=== PATIENT | male | born 1965 | race Caucasian/White ===

== ENCOUNTER → 2017-11-27 10:01 | Outpatient (CLI) | payer OTHER, SELFPAY ==
[2017-11-27 12:29] LABS: Absolute Lymphocyte Count 1.32 X10^3/ul (0.83-4.51); Basophil# 0.03 X10^3/uL; Basophil% 0.4 % (0-1); Eosinophil# 0.13 X10^3/uL; Eosinophils% 1.8 % (0-5); Hematocrit 44.2 % (40-54); Hemoglobin 14.6 g/dl (13.0-16.5); Lymphocyte # 1.32 X10^3/ul (4.0); Lymphocyte % 18.4 % (19-41); Mean Corpuscular Volume 87.9 fL (80-94); Mean Platelet Vol. 10.8 fl (6.2-12.0); Monocyte# 0.63 X10^3/uL; Monocyte% 8.8 % (0-10); Neutrophil # 5.04 X10^3/uL (2.7-7.7); Neutrophil % 70.5 % (47-70); Platelet Count 217 K/mm3 (150-450); RBC Distribution Width CV 12.7 % (11.6-14.6); RBC Distribution Width SD 40.4 fl (35.1-43.9); Red Blood Count 5.03 M/mm3 (4.6-6.2); White Blood Count 7.2 K/mm3 (4.4-11.0)
[2017-11-27 12:43] LABS: POSITIVE COUNT NO; POSITIVE DIFFERENTIAL NO; POSITIVE MORPHOLOGY NO
[2017-11-27 12:55] LABS: ALB/GLOB Ratio 1.1 RATIO (0.9-2.4); AST(SGOT) 13 U/L (15-37); Alanine Aminotransfer ALT/SGPT 22 U/L (16-61); Albumin, Serum 3.7 g/dL (3.2-5.0); Alkaline Phosphatase 54 U/L (45-117); Anion Gap 8 (5-15); BUN 23 mg/dL (7-18); BUN/Creat Ratio 17.3 RATIO (10-20); Calcium,Total 8.6 mg/dL (8.5-10.1); Chloride 104 mmol/L (98-107); Creatinine, Serum 1.33 mg/dL (0.70-1.30); EST Glomerular Filtration Rate 60 mL/min (>60); Est Glom Filt Rate - Afr Amer 73 mL/min (>60); Globulin 3.3 g/dL (2.2-4.2); Glucose 69 mg/dL (74-106); Potassium 3.8 mmol/L (3.5-5.1); Sodium Level 140 mmol/L (136-145)
== END ==
LOC: MTLAB 10:04
PROVIDERS: Visit Provider Internal Medicine Rheumatology
DX: M06.4 Inflammatory polyarthropathy (principal); L43.9 Lichen planus, unspecified; I10 Essential (primary) hypertension; E78.5 Hyperlipidemia, unspecified; J45.909 Unspecified asthma, uncomplicated; I89.0 Lymphedema, not elsewhere classified; E88.2 Lipomatosis, not elsewhere classified; Z79.899 Other long term (current) drug therapy
CPT/HCPCS: 36415; 80053; 85025

== ENCOUNTER → 2019-12-14 08:58 | Outpatient (CLI) | payer OTHER, SELFPAY ==
[2019-12-14 10:06] LABS: Absolute Lymphocyte Count 1.31 X10^3/uL (0.83-4.51); Absolute Neutrophil Count 4.8 X10^3/uL (2.0-7.7); Basophil# 0.04 X10^3/uL; Basophil% 0.6 % (0-1); Eosinophil# 0.13 X10^3/uL; Eosinophils% 1.9 % (0-5); Hematocrit 45.8 % (40-54); Hemoglobin 14.5 g/dL (13.0-16.5); Lymphocyte # 1.31 X10^3/ul (4.0); Lymphocyte % 19.3 % (19-41); Mean Corp Hgb Conc 31.7 g/dL (32-36); Mean Corpuscular Hgb 28.4 pg (27.0-32.0); Mean Corpuscular Volume 89.8 fL (80-94); Mean Platelet Vol. 10.6 fl (6.2-12.0); Monocyte# 0.48 X10^3/uL; Monocyte% 7.1 % (0-10); NRBC Flagged by Analyzer 0 % (0-5); Neutrophil # 4.81 X10^3/uL (2.7-7.7); Neutrophil % 70.8 % (47-70); Platelet Count 221 K/mm3 (150-450); RBC Distribution Width CV 12.7 % (11.6-14.6); White Blood Count 6.8 K/mm3 (4.4-11.0)
[2019-12-14 10:09] LABS: Color, Urine Yellow (Yellow); Glucose, Dipstick Normal (Normal); Ketone-Dipstick Negative (Negative); Leukocyte Esterase-Dipstick Negative /ul (Negative); Nitrite-Dipstick Negative (Negative); Occult Blood-Urine Negative /ul (Negative); Protein-Dipstick Negative (Negative); Specific Gravity, Urine 1.025 (1.002-1.030); Urine Bilirubin Dipstick Negative (Negative); Urine Clarity Sl. Cloudy (Clear); Urine Urobilinogen Normal (Normal)
[2019-12-14 10:25] LABS: ALB/GLOB Ratio 1.1 RATIO (0.9-2.4); AST(SGOT) 12 U/L (15-37); Alanine Aminotransfer ALT/SGPT 18 U/L (16-61); Albumin, Serum 3.8 g/dL (3.2-5.0); Alkaline Phosphatase 60 U/L (45-117); Anion Gap 4 (5-15); BUN 22 mg/dL (7-18); BUN/Creat Ratio 19.8 RATIO (10-20); Calcium,Total 8.8 mg/dL (8.5-10.1); Chloride 108 mmol/L (98-107); Cholesterol 272 mg/dL (200); Creatinine, Serum 1.11 mg/dL (0.70-1.30); EST Glomerular Filtration Rate 74 mL/min (>60); Est Glom Filt Rate - Afr Amer 89 mL/min (>60); Globulin 3.6 g/dL (2.2-4.2); Glucose 91 mg/dL (74-106); High Density Lipoprotein 42 mg/dL; PSA,Total - Annual Screen 0.34 ng/mL (0.00-4.00); Potassium 4.3 mmol/L (3.5-5.1); Protein, Total 7.4 g/dL (6.4-8.2); Sodium Level 142 mmol/L (136-145); Triglycerides 185 mg/dL; Very Low Density Lipoprotein 37 mg/dL (5-40)
== END ==
PROVIDERS: Referring Provider Family Medicine; Visit Provider Family Medicine
DX: Z00.00 Encounter for general adult medical examination without abnormal findings (principal); E78.5 Hyperlipidemia, unspecified; Z12.5 Encounter for screening for malignant neoplasm of prostate
CPT/HCPCS: 36415; 80053; 80061; 81002; 84153; 85025; G0103

== ENCOUNTER → 2022-03-04 | Outpatient (CLI) | payer OTHER, SELFPAY ==
--- NOTE | 2022-03-04 09:19 | RAD_ITS ---
STUDY: X-RAY - PELVIS AND LEFT HIP REASON FOR EXAM: Male, 56 years old. Hip pain. TECHNIQUE: 3 views of the pelvis and hip. COMPARISON: 10/15/2016. FINDINGS: There is a non-specific bowel gas pattern. Phleboliths. Normal bilateral iliac wings, sacroiliac joints and visualized sacrum. Normal bilateral superior and inferior pubic rami. Stable mild arthrosis of the symphysis pubis. Normal bilateral ischial tuberosities. Osteoarthrosis of both hips, left greater than right. Progression of left hip arthrodesis since the prior study. RAD/HIP, UNI W/ Pelvis 2-3 Views IMPRESSION: Progression of osteoarthrosis of the left hip since the prior study. No acute finding. Electronically Signed: Luis Eduardo Fernandez MD at 10:20 EDT ,
== END | disposition home or self-care (01) ==
LOC: MTRAD 09:15
PROVIDERS: Referring Provider Family Medicine; Visit Provider Family Medicine
DX: Z00.00 Encounter for general adult medical examination without abnormal findings (principal); M25.552 Pain in left hip; E78.00 Pure hypercholesterolemia, unspecified; I10 Essential (primary) hypertension
CPT/HCPCS: 73502

== ENCOUNTER → 2022-08-01 | Outpatient (CLI) | payer OTHER, SELFPAY ==
[2022-08-01 17:44] LABS: Absolute Lymphocyte Count 1.93 X10^3/uL (0.83-4.51); Absolute Neutrophil Count 4.9 X10^3/uL (2.0-7.7); Basophil# 0.08 X10^3/uL; Eosinophil# 0.36 X10^3/uL; Eosinophils% 4.5 % (0-5); Hematocrit 44.9 % (40-54); Hemoglobin 14.4 g/dL (13.0-16.5); Lymphocyte # 1.93 X10^3/ul (0.83-4.51); Lymphocyte % 24.1 % (19-41); Mean Corp Hgb Conc 32.1 g/dL (32-36); Mean Corpuscular Volume 90.3 fL (80-94); Mean Platelet Vol. 10.6 fl (6.2-12.0); Monocyte# 0.77 X10^3/uL; Monocyte% 9.6 % (0-10); NRBC Flagged by Analyzer 0 % (0-5); Neutrophil # 4.86 X10^3/uL (2.7-7.7); Neutrophil % 60.6 % (47-70); Platelet Count 227 K/mm3 (150-450); RBC Distribution Width CV 12.8 % (11.6-14.6); RBC Distribution Width SD 42.2 fl (35.1-43.9); Red Blood Count 4.97 M/mm3 (4.6-6.2)
[2022-08-01 17:48] LABS: Erythrocyte Sedimentation Rate 6 mm/hr (0-20)
[2022-08-01 17:51] LABS: AST(SGOT) 9 U/L (15-37); Alanine Aminotransfer ALT/SGPT 17 U/L (16-61); Albumin, Serum 3.5 g/dL (3.2-5.0); Alkaline Phosphatase 64 U/L (45-117); Anion Gap 7 (5-15); BUN 32 mg/dL (7-18); BUN/Creat Ratio 27.4 RATIO (10-20); Calcium,Total 8.7 mg/dL (8.5-10.1); Chloride 110 mmol/L (98-107); Creatinine, Serum 1.17 mg/dL (0.70-1.30); EST Glomerular Filtration Rate 69 mL/min (>60); Est Glom Filt Rate - Afr Amer 83 mL/min (>60); Globulin 3.5 g/dL (2.2-4.2); Glucose 90 mg/dL (74-106); Rheumatoid Factor < 10.0 IU/mL (<15); Sodium Level 142 mmol/L (136-145)
[2022-08-04 08:57] LABS: Hepatitis B Surface Antibody Non-Reactive; Hepatitis B Surface Antigen Non-Reactive (Nonreactive); Hepatitis C Antibody Non-Reactive (Nonreactive)
[2022-08-05 17:59] LABS: CCP IgG Antibodies 4 units (0-19)
== END | disposition home or self-care (01) ==
LOC: MTLAB 14:49
PROVIDERS: Referring Provider Internal Medicine Rheumatology; Visit Provider Internal Medicine Rheumatology
DX: L40.59 Other psoriatic arthropathy (principal); L40.8 Other psoriasis; M16.0 Bilateral primary osteoarthritis of hip; I10 Essential (primary) hypertension; J45.909 Unspecified asthma, uncomplicated; K21.9 Gastro-esophageal reflux disease without esophagitis; I89.0 Lymphedema, not elsewhere classified; M21.41 Flat foot [pes planus] (acquired), right foot; E78.5 Hyperlipidemia, unspecified; Z79.899 Other long term (current) drug therapy
CPT/HCPCS: 36415; 80053; 85025; 85652; 86140; 86200; 86431; 86706; 86803; 87340

== ENCOUNTER → 2022-10-30 | Outpatient (CLI) | payer BC, SELFPAY ==
[2022-10-30 12:15] LABS: Absolute Lymphocyte Count 1.62 X10^3/uL (0.83-4.51); Absolute Neutrophil Count 5.2 X10^3/uL (2.0-7.7); Basophil# 0.04 X10^3/uL; Basophil% 0.5 % (0-1); Eosinophil# 0.21 X10^3/uL; Eosinophils% 2.8 % (0-5); Hematocrit 42.4 % (40-54); Hemoglobin 13.7 g/dL (13.0-16.5); Lymphocyte # 1.62 X10^3/ul (0.83-4.51); Lymphocyte % 21.2 % (19-41); Mean Corp Hgb Conc 32.3 g/dL (32-36); Mean Corpuscular Hgb 30.2 pg (27.0-32.0); Mean Corpuscular Volume 93.6 fL (80-94); Mean Platelet Vol. 10.2 fl (6.2-12.0); Monocyte# 0.57 X10^3/uL; Monocyte% 7.5 % (0-10); NRBC Flagged by Analyzer 0 % (0-5); Neutrophil # 5.17 X10^3/uL (2.7-7.7); Neutrophil % 67.7 % (47-70); Platelet Count 237 K/mm3 (150-450); RBC Distribution Width CV 13.9 % (11.6-14.6); RBC Distribution Width SD 47.6 fl (35.1-43.9); Red Blood Count 4.53 M/mm3 (4.6-6.2); White Blood Count 7.6 K/mm3 (4.4-11.0)
[2022-10-30 12:52] LABS: AST(SGOT) 15 U/L (15-37); Alanine Aminotransfer ALT/SGPT 24 U/L (16-61); Albumin, Serum 3.4 g/dL (3.2-5.0); Alkaline Phosphatase 56 U/L (45-117); Anion Gap 7 (5-15); BUN 26 mg/dL (7-18); BUN/Creat Ratio 24.3 RATIO (10-20); Calcium,Total 8.8 mg/dL (8.5-10.1); Chloride 106 mmol/L (98-107); Creatinine, Serum 1.07 mg/dL (0.70-1.30); EST Glomerular Filtration Rate 76 mL/min (>60); Est Glom Filt Rate - Afr Amer 92 mL/min (>60); Globulin 3.3 g/dL (2.2-4.2); Glucose 111 mg/dL (74-106); Potassium 4.1 mmol/L (3.5-5.1); Protein, Total 6.7 g/dL (6.4-8.2); Sodium Level 141 mmol/L (136-145)
== END | disposition home or self-care (01) ==
PROVIDERS: Referring Provider Internal Medicine Rheumatology; Visit Provider Internal Medicine Rheumatology
DX: L40.59 Other psoriatic arthropathy (principal); Z79.899 Other long term (current) drug therapy
CPT/HCPCS: 36415; 80053; 85025

== ENCOUNTER → 2022-12-24 | Outpatient (CLI) | payer BC, SELFPAY ==
[2022-12-24 12:24] LABS: Absolute Lymphocyte Count 2.25 X10^3/uL (0.83-4.51); Absolute Neutrophil Count 4.3 X10^3/uL (2.0-7.7); Basophil# 0.06 X10^3/uL; Basophil% 0.8 % (0-1); Eosinophil# 0.24 X10^3/uL; Eosinophils% 3.2 % (0-5); Hematocrit 43.8 % (40-54); Hemoglobin 14.1 g/dL (13.0-16.5); Lymphocyte # 2.25 X10^3/ul (0.83-4.51); Lymphocyte % 29.9 % (19-41); Mean Corp Hgb Conc 32.2 g/dL (32-36); Mean Corpuscular Hgb 29.9 pg (27.0-32.0); Mean Corpuscular Volume 92.8 fL (80-94); Mean Platelet Vol. 10.4 fl (6.2-12.0); Monocyte# 0.71 X10^3/uL; Monocyte% 9.4 % (0-10); NRBC Flagged by Analyzer 0 % (0-5); Neutrophil # 4.25 X10^3/uL (2.7-7.7); Neutrophil % 56.4 % (47-70); Platelet Count 228 K/mm3 (150-450); RBC Distribution Width CV 12.6 % (11.6-14.6); RBC Distribution Width SD 43.5 fl (35.1-43.9); Red Blood Count 4.72 M/mm3 (4.6-6.2); White Blood Count 7.5 K/mm3 (4.4-11.0)
[2022-12-24 13:04] LABS: ALB/GLOB Ratio 1.1 RATIO (0.9-2.4); AST(SGOT) 12 U/L (15-37); Alanine Aminotransfer ALT/SGPT 21 U/L (16-61); Albumin, Serum 3.8 g/dL (3.2-5.0); Alkaline Phosphatase 61 U/L (45-117); Anion Gap 5 (5-15); BUN 27 mg/dL (7-18); BUN/Creat Ratio 21.8 RATIO (10-20); Calcium,Total 9.4 mg/dL (8.5-10.1); Chloride 105 mmol/L (98-107); Creatinine, Serum 1.24 mg/dL (0.70-1.30); EST Glomerular Filtration Rate 64 mL/min (>60); Est Glom Filt Rate - Afr Amer 78 mL/min (>60); Globulin 3.4 g/dL (2.2-4.2); Glucose 119 mg/dL (74-106); Potassium 3.8 mmol/L (3.5-5.1); Protein, Total 7.2 g/dL (6.4-8.2); Sodium Level 139 mmol/L (136-145)
== END | disposition home or self-care (01) ==
PROVIDERS: Referring Provider Internal Medicine Rheumatology; Visit Provider Internal Medicine Rheumatology
DX: L40.59 Other psoriatic arthropathy (principal); L40.8 Other psoriasis; Z79.899 Other long term (current) drug therapy
CPT/HCPCS: 36415; 80053; 85025

== ENCOUNTER → 2023-03-20 | Outpatient (CLI) | payer BC, SELFPAY ==
[2023-03-20 17:57] LABS: Absolute Lymphocyte Count 1.49 X10^3/uL (0.83-4.51); Absolute Neutrophil Count 4.9 X10^3/uL (2.0-7.7); Basophil# 0.05 X10^3/uL; Basophil% 0.7 % (0-1); Eosinophil# 0.18 X10^3/uL; Eosinophils% 2.6 % (0-5); Hematocrit 44.6 % (40-54); Hemoglobin 13.9 g/dL (13.0-16.5); Lymphocyte # 1.49 X10^3/ul (0.83-4.51); Lymphocyte % 21.2 % (19-41); Mean Corp Hgb Conc 31.2 g/dL (32-36); Mean Corpuscular Hgb 29.4 pg (27.0-32.0); Mean Corpuscular Volume 94.3 fL (80-94); Mean Platelet Vol. 10.4 fl (6.2-12.0); Monocyte# 0.36 X10^3/uL; Monocyte% 5.1 % (0-10); NRBC Flagged by Analyzer 0 % (0-5); Neutrophil # 4.91 X10^3/uL (2.7-7.7); Platelet Count 203 K/mm3 (150-450); RBC Distribution Width CV 13.5 % (11.6-14.6); RBC Distribution Width SD 46.3 fl (35.1-43.9); Red Blood Count 4.73 M/mm3 (4.6-6.2)
[2023-03-20 18:13] LABS: AST(SGOT) 9 U/L (15-37); Alanine Aminotransfer ALT/SGPT 17 U/L (16-61); Albumin, Serum 3.3 g/dL (3.2-5.0); Alkaline Phosphatase 55 U/L (45-117); Anion Gap 5 (5-15); BUN 22 mg/dL (7-18); BUN/Creat Ratio 19.6 RATIO (10-20); Calcium,Total 9.1 mg/dL (8.5-10.1); Chloride 108 mmol/L (98-107); Creatinine, Serum 1.12 mg/dL (0.70-1.30); EST Glomerular Filtration Rate 72 mL/min (>60); Est Glom Filt Rate - Afr Amer 87 mL/min (>60); Globulin 3.3 g/dL (2.2-4.2); Glucose 132 mg/dL (74-106); Potassium 4.1 mmol/L (3.5-5.1); Protein, Total 6.6 g/dL (6.4-8.2); Sodium Level 141 mmol/L (136-145)
== END | disposition home or self-care (01) ==
LOC: MTLAB 16:02
PROVIDERS: PCP Family Medicine; Referring Provider Internal Medicine Rheumatology; Visit Provider Internal Medicine Rheumatology
DX: L40.59 Other psoriatic arthropathy (principal); L40.8 Other psoriasis; Z79.899 Other long term (current) drug therapy
CPT/HCPCS: 36415; 80053; 85025

== ENCOUNTER → 2023-04-20 | Outpatient (CLI) | payer BC, SELFPAY ==
--- NOTE | 2023-04-20 16:34 | CT_ITS ---
EXAM: CT LEFT LOWER EXTREMITY WITHOUT INTRAVENOUS CONTRAST CLINICAL INDICATION: PRIMARY OSTEOARTHRITIS LEFT HIP *MEGHAN PROTOCOL* TECHNIQUE: Helically acquired images were obtained of the left lower extremity without intravenous contrast. 2-D reformats were performed by the technologist. CTDIvol = ( 14.07 ) mGy, DLP = ( 907.75 ) mGycm This CT exam was performed using one or more of the following dose reduction techniques: automated exposure control, adjustment of the mA and/or kV according to patient size, and/or use of iterative reconstruction technique. COMPARISON: No relevant prior studies available. FINDINGS: Preoperative planning study. BONES/JOINTS: Severe end-stage osteoarthrosis involving the left hip joint. Moderate degenerative changes involving the joints bilaterally. Degenerative changes of the lower lumbar spine, incompletely imaged. Moderate degenerative changes involving the right hip joint. No acute fracture. No subluxation. Normal alignment. SOFT TISSUES: Subcutaneous edema at or below the knee. No radiopaque foreign body. No soft tissue mass. VASCULATURE: Peripheral vascular calcifications. OTHER FINDINGS: No free fluid in the pelvis. No other acute or inflammatory disease. Small fat-containing right inguinal hernia. Moderate size of right Doe''s cyst. CT/Extremity Lower without Contra IMPRESSION: Preoperative planning study. Severe end-stage osteoarthrosis involving the left hip joint. Electronically Signed: Jonn Diaz MD at 23:25 EDT ,
== END | disposition home or self-care (01) ==
LOC: CT 16:32
PROVIDERS: PCP Family Medicine; Referring Provider Student in an Organized Health Care Education/Training Program; Visit Provider Student in an Organized Health Care Education/Training Program
DX: M16.12 Unilateral primary osteoarthritis, left hip (principal); M25.552 Pain in left hip
CPT/HCPCS: 71046; 73700

== ENCOUNTER 2023-05-07 06:08 | Day surgery (SDC) | payer BC, SELFPAY ==
--- NOTE | 2023-04-21 06:26 | EKG12_ITS ---
Test Reason : SURGERY Blood Pressure : / mmHG Vent. Rate : 049 BPM Atrial Rate : 049 BPM P-R Int : 146 ms QRS Dur : 102 ms QT Int : 442 ms P-R-T Axes : -03 -31 -01 degrees QTc Int : 399 ms Marked sinus bradycardia Left axis deviation Incomplete right bundle branch block Moderate voltage criteria for LVH, may be normal variant Abnormal ECG Confirmed by YUMI DAILEY, CONOR ([id number]), general expeditor EILEEN BARAHONA ([id number]) on 04/27/2023 12:26:26 PM Referred By: Stephon Mcgarry Confirmed By:CONOR EASON MD
--- NOTE | 2023-04-21 06:26 | RAD_ITS ---
EXAM: XR CHEST, 2 VIEWS CLINICAL INDICATION: PRE-OP TECHNIQUE: Frontal and lateral views of the chest. COMPARISON: September 16, 2016. FINDINGS: LUNGS AND PLEURAL SPACES: Minimal linear chronic lung changes. No infiltrate or effusion. No pneumothorax. HEART: Unremarkable. Cardiac silhouette not enlarged. MEDIASTINUM: Central airways and mediastinal contour are unremarkable. BONES/JOINTS: Unremarkable. SOFT TISSUES: Unremarkable. VASCULATURE: Mildly tortuous contour of descending thoracic aorta appears similar to prior exam. RAD/Chest PA and Lateral IMPRESSION: No acute intrathoracic abnormality. Electronically Signed: Jacinda Gay MD at 8:27 EDT ,
[2023-04-21 06:39] LABS: Absolute Lymphocyte Count 1.68 X10^3/uL (0.83-4.51); Absolute Neutrophil Count 3.6 X10^3/uL (2.0-7.7); Basophil# 0.04 X10^3/uL; Basophil% 0.7 % (0-1); Eosinophil# 0.24 X10^3/uL; Eosinophils% 3.9 % (0-5); Hematocrit 42.4 % (40-54); Hemoglobin 13.4 g/dL (13.0-16.5); Lymphocyte # 1.68 X10^3/ul (0.83-4.51); Lymphocyte % 27.5 % (19-41); Mean Corp Hgb Conc 31.6 g/dL (32-36); Mean Corpuscular Hgb 29.8 pg (27.0-32.0); Mean Corpuscular Volume 94.4 fL (80-94); Mean Platelet Vol. 10.4 fl (6.2-12.0); Monocyte# 0.53 X10^3/uL; Monocyte% 8.7 % (0-10); NRBC Flagged by Analyzer 0 % (0-5); Neutrophil # 3.59 X10^3/uL (2.7-7.7); Neutrophil % 58.9 % (47-70); Platelet Count 187 K/mm3 (150-450); RBC Distribution Width CV 12.8 % (11.6-14.6); RBC Distribution Width SD 44.3 fl (35.1-43.9); Red Blood Count 4.49 M/mm3 (4.6-6.2); White Blood Count 6.1 K/mm3 (4.4-11.0)
[2023-04-21 07:09] LABS: Magnesium 2.4 mg/dL (1.6-2.6)
[2023-04-21 07:10] LABS: Anion Gap 2 (5-15); BUN 23 mg/dL (7-18); BUN/Creat Ratio 18.4 RATIO (10-20); Calcium,Total 8.4 mg/dL (8.5-10.1); Chloride 113 mmol/L (98-107); Creatinine, Serum 1.25 mg/dL (0.70-1.30); EST Glomerular Filtration Rate 63 mL/min (>60); Est Glom Filt Rate - Afr Amer 77 mL/min (>60); Glucose 103 mg/dL (74-106); Potassium 4.1 mmol/L (3.5-5.1); Sodium Level 143 mmol/L (136-145)
[2023-05-07] VITALS (7 sets, daily range): BP systolic 102–133; BP diastolic 70–88; PULSE 61–88; RESP 16–18; TEMP 36.4–37.3; O2SAT 92–99; BMI 29.6
[2023-05-07] MEDS: Lactated Ringers 1,000 ML 15 ML IV (06:45)
[2023-05-07] MEDS: Lactated Ringers 1,000 ML 999 ML IV (07:06)
[2023-05-07] MEDS: Acetaminophen 500 MG Tablet 1000 MG PO (07:08)
[2023-05-07] MEDS: Gabapentin 600 MG Tablet PO (07:08)
[2023-05-07] MEDS: Celecoxib 200 MG Capsule 400 MG PO (07:08)
[2023-05-07] MEDS: Magnesium 1 GM over 15 mins IV (07:10)
--- NOTE | 2023-05-07 09:00 | HIP_PTH ---
PATIENT: ZOË AVILA LOC: [facility] [place] U#:[id number] AGE/SX: 57/M ROOM: RE05/07/[address]: Dr. Stephon Mcgarry DO : 1965 BED: DIS: 05/07/2023 SPEC #: [id number] RECD: 05/07/23 12:55 STATUS: LY REQ #: [id number] RIMMA: 05/07/23 09:[address]: Stephon Mcgarry DEPT: SURGICAL PATHOLOGY RECD BY: Natalia Umaña ENTERED: 05/07/23 13:35 SP TYPE: TOTAL HIP OTHR DR: Dr. Art Owens MD Tissues: Hip, NOS Procedures: Decalcification bone/plaque Surgery Specimen Level IV HEADER OPERATION: ERAS, total hip replacement robotic arm assist PRE-OP DIAGNOSIS: Left hip osteoarthritis TISSUE SUBMITTED: Left hip bone and tissue MICROSCOPIC DIAGNOSIS Bone and tissue of left hip, total hip resection: Severe degenerative joint disease. AM:elia 05/13/2023 MICROSCOPIC DESCRIPTION Slides are reviewed. GROSS DESCRIPTION Received is one container labeled with the patient's name and designated bone and soft tissue left hip. The specimen consists of a villaseñor femoral head (with portion of femoral neck). The femoral head measures 4.5 x 4.5 x 4.5 cm (and the femoral neck measures 1.5 cm in length.) The articular surface displays prominent osteophyte formation, eburnation and bone erosion. Also present in the specimen container are multiple irregular fragments of bone reamings and pink-yellow soft tissue consisting predominantly of bone reamings measuring in aggregate 8.0 x 7.0 x 2.0 cm. Waistline Joiner sections are submitted in two cassettes after decalcification.as follows: 1 - bone reamings and soft tissue, 2 - bone / SJ:elia 05/07/2023 TC:5 CPT: 91225, 46706
[2023-05-07] MEDS: Cefazolin 2 GM in 0.9% Normal Saline 100 ML IV (10:04)
[2023-05-07] MEDS: TXA 1000mg in NS100 100ml (IVPB at Incision) 660 MG IV (10:06)
[2023-05-07] MEDS: dexAMETHasone 10 MG/ML Vial IV (10:18)
[2023-05-07] MEDS: Lactated Ringers 1,000 ML 125 ML IV (11:25)
[2023-05-07] MEDS: JPS (Morphine 10mg/ml) OPERA.SITE (11:50)
[2023-05-07] MEDS: TXA 1000mg in NS100 100ml (IVPB at Closure) 660 MG IV (11:50)
[2023-05-07] MEDS: Cefazolin 1 GM/50 ML BAG IV (12:33)
--- NOTE | 2023-05-07 12:38 | DCINST_ITS ---
Discharge Instructions Follow Up Care Test Results: Test results from this visit will be discussed in further detail at your follow- up appointment, if applicable. Discharge Plan Admission Primary Reason for Your Visit: Left hip replacement Attending Provider: Stephon Mcgarry Primary Care Provider: Art Owens Instructions Additional Instructions / Restrictions: Follow preprinted instructions from your surgeons office. Discharge Orders/Prescriptions Prescriptions: New meloxicam 15 mg tablet 15 mg PO DAILY 30 Days Qty: 30 0RF No Action lisinopril 20 mg tablet 20 mg PO DAILY Patient Comments: TAKE 1 TABLET BY MOUTH EVERY DAY omeprazole 40 mg capsule,delayed release(DR/EC) 40 mg PO DAILY Patient Comments: TAKE 1 CAPSULE BY MOUTH EVERY DAY DIRECTED tramadol 50 mg tablet 50 mg PO Q8H PRN (Reason: pain) Patient Comments: TAKE 1 TABLET BY MOUTH THREE TIMES A DAY NEEDED albuterol sulfate 90 mcg/actuation HFA aerosol inhaler 2 puff INHALATION Q4H PRN (Reason: shortness of breath or wheezing) Patient Comments: INHALE 2 PUFFS INSTRUCTED EVERY 4 HOURS NEEDED FOR WHEEZING/SHORTNESS OF BREATH. budesonide-formoterol [Symbicort] 160-4.5 mcg/actuation HFA aerosol inhaler 2 puff INHALATION Q12H Patient Comments: INHALE 2 PUFFS INSTRUCTED TWICE DAILY. ibuprofen 200 mg capsule 400 mg PO Q6H Referrals / Follow Up: Stephon Mcgarry DO [Med Staff - Active Staff] - Art Owens MD [Primary Care Provider] - Disposition Disposition (needs filled in before D/C Order can be placed): Home, Self Care
--- NOTE | 2023-05-07 12:57 | PCM.OPRPT ---
Report of Operation Date of Procedure: 05/07/23 Description of Surgical Findings:: Preoperative diagnosis: Left hip primary osteoarthritis Postoperative diagnosis: Left hip primary osteoarthritis Procedure: Robotic assisted left total hip arthroplasty Surgeon: Stephon Mcgarry DO Film Booker: Francisca Robles PA-C Anesthesia: Spinal with sedation Anesthesiologist: Cecilio Do MD Complications: None apparent Drains: None Estimated blood loss: 200 cc Urinary output: none recorded IV fluids: 900 cc crystalloid Specimens: Femoral head Surgical implants: [place] Accolade two 127 degree neck angle hip stem size #6, Biolox delta ceramic V 40 femoral head 36 mm outer diameter +2.5 mm neck length, Cristina Trident X3 10 degree polyethylene insert, Trident 2 TriTanium cluster hole acetabular shell 52 mm diameter Indications: This is an 57-year-old male seen in the outpatient setting for left hip pain. X-rays revealed severe left hip osteoarthritis. He failed oral apkh-dnz-lovtchs analgesics including NSAIDs and Tylenol, activity modification. I recommended surgical intervention the form of left total hip arthroplasty. I reviewed the procedure with the patient, its risk, benefits, alternatives. Risks included but were not limited to bleeding, infection, loss of life or limb, risk of anesthesia, neurovascular injury, persistent pain, instability, need for additional surgery, failure of orthopedic hardware, loosening, osteolysis, need for assistive devices long-term, leg length discrepancy. Patient expressed understanding wish to proceed with surgery. Description of procedure: I greeted the patient in same-day surgery holding area the day of surgery. He was identified by name, medical record number, and date of . All questions were answered to patient satisfaction. The operative extremity was marked with a surgical marker. Informed consent was confirmed with the patient. Patient underwent spinal anesthetic in the PACU prior to the procedure. At time of his procedure, patient brought the operative suite and positioned supine initially on a standard operating table. Gentle MAC anesthesia was administered. Patient was then positioned in a lateral decubitus position with the left side up. An axillary roll was placed under the patient's right axilla. The right fibular head was free. We then prepped and draped the left lower extremity in normal, sterile orthopedic fashion. Prior to the procedure, the [facility] plan was reviewed and appeared appropriate based on the patient's CT scan and anatomy. We performed a timeout with all parties in attendance in agreement with the side, site, and operation to be performed. No concerns were voiced and we elected to proceed. 1 g TXA IV as well as 2 g Ancef was administered prior to the incision by anesthesia staff. 1 g TXA IV was administered at time of closure additionally. I first elected to place our pelvic array with a curvilinear incision over the iliac crest just posterior to the ASIS. I bluntly dissected down the level of the periosteum. I then drilled 3 intracortical pins with excellent cortical purchase. Pelvic array was then assembled and positioned appropriately. I then turned my attention to the hip. A standard posterior lateral incision was made curvilinear over the posterior lateral hip, centered on the tip of the greater trochanter. Full-thickness skin incision was made, approximately 12 cm in length. I sharply dissected down the level of the fascia kylie. Fascia kylie was then incised in line with the incision. I bluntly dissected through the raphae of the gluteus evette. Femoral checkpoint was placed at this point. We then registered her femoral anatomy prior to dislocating the hip. I then internally rotated the hip. Limited gluteal bursectomy was performed to identify the short external rotators. A Cobra retractor was placed in his gluteus medius. Short external rotators were taken down with Bovie cautery and tagged for later repair with #2 Ethibond suture. This identified the underlying capsule. A hockey-stick shaped capsulotomy was made over the femoral neck carried posteriorly to the acetabular labrum. Labrum was released and the hip was dislocated. I then marked a standard femoral neck cut 1 fingerbreadth above the lesser trochanter. Sagittal saw was used to carefully cut the femoral neck. Femoral head was removed and examined and appeared benign. It was sent to pathology per hospital policy. I then turned my attention to the acetabulum. Cobra retractors were placed anterior and posteriorly. Self-retaining retractor was placed superiorly. Acetabular labrum was excised with a long handled knife. Acetabular pulmonary was excised with Bovie cautery. Hemostasis was excellent at this point. I then registered the acetabulum with the Tecnoblu robot successfully. I then brought in the Randy robot with the acetabular reaming arm to a size 52. This was reamed and the planned position to the planned depth. Reamer was then removed. There was excellent bleeding bone at the base and excellent remaining anterior posterior lennon of the acetabulum. 52 mm acetabular component was selected for and attached to the feeder tender arm of the robot. I placed the acetabular component near planned position before attaching to the robot. The robot then held the acetabular shell in position while I impacted it to an appropriate depth. The acetabular cup was then removed from the robotic arm. It had excellent rim fit. I then selected a 10 degree posterior lipped liner and impacted this per advertising coordinator recommendations. I then turned my attention to the femur. Box chisel was then utilized to gain access to the femoral canal and remove remaining femoral neck. Canal sounding reamer was placed. Sequential broaches were used and press-fit manner. A final size 6 achieved excellent vertical and rotational stability. We then trialed with a 127 degree hip stem as templated. A + 2.5 mm trial was then reduced. There is excellent stability throughout arc of motion. Leg length was increased from preoperatively, however the left lower extremity was still shorter than the right. I dislocated the hip. I attempted to retrial with a +5 mm trial, however the hip was not able to be reduced. We elected to proceed final neck length of +2.5 mm. Trials were then removed. We copiously irrigated the wound with normal saline solution, Betadine solution, and irrisept solution. A size 6 stem was then impacted with excellent fixation. Final head was then impacted over clean, dry Mckinnon taper neck. Final reduction was performed. A posterior capsular repair was performed with #2 Ethibond suture and bone tunnels, as well as the short external rotator repair. Femoral checkpoint was removed. Pelvic array pins were removed. IT band was closed watertight with #1 strata fix suture. Deeper fascial layers were closed with 0 Vicryl suture in interrupted fashion. Subcutaneous layers were reapproximated with 2-0 Vicryl suture and skin reapproximated with running subcuticular 3-0 strata fix and skin glue. Pelvic array incision was closed with buried 2-0 Vicryl suture and skin glue.. A silver dressing was applied. Patient tolerated procedure well without complication. He was positioned back in the supine position on his hospital bed. He was transferred to PACU in stable condition. A pillow was placed between the patient's leg to be present while he is in bed. Need for skilled front office medical assistant: Francisca Robles PA-C was critical to the outcome of the case. During the course of the procedure the physician front office medical assistant played a vital role. Her intimate knowledge of my steps in the procedure aided in safe and expedient completion of the procedure. The PA played a vital role in positioning particularly in obtaining the appropriate positioning. The PA was also vital in the retraction of soft tissues during the exposure and protecting vital structures. The PA was also vital and protecting soft tissues during times of bony cuts. She also played a vital role in closure with my direct supervision. The PA was also important during reduction and dislocation of the joint and trials intraoperatively. Post Operative Plan: Patient will be mobilized with nursing staff and physical therapy today. Plan for outpatient discharge today once meeting same-day surgery criteria. 1 dose of IV Ancef prior to discharge. Given patient's chronic lymphedema on the left lower extremity, we will plan for 2 weeks prophylactic doxycycline. Weightbearing: Weightbearing as tolerated left lower extremity, posterior hip precautions. Pillows between legs while in bed Antibiotics: Ancef prior to discharge, doxycycline x14 days DVT Prophylaxis: Aspirin 81 mg twice daily to start tomorrow Fagan: None Dressing: Maintain silver dressing x 5 days X-Rays: PACU x-rays were reviewed demonstrated well-positioned left total hip arthroplasty implant. Follow-up 2-week x-rays in the office. Follow-up: 2 weeks in my office as scheduled
--- NOTE | 2023-05-07 13:05 | RAD_ITS ---
STUDY: X-RAY - PELVIS AND LEFT HIP REASON FOR EXAM: Male, 57 years old. Left total hip arthroplasty. Postsurgical evaluation. TECHNIQUE: Left hip x-rays dated March 04, 2022. views of the pelvis and hip. COMPARISON: None. FINDINGS: There is a total hip arthroplasty in anatomic alignment with expected post-operative findings. There are no complications noted. RAD/Hip Min 2 Views (Portable) IMPRESSION: Placement of total hip arthroplasty in anatomic alignment without complications. Electronically Signed: Luis Eduardo Fernandez MD at 13:29 EDT ,
[2023-05-07 23:55] LABS: Bedside Glucose 109 mg/dL (74-106)
== END 2023-05-07 17:16 | disposition home or self-care (01) ==
LOC: SDC 06:11 → AC 06:12
PROVIDERS: Anesthesiology; PCP Family Medicine; Referring Provider Student in an Organized Health Care Education/Training Program; Visit Provider Student in an Organized Health Care Education/Training Program
PROC: 8E0Y0CZ Robotic Assisted Procedure of Lower Extremity, Open Approach (ICD-10-PCS; CPT 27130; principal; 2023-05-07 08:30)
DX: M16.12 Unilateral primary osteoarthritis, left hip (principal); L40.50 Arthropathic psoriasis, unspecified; I10 Essential (primary) hypertension; E78.00 Pure hypercholesterolemia, unspecified; Z79.899 Other long term (current) drug therapy
CPT/HCPCS: 27130; S2900; 01214; 36415; 73502; 80048; 82040; 82962; 83036; 83735; 85025; 87081; 88305; 88311; 93005; 97162; C1776; J7120; J2405; J3475

== ENCOUNTER → 2023-06-04 | Outpatient (CLI) | payer BC, SELFPAY ==
[2023-06-04 10:14] LABS: Absolute Lymphocyte Count 1.31 X10^3/uL (0.83-4.51); Absolute Neutrophil Count 3.8 X10^3/uL (2.0-7.7); Basophil# 0.06 X10^3/uL; Eosinophil# 0.16 X10^3/uL; Eosinophils% 2.7 % (0-5); Hematocrit 41.4 % (40-54); Hemoglobin 13.3 g/dL (13.0-16.5); Lymphocyte # 1.31 X10^3/ul (0.83-4.51); Lymphocyte % 22.5 % (19-41); Mean Corp Hgb Conc 32.1 g/dL (32-36); Mean Corpuscular Volume 90.2 fL (80-94); Mean Platelet Vol. 10.1 fl (6.2-12.0); Monocyte# 0.47 X10^3/uL; Monocyte% 8.1 % (0-10); NRBC Flagged by Analyzer 0 % (0-5); Neutrophil # 3.81 X10^3/uL (2.7-7.7); Neutrophil % 65.5 % (47-70); Platelet Count 265 K/mm3 (150-450); RBC Distribution Width CV 12.9 % (11.6-14.6); RBC Distribution Width SD 41.9 fl (35.1-43.9); Red Blood Count 4.59 M/mm3 (4.6-6.2); White Blood Count 5.8 K/mm3 (4.4-11.0)
[2023-06-04 10:49] LABS: ALB/GLOB Ratio 0.9 RATIO (0.9-2.4); AST(SGOT) 17 U/L (15-37); Alanine Aminotransfer ALT/SGPT 40 U/L (16-61); Albumin, Serum 3.5 g/dL (3.2-5.0); Alkaline Phosphatase 75 U/L (45-117); Anion Gap 5 (5-15); BUN 30 mg/dL (7-18); BUN/Creat Ratio 27.5 RATIO (10-20); Calcium,Total 9.5 mg/dL (8.5-10.1); Chloride 105 mmol/L (98-107); Creatinine, Serum 1.09 mg/dL (0.70-1.30); EST Glomerular Filtration Rate 74 mL/min (>60); Est Glom Filt Rate - Afr Amer 90 mL/min (>60); Globulin 3.7 g/dL (2.2-4.2); Glucose 102 mg/dL (74-106); Potassium 4.5 mmol/L (3.5-5.1); Protein, Total 7.2 g/dL (6.4-8.2); Sodium Level 138 mmol/L (136-145)
== END | disposition home or self-care (01) ==
LOC: MTLAB 07:53
PROVIDERS: PCP Family Medicine; Visit Provider Internal Medicine Rheumatology
DX: L40.59 Other psoriatic arthropathy (principal); L40.8 Other psoriasis; Z79.899 Other long term (current) drug therapy
CPT/HCPCS: 36415; 80053; 85025

== ENCOUNTER → 2023-09-08 | Outpatient (CLI) | payer BC, SELFPAY ==
[2023-09-08 10:13] LABS: Absolute Lymphocyte Count 1.56 X10^3/uL (0.83-4.51); Absolute Neutrophil Count 3.3 X10^3/uL (2.0-7.7); Basophil# 0.06 X10^3/uL; Basophil% 1.1 % (0-1); Eosinophil# 0.22 X10^3/uL; Hematocrit 47.1 % (40-54); Hemoglobin 14.3 g/dL (13.0-16.5); Lymphocyte # 1.56 X10^3/ul (0.83-4.51); Lymphocyte % 28.5 % (19-41); Mean Corp Hgb Conc 30.4 g/dL (32-36); Mean Corpuscular Volume 88.9 fL (80-94); Mean Platelet Vol. 10.5 fl (6.2-12.0); Monocyte% 5.5 % (0-10); NRBC Flagged by Analyzer 0 % (0-5); Neutrophil # 3.33 X10^3/uL (2.7-7.7); Neutrophil % 60.7 % (47-70); Platelet Count 245 K/mm3 (150-450); RBC Distribution Width CV 13.3 % (11.6-14.6); RBC Distribution Width SD 43.5 fl (35.1-43.9); White Blood Count 5.5 K/mm3 (4.4-11.0)
[2023-09-08 11:16] LABS: AST(SGOT) 11 U/L (15-37); Alanine Aminotransfer ALT/SGPT 18 U/L (16-61); Albumin, Serum 3.5 g/dL (3.2-5.0); Alkaline Phosphatase 67 U/L (45-117); Anion Gap 3 (5-15); BUN 20 mg/dL (7-18); BUN/Creat Ratio 18.5 RATIO (10-20); Calcium,Total 8.9 mg/dL (8.5-10.1); Chloride 105 mmol/L (98-107); Creatinine, Serum 1.08 mg/dL (0.70-1.30); EST Glomerular Filtration Rate 75 mL/min (>60); Est Glom Filt Rate - Afr Amer 91 mL/min (>60); Globulin 3.5 g/dL (2.2-4.2); Glucose 107 mg/dL (74-106); Potassium 4.1 mmol/L (3.5-5.1); Sodium Level 139 mmol/L (136-145)
== END | disposition home or self-care (01) ==
LOC: MTLAB 07:05
PROVIDERS: PCP Family Medicine; Referring Provider Internal Medicine Rheumatology; Visit Provider Internal Medicine Rheumatology
DX: L40.59 Other psoriatic arthropathy (principal); L40.8 Other psoriasis; M16.0 Bilateral primary osteoarthritis of hip; Z79.899 Other long term (current) drug therapy
CPT/HCPCS: 36415; 80053; 85025

== ENCOUNTER → 2024-01-04 | Outpatient (CLI) | payer BC, SELFPAY ==
[2024-01-04 18:15] LABS: Absolute Lymphocyte Count 1.05 X10^3/uL (0.83-4.51); Absolute Neutrophil Count 3.6 X10^3/uL (2.0-7.7); Basophil# 0.03 X10^3/uL; Basophil% 0.6 % (0-1); Eosinophil# 0.19 X10^3/uL; Eosinophils% 3.7 % (0-5); Hematocrit 42.1 % (40-54); Hemoglobin 13.4 g/dL (13.0-16.5); Lymphocyte # 1.05 X10^3/ul (0.83-4.51); Lymphocyte % 20.2 % (19-41); Mean Corp Hgb Conc 31.8 g/dL (32-36); Mean Corpuscular Hgb 28.6 pg (27.0-32.0); Mean Platelet Vol. 10.3 fl (6.2-12.0); Monocyte# 0.35 X10^3/uL; Monocyte% 6.7 % (0-10); NRBC Flagged by Analyzer 0 % (0-5); Neutrophil # 3.55 X10^3/uL (2.7-7.7); Neutrophil % 68.4 % (47-70); Platelet Count 217 K/mm3 (150-450); RBC Distribution Width CV 13.7 % (11.6-14.6); RBC Distribution Width SD 44.8 fl (35.1-43.9); Red Blood Count 4.68 M/mm3 (4.6-6.2); White Blood Count 5.2 K/mm3 (4.4-11.0)
[2024-01-04 18:35] LABS: ALB/GLOB Ratio 1.1 RATIO (0.9-2.4); AST(SGOT) 12 U/L (15-37); Alanine Aminotransfer ALT/SGPT 20 U/L (16-61); Albumin, Serum 3.5 g/dL (3.2-5.0); Alkaline Phosphatase 58 U/L (45-117); Anion Gap 4 (5-15); BUN 16 mg/dL (7-18); BUN/Creat Ratio 16.1 RATIO (10-20); Calcium,Total 8.8 mg/dL (8.5-10.1); Chloride 105 mmol/L (98-107); EST Glomerular Filtration Rate 82 mL/min (>60); Est Glom Filt Rate - Afr Amer 100 mL/min (>60); Globulin 3.2 g/dL (2.2-4.2); Glucose 100 mg/dL (74-106); Potassium 3.8 mmol/L (3.5-5.1); Protein, Total 6.7 g/dL (6.4-8.2); Sodium Level 140 mmol/L (136-145)
== END | disposition home or self-care (01) ==
LOC: MTLAB 16:26
PROVIDERS: PCP Family Medicine; Referring Provider Internal Medicine Rheumatology; Visit Provider Internal Medicine Rheumatology
DX: L40.59 Other psoriatic arthropathy (principal); L40.8 Other psoriasis; M16.0 Bilateral primary osteoarthritis of hip; I10 Essential (primary) hypertension; J45.909 Unspecified asthma, uncomplicated; K21.9 Gastro-esophageal reflux disease without esophagitis; I89.0 Lymphedema, not elsewhere classified; M21.41 Flat foot [pes planus] (acquired), right foot; E78.5 Hyperlipidemia, unspecified; Z79.899 Other long term (current) drug therapy
CPT/HCPCS: 36415; 80053; 85025

== ENCOUNTER → 2024-03-25 | Outpatient (CLI) | payer BC, SELFPAY ==
[2024-03-25 10:10] LABS: Absolute Lymphocyte Count 1.84 X10^3/uL (0.83-4.51); Basophil# 0.07 X10^3/uL; Basophil% 0.8 % (0-1); Eosinophil# 0.15 X10^3/uL; Eosinophils% 1.7 % (0-5); Hematocrit 46.1 % (40-54); Hemoglobin 14.7 g/dL (13.0-16.5); Lymphocyte # 1.84 X10^3/ul (0.83-4.51); Mean Corp Hgb Conc 31.9 g/dL (32-36); Mean Corpuscular Hgb 28.1 pg (27.0-32.0); Mean Corpuscular Volume 88.1 fL (80-94); Mean Platelet Vol. 10.5 fl (6.2-12.0); Monocyte# 0.65 X10^3/uL; Monocyte% 7.4 % (0-10); NRBC Flagged by Analyzer 0 % (0-5); Neutrophil # 6.01 X10^3/uL (2.7-7.7); Neutrophil % 68.6 % (47-70); Platelet Count 259 K/mm3 (150-450); RBC Distribution Width CV 13.4 % (11.6-14.6); RBC Distribution Width SD 43.2 fl (35.1-43.9); Red Blood Count 5.23 M/mm3 (4.6-6.2); White Blood Count 8.8 K/mm3 (4.4-11.0)
[2024-03-25 11:13] LABS: ALB/GLOB Ratio 1.1 RATIO (0.9-2.4); AST(SGOT) 16 U/L (15-37); Alanine Aminotransfer ALT/SGPT 20 U/L (16-61); Albumin, Serum 3.8 g/dL (3.2-5.0); Alkaline Phosphatase 73 U/L (45-117); Anion Gap 9 (5-15); BUN 23 mg/dL (7-18); Calcium,Total 9.2 mg/dL (8.5-10.1); Chloride 105 mmol/L (98-107); Creatinine, Serum 1.28 mg/dL (0.70-1.30); EST Glomerular Filtration Rate 62 mL/min (>60); Est Glom Filt Rate - Afr Amer 74 mL/min (>60); Globulin 3.5 g/dL (2.2-4.2); Glucose 93 mg/dL (74-106); Potassium 4.1 mmol/L (3.5-5.1); Protein, Total 7.3 g/dL (6.4-8.2); Sodium Level 137 mmol/L (136-145)
== END | disposition home or self-care (01) ==
LOC: MTLAB 07:14
PROVIDERS: PCP Family Medicine; Referring Provider Internal Medicine Rheumatology; Visit Provider Internal Medicine Rheumatology
DX: L40.59 Other psoriatic arthropathy (principal); Z79.899 Other long term (current) drug therapy
CPT/HCPCS: 36415; 80053; 85025

== ENCOUNTER → 2024-07-06 | Outpatient (CLI) | payer BC, SELFPAY ==
[2024-07-06 11:05] LABS: ALB/GLOB Ratio 1.1 RATIO (0.9-2.4); AST(SGOT) 17 U/L (15-37); Alanine Aminotransfer ALT/SGPT 17 U/L (16-61); Albumin, Serum 3.8 g/dL (3.2-5.0); Alkaline Phosphatase 65 U/L (45-117); Anion Gap 7 (5-15); BUN 35 mg/dL (7-18); BUN/Creat Ratio 17.8 RATIO (10-20); Calcium,Total 9.2 mg/dL (8.5-10.1); Chloride 106 mmol/L (98-107); Creatinine, Serum 1.97 mg/dL (0.70-1.30); EST Glomerular Filtration Rate 37 mL/min (>60); Est Glom Filt Rate - Afr Amer 45 mL/min (>60); Globulin 3.4 g/dL (2.2-4.2); Glucose 98 mg/dL (74-106); Protein, Total 7.2 g/dL (6.4-8.2); Sodium Level 136 mmol/L (136-145)
[2024-07-06 12:03] LABS: Absolute Lymphocyte Count 1.47 X10^3/uL (0.83-4.51); Absolute Neutrophil Count 6.9 X10^3/uL (2.0-7.7); Basophil# 0.07 X10^3/uL; Basophil% 0.7 % (0-1); Eosinophils% 2.1 % (0-5); Lymphocyte # 1.47 X10^3/ul (0.83-4.51); Lymphocyte % 15.7 % (19-41); Mean Corp Hgb Conc 31.8 g/dL (32-36); Mean Corpuscular Hgb 28.8 pg (27.0-32.0); Mean Corpuscular Volume 90.5 fL (80-94); Mean Platelet Vol. 10.8 fl (6.2-12.0); Monocyte# 0.69 X10^3/uL; Monocyte% 7.4 % (0-10); NRBC Flagged by Analyzer 0 % (0-5); Neutrophil % 73.8 % (47-70); Platelet Count 248 K/mm3 (150-450); RBC Distribution Width CV 13.6 % (11.6-14.6); RBC Distribution Width SD 45.2 fl (35.1-43.9); Red Blood Count 4.86 M/mm3 (4.6-6.2); White Blood Count 9.4 K/mm3 (4.4-11.0)
== END | disposition home or self-care (01) ==
LOC: MTLAB 09:09
PROVIDERS: PCP Family Medicine; Referring Provider Internal Medicine Rheumatology; Visit Provider Internal Medicine Rheumatology
DX: L40.59 Other psoriatic arthropathy (principal); L40.8 Other psoriasis; M16.0 Bilateral primary osteoarthritis of hip; Z79.899 Other long term (current) drug therapy
CPT/HCPCS: 36415; 80053; 85025

== ENCOUNTER → 2024-08-04 | Outpatient (CLI) | payer BC, SELFPAY ==
[2024-08-04 10:20] LABS: Absolute Neutrophil Count 4.3 X10^3/uL (2.0-7.7); Basophil# 0.06 X10^3/uL; Basophil% 0.9 % (0-1); Eosinophil# 0.19 X10^3/uL; Eosinophils% 2.8 % (0-5); Hematocrit 42.8 % (40-54); Hemoglobin 13.4 g/dL (13.0-16.5); Lymphocyte % 24.9 % (19-41); Mean Corp Hgb Conc 31.3 g/dL (32-36); Mean Corpuscular Hgb 28.6 pg (27.0-32.0); Mean Corpuscular Volume 91.5 fL (80-94); Mean Platelet Vol. 10.5 fl (6.2-12.0); Monocyte# 0.58 X10^3/uL; Monocyte% 8.5 % (0-10); NRBC Flagged by Analyzer 0 % (0-5); Neutrophil # 4.28 X10^3/uL (2.7-7.7); Neutrophil % 62.6 % (47-70); Platelet Count 238 K/mm3 (150-450); RBC Distribution Width SD 43.5 fl (35.1-43.9); Red Blood Count 4.68 M/mm3 (4.6-6.2); White Blood Count 6.8 K/mm3 (4.4-11.0)
[2024-08-04 10:41] LABS: ALB/GLOB Ratio 1.1 RATIO (0.9-2.4); AST(SGOT) 12 U/L (15-37); Alanine Aminotransfer ALT/SGPT 15 U/L (16-61); Albumin, Serum 3.6 g/dL (3.2-5.0); Alkaline Phosphatase 57 U/L (45-117); Anion Gap 4 (5-15); BUN 30 mg/dL (7-18); Calcium,Total 8.9 mg/dL (8.5-10.1); Chloride 110 mmol/L (98-107); EST Glomerular Filtration Rate 66 mL/min (>60); Est Glom Filt Rate - Afr Amer 80 mL/min (>60); Globulin 3.4 g/dL (2.2-4.2); Glucose 103 mg/dL (74-106); Potassium 3.9 mmol/L (3.5-5.1); Sodium Level 140 mmol/L (136-145)
== END | disposition home or self-care (01) ==
PROVIDERS: PCP Family Medicine; Referring Provider Internal Medicine Rheumatology; Visit Provider Internal Medicine Rheumatology
DX: M16.0 Bilateral primary osteoarthritis of hip (principal); L40.59 Other psoriatic arthropathy; Z79.899 Other long term (current) drug therapy
CPT/HCPCS: 36415; 80053; 85025

== ENCOUNTER → 2024-10-14 | Outpatient (CLI) | payer BC, SELFPAY ==
[2024-10-14 12:00] LABS: Absolute Lymphocyte Count 1.43 X10^3/uL (0.83-4.51); Absolute Neutrophil Count 4.7 X10^3/uL (2.0-7.7); Basophil# 0.05 X10^3/uL; Basophil% 0.7 % (0-1); Eosinophil# 0.16 X10^3/uL; Eosinophils% 2.3 % (0-5); Hematocrit 41.4 % (40-54); Hemoglobin 13.3 g/dL (13.0-16.5); Lymphocyte # 1.43 X10^3/ul (0.83-4.51); Mean Corp Hgb Conc 32.1 g/dL (32-36); Mean Corpuscular Hgb 28.9 pg (27.0-32.0); Mean Platelet Vol. 10.1 fl (6.2-12.0); Monocyte# 0.49 X10^3/uL; Monocyte% 7.2 % (0-10); NRBC Flagged by Analyzer 0 % (0-5); Neutrophil # 4.67 X10^3/uL (2.7-7.7); Neutrophil % 68.5 % (47-70); Platelet Count 221 K/mm3 (150-450); RBC Distribution Width CV 13.3 % (11.6-14.6); RBC Distribution Width SD 43.5 fl (35.1-43.9); White Blood Count 6.8 K/mm3 (4.4-11.0)
[2024-10-14 12:26] LABS: ALB/GLOB Ratio 1.1 RATIO (0.9-2.4); AST(SGOT) < 3 U/L (15-37); Alanine Aminotransfer ALT/SGPT 20 U/L (16-61); Albumin, Serum 3.5 g/dL (3.2-5.0); Alkaline Phosphatase 57 U/L (45-117); Anion Gap 3 (5-15); BUN 23 mg/dL (7-18); BUN/Creat Ratio 18.9 RATIO (10-20); Calcium,Total 8.6 mg/dL (8.5-10.1); Chloride 112 mmol/L (98-107); Creatinine, Serum 1.22 mg/dL (0.70-1.30); EST Glomerular Filtration Rate 65 mL/min (>60); Est Glom Filt Rate - Afr Amer 79 mL/min (>60); Globulin 3.1 g/dL (2.2-4.2); Glucose 91 mg/dL (74-106); Potassium 3.9 mmol/L (3.5-5.1); Protein, Total 6.6 g/dL (6.4-8.2); Sodium Level 143 mmol/L (136-145)
== END | disposition home or self-care (01) ==
LOC: MTLAB 10:30
PROVIDERS: PCP Family Medicine; Referring Provider Internal Medicine Rheumatology; Visit Provider Internal Medicine Rheumatology
DX: L40.59 Other psoriatic arthropathy (principal); Z79.899 Other long term (current) drug therapy
CPT/HCPCS: 36415; 80053; 85025

== ENCOUNTER → 2025-01-06 | Outpatient (CLI) | payer BC, SELFPAY ==
[2025-01-06 10:44] LABS: Absolute Lymphocyte Count 1.57 X10^3/uL (0.83-4.51); Absolute Neutrophil Count 4.2 X10^3/uL (2.0-7.7); Basophil# 0.06 X10^3/uL; Basophil% 0.9 % (0-1); Eosinophil# 0.18 X10^3/uL; Eosinophils% 2.8 % (0-5); Hematocrit 44.2 % (40-54); Hemoglobin 14.1 g/dL (13.0-16.5); Lymphocyte # 1.57 X10^3/ul (0.83-4.51); Lymphocyte % 24.1 % (19-41); Mean Corp Hgb Conc 31.9 g/dL (32-36); Mean Corpuscular Hgb 28.5 pg (27.0-32.0); Mean Corpuscular Volume 89.5 fL (80-94); Mean Platelet Vol. 10.6 fl (6.2-12.0); Monocyte# 0.45 X10^3/uL; Monocyte% 6.9 % (0-10); NRBC Flagged by Analyzer 0 % (0-5); Neutrophil # 4.23 X10^3/uL (2.7-7.7); Platelet Count 231 K/mm3 (150-450); RBC Distribution Width CV 12.9 % (11.6-14.6); RBC Distribution Width SD 41.8 fl (35.1-43.9); Red Blood Count 4.94 M/mm3 (4.6-6.2); White Blood Count 6.5 K/mm3 (4.4-11.0)
[2025-01-06 11:35] LABS: ALB/GLOB Ratio 1.5 RATIO (0.9-2.4); AST(SGOT) 15 U/L (<=37); Alanine Aminotransfer ALT/SGPT 12 U/L (<=46); Albumin, Serum 4.2 g/dL (3.5-5.0); Alkaline Phosphatase 60 U/L (40-129); Anion Gap 12 (5-15); BUN 21 mg/dL (4-19); BUN/Creat Ratio 18.9 RATIO (10-20); Calcium,Total 9.1 mg/dL (7.6-11.0); Carbon Dioxide 23.7 mmol/L (21.0-32.0); Chloride 105 mmol/L (98-108); Creatinine, Serum 1.12 mg/dL (0.70-1.20); EST Glomerular Filtration Rate 76 (>60); Globulin 2.8 g/dL (2.2-4.2); Glucose 89 mg/dL (70-99); Potassium 4.5 mmol/L (3.3-5.1); Protein, Total 6.9 g/dL (5.9-8.4); Sodium Level 141 mmol/L (133-145); Total Bilirubin 0.31 mg/dL (0.00-1.30)
== END | disposition home or self-care (01) ==
LOC: MTLAB 07:26
PROVIDERS: PCP Family Medicine; Referring Provider Internal Medicine Rheumatology; Visit Provider Internal Medicine Rheumatology
DX: L40.8 Other psoriasis (principal); L40.59 Other psoriatic arthropathy; Z79.899 Other long term (current) drug therapy
CPT/HCPCS: 36415; 80053; 85025

== ENCOUNTER → 2025-04-03 | Outpatient (CLI) | payer BC, SELFPAY ==
[2025-04-03 12:42] LABS: Absolute Lymphocyte Count 1.63 X10^3/uL (0.83-4.51); Absolute Neutrophil Count 5.9 X10^3/uL (2.0-7.7); Basophil# 0.07 X10^3/uL; Basophil% 0.8 % (0-1); Eosinophil# 0.08 X10^3/uL; Hematocrit 45.7 % (40-54); Lymphocyte # 1.63 X10^3/ul (0.83-4.51); Lymphocyte % 19.5 % (19-41); Mean Corp Hgb Conc 32.8 g/dL (32-36); Mean Corpuscular Hgb 29.1 pg (27.0-32.0); Mean Corpuscular Volume 88.7 fL (80-94); Mean Platelet Vol. 10.6 fl (6.2-12.0); Monocyte# 0.65 X10^3/uL; Monocyte% 7.8 % (0-10); NRBC Flagged by Analyzer 0 % (0-5); Neutrophil # 5.89 X10^3/uL (2.7-7.7); Neutrophil % 70.5 % (47-70); Platelet Count 273 K/mm3 (150-450); RBC Distribution Width CV 14.2 % (11.6-14.6); Red Blood Count 5.15 M/mm3 (4.6-6.2); White Blood Count 8.4 K/mm3 (4.4-11.0)
[2025-04-03 13:04] LABS: ALB/GLOB Ratio 1.5 RATIO (0.9-2.4); AST(SGOT) 17 U/L (<=37); Alanine Aminotransfer ALT/SGPT 13 U/L (<=46); Albumin, Serum 4.4 g/dL (3.5-5.0); Alkaline Phosphatase 66 U/L (40-129); Anion Gap 12 (5-15); BUN 21 mg/dL (4-19); BUN/Creat Ratio 15.6 RATIO (10-20); Calcium,Total 9.8 mg/dL (7.6-11.0); Carbon Dioxide 24.8 mmol/L (21.0-32.0); Chloride 102 mmol/L (98-108); Creatinine, Serum 1.36 mg/dL (0.70-1.20); EST Glomerular Filtration Rate 60 (>60); Globulin 2.9 g/dL (2.2-4.2); Glucose 105 mg/dL (70-99); Potassium 4.5 mmol/L (3.3-5.1); Protein, Total 7.4 g/dL (5.9-8.4); Sodium Level 139 mmol/L (133-145); Total Bilirubin 0.33 mg/dL (0.00-1.30)
== END | disposition home or self-care (01) ==
LOC: MTLAB 10:10
PROVIDERS: PCP Family Medicine; Referring Provider Internal Medicine Rheumatology; Visit Provider Internal Medicine Rheumatology
DX: L40.59 Other psoriatic arthropathy (principal); Z79.899 Other long term (current) drug therapy
CPT/HCPCS: 36415; 80053; 85025

== ENCOUNTER → 2025-05-30 | Outpatient (CLI) | payer BC, SELFPAY ==
--- OUTSIDE RECORDS SUMMARY | 2025-05-30 07:24 | XMS RPT_ITS | CCD ---
Author Organization [facility] Care Team Providers Care Security Intelligence Analyst Name Role Phone Pcp, No Primary Care Provider Art Gross MD Primary Care Provider Art Healy MD Primary Care Provider Dr. Art Healy Primary Care Provider Dr. Candy Burnett Attending Provider Dr. Stephon Mcgarry Referring Provider [phone] Art Healy MD Primary Care Provider Dr. Art Healy Primary Care Provider Dr. Art Healy Referring Provider ADAM Hector Attending Provider Art Healy MD Primary Care Provider ART HEALY Attending ART De Jesus Primary Care Unavailab ART Bloom Attending Unavailab ART Bloom Primary Care UnavailDr. Art Cao MD Primary Care Provider Dr. Delmi Westfall MD Attending Provider Dr. Delmi Westfall MD Referring Provider Dr. Art Healy MD Primary Care Provider Dr. Delmi Westfall MD Attending Provider Dr. Delmi Westfall MD Referring Provider Delmi Westfall Attending Unavailable Delmi Westfall Referring Unavailable Art Healy Primary Care Unavailable Delmi Westfall Attending Unavailable Delmi Westfall Referring Unavailable Art Healy Primary Care Unavailable Delmi Westfall Referring Unavailable Delmi Westfall Attending Unavailable Art Healy Primary Care Unavailable Delmi Westfall Referring Unavailable Delmi Westfall Attending Unavailable Art Healy Primary Care Unavailable Delmi Westfall Attending Unavailable Delmi Westfall Referring Unavailable Art Healy Primary Care Unavailable Medications Current Medications Medication Drug Class(es) Dates Sig (Normalized) Sig (Original) [id number] actuat albuterol 0.09 mg/actuat metered dose inhaler (20 sources) beta2-Adrenergic Agonist Start: 05-07-2023 End: 05-16-2024 take 2 puff(s) by inhalation every four hours as needed for wheezing albuterol HFA (PROVENTIL HFA, VENTOLIN HFA) 90 mcg/actuation inhaler Inhale 2 Puffs as instructed every 4 hours as needed for wheezing/shortnes s of breath. 25.5 g 1 05/16/2024 Active Start: 04-15-2023 End: 11-22-2023 Albuterol Sulfate 90 mcg/act uation HFA aerosol inhaler Discontinued 2 NMA INHALATION Q4H as needed for shortness of breath or wheezing April 15, 2023 12:00am November 22, 2023 1:32pm Start: 04-15-2023 End: 11-22-2023 take 1 puff(s) by inhalation every four hours Albuterol Sulfate Discontinued 2 PUFF INHALATION Q4H April 15, 2023 12:00am November 22, 2023 1:32pm Start: 01-26-2023 End: 01-26-2024 take 2 puff(s) by inhalation every four hours as needed for wheezing albuterol HFA (PROAIR HFA) 90 mcg/actuation inhaler Inhale 2 Puffs as instructed every 4 hours as needed for wheezing/shortness of breath. 18 g 3 01/26/2023 05/07/2023 Discontinued Comment on above: Inhale 2 Puffs as in structed every 4 hours as needed for wheezing/shortness of breath. cephalexin 500 mg oral capsule (7 sources) Cephalosporin Antibacterial Start: 10-28-19 take 1 capsule by mouth three times daily cephALEXin (KEFLEX) 500 mg capsule Take 1 capsule by mouth three times a day. 30 capsule 1 10/28/2023 Active Start: 06-11-2023 End: 06-21-2023 take 1 capsule by mouth three times daily cephALEXin (KEFLEX) 500 mg capsule Take 1 capsule by mouth three times daily for 10 days. 30 capsule 0 06/11/2023 06/21/2023 Active Comment on above: Take 1 capsule by mo uth three times daily for 10 days. Take 1 capsule by mo ut three times a day. folic acid 1 mg oral tablet (17 sources) Start: 04-01-2024 take 2 tablets by mouth once folic acid 1 mg tablet Take 2 tablets by mouth every afternoon. 04/01/2024 Active Start: 11-22-2023 Folic Acid 1 m g tablet Active PO November 22, 2023 1:00am Start: 11-22-2023 Folic Acid Act mikhail PO November 22, 2023 1:00am End: 05-16-2024 folic acid 0.8 mg cap Take b y mouth. 0 05/16/2024 Discontinued Comment on above: Take by mouth. ibuprofen 200 mg oral capsule (19 sources) Nonsteroidal Anti-inflammatory Drug Start: 04-15-2023 Ibuprofen 200 mg cap Take by mouth two times a day as needed. 04/15/2023 Active Start: 04-15-2023 take 2 capsules by m outh every six hours Ibuprofen 200 mg capsule Active 400 mg PO EVERY 6 HOURS April 15, 2023 12:00am Start: 04-15-2023 take 400 mg by mouth every six hours Ibuprofen Active 400 MG PO EVERY 6 HOURS April 15, 2023 12:00am Comment on above: Take by mouth. lisinopril 20 mg oral tablet (20 sources) Angiotensin Converting Enzyme Inhibitor Start: 3 End: take 1 tablet by mouth once daily Lisinopril 20 mg tablet Active 20 mg PO DAILY April 15, 2023 12:00am Comment on above: Take 1 tablet by antoine once daily. methotrexate 2.5 mg oral tablet (15 sources) Folate Analog Metabolic Inhibitor Start: 3 take 1 tablet by mouth two times weekly Methotrexate Sodium 2.5 mg tablet Active 2.5 mg PO TWICE A WEEK November 22, 2023 1:00am Start: 03-27-2023 take 1 tablet by mouth once me thotrexate 2.5 mg tablet Take 2.5 mg by mouth every Thursday. 03/27/2023 Active Start: 03-27-[address] [facility] every week methotrexate 2.5 mg tablet TAKE 8 TABLETS BY MOUTH ONE TIME PER WEEK 0 03/27/2023 Active Comment on above: TAKE 8 TABLETS BY [facility] ONE TIME PER WEEK omeprazole 40 mg delayed release oral capsule (20 sources) Proton Pump Inhibitor Start: 3 End: 4 take 1 capsule by mouth once daily Omeprazole 40 mg capsule,delayed release(DR/EC) Active 40 mg PO DAILY April 15, 2023 12:00am Comment on above: TAKE 1 CAPSULE BY [facility] EVERY DAY DIRECTED predniSONE 10 mg oral tablet (3 sources) Start: 4 take 1 tablet by mouth once daily as needed predniSONE (DELTASONE) 10 mg tablet TAKE 1 TABLET BY MOUTH DAILY NEEDED TAKE FOR 3 TO 5 DAYS WITH A FLARE 04/28/2024 Active traMADol hydrochloride 50 mg oral tablet (20 sources) Opioid Agonist Start: 3 take 1 tablet by mouth every eight hours as needed for pain Tramadol 50 mg tablet Active 50 mg PO Q8H as needed for pain April 15, 2023 12:00am take 1 tablet by [facility] once daily as needed for pain traMADol (ULTRAM) 50 mg tablet Take 50 m g by mouth once daily as needed for pain. Active Comment on above: Take 50 mg by mouth once daily as needed for pain. Completed/Discontinued Medications Medication Drug Class(es) Dates Sig (Normalized) Sig (Original) Budesonide-Formoter ol [Budesonide-Formote rol Hfa 160 Mcg-4.5 Mcg/Actuation Aerosol Inhaler] (20 sources) Corticosteroid, beta2-Adrenergic Agonist Start: 04-15-2023 End: 11-22-2023 Budesonide-Formoter ol [Budesonide-Formote rol Hfa 160 Mcg-4.5 Mcg/Actuation Aerosol Inhaler] (Budesonide-Formote rol Hfa 160 Mcg-4.5 Mcg/Actuation ) 160-4.5 mcg/actuation HFA aerosol inhaler Discontinued 2 NMA INHALATION Q12H April 15, 2023 12:00am November 22, 2023 1:32pm Start: 04-15-2023 End: 11-22-2023 take 1 puff(s) by inhalation every twelve hours Budesonide-Formoterol [Budesonide-Formoterol Hfa 160 Mcg-4.5 Mcg/Actuation Aerosol Inhaler] (Budesonide-Formoterol Hfa 160 Mcg-4.5 Mcg/Actuation ) 160-4.5 mcg/actuation HFA aerosol inhaler Discontinued 2 PUFF INHALATION Q1April 15, 2023 12:00am November 22, 2023 1:32pm Start: 04-15-2023 take 1 puff(s) by in halation every twelve hours Budesonide-Formoterol [Budesonide-Formoterol Hfa 160 Mcg-4.5 Mcg/Actuation Aerosol Inhaler] (Budesonide-Formoterol Hfa 160 Mcg-4.5 Mcg/Actuation ) 160-4.5 mcg/actuation HFA aerosol inhaler Active 2 PUFF INHALATION Q1April 14, 2023 11:00pm Start: 04-15-2023 take 1 puff(s) by in halation every twelve hours Budesonide-Formoterol [Budesonide-Formoterol Hfa 160 Mcg-4.5 Mcg/Actuation Aerosol Inhaler] (Budesonide-Formoterol Hfa 160 Mcg-4.5 Mcg/Actuation ) 160-4.5 mcg/actuation HFA aerosol inhaler Active 2 PUFF INHALATION Q1April 15, 2023 12:00am Start: 01-26-2023 take 2 puff(s) by in halation twice daily budesonide-formoterol (SYMBICORT) 160-4.5 mcg/actuation inhaler Indications: Unspecified asthma, uncomplicated Inhale 2 Puffs as instructed twice daily. 30.6 Each 3 01/26/2023 Active Start: 05-24-2022 End: 01-26-2023 take 2 puff(s) by inhalation twice daily SYMBICORT 160-4.5 mcg/actuation inhaler Indications: Unspecified asthma, uncomplicated INHALE 2 PUFFS INTO THE LUNGS TWICE A DAY 30.6 Each 3 05/24/2022 01/26/2023 Discontinued Comment on above: INHALE 2 PUFFS INTO THE LUNGS TWICE A DAY Inhale 2 Puffs as in structed twice daily. doxycycline hyclate 100 mg oral capsule (9 sources) Tetracycline-class Drug Start: End: take 1 capsule by mouth twice daily Doxycycline Hyclate 100 mg capsule Discontinued 100 mg PO TWICE A DAY 10 5 0 November 22, 2023 1:00am November 26, 2023 1:00am November 27, 2023 1:05am Start: 05-07-2023 End: 11-22-2023 take 1 capsule by mouth twice daily Doxycycline Monohydrate 100 mg capsule Discontinued 100 mg PO TWICE A DAY 28 14 0 May 07, 2023 12:00am November 22, 2023 1:32pm meloxicam 15 mg oral tablet (6 sources) Nonsteroidal Anti-inflammatory Drug Start: 05-07-2023 End: 11-22-2023 take 1 tablet by mouth once daily Meloxicam 15 mg tablet Discontinued 15 mg PO DAILY 30 30 0 May 07, 2023 12:00am November 22, 2023 1:32pm METHOTREXATE, BULK, MISC (8 sources) End: 10-28-2023 METHOTREXATE, BULK, MISC Patient does not know current dosage 0 10/28/2023 Discontinued METHOTREXATE, BU LK, MISC Patient does not know current dosage 0 Active Comment on above: Patient does not kno w current dosage ondansetron 4 mg oral tablet (5 sources) Serotonin-3 Receptor Antagonist Start: 05-05-2023 End: 10-28-2023 ondansetron (ZOFRAN) 4 mg tablet oxyCODONE hydrochloride 5 mg oral tablet (5 sources) Opioid Agonist Start: 05-05-2023 End: 10-28-2023 oxyCODONE IR (ROXICODONE) 5 mg immediate release tablet Problems Active Problems Problem Classification Problem Date Documented Date Episodic/Chronic Asthma (11 sources) Uncomplicated asthma; Translations: [Unspecified asthma, uncomplicated] Onset: 04-30-2017 Chronic Disorders of lipid metabolism (18 sources) Pure hypercholesterolemia; Translations: [Pure hypercholesterolemia, unspecified] Onset: 04-30-2017 Chronic Esophageal disorders (16 sources) Gastroesophageal reflux disease without esophagitis; Translations: [Gastro-esophageal reflux disease without esophagitis] Onset: 08-21-2021 Chronic Essential hypertension (20 sources) Benign hypertension; Translations: [Essential (primary) hypertension] Onset: 04-30-2017 Chronic Osteoarthritis (1 source) Bilateral primary osteoarthritis of hip; Translations: [Bilateral primary osteoarthritis of hip] Onset: 08-25-2024 Chronic Other diseases of veins and lymphatics (8 sources) Lymphedema; Translations: [Lymphedema, not elsewhere classified] Onset: 04-30-2017 06-11-2023 Chronic Other ear and sense organ disorders (1 source) Impacted cerumen in right ear; Translations: [Impacted cerumen, right ear] 05-16-2024 Episodic Other inflammatory condition of skin (15 sources) Psoriatic arthritis; Translations: [Arthropathic psoriasis, unspecified] Onset: 04-30-2017 Chronic Other inflammatory condition of skin (1 source) Arthropathic psoriasis, unspecified; Translations: [Psoriatic arthropathy (HCC)] Onset: 01-27-2023 Chronic Other inflammatory condition of skin (1 source) Other psoriatic arthropathy; Translations: [Other psoriatic arthropathy] Onset: 04-06-2025 Chronic Other upper respiratory infections (8 sources) Acute sinusitis; Translations: [Acute sinusitis, unspecified] 11-22-2023 Episodic Screening and history of mental health and substance abuse codes (2 sources) Encounter for screening for depression; Translations: [Encounter for screening examination for other mental health and behavioral disorders] Onset: 12-19-2024 Episodic Past or Other Problems Problem Classification Problem Date Documented Da te Episodic/Chronic Other ear and sense organ disorders (1 source) Impacted cerumen, right ear; Translations: [Impacted cerumen of right ear] Onset: 05-16-2024 Episodic Other screening for suspected conditions (not mental disorders or infectious disease) (2 sources) Patient encounter status; Translations: [Encounter for screening for malignant neoplasm of prostate] Onset: 05-16-2024 05-16-2024 Episodic Skin and subcutaneous tissue infections (8 sources) Cellulitis; Translations: [Cellulitis, unspecified] Onset: 03-22-2019 06-11-2023 Episodic Results Test Name Value Interpretation Reference Range Facility Absolute lymphocyte countOrd ered By: Delmi Westfall on 04-03-2025 Lymphocytes Auto (Unsp spec) [#/Vol] 1.63 10*3/uL 0.83-4.51 [facility] Absolute neutrophil countOrd ered By: Delmi Westfall on 04-03-2025 Neutrophils (Bld) [#/Vol] 5.9 10*3/uL 2.0-7.7 [facility] Anion gap in Serum or Plasma Ordered By: Delmi Westfall on 04-03-2025 Anion gap [Moles/Vol] 12 mmol/L 5- [facility] Automated lymphocyte count a s percentage of total leukocytesOrdered By: Delmi Westfall on 04-03-2025 Lymphocytes/100 WBC Auto (Unsp spec) 19.5 % - [facility] BUN/creatinine ratioOrdered By: [facility] Malou on 04-03-2025 Urea nitrogen/Creatinine [Mass ratio] 15.6 mg/mg - [facility] Basophil percentageOrdered B y: Delmi Westfall on 04-03-2025 Basophils/100 WBC (Bld) 0.8 % 0-1 [facility] Bilirubin, totalOrdered By: Delmi Westfall on 04-03-2025 Bilirubin [Mass/Vol] 0.33 mg/dL 0.00-1.30 [facility] CBC W/Diff, Automatedon 03-07 Absolute Lymph 1.63 X10 3/uL Normal 0.83-4.51 [facility] Comment on above: Performed By: #### L 100.0100, L500.4050 #### [facility] [address] [place], [address] Absolute Neut 5.9 X10 3/uL Normal 2.0-7.7 [facility] Comment on above: Performed By: #### L 100.0100, L500.4050 #### [facility] [address] [place], [address] Basophils/100 WBC (Bld) 0.8 % Normal 0-1 [facility] Comment on above: Performed By: #### L 100.0100, [id number] #### [facility] [address] [place], [address] Eosinophils/100 WBC (Bld) 1.0 % Normal 0-5 [facility] Comment on above: Performed By: #### L 100.0100, L500.4050 #### [facility] [address] [place], [address] Erythrocyte distribution width (RBC) [Ratio] 14.2 % Normal 11.6-14.6 [facility] Comment on above: Performed By: #### L 100.0100, L500.4050 #### [facility] [address] [place], [address] Hematocrit (Bld) [Volume fraction] 45.7 % Normal 40-54 [facility] Comment on above: Performed By: #### L 100.0100, L500.4050 #### [facility] [address] [place], [address] Hemoglobin (Bld) [Mass/Vol] 15.0 g/dL Normal 13.0-16.5 [facility] Comment on above: Performed By: #### L 100.0100, L500.4050 #### [facility] [address] [place], [address] IG% 0.400 Normal 0.0-0.9 [facility] Comment on above: Result Comment: IG% - Immature Granulocytes (promyelocytes, myelocytes and metamyelocytes) > 1% indicates that a LEFT SHIFT is Present. Performed By: #### L 100.0100, L500.4050 #### [facility] [address] [place], [address] Lymphocytes/100 WBC (Bld) 19.5 % Normal 19-41 [facility] Comment on above: Performed By: #### L 100.0100, [id number] #### [facility] [address] [place], [address] MCH (RBC) [Entitic mass] 29.1 pg Normal 27.0-32.0 [facility] Comment on above: Performed By: #### L 100.0100, [id number] #### [facility] [address] [place], [address] MCHC (RBC) [Mass/Vol] 32.8 g/dL Normal 32-36 [facility] Comment on above: Performed By: #### L 100.0100, [id number] #### [facility] [address] [place], [address] MCV (RBC) [Entitic vol] 88.7 fL Normal 80-94 [facility] Comment on above: Performed By: #### L 100.0100, [id number] #### [facility] [address] [place], [address] Monocytes/100 WBC (Bld) 7.8 % Normal 0-10 [facility] Comment on above: Performed By: #### L 100.0100, [id number] #### [facility] [address] [place], [address] Neutrophils/100 WBC (Bld) 70.5 % High 47-70 [facility] Comment on above: Performed By: #### L 100.0100, [id number] #### [facility] [address] [place], [address] Nucleated RBC (Bld) [#/Vol] 0 10*3/uL Normal 0-5 [facility] Comment on above: Performed By: #### L 100.0100, [id number] #### [facility] [address] [place], [address] Platelet mean volume (Bld) [Entitic vol] 10.6 fL Normal 6.2-12.0 [facility] Comment on above: Performed By: #### L 100.0100, [id number] #### [facility] [address] [place], [address] Platelets (Bld) [#/Vol] 273 10*3/uL Normal 150-450 [facility] Comment on above: Performed By: #### L 100.0100, [id number] #### [facility] [address] [place], [address] RBC (Bld) [#/Vol] 5.15 10*6/uL Normal 4.6-6.2 [facility] Comment on above: Performed By: #### L 100.0100, [id number] #### [facility] [address] [place], [address] RDW SD 45.0 fl High 35.1-43.9 [facility] Comment on above: Performed By: #### L 100.0100, [id number] #### [facility] [address] [place], [address] WBC (Bld) [#/Vol] 8.4 10*3/uL Normal 4.4-11.0 [facility] Comment on above: Performed By: #### L 100.0100, [id number] #### [facility] [address] [place], [address] Carbon dioxide, total [Moles /volume] in Central venous bloodOrdered By: Delmi Westfall on 04-03-2025 CO2 [Moles/Vol] 24.8 mmol/L 21.0-32.0 [facility] Chloride assayOrdered By: Kei Westfall on 04-03-2025 Chloride [Moles/Vol] 102 mmol/L 98-108 [facility] Comprehensive Metabolic Prof ilon 04-03-2025 Albumin [Mass/Vol] 4.4 g/dL Normal 3.5-5.0 [facility] Comment on above: Performed By: #### L 100.0100, [id number] #### [facility] [address] [place], [address] Albumin/Globulin [Mass ratio] 1.5 {ratio} Normal 0.9-2.4 [facility] Comment on above: Performed By: #### L 100.0100, [id number] #### [facility] [address] [place], [address] ALK PHOS 66 U/L Normal 40-129 [facility] Comment on above: Performed By: #### L 100.0100, [id number] #### [facility] [address] [place], [address] ALT [Catalytic activity/Vol] 13 U/L Normal <=46 [facility] Comment on above: Performed By: #### L 100.0100, [id number] #### [facility] [address] [place], [address] AST [Catalytic activity/Vol] 17 U/L Normal <=37 [facility] Comment on above: Performed By: #### L 100.0100, [id number] #### [facility] [address] [place], [address] Bilirubin [Mass/Vol] 0.33 mg/dL Normal 0.00-1.30 [facility] Comment on above: Performed By: #### L 100.0100, [id number] #### [facility] [address] [place], [address] BUN/CRE 15.6 RATIO Normal 10-20 [facility] Comment on above: Performed By: #### L 100.0100, [id number] #### [facility] [address] [place], [address] Calcium [Mass/Vol] 9.8 mg/dL Normal 7.6-11.0 [facility] Comment on above: Performed By: #### L 100.0100, [id number] #### [facility] [address] [place], [address] Chloride [Moles/Vol] 102 mmol/L Normal 98-108 [facility] Comment on above: Performed By: #### L 100.0100, [id number] #### [facility] [address] [place], [address] CO2 [Moles/Vol] 24.8 mmol/L Normal 21.0-32.0 [facility] Comment on above: Performed By: #### L 100.0100, [id number] #### [facility] [address] [place], [address] Creatinine [Mass/Vol] 1.36 mg/dL High 0.70-1.20 [facility] Comment on above: Performed By: #### L 100.0100, [id number] #### [facility] [address] [place], [address] GAP 12 Normal 5-15 [facility] Comment on above: Performed By: #### L 100.0100, [id number] #### [facility] [address] [place], [address] GFR/1.73 sq M.predicted among non-blacks MDRD (S/P/Bld) [Vol rate/Area] 60 mL/min/{1.73_m2} Normal >60 [facility] Comment on above: Result Comment: mL/m in/1.73m2 CKD-EPI Creatinine Equation (2020) Performed By: #### L 100.0100, [id number] #### [facility] [address] [place], [address] Globulin (S) [Mass/Vol] 2.9 g/dL Normal 2.2-4.2 [facility] Comment on above: Performed By: #### L 100.0100, [id number] #### [facility] [address] [place], [address] Glucose [Mass/Vol] 105 mg/dL High 70-99 [facility] Comment on above: Performed By: #### L 100.0100, [id number] #### [facility] [address] [place], [address] Potassium [Moles/Vol] 4.5 mmol/L Normal 3.3-5.1 [facility] Comment on above: Performed By: #### L 100.0100, [id number] #### [facility] [address] [place], [address] Sodium [Moles/Vol] 139 mmol/L Normal 133-145 [facility] Comment on above: Performed By: #### L 100.0100, [id number] #### [facility] [address] [place], [address] T PROT 7.4 g/dL Normal 5.9-8.4 [facility] Comment on above: Performed By: #### L 100.0100, [id number] #### [facility] [address] [place], [address] Urea nitrogen [Mass/Vol] 21 mg/dL High 4-19 [facility] Comment on above: Performed By: #### L 100.0100, [id number] #### [facility] [address] [place], [address] Eosinophil percentageOrdered By: Delmi Westfall on 04-03-2025 Eosinophils/100 WBC (Bld) 1.0 % 0-5 [facility] Erythrocyte distribution wid th ratioOrdered By: Delmi Westfall on 04-03-2025 Erythrocyte distribution width (RBC) [Ratio] 14.2 % 11.6-14.6 [facility] Erythrocyte distribution wid th standard deviationOrdered By: Delmi Westfall on 04-03-2025 Erythrocyte distribution width (RBC) [Ratio] 45.0 fl High 35.1-43.9 [facility] Glomerular filtration rate ( GFR) estimation/1.73 sq m using serum, plasma, or whole bOrdered By: Delmi Westfall on 04-03-2025 GFR/1.73 sq M.predicted among non-blacks MDRD (S/P/Bld) [Vol rate/Area] 60 mL/min/{1.73_m2} >60 [facility] Comment on above: mL/min/1.73m2 CKD-EP I Creatinine Equation (2020) Hematocrit Auto (Bld) [Volum e fraction]Ordered By: Delmi Westfall on 04-03-2025 Hematocrit (Bld) [Volume fraction] 45.7 % 40-54 [facility] Hemoglobin measurementOrdere d By: Delmi Westfall on 04-03-2025 Hemoglobin (Bld) [Mass/Vol] 15.0 g/dL 13.0-16.5 [facility] Immature granulocytes/100 WB C Auto (Bld)Ordered By: Delmi Westfall on 04-03-2025 Immature granulocytes/100 WBC (Bld) 0.400 % 0.0-0.9 [facility] Comment on above: IG% - Immature Granu locytes (promyelocytes, myelocytes and metamyelocytes) > 1% indicates that a LEFT SHIFT is Present. Laboratory - Chemistry and C hemistry - challengeOrdered By: Delmi Westfall on 04-03-2025 AST [Catalytic activity/Vol] 17 U/L <38 [facility] MCV (mean corpuscular volume ) determinationOrdered By: Delmi Westfall on 04-03-2025 MCV (RBC) [Entitic vol] 88.7 fL 80-94 [facility] Mean corpuscular hemoglobin (MCH) determinationOrdered By: Delmi Westfall on 04-03-2025 MCH (RBC) [Entitic mass] 29.1 pg 27.0-32.0 [facility] Mean corpuscular hemoglobin concentration (MCHC) determinationOrdered By: Delmi Westfall on 04-03-2025 MCHC (RBC) [Mass/Vol] 32.8 g/dL 32-36 [facility] Mean platelet volume determi nationOrdered By: Delmi Westfall on 04-03-2025 Platelet mean volume (Bld) [Entitic vol] 10.6 fL 6.2-12.0 [facility] Monocyte percentageOrdered B y: Delmi Westfall on 04-03-2025 Monocytes/100 WBC (Bld) 7.8 % 0-10 [facility] Neutrophil percentageOrdered By: Delmi Westfall on 04-03-2025 Neutrophils/100 WBC (Bld) 70.5 % High 47-70 [facility] Nucleated red blood cell per centageOrdered By: Delmi Westfall on 04-03-2025 Nucleated RBC/100 WBC (Bld) [Ratio] 0 % 0-5 [facility] Platelet countOrdered By: Kei Westfall on 04-03-2025 Platelets (Bld) [#/Vol] 273 10*3/uL 150-450 [facility] Potassium measurement (mass/ volume)Ordered By: Delmi Westfall on 04-03-2025 Potassium (Unsp spec) [Mass/Vol] 4.5 mmol/L 3.3-5.1 [facility] RBC Auto (Bld) [#/Vol]Ordere d By: Delmi Westfall on 04-03-2025 RBC (Bld) [#/Vol] 5.15 10*6/uL 4.6-6.2 [facility] Serum creatinine measurement (mass/volume)Ordered By: Delmi Westfall on 04-03-2025 Creatinine [Mass/Vol] 1.36 mg/dL High 0.70-1.20 [facility] Serum globulin measurementOr dered By: Delmi Westfall on 04-03-2025 Globulin (S) [Mass/Vol] 2.9 g/dL 2.2-4.2 [facility] Serum glucose measurement (m ass/volume)Ordered By: Delmi Westfall on 04-03-2025 Glucose [Mass/Vol] 105 mg/dL High 70-99 [facility] Serum or plasma alanine clancy otransferase (ALT) measurementOrdered By: Delmi Westfall on 04-03-2025 ALT [Catalytic activity/Vol] 13 U/L <47 [facility] Serum or plasma albumin esdras urement (mass/volume)Ordered By: Delmi Westfall on 04-03-2025 Albumin [Mass/Vol] 4.4 g/dL 3.5-5.0 [facility] Serum or plasma albumin/glob ulin mass ratioOrdered By: Delmi Westfall on 04-03-2025 Albumin/Globulin [Mass ratio] 1.5 {ratio} 0.9-2.4 [facility] Serum or plasma alkaline jodie sphatase measurementOrdered By: Delmi Westfall on 04-03-2025 ALP [Catalytic activity/Vol] 66 U/L 40-129 [facility] Serum or plasma calcium esdras urement (mass/volume)Ordered By: Delmi Westfall on 04-03-2025 Calcium [Mass/Vol] 9.8 mg/dL 7.6-11.0 [facility] Serum or plasma urea nitroge n measurement (mass/volume)Ordered By: Delmi Westfall on 04-03-2025 Urea nitrogen [Mass/Vol] 21 mg/dL High 4-19 [facility] Sodium levelOrdered By: Cody Westfall on 04-03-2025 Sodium [Moles/Vol] 139 mmol/L 133-145 [facility] Total proteinOrdered By: Kerri Westfall on 04-03-2025 Protein [Mass/Vol] 7.4 g/dL 5.9-8.4 [facility] White blood cell (WBC) count Ordered By: Delmi Westfall on 04-03-2025 WBC (Bld) [#/Vol] 8.4 10*3/uL 4.4-11.0 [facility] Absolute lymphocyte countOrd ered By: Delmi Westfall on 01-06-2025 Lymphocytes Auto (Unsp spec) [#/Vol] 1.57 10*3/uL 0.83-4.51 [facility] Absolute neutrophil countOrd ered By: Delmi Westfall on 01-06-2025 Neutrophils (Bld) [#/Vol] 4.2 10*3/uL 2.0-7.7 [facility] Anion gap in Serum or Plasma Ordered By: Delmi Westfall on 01-06-2025 Anion gap [Moles/Vol] 12 mmol/L 5-15 [facility] Automated lymphocyte count a s percentage of total leukocytesOrdered By: Delmi Westfall on 01-06-2025 Lymphocytes/100 WBC Auto (Unsp spec) 24.1 % 19-41 [facility] BUN/creatinine ratioOrdered By: Delmilou Westfall on 01-06-2025 Urea nitrogen/Creatinine [Mass ratio] 18.9 mg/mg 10-20 [facility] Basophil percentageOrdered B y: Delmi Westfall on 01-06-2025 Basophils/100 WBC (Bld) 0.9 % 0-1 [facility] Bilirubin, totalOrdered By: [facility] Malou on 01-06-2025 Bilirubin [Mass/Vol] 0.31 mg/dL 0.00-1.30 [facility] CBC W/Diff, Automatedon Absolute Lymph 1.57 X10 3/uL Normal 0.83-4.51 [facility] Comment on above: Performed By: #### L [id number], L100.0100 #### [facility] [address] [place], [address] Absolute Neut 4.2 X10 3/uL Normal 2.0-7.7 [facility] Comment on above: Performed By: #### L [id number], L100.0100 #### [facility] [address] [place], [address] Basophils/100 WBC (Bld) 0.9 % Normal 0-1 [facility] Comment on above: Performed By: #### L [id number], L100.0100 #### [facility] [address] [place], [address] Eosinophils/100 WBC (Bld) 2.8 % Normal 0-5 [facility] Comment on above: Performed By: #### L [id number], L100.0100 #### [facility] [address] [place], [address] Erythrocyte distribution width (RBC) [Ratio] 12.9 % Normal 11.6-14.6 [facility] Comment on above: Performed By: #### L [id number], L100.0100 #### [facility] [address] [place], [address] Hematocrit (Bld) [Volume fraction] 44.2 % Normal 40-54 [facility] Comment on above: Performed By: #### L [id number], L100.0100 #### [facility] [address] [place], [address] Hemoglobin (Bld) [Mass/Vol] 14.1 g/dL Normal 13.0-16.5 [facility] Comment on above: Performed By: #### L [id number], L100.0100 #### [facility] [address] [place], [address] IG% 0.300 Normal 0.0-0.9 [facility] Comment on above: Result Comment: IG% - Immature Granulocytes (promyelocytes, myelocytes and metamyelocytes) > 1% indicates that a LEFT SHIFT is Present. Performed By: #### L [id number], L100.0100 #### [facility] [address] [place], [address] Lymphocytes/100 WBC (Bld) 24.1 % Normal 19-41 [facility] Comment on above: Performed By: #### L [id number], L100.0100 #### [facility] [address] [place], [address] MCH (RBC) [Entitic mass] 28.5 pg Normal 27.0-32.0 [facility] Comment on above: Performed By: #### [id number], [id number] #### [facility] [address] [place], [address] MCHC (RBC) [Mass/Vol] 31.9 g/dL Low 32-36 [facility] Comment on above: Performed By: #### L [id number], L100.0100 #### [facility] [address] [place], [address] MCV (RBC) [Entitic vol] 89.5 fL Normal 80-94 [facility] Comment on above: Performed By: #### L [id number], L100.0100 #### [facility] [address] [place], [address] Monocytes/100 WBC (Bld) 6.9 % Normal 0-10 [facility] Comment on above: Performed By: #### L [id number], L100.0100 #### [facility] [address] [place], [address] Neutrophils/100 WBC (Bld) 65.0 % Normal 47-70 [facility] Comment on above: Performed By: #### L [id number], L100.0100 #### [facility] [address] [place], [address] Nucleated RBC (Bld) [#/Vol] 0 10*3/uL Normal 0-5 [facility] Comment on above: Performed By: #### L [id number], L100.0100 #### [facility] [address] [place], [address] Platelet mean volume (Bld) [Entitic vol] 10.6 fL Normal 6.2-12.0 [facility] Comment on above: Performed By: #### L [id number], L100.0100 #### [facility] [address] [place], [address] Platelets (Bld) [#/Vol] 231 10*3/uL Normal 150-450 [facility] Comment on above: Performed By: #### L [id number], L100.0100 #### [facility] [address] [place], [address] RBC (Bld) [#/Vol] 4.94 10*6/uL Normal 4.6-6.2 [facility] Comment on above: Performed By: #### L [id number], L100.0100 #### [facility] [address] [place], [address] RDW SD 41.8 fl Normal 35.1-43.9 [facility] Comment on above: Performed By: #### L [id number], L100.0100 #### [facility] [address] [place], [address] WBC (Bld) [#/Vol] 6.5 10*3/uL Normal 4.4-11.0 [facility] Comment on above: Performed By: #### L [id number], L100.0100 #### [facility] [address] [place], [address] Carbon dioxide, total [Moles /volume] in Central venous bloodOrdered By: Delmi Westfall on 01-06-2025 CO2 [Moles/Vol] 23.7 mmol/L 21.0-32.0 [facility] Chloride assayOrdered By: Kei Westfall on 01-06-2025 Chloride [Moles/Vol] 105 mmol/L 98-108 [facility] Comprehensive Metabolic Prof ilon 01-06-2025 Albumin [Mass/Vol] 4.2 g/dL Normal 3.5-5.0 [facility] Comment on above: Performed By: #### L [id number], L100.0100 #### [facility] [address] [place], [address] Albumin/Globulin [Mass ratio] 1.5 {ratio} Normal 0.9-2.4 [facility] Comment on above: Performed By: #### L [id number], L100.0100 #### [facility] [address] [place], [address] ALK PHOS 60 U/L Normal 40-129 [facility] Comment on above: Performed By: #### L [id number], L100.0100 #### [facility] [address] [place], [address] ALT [Catalytic activity/Vol] 12 U/L Normal <=46 [facility] Comment on above: Performed By: #### L [id number], L100.0100 #### [facility] [address] [place], [address] AST [Catalytic activity/Vol] 15 U/L Normal <=37 [facility] Comment on above: Performed By: #### L [id number], L100.0100 #### [facility] [address] [place], [address] Bilirubin [Mass/Vol] 0.31 mg/dL Normal 0.00-1.30 [facility] Comment on above: Performed By: #### L [id number], L100.0100 #### [facility] [address] [place], [address] BUN/CRE 18.9 RATIO Normal 10-20 [facility] Comment on above: Performed By: #### L [id number], L100.0100 #### [facility] [address] [place], [address] Calcium [Mass/Vol] 9.1 mg/dL Normal 7.6-11.0 [facility] Comment on above: Performed By: #### L [id number], L100.0100 #### [facility] [address] [place], [address] Chloride [Moles/Vol] 105 mmol/L Normal 98-108 [facility] Comment on above: Performed By: #### L [id number], L100.0100 #### [facility] [address] [place], [address] CO2 [Moles/Vol] 23.7 mmol/L Normal 21.0-32.0 [facility] Comment on above: Performed By: #### L [id number], L100.0100 #### [facility] [address] [place], [address] Creatinine [Mass/Vol] 1.12 mg/dL Normal 0.70-1.20 [facility] Comment on above: Performed By: #### L [id number], L100.0100 #### [facility] [address] [place], [address] GAP 12 Normal 5-15 [facility] Comment on above: Performed By: #### L [id number], L100.0100 #### [facility] [address] [place], [address] GFR/1.73 sq M.predicted among non-blacks MDRD (S/P/Bld) [Vol rate/Area] 76 mL/min/{1.73_m2} Normal >60 [facility] Comment on above: Result Comment: mL/m in/1.73m2 CKD-EPI Creatinine Equation (2020) Performed By: #### L [id number], L100.0100 #### [facility] [address] [place], [address] Globulin (S) [Mass/Vol] 2.8 g/dL Normal 2.2-4.2 [facility] Comment on above: Performed By: #### L [id number], L100.0100 #### [facility] [address] [place], [address] Glucose [Mass/Vol] 89 mg/dL Normal 70-99 [facility] Comment on above: Performed By: #### L [id number], L100.0100 #### [facility] [address] [place], [address] Potassium [Moles/Vol] 4.5 mmol/L Normal 3.3-5.1 [facility] Comment on above: Performed By: #### L [id number], L100.0100 #### [facility] [address] [place], [address] Sodium [Moles/Vol] 141 mmol/L Normal 133-145 [facility] Comment on above: Performed By: #### L [id number], L100.0100 #### [facility] [address] [place], [address] T PROT 6.9 g/dL Normal 5.9-8.4 [facility] Comment on above: Performed By: #### L [id number], L100.0100 #### [facility] [address] [place], [address] Urea nitrogen [Mass/Vol] 21 mg/dL High 4-19 [facility] Comment on above: Performed By: #### L [id number], L100.0100 #### [facility] [address] [place], [address] Eosinophil percentageOrdered By: Delmi Westfall on 01-06-2025 Eosinophils/100 WBC (Bld) 2.8 % 0-5 [facility] Erythrocyte distribution wid th (RBC) [Ratio]Ordered By: Delmi Westfall on 01-06-2025 Erythrocyte distribution width (RBC) [Entitic vol] 41.8 fL 35.1-43.9 [facility] Erythrocyte distribution wid th ratioOrdered By: Delmi Westfall on 01-06-2025 Erythrocyte distribution width (RBC) [Ratio] 12.9 % 11.6-14.6 [facility] Erythrocyte distribution wid th standard deviationOrdered By: Delmi Westfall on 01-06-2025 Erythrocyte distribution width (RBC) [Ratio] 41.8 fl 35.1-43.9 [facility] GFR/1.73 sq M.predicted abby g non-blacks MDRD (S/P/Bld) [Vol rate/Area]Ordered By: Delmi Westfall on 01-06-2025 Estimated GFR (MDRD) Non-Af Amer 76 >60 [facility] Comment on above: mL/min/1.73m2 CKD-EP I Creatinine Equation (2020) Glomerular filtration rate ( GFR) estimation/1.73 sq m using serum, plasma, or whole bOrdered By: Delmi Westfall on 01-06-2025 GFR/1.73 sq M.predicted among non-blacks MDRD (S/P/Bld) [Vol rate/Area] 76 mL/min/{1.73_m2} >60 [facility] Comment on above: mL/min/1.73m2 CKD-EP I Creatinine Equation (2020) Hematocrit Auto (Bld) [Volum e fraction]Ordered By: Delmi Westfall on 01-06-2025 Hematocrit (Bld) [Volume fraction] 44.2 % 40-54 [facility] Hemoglobin measurementOrdere d By: Delmi Westfall on 01-06-2025 Hemoglobin (Bld) [Mass/Vol] 14.1 g/dL 13.0-16.5 [facility] Immature granulocytes/100 WB C Auto (Bld)Ordered By: Delmi Westfall on 01-06-2025 Immature granulocytes/100 WBC (Bld) 0.300 % 0.0-0.9 [facility] Comment on above: IG% - Immature Granu locytes (promyelocytes, myelocytes and metamyelocytes) > 1% indicates that a LEFT SHIFT is Present. Laboratory - Chemistry and C hemistry - challengeOrdered By: Delmi Westfall on 01-06-2025 AST [Catalytic activity/Vol] 15 U/L <38 [facility] Lymphocytes Auto (Unsp spec) [#/Vol]Ordered By: Delmi Westfall on 01-06-2025 Lymphocytes (Bld) [#/Vol] 1.57 10*3/uL 0.83-4.51 [facility] Lymphocytes/100 WBC Auto (Un sp spec)Ordered By: Delmi Westfall on 01-06-2025 Lymphocytes/100 WBC (Bld) 24.1 % 19-41 [facility] MCV (mean corpuscular volume ) determinationOrdered By: Delmi Westfall on 01-06-2025 MCV (RBC) [Entitic vol] 89.5 fL 80-94 [facility] Mean corpuscular hemoglobin (MCH) determinationOrdered By: Delmi Westfall on 01-06-2025 MCH (RBC) [Entitic mass] 28.5 pg 27.0-32.0 [facility] Mean corpuscular hemoglobin concentration (MCHC) determinationOrdered By: Delmi Westfall on 01-06-2025 MCHC (RBC) [Mass/Vol] 31.9 g/dL Low 32-36 [facility] Mean platelet volume determi nationOrdered By: Delmi Westfall on 01-06-2025 Platelet mean volume (Bld) [Entitic vol] 10.6 fL 6.2-12.0 [facility] Monocyte percentageOrdered B y: Delmi Westfall on 01-06-2025 Monocytes/100 WBC (Bld) 6.9 % 0-10 [facility] Neutrophil percentageOrdered By: Delmi Westfall on 01-06-2025 Neutrophils/100 WBC (Bld) 65.0 % 47-70 [facility] Nucleated red blood cell per centageOrdered By: Delmi Westfall on 01-06-2025 Nucleated RBC/100 WBC (Bld) [Ratio] 0 % 0-5 [facility] Platelet countOrdered By: Kei Westfall on 01-06-2025 Platelets (Bld) [#/Vol] 231 10*3/uL 150-450 [facility] Potassium (Unsp spec) [Mass/ Vol]Ordered By: Delmi Westfall on 01-06-2025 Potassium [Moles/Vol] 4.5 mmol/L 3.3-5.1 [facility] Potassium measurement (mass/ volume)Ordered By: Delmi Westfall on 01-06-2025 Potassium (Unsp spec) [Mass/Vol] 4.5 mmol/L 3.3-5.1 [facility] RBC Auto (Bld) [#/Vol]Ordere d By: Delmi Westfall on 01-06-2025 RBC (Bld) [#/Vol] 4.94 10*6/uL 4.6-6.2 [facility] Serum creatinine measurement (mass/volume)Ordered By: Delmi Westfall on 01-06-2025 Creatinine [Mass/Vol] 1.12 mg/dL 0.70-1.20 [facility] Serum globulin measurementOr dered By: Delmi Westfall on 01-06-2025 Globulin (S) [Mass/Vol] 2.8 g/dL 2.2-4.2 [facility] Serum glucose measurement (m ass/volume)Ordered By: Delmi Westfall on 01-06-2025 Glucose [Mass/Vol] 89 mg/dL 70-99 [facility] Serum or plasma alanine clancy otransferase (ALT) measurementOrdered By: Delmi Westfall on 01-06-2025 ALT [Catalytic activity/Vol] 12 U/L <47 [facility] Serum or plasma albumin esdras urement (mass/volume)Ordered By: Delmi Westfall on 01-06-2025 Albumin [Mass/Vol] 4.2 g/dL 3.5-5.0 [facility] Serum or plasma albumin/glob ulin mass ratioOrdered By: Delmi Westfall on 01-06-2025 Albumin/Globulin [Mass ratio] 1.5 {ratio} 0.9-2.4 [facility] Serum or plasma alkaline jodie sphatase measurementOrdered By: Delmi Westfall on 01-06-2025 ALP [Catalytic activity/Vol] 60 U/L 40-129 [facility] Serum or plasma calcium esdras urement (mass/volume)Ordered By: Delmi Westfall on 01-06-2025 Calcium [Mass/Vol] 9.1 mg/dL 7.6-11.0 [facility] Serum or plasma urea nitroge n measurement (mass/volume)Ordered By: Delmi Westfall on 01-06-2025 Urea nitrogen [Mass/Vol] 21 mg/dL High 4-19 [facility] Sodium levelOrdered By: Cody Westfall on 01-06-2025 Sodium [Moles/Vol] 141 mmol/L 133-145 [facility] Total proteinOrdered By: Kerri Westfall on 01-06-2025 Protein [Mass/Vol] 6.9 g/dL 5.9-8.4 [facility] White blood cell (WBC) count Ordered By: Delmi Westfall on 01-06-2025 WBC (Bld) [#/Vol] 6.5 10*3/uL 4.4-11.0 [facility] CNOVon 12-19-2024 CNOV Office Visit (FAMMAS ) ZOË AVILA ([id number]) 1965 M Date Time Provider Department 12/19/24 8:40 AM ART HEALY During your visit today, we recorded the following information about you: Temperature Pulse Respiration Blood pressure 97.6 degrees 62/minute 18/minute 130/84 Weight Height 103.9 kg 1.829 m Jeannine Hernández LPN 12/19/2024 9:11 AM Signed [employer] HIV Screening declined BP Controlled (<130/80) DTaP,Tdap,Td Vaccine(1 - Tdap) declined Hepatitis B Vaccine(1 of 3 - 19+ 3-dose series) declined Shingrix Vaccine(1 of 2) declined Pneumococcal Vaccine: 50+(1 of 2 - PCV) declined Lipid Screening Diabetes Screening Colorectal Cancer Screening declined Prostate Cancer Screening Discussion Influenza Vaccine(1) declined Covid-19 Vaccine( season)declined Jeannine Hernández LPN December 19, 2024 8:38 AM Art Healy MD 12/19/2024 9:11 AM Signed Subjective Zoë Avila is a 59 year old male. Zoë presents today for his annual wellness visit. Additionally follows up for multiple medical problems. See list. His chronic medical problems been stable. Blood pressure is under good control on lisinopril. He continues to follow with rheumatology for psoriatic arthritis. He is on prednisone and methotrexate with control of symptoms. Reflux symptoms are improved with omeprazole. Cholesterol has been diet controlled asthma has been stable on Symbicort. Review of Systems Constitutional: Negative. HENT: Negative. Eyes: Negative. Respiratory: Negative. Cardiovascular: Negative. Gastrointestinal: Negative. Endocrine: Negative. Genitourinary: Negative. Musculoskeletal: Negative. Skin: Negative. Allergic/Immunologic: Negative. Neurological: Negative. Hematological: Negative. Psychiatric/Behavioral: Negative. History reviewed. No pertinent surgical history. History reviewed. No pertinent past medical history. History reviewed. No pertinent family history. Social History Tobacco Use Smoking status: Never Smokeless tobacco: Never Vaping Use Vaping status: Never Used Substance Use Topics Alcohol use: Not Currently Drug use: Never ALLERGIES No Known Allergies MEDICATIONS: predniSONE (DELTASONE) 10 mg tablet TAKE 1 TABLET BY MOUTH DAILY NEEDED TAKE FOR 3 TO 5 DAYS WITH A FLARE folic acid 1 mg tablet Take 2 tablets by mouth every afternoon. albuterol HFA (PROVENTIL HFA, VENTOLIN HFA) 90 mcg/actuation inhaler Inhale 2 Puffs as instructed every 4 hours as needed for wheezing/shortness of breath. Ibuprofen 200 mg cap Take by mouth two times a day as needed. methotrexate 2.5 mg tablet Take 2.5 mg by mouth every Thursday. traMADol (ULTRAM) 50 mg tablet Take 50 mg by mouth once daily as needed for pain. budesonide-formoterol (SYMBICORT) 160-4.5 mcg/actuation inhaler Inhale 2 Puffs as instructed twice daily. lisinopril (ZESTRIL) 20 mg tablet Take 1 tablet by mouth once daily. omeprazole (PRILOSEC) 40 mg capsule Take 1 capsule by mouth once daily. cephALEXin (KEFLEX) 500 mg capsule Take 1 capsule by mouth three times a day. Allergies, past surgical history, family history and past medical history were reviewed per this encounter. Medications were reviewed and verified. 05/16/2024 12/19/2024 INTAKE PAIN ASSESSMENT Are you having pain associated with your visit today? No No If pain assessment is 0, no action needed. If pain assessment is positive, please see assessment and plain. Objective BP 130/84 (BP Site: Left Arm, BP Position: Sitting, BP Cuff Size: Regular Adult) Pulse 62 Temp 36.4 ?C (97.6 ?F) (Temporal) Resp 18 Ht 182.9 cm (6') Wt 103.9 kg (229 lb) SpO2 96% BMI 31.06 kg/m? Physical Exam Vitals reviewed. Constitutional: Appearance: Normal appearance. HENT: Head: Normocephalic and atraumatic. Nose: Nose normal. Eyes: Extraocular Movements: Extraocular movements intact. Pupils: Pupils are equal, round, and reactive to light. Cardiovascular: Rate and Rhythm: Normal rate and regular rhythm. Pulmonary: Effort: Pulmonary effort is normal. Breath sounds: Normal breath sounds. Abdominal: General: Bowel sounds are normal. Palpations: Abdomen is soft. Musculoskeletal: General: Normal range of motion. Cervical back: Normal range of motion and neck supple. Skin: General: Skin is warm and dry. Capillary Refill: Capillary refill takes less than 2 seconds. Neurological: General: No focal deficit present. Mental Status: He is alert and oriented to person, place, and time. Mental status is at baseline. Psychiatric: Mood and Affect: Mood normal. Behavior: Behavior normal. Procedures Assessment and Plan Encounter Diagnosis ICD-10-CM 1. Wellness examination Z00.00 2. Encounter for screening examination for other mental health and behavioral disorders Z1 (more content not included)... Normal [facility] Absolute neutrophil countOrd ered By: Delmi Westfall on 10-14-2024 Neutrophils (Bld) [#/Vol] 4.7 10*3/uL 2.0-7.7 [facility] Albumin to globulin ratioOrd ered By: Delmi Westfall on 10-14-2024 Albumin/Globulin [Mass ratio] 1.1 {ratio} 0.9-2.4 [facility] Automated blood erythrocyte countOrdered By: Delmi Westfall on 10-14-2024 RBC (Bld) [#/Vol] 4.60 10*6/uL Normal 4.6-6.2 [facility] Comment on above: Performed By: #### L 500.2150, L100.0100 #### [facility] [address] [place], [place], [id number] Automated blood hematocrit ( percentage)Ordered By: Delmi Westfall on 10-14-2024 Hematocrit (Bld) [Volume fraction] 41.4 % Normal 40-54 [facility] Comment on above: Performed By: #### L 500.4050, L100.0100 #### [facility] [address] [place], [address] Automated lymphocyte count a s percentage of total leukocytesOrdered By: Delmi Westfall on 10-14-2024 Lymphocytes/100 WBC (Bld) 21.0 % Normal 19-41 [facility] Comment on above: Performed By: #### L 500.4050, L100.0100 #### [facility] [address] [place], [address] Basophil percentageOrdered B y: Delmi Westfall on 10-14-2024 Basophils/100 WBC (Bld) 0.7 % Normal 0-1 [facility] Comment on above: Performed By: #### L 500.4050, L100.0100 #### [facility] [address] [place], [address] Bilirubin, totalOrdered By: Delmi Westfall on 10-14-2024 Bilirubin [Mass/Vol] 0.30 mg/dL 0.20-1.00 [facility] Comment on above: For patients on eltr ombopag therapy, use of Dimension [place] TBIL is not recommended. Blood urea nitrogen (BUN)/cr eatinine ratioOrdered By: Delmi Westfall on 10-14-2024 Urea nitrogen/Creatinine [Mass ratio] 18.9 mg/mg 10-20 [facility] CBC W/Diff, Automatedon 10-05 Absolute Lymph 1.43 X10 3/uL Normal 0.83-4.51 [facility] Comment on above: Performed By: #### L 500.4050, L100.0100 #### [facility] [address] [place], [address] Absolute Neut 4.7 X10 3/uL Normal 2.0-7.7 [facility] Comment on above: Performed By: #### L 500.4050, L100.0100 #### [facility] [address] [place], [address] IG% 0.300 Normal 0.0-0.9 [facility] Comment on above: Result Comment: IG% - Immature Granulocytes (promyelocytes, myelocytes and metamyelocytes) > 1% indicates that a LEFT SHIFT is Present. Performed By: #### L 500.4050, L100.0100 #### [facility] [address] [place], [address] Nucleated RBC (Bld) [#/Vol] 0 10*3/uL Normal 0-5 [facility] Comment on above: Performed By: #### L 500.4050, L100.0100 #### [facility] [address] [place], [address] RDW SD 43.5 fl Normal 35.1-43.9 [facility] Comment on above: Performed By: #### L 500.4050, L100.0100 #### [facility] [address] [place], [address] Carbon dioxide measurementOr dered By: Delmi Westfall on 10-14-2024 CO2 [Moles/Vol] 27.0 mmol/L 21.0-32.0 [facility] Chloride measurementOrdered By: Delmi Westfall on 10-14-2024 Chloride [Moles/Vol] 112 mmol/L High 98-107 [facility] Comprehensive Metabolic Prof ilon 10-14-2024 Albumin [Mass/Vol] 3.5 g/dL Normal 3.2-5.0 [facility] Comment on above: Performed By: #### L 500.4050, L100.0100 #### [facility] [address] [place], [address] Albumin/Globulin [Mass ratio] 1.1 {ratio} Normal 0.9-2.4 [facility] Comment on above: Performed By: #### L 500.4050, L100.0100 #### [facility] [address] [place], [address] ALK P 57 U/L Normal 45-117 [facility] Comment on above: Performed By: #### L 500.4050, L100.0100 #### [facility] [address] [place], [address] ALT [Catalytic activity/Vol] 20 U/L Normal 16-61 [facility] Comment on above: Performed By: #### L 500.4050, L100.0100 #### [facility] [address] [place], [address] AST [Catalytic activity/Vol] U/L Low 15-37 [facility] Comment on above: Performed By: #### L 500.4050, L100.0100 #### [facility] [address] [place], [address] Bilirubin [Mass/Vol] 0.30 mg/dL Normal 0.20-1.00 [facility] Comment on above: Result Comment: For patients on eltrombopag therapy, use of Dimension [place] TBIL is not recommended. Performed By: #### L 500.4050, L100.0100 #### [facility] [address] [place], [address] BUN/CRE 18.9 RATIO Normal 10-20 [facility] Comment on above: Performed By: #### L 500.4050, L100.0100 #### [facility] [address] [place], [address] CA,Total 8.6 mg/dL Normal 8.5-10.1 [facility] Comment on above: Performed By: #### L 500.4050, L100.0100 #### [facility] [address] [place], [address] Chloride [Moles/Vol] 112 mmol/L High 98-107 [facility] Comment on above: Performed By: #### L 500.4050, L100.0100 #### [facility] [address] [place], [address] CO2 [Moles/Vol] 27.0 mmol/L Normal 21.0-32.0 [facility] Comment on above: Performed By: #### L 500.4050, L100.0100 #### [facility] [address] [place], [address] Creatinine [Mass/Vol] 1.22 mg/dL Normal 0.70-1.30 [facility] Comment on above: Result Comment: The validity of the calculated GFR GFRAA in patients over 70 years has not been determined. Clinical correlation is essential. Performed By: #### L 500.4050, L100.0100 #### [facility] [address] [place], [address] EST GFR - AA 79 mL/min Normal >60 [facility] Comment on above: Result Comment: Afri can [place] GFR Calc Performed By: #### L 500.4050, L100.0100 #### [facility] [address] [place], [address] GAP 3 Low 5-15 [facility] Comment on above: Performed By: #### L 500.4050, L100.0100 #### [facility] [address] [place], [address] GFR/1.73 sq M.predicted among non-blacks MDRD (S/P/Bld) [Vol rate/Area] 65 mL/min/{1.73_m2} Normal >60 [facility] Comment on above: Result Comment: Non- GFR Calc Performed By: #### L 500.4050, L100.0100 #### [facility] [address] [place], [address] Globulin (S) [Mass/Vol] 3.1 g/dL Normal 2.2-4.2 [facility] Comment on above: Performed By: #### L 500.4050, L100.0100 #### [facility] [address] [place], [address] Glucose [Mass/Vol] 91 mg/dL Normal 74-106 [facility] Comment on above: Performed By: #### L 500.4050, L100.0100 #### [facility] [address] [place], [address] Potassium [Moles/Vol] 3.9 mmol/L Normal 3.5-5.1 [facility] Comment on above: Performed By: #### L 500.4050, L100.0100 #### [facility] [address] [place], [address] Sodium [Moles/Vol] 143 mmol/L Normal 136-145 [facility] Comment on above: Performed By: #### L 500.4050, L100.0100 #### [facility] [address] [place], [address] T PROT 6.6 g/dL Normal 6.4-8.2 [facility] Comment on above: Performed By: #### L 500.4050, L100.0100 #### [facility] [address] [place], [address] Urea nitrogen [Mass/Vol] 23 mg/dL High 7-18 [facility] Comment on above: Performed By: #### L 500.4050, L100.0100 #### [facility] [address] [place], [address] Eosinophil percentageOrdered By: Delmi Westfall on 10-14-2024 Eosinophils/100 WBC (Bld) 2.3 % Normal 0-5 [facility] Comment on above: Performed By: #### L 500.4050, L100.0100 #### [facility] [address] [place], [place], [address] Erythrocyte distribution wid th (RBC) [Ratio]Ordered By: Delmi Westfall on 10-14-2024 Erythrocyte distribution width (RBC) [Entitic vol] 43.5 fL 35.1-43.9 [facility] Erythrocyte distribution wid th ratioOrdered By: Delmi Westfall on 10-14-2024 Erythrocyte distribution width (RBC) [Ratio] 13.3 % Normal 11.6-14.6 [facility] Comment on above: Performed By: #### L 500.4050, L100.0100 #### [facility] [address] [place], [address] Estimated glomerular filtrat ion rate (GFR) AmericanOrdered By: Delmi Westfall on 10-14-2024 Estimated GFR (MDRD) Amer 79 mL/min >60 [facility] Comment on above: GFR Calc Glomerular filtration rate ( GFR) estimationOrdered By: Delmi Westfall on 10-14-2024 Estimated GFR (MDRD) Non-Af Amer 65 mL/min >60 [facility] Comment on above: Non- GFR Calc Glucose measurementOrdered B y: Delmi Westfall on 10-14-2024 Glucose [Mass/Vol] 91 mg/dL 74-106 [facility] Hemoglobin measurementOrdere d By: Delmi Westfall on 10-14-2024 Hemoglobin (Bld) [Mass/Vol] 13.3 g/dL Normal 13.0-16.5 [facility] Comment on above: Performed By: #### L 500.4050, L100.0100 #### [facility] [address] [place], [place], [address] Immature granulocytes/100 WB C Auto (Bld)Ordered By: Delmi Westfall on 10-14-2024 Immature granulocytes/100 WBC (Bld) 0.300 % 0.0-0.9 [facility] Comment on above: IG% - Immature Granu locytes (promyelocytes, myelocytes and metamyelocytes) > 1% indicates that a LEFT SHIFT is Present. Laboratory - Chemistry and C hemistry - challengeOrdered By: Delmi Westfall on 10-14-2024 AST [Catalytic activity/Vol] U/L Low 15-37 [facility] Lymphocytes Auto (Unsp spec) [#/Vol]Ordered By: Delmi Westfall on 10-14-2024 Lymphocytes (Bld) [#/Vol] 1.43 10*3/uL 0.83-4.51 [facility] MCV (mean corpuscular volume ) determinationOrdered By: Delmi Westfall on 10-14-2024 MCV (RBC) [Entitic vol] 90.0 fL Normal 80-94 [facility] Comment on above: Performed By: #### L 500.4050, L100.0100 #### [facility] [address] [place], [address] Mean corpuscular hemoglobin (MCH) determinationOrdered By: Delmi Westfall on 10-14-2024 MCH (RBC) [Entitic mass] 28.9 pg Normal 27.0-32.0 [facility] Comment on above: Performed By: #### L 500.4050, L100.0100 #### [facility] [address] [place], [address] Mean corpuscular hemoglobin concentration (MCHC) determinationOrdered By: Delmi Westfall on 10-14-2024 MCHC (RBC) [Mass/Vol] 32.1 g/dL Normal 32-36 [facility] Comment on above: Performed By: #### L 500.4050, L100.0100 #### [facility] [address] [place], [address] Mean platelet volume determi nationOrdered By: Delmi Westfall on 10-14-2024 Platelet mean volume (Bld) [Entitic vol] 10.1 fL Normal 6.2-12.0 [facility] Comment on above: Performed By: #### L 500.4050, L100.0100 #### [facility] [address] [place], [address] Monocyte percentageOrdered B y: Delmi Westfall on 10-14-2024 Monocytes/100 WBC (Bld) 7.2 % Normal 0-10 [facility] Comment on above: Performed By: #### L 500.4050, L100.0100 #### [facility] [address] [place], [address] Neutrophil percentageOrdered By: Delmi Westfall on 10-14-2024 Neutrophils/100 WBC (Bld) 68.5 % Normal 47-70 [facility] Comment on above: Performed By: #### L 500.4050, L100.0100 #### [facility] [address] [place], [address] Nucleated red blood cell per centageOrdered By: Delmi Westfall on 10-14-2024 Nucleated RBC/100 WBC (Bld) [Ratio] 0 % 0-5 [facility] Platelet countOrdered By: Kei Westfall on 10-14-2024 Platelets (Bld) [#/Vol] 221 10*3/uL Normal 150-450 [facility] Comment on above: Performed By: #### L 500.4050, L100.0100 #### [facility] [address] [place], [address] Potassium measurementOrdered By: Delmi Westfall on 10-14-2024 Potassium [Moles/Vol] 3.9 mmol/L 3.5-5.1 [facility] Serum anion gap measurementO rdered By: Delmi Westfall on 10-14-2024 Anion gap [Moles/Vol] 3 mmol/L Low 5-15 [facility] Serum globulin measurementOr dered By: Delmi Westfall on 10-14-2024 Globulin (S) [Mass/Vol] 3.1 g/dL 2.2-4.2 [facility] Serum or plasma alanine clancy otransferase (ALT) measurementOrdered By: Delmi Westfall on 10-14-2024 ALT [Catalytic activity/Vol] 20 U/L 16-61 [facility] Serum or plasma albumin esdras urement (mass/volume)Ordered By: Delmi Westfall on 10-14-2024 Albumin [Mass/Vol] 3.5 g/dL 3.2-5.0 [facility] Serum or plasma alkaline jodie sphatase measurementOrdered By: Delmi Westfall on 10-14-2024 ALP [Catalytic activity/Vol] 57 U/L 45-117 [facility] Serum or plasma calcium esdras urement (mass/volume)Ordered By: Delmi Westfall on 10-14-2024 Calcium [Mass/Vol] 8.6 mg/dL 8.5-10.1 [facility] Serum or plasma creatinine m easurement (mass/volume)Ordered By: Delmi Westfall on 10-14-2024 Creatinine [Mass/Vol] 1.22 mg/dL 0.70-1.30 [facility] Comment on above: The validity of the calculated GFR & GFRAA in patients over 70 years has not been determined. Clinical correlation is essential. Serum or plasma urea nitroge n measurement (mass/volume)Ordered By: Delmi Westfall on 10-14-2024 Urea nitrogen [Mass/Vol] 23 mg/dL High 7-18 [facility] Sodium levelOrdered By: Cody Westfall on 10-14-2024 Sodium [Moles/Vol] 143 mmol/L 136-145 [facility] Total proteinOrdered By: Kerri Westfall on 10-14-2024 Protein [Mass/Vol] 6.6 g/dL 6.4-8.2 [facility] White blood cell (WBC) count Ordered By: Delmi Westfall on 10-14-2024 WBC (Bld) [#/Vol] 6.8 10*3/uL Normal 4.4-11.0 [facility] Comment on above: Performed By: #### L 500.4050, L100.0100 #### [facility] [address] [place], [address] CBC W/Diff, Automatedon 10-3 Absolute Lymph 1.70 X10 3/uL Normal 0.83-4.51 [facility] Comment on above: Performed By: #### L 100.0100, L500.4050 #### [facility] [address] [place], [address] Absolute Neut 4.3 X10 3/uL Normal 2.0-7.7 [facility] Comment on above: Performed By: #### L 100.0100, L500.4050 #### [facility] [address] [place], [address] Basophils/100 WBC (Bld) 0.9 % Normal 0-1 [facility] Comment on above: Performed By: #### L 100.0100, L500.4050 #### [facility] [address] [place], [address] Eosinophils/100 WBC (Bld) 2.8 % Normal 0-5 [facility] Comment on above: Performed By: #### L 100.0100, L500.4050 #### [facility] [address] [place], [address] Erythrocyte distribution width (RBC) [Ratio] 13.0 % Normal 11.6-14.6 [facility] Comment on above: Performed By: #### L 100.0100, L500.4050 #### [facility] [address] [place], [address] Hematocrit (Bld) [Volume fraction] 42.8 % Normal 40-54 [facility] Comment on above: Performed By: #### L 100.0100, L500.4050 #### [facility] [address] [place], [address] Hemoglobin (Bld) [Mass/Vol] 13.4 g/dL Normal 13.0-16.5 [facility] Comment on above: Performed By: #### L 100.0100, L500.4050 #### [facility] [address] [place], [address] IG% 0.300 Normal 0.0-0.9 [facility] Comment on above: Result Comment: IG% - Immature Granulocytes (promyelocytes, myelocytes and metamyelocytes) > 1% indicates that a LEFT SHIFT is Present. Performed By: #### L 100.0100, L500.4050 #### [facility] [address] [place], [address] Lymphocytes/100 WBC (Bld) 24.9 % Normal 19-41 [facility] Comment on above: Performed By: #### L 100.0100, L500.4050 #### [facility] [address] [place], [address] MCH (RBC) [Entitic mass] 28.6 pg Normal 27.0-32.0 [facility] Comment on above: Performed By: #### L 100.0100, L500.4050 #### [facility] [address] [place], [address] MCHC (RBC) [Mass/Vol] 31.3 g/dL Low 32-36 [facility] Comment on above: Performed By: #### L 100.0100, L500.4050 #### [facility] [address] [place], [address] MCV (RBC) [Entitic vol] 91.5 fL Normal 80-94 [facility] Comment on above: Performed By: #### L 100.0100, L500.4050 #### [facility] [address] [place], [address] Monocytes/100 WBC (Bld) 8.5 % Normal 0-10 [facility] Comment on above: Performed By: #### L 100.0100, L500.4050 #### [facility] [address] [place], [address] Neutrophils/100 WBC (Bld) 62.6 % Normal 47-70 [facility] Comment on above: Performed By: #### L 100.0100, L500.4050 #### [facility] [address] [place], [address] Nucleated RBC (Bld) [#/Vol] 0 10*3/uL Normal 0-5 [facility] Comment on above: Performed By: #### L 100.0100, L500.4050 #### [facility] [address] [place], [address] Platelet mean volume (Bld) [Entitic vol] 10.5 fL Normal 6.2-12.0 [facility] Comment on above: Performed By: #### L 100.0100, L500.4050 #### [facility] [address] [place], [address] Platelets (Bld) [#/Vol] 238 10*3/uL Normal 150-450 [facility] Comment on above: Performed By: #### L 100.0100, L500.4050 #### [facility] [address] [place], [address] RBC (Bld) [#/Vol] 4.68 10*6/uL Normal 4.6-6.2 [facility] Comment on above: Performed By: #### L 100.0100, L500.4050 #### [facility] [address] [place], [address] RDW SD 43.5 fl Normal 35.1-43.9 [facility] Comment on above: Performed By: #### L 100.0100, L500.4050 #### [facility] [address] [place], [address] WBC (Bld) [#/Vol] 6.8 10*3/uL Normal 4.4-11.0 [facility] Comment on above: Performed By: #### L 100.0100, L500.4050 #### [facility] [address] [place], [address] Comprehensive Metabolic Prof uton 08-04-2024 Albumin [Mass/Vol] 3.6 g/dL Normal 3.2-5.0 [facility] Comment on above: Performed By: #### L 100.0100, L500.4050 #### [facility] [address] [place], [address] Albumin/Globulin [Mass ratio] 1.1 {ratio} Normal 0.9-2.4 [facility] Comment on above: Performed By: #### L 100.0100, L500.4050 #### [facility] [address] [place], [address] ALK P 57 U/L Normal 45-117 [facility] Comment on above: Performed By: #### L 100.0100, L500.4050 #### [facility] [address] [place], [address] ALT [Catalytic activity/Vol] 15 U/L Low 16-61 [facility] Comment on above: Performed By: #### L 100.0100, L500.4050 #### [facility] [address] [place], [address] AST [Catalytic activity/Vol] 12 U/L Low 15-37 [facility] Comment on above: Performed By: #### L 100.0100, L500.4050 #### [facility] [address] [place], [address] Bilirubin [Mass/Vol] 0.40 mg/dL Normal 0.20-1.00 [facility] Comment on above: Result Comment: For patients on eltrombopag therapy, use of Dimension [place] TBIL is not recommended. Performed By: #### L 100.0100, L500.4050 #### [facility] [address] [place], [address] BUN/CRE 25.0 RATIO High 10-20 [facility] Comment on above: Performed By: #### L 100.0100, L500.4050 #### [facility] [address] [place], [address] CA,Total 8.9 mg/dL Normal 8.5-10.1 [facility] Comment on above: Performed By: #### L 100.0100, L500.4050 #### [facility] [address] [place], [address] Chloride [Moles/Vol] 110 mmol/L High 98-107 [facility] Comment on above: Performed By: #### L 100.0100, L500.4050 #### [facility] [address] [place], [address] CO2 [Moles/Vol] 26.0 mmol/L Normal 21.0-32.0 [facility] Comment on above: Performed By: #### L 100.0100, L500.4050 #### [facility] [address] [place], [address] Creatinine [Mass/Vol] 1.20 mg/dL Normal 0.70-1.30 [facility] Comment on above: Result Comment: The validity of the calculated GFR GFRAA in patients over 70 years has not been determined. Clinical correlation is essential. Performed By: #### L 100.0100, L500.4050 #### [facility] [address] [place], [address] EST GFR - AA 80 mL/min Normal >60 [facility] Comment on above: Result Comment: Afri can [place] GFR Calc Performed By: #### L 100.0100, L500.4050 #### [facility] [address] [place], [address] GAP 4 Low 5-15 [facility] Comment on above: Performed By: #### L 100.0100, L500.4050 #### [facility] [address] [place], [address] GFR/1.73 sq M.predicted among non-blacks MDRD (S/P/Bld) [Vol rate/Area] 66 mL/min/{1.73_m2} Normal >60 [facility] Comment on above: Result Comment: Non- GFR Calc Performed By: #### L 100.0100, L500.4050 #### [facility] [address] [place], [address] Globulin (S) [Mass/Vol] 3.4 g/dL Normal 2.2-4.2 [facility] [facility] Comment on above: Performed By: #### L 100.0100, L500.4050 #### [facility] [address] [place], [address] Glucose [Mass/Vol] 103 mg/dL Normal 74-106 [facility] Comment on above: Result Comment: Fast ing Glucose result from 100 to 125 mg/dL suggests IMPAIRED HOMEOSTASIS per A.D.A. criteria. Performed By: #### L 100.0100, L500.4050 #### [facility] [address] [place], [address] Potassium [Moles/Vol] 3.9 mmol/L Normal 3.5-5.1 [facility] Comment on above: Performed By: #### L 100.0100, L500.4050 #### [facility] [address] [place], [address] Sodium [Moles/Vol] 140 mmol/L Normal 136-145 [facility] Comment on above: Performed By: #### L 100.0100, L500.4050 #### [facility] [address] [place], [address] T PROT 7.0 g/dL Normal 6.4-8.2 [facility] Comment on above: Performed By: #### L 100.0100, L500.4050 #### [facility] [address] [place], [address] Urea nitrogen [Mass/Vol] 30 mg/dL High 7-18 [facility] Comment on above: Performed By: #### L 100.0100, L500.4050 #### [facility] [address] [place], [address] CBC W/Diff, Automatedon 10-0 2-2023 Absolute Lymph 1.47 X10 3/uL Normal 0.83-4.51 [facility] Comment on above: Performed By: #### L 500.4050, L100.0100 #### [facility] [address] [place], [address] Absolute Neut 6.9 X10 3/uL Normal 2.0-7.7 [facility] Comment on above: Performed By: #### L 500.4050, L100.0100 #### [facility] [address] [place] [place], [address] Basophils/100 WBC (Bld) 0.7 % Normal 0-1 [facility] Comment on above: Performed By: #### L 500.4050, L100.0100 #### [facility] [address] [place], [address] Eosinophils/100 WBC (Bld) 2.1 % Normal 0-5 [facility] Comment on above: Performed By: #### L 500.4050, L100.0100 #### [facility] [address] [place], [address] Erythrocyte distribution width (RBC) [Ratio] 13.6 % Normal 11.6-14.6 [facility] Comment on above: Performed By: #### L 500.4050, L100.0100 #### [facility] [address] [place], [address] Hematocrit (Bld) [Volume fraction] 44.0 % Normal 40-54 [facility] Comment on above: Performed By: #### L 500.4050, L100.0100 #### [facility] [address] [place], [address] Hemoglobin (Bld) [Mass/Vol] 14.0 g/dL Normal 13.0-16.5 [facility] Comment on above: Performed By: #### L 500.4050, L100.0100 #### [facility] [address] [place], [address] IG% 0.300 Normal 0.0-0.9 [facility] Comment on above: Result Comment: IG% - Immature Granulocytes (promyelocytes, myelocytes and metamyelocytes) > 1% indicates that a LEFT SHIFT is Present. Performed By: #### L 500.4050, L100.0100 #### [facility] [address] [place], [address] Lymphocytes/100 WBC (Bld) 15.7 % Low 19-41 [facility] Comment on above: Performed By: #### L 500.4050, L100.0100 #### [facility] [address] [place], [address] MCH (RBC) [Entitic mass] 28.8 pg Normal 27.0-32.0 [facility] Comment on above: Performed By: #### L 500.4050, L100.0100 #### [facility] [address] [place], [address] MCHC (RBC) [Mass/Vol] 31.8 g/dL Low 32-36 [facility] Comment on above: Performed By: #### L 500.4050, L100.0100 #### [facility] [address] [place], [address] MCV (RBC) [Entitic vol] 90.5 fL Normal 80-94 [facility] Comment on above: Performed By: #### L 500.4050, L100.0100 #### [facility] [address] [place], [address] Monocytes/100 WBC (Bld) 7.4 % Normal 0-10 [facility] Comment on above: Performed By: #### L 500.4050, L100.0100 #### [facility] [address] [place], [address] Neutrophils/100 WBC (Bld) 73.8 % High 47-70 [facility] Comment on above: Performed By: #### L 500.4050, L100.0100 #### [facility] [address] [place], [address] Nucleated RBC (Bld) [#/Vol] 0 10*3/uL Normal 0-5 [facility] Comment on above: Performed By: #### L 500.4050, L100.0100 #### [facility] [address] [place], [address] Platelet mean volume (Bld) [Entitic vol] 10.8 fL Normal 6.2-12.0 [facility] Comment on above: Performed By: #### L 500.4050, L100.0100 #### [facility] [address] [place], [address] Platelets (Bld) [#/Vol] 248 10*3/uL Normal 150-450 [facility] Comment on above: Performed By: #### L 500.4050, L100.0100 #### [facility] [address] [place], [address] RBC (Bld) [#/Vol] 4.86 10*6/uL Normal 4.6-6.2 [facility] Comment on above: Performed By: #### L 500.4050, L100.0100 #### [facility] [address] [place], [address] RDW SD 45.2 fl High 35.1-43.9 [facility] Comment on above: Performed By: #### L 500.4050, L100.0100 #### [facility] [address] [place], [address] WBC (Bld) [#/Vol] 9.4 10*3/uL Normal 4.4-11.0 [facility] Comment on above: Performed By: #### L 500.4050, L100.0100 #### [facility] [address] [place], [address] Comprehensive Metabolic Prof ilon 07-06-2024 Albumin [Mass/Vol] 3.8 g/dL Normal 3.2-5.0 [facility] Comment on above: Performed By: #### L 500.4050, L100.0100 #### [facility] [address] [place], [address] Albumin/Globulin [Mass ratio] 1.1 {ratio} Normal 0.9-2.4 [facility] Comment on above: Performed By: #### L 500.4050, L100.0100 #### [facility] [address] [place], [address] ALK P 65 U/L Normal 45-117 [facility] Comment on above: Performed By: #### L 500.4050, L100.0100 #### [facility] [address] [place], [address] ALT [Catalytic activity/Vol] 17 U/L Normal 16-61 [facility] Comment on above: Performed By: #### L 500.4050, L100.0100 #### [facility] [address] [place], [address] AST [Catalytic activity/Vol] 17 U/L Normal 15-37 [facility] Comment on above: Performed By: #### L 500.4050, L100.0100 #### [facility] [address] [place], [address] Bilirubin [Mass/Vol] 0.50 mg/dL Normal 0.20-1.00 [facility] Comment on above: Result Comment: For patients on eltrombopag therapy, use of Dimension [place] TBIL is not recommended. Performed By: #### L 500.4050, L100.0100 #### [facility] [address] [place], [address] BUN/CRE 17.8 RATIO Normal 10-20 [facility] Comment on above: Performed By: #### L 500.4050, L100.0100 #### [facility] [address] [place], [address] CA,Total 9.2 mg/dL Normal 8.5-10.1 [facility] Comment on above: Performed By: #### L 500.4050, L100.0100 #### [facility] [address] [place], [address] Chloride [Moles/Vol] 106 mmol/L Normal 98-107 [facility] Comment on above: Performed By: #### L 500.4050, L100.0100 #### [facility] [address] [place], [address] CO2 [Moles/Vol] 24.0 mmol/L Normal 21.0-32.0 [facility] Comment on above: Performed By: #### L 500.4050, L100.0100 #### [facility] [address] [place], [address] Creatinine [Mass/Vol] 1.97 mg/dL High 0.70-1.30 [facility] Comment on above: Result Comment: The validity of the calculated GFR GFRAA in patients over 70 years has not been determined. Clinical correlation is essential. Performed By: #### L 500.4050, L100.0100 #### [facility] [address] [place], [address] EST GFR - AA 45 mL/min Low >60 [facility] Comment on above: Result Comment: Afri can [place] GFR Calc Performed By: #### L 500.4050, L100.0100 #### [facility] [address] [place], [address] GAP 7 Normal 5-15 [facility] Comment on above: Performed By: #### L 500.4050, L100.0100 #### [facility] [address] [place], [address] GFR/1.73 sq M.predicted among non-blacks MDRD (S/P/Bld) [Vol rate/Area] 37 mL/min/{1.73_m2} Low >60 [facility] Comment on above: Result Comment: Non- GFR Calc Performed By: #### L 500.4050, L100.0100 #### [facility] [address] [place], [address] Globulin (S) [Mass/Vol] 3.4 g/dL Normal 2.2-4.2 [facility] Comment on above: Performed By: #### L 500.4050, L100.0100 #### [facility] [address] [place], [address] Glucose [Mass/Vol] 98 mg/dL Normal 74-106 [facility] Comment on above: Performed By: #### L 500.4050, L100.0100 #### [facility] [address] [place], [address] Potassium [Moles/Vol] 4.0 mmol/L Normal 3.5-5.1 [facility] Comment on above: Performed By: #### L 500.4050, L100.0100 #### [facility] [address] [place], [address] Sodium [Moles/Vol] 136 mmol/L Normal 136-145 [facility] Comment on above: Performed By: #### L 500.4050, L100.0100 #### [facility] [address] [place], [address] T PROT 7.2 g/dL Normal 6.4-8.2 [facility] Comment on above: Performed By: #### L 500.4050, L100.0100 #### [facility] [address] [place], [address] Urea nitrogen [Mass/Vol] 35 mg/dL High 7-18 [facility] Comment on above: Performed By: #### L 500.4050, L100.0100 #### [facility] [address] [place], [address] CNPThelma 05-25-2024 [facility] Telephone (IDverge) ZOË AVILA ([id number]) 1965 M Date Time Provider Department 05/25/24 ART HEALYMESavi During your visit today, we recorded the following information about you: Harvey West MA 05/25/2024 6:18 AM Signed Items addressed in this encounter: Fax/Forms ENT referral faxed to Bud Pruitt M.D ([facility]) [phone] Faxed via RightFax, fax confirmation received Able to close encounter. Harvey West MA May 25, 2024 6:14 AM 6:14 AM C Allergies As of Date: 05/25/2024 (No Known Allergies) Date Reviewed: 05/16/2024 Reviewed by: Jeannine Hernández LPN - Fully Assessed Reason for Visit: ENT referral faxed to Bud Pruitt M.D ([facility]) [Other] Prescriptions as of 05/25/2024 - predniSONE (DELTASONE) 10 mg tablet TAKE 1 TABLET BY MOUTH DAILY NEEDED TAKE FOR 3 TO 5 DAYS WITH A FLARE - folic acid 1 mg tablet Take 2 tablets by mouth every afternoon. - albuterol HFA (PROVENTIL HFA, VENTOLIN HFA) 90 mcg/actuation inhaler Inhale 2 Puffs as instructed every 4 hours as needed for wheezing/shortness of breath. - omeprazole (PRILOSEC) 40 mg capsule take 1 capsule by mouth every day as directed - lisinopril (ZESTRIL) 20 mg tablet Take 1 tablet by mouth once daily. - cephALEXin (KEFLEX) 500 mg capsule Take 1 capsule by mouth three times a day. - Ibuprofen 200 mg cap Take by mouth two times a day as needed. - methotrexate 2.5 mg tablet Take 2.5 mg by mouth every Thursday. - traMADol (ULTRAM) 50 mg tablet Take 50 mg by mouth once daily as needed for pain. - budesonide-formoterol (SYMBICORT) 160-4.5 mcg/actuation inhaler Inhale 2 Puffs as instructed twice daily. Problem List As Of Date 05/25/2024 Noted Resolved Gastroesophageal reflux disease [K21.9] 08/21/2021 Hypertension, benign [I10] 04/30/2017 Psoriatic arthropathy (HCC) [L40.50] 04/30/2017 Pure hypercholesterolemia, unspecified [E78.00] 04/30/2017 Asthma [J45.909] 04/30/2017 Diagnosed: 06/11/2023 Cellulitis [L03.90] 03/22/2019 Diagnosed: 06/11/2023 Lymphedema [I89.0] 04/30/2017 Diagnosed: 06/11/2023 Encounter Status:Closed by HARVEY WEST on 05/25/24 [facility] CNPN Telephone (FAMMAS) ZOË AVILA ([id number]) 1965 M Date Time Provider Department 05/25/24 ART HEALY FAMMAS During your visit today, we recorded the following information about you: Harvey West MA 05/25/2024 9:08 AM Signed Items addressed in this encounter: Telephone Encounter Pt notified by of ENT referral info Able to close encounter. Harvey West MA May 25, 2024 9:08 AM 9:08 AM Allergies As of Date: 05/25/2024 (No Known Allergies) Date Reviewed: 05/16/2024 Reviewed by: Jeannine Hernández LPN - Fully Assessed Reason for Visit: Pt notified by of ENT referral info [Other] Prescriptions as of 05/25/2024 - predniSONE (DELTASONE) 10 mg tablet TAKE 1 TABLET BY MOUTH DAILY NEEDED TAKE FOR 3 TO 5 DAYS WITH A FLARE - folic acid 1 mg tablet Take 2 tablets by mouth every afternoon. - albuterol HFA (PROVENTIL HFA, VENTOLIN HFA) 90 mcg/actuation inhaler Inhale 2 Puffs as instructed every 4 hours as needed for wheezing/shortness of breath. - omeprazole (PRILOSEC) 40 mg capsule take 1 capsule by mouth every day as directed - lisinopril (ZESTRIL) 20 mg tablet Take 1 tablet by mouth once daily. - cephALEXin (KEFLEX) 500 mg capsule Take 1 capsule by mouth three times a day. - Ibuprofen 200 mg cap Take by mouth two times a day as needed. - methotrexate 2.5 mg tablet Take 2.5 mg by mouth every Thursday. - traMADol (ULTRAM) 50 mg tablet Take 50 mg by mouth once daily as needed for pain. - budesonide-formoterol (SYMBICORT) 160-4.5 mcg/actuation inhaler Inhale 2 Puffs as instructed twice daily. Problem List As Of Date 05/25/2024 Noted Resolved Gastroesophageal reflux disease [K21.9] 08/21/2021 Hypertension, benign [I10] 04/30/2017 Psoriatic arthropathy (HCC) [L40.50] 04/30/2017 Pure hypercholesterolemia, unspecified [E78.00] 04/30/2017 Asthma [J45.909] 04/30/2017 Diagnosed: 06/11/2023 Cellulitis [L03.90] 03/22/2019 Diagnosed: 06/11/2023 Lymphedema [I89.0] 04/30/2017 Diagnosed: 06/11/2023 Encounter Status:[facility]FAMMAS ) ZOË AVILA ([id number]) 1965 M Date Time Provider Department 05/16/24 8:30 AM ART HEALY During your visit today, we recorded the following information about you: Temperature Pulse Respiration Blood pressure 97.6 degrees 64/minute 18/minute 124/84 Weight Height 103 kg 1.829 m Jeannine Hernández LPN 05/16/2024 8:38 AM Signed Patient is in office for a follow up for chronic medical conditions. Patient is overdue for wellness exam Patient has no current complaints or concerns. Jeannine Hernández LPN May 16, 2024 8:18 AM Art Healy MD 05/16/2024 8:38 AM Signed Subjective Zoë Gibbs Josemiladis is a 58 year old male.Patient presents today for follow-up for multiple medical problems. See list. His chronic medical problems been stable. He is compliant with his medications. He has no new complaints today. Review of Systems Constitutional: Negative. HENT: Negative. Eyes: Negative. Respiratory: Negative. Cardiovascular: Negative. Gastrointestinal: Negative. Endocrine: Negative. Genitourinary: Negative. Musculoskeletal: Negative. Skin: Negative. Allergic/Immunologic: Negative. Neurological: Negative. Hematological: Negative. Psychiatric/Behavioral: Negative. History reviewed. No pertinent surgical history. History reviewed. No pertinent past medical history. History reviewed. No pertinent family history. Social History Tobacco Use Smoking status: Never Smokeless tobacco: Never Vaping Use Vaping Use: Never used Substance Use Topics Alcohol use: Not Currently Drug use: Never ALLERGIES No Known Allergies MEDICATIONS: predniSONE (DELTASONE) 10 mg tablet TAKE 1 TABLET BY MOUTH DAILY NEEDED TAKE FOR 3 TO 5 DAYS WITH A FLARE folic acid 1 mg tablet Take 2 tablets by mouth every afternoon. omeprazole (PRILOSEC) 40 mg capsule take 1 capsule by mouth every day as directed lisinopril (ZESTRIL) 20 mg tablet Take 1 tablet by mouth once daily. cephALEXin (KEFLEX) 500 mg capsule Take 1 capsule by mouth three times a day. Ibuprofen 200 mg cap Take by mouth two times a day as needed. methotrexate 2.5 mg tablet Take 2.5 mg by mouth every Thursday. traMADol (ULTRAM) 50 mg tablet Take 50 mg by mouth once daily as needed for pain. budesonide-formoterol (SYMBICORT) 160-4.5 mcg/actuation inhaler Inhale 2 Puffs as instructed twice daily. albuterol HFA (PROVENTIL HFA, VENTOLIN HFA) 90 mcg/actuation inhaler Inhale 2 Puffs as instructed every 4 hours as needed for wheezing/shortness of breath. Allergies, past surgical history, family history and past medical history were reviewed per this encounter. Medications were reviewed and verified. Objective BP 124/84 (BP Site: Left Arm, BP Position: Sitting, BP Cuff Size: Regular Adult) Pulse 64 Temp 36.4 ?C (97.6 ?F) (Temporal) Resp 18 Ht 182.9 cm (6') Wt 103 kg (227 lb) SpO2 98% BMI 30.79 kg/m? Physical Exam Vitals reviewed. Constitutional: Appearance: Normal appearance. HENT: Head: Normocephalic and atraumatic. Nose: Nose normal. Eyes: Extraocular Movements: Extraocular movements intact. Pupils: Pupils are equal, round, and reactive to light. Cardiovascular: Rate and Rhythm: Normal rate and regular rhythm. Pulmonary: Effort: Pulmonary effort is normal. Breath sounds: Normal breath sounds. Abdominal: General: Bowel sounds are normal. Palpations: Abdomen is soft. Musculoskeletal: General: Normal range of motion. Cervical back: Normal range of motion and neck supple. Skin: General: Skin is warm and dry. Capillary Refill: Capillary refill takes less than 2 seconds. Neurological: General: No focal deficit present. Mental Status: He is alert and oriented to person, place, and time. Mental status is at baseline. Psychiatric: Mood and Affect: Mood normal. Behavior: Behavior normal. Assessment and Plan Encounter Diagnosis ICD-10-CM 1. Hypertension, benign I10 2. Psoriatic arthropathy (HCC) L40.50 3. Pure hypercholesterolemia, unspecified E78.00 4. Moderate persistent asthma without complication J45.40 Continue present medications. Check labs as above. Monitor blood pressure regularly. Exercise as tolerated. Maintain good diet. Follow-up in 6 months. Art Healy MD Allergies As of Date: 05/16/2024 (No Known Allergies) Date Reviewed: 05/16/2024 Reviewed by: Jeannine Hernández LPN - Fully Assessed Reason for Visit: Follow Up [171] Primary Visit Diagnosis:Hypertension, essential [I10] Other Visit Diagnoses:Psoriatic arthropathy (HCC) [L40.50] Moderate persistent asthma without complication [J45.40] Impacted cerumen of right ear [H61.21] Pure hypercholesterolemia [E78.00] Screening PSA (prostate specific antigen) [Z12.5] Order(s):albuterol HFA (PROVENTIL HFA, VENTOLIN HFA) 90 mcg/actuation inhalerInhale 2 Puff (more content not included)... Normal [facility] Absolute lymphocyte countOrd ered By: Delmi Westfall on 01-04-2024 Lymphocytes Auto (Unsp spec) [#/Vol] 1.05 10*3/uL 0.83-4.51 [facility] Automated blood erythrocyte count (number/volume)Ordered By: Delmi Westfall on 01-04-2024 RBC (Bld) [#/Vol] 4.68 10*6/uL 4.5 - 6.0 M/uL [facility] Automated blood hematocrit ( percentage)Ordered By: Delmi Westfall on 01-04-2024 Hematocrit (Bld) [Volume fraction] 42.1 % Abnormal 33 - 42 % [facility] Automated lymphocyte count a s percentage of total leukocytesOrdered By: Delmi Westfall on 01-04-2024 Lymphocytes/100 WBC Auto (Unsp spec) 20.2 % 19-41 [facility] Basophil percentageOrdered B y: Delmi Westfall on 01-04-2024 Basophils/100 WBC (Bld) 0.6 % [facility] Bilirubin [Mass/Vol] 0.30 mg/dL 0.20-1.00 [facility] Comment on above: For patients on eltr ombopag therapy, use of Dimension [place] TBIL is not recommended. Chloride [Moles/Vol] 105 mmol/L 98-107 [facility] Eosinophils/100 WBC (Bld) 3.7 % Abnormal 0 - 3 % [facility] Glucose [Mass/Vol] 100 mg/dL 74-106 [facility] Comment on above: Fasting Glucose resu lt from 100 to 125 mg/dL suggests IMPAIRED HOMEOSTASIS per A.D.A. criteria. Hemoglobin (Bld) [Mass/Vol] 13.4 g/dL 12 - 16 g/dL [facility] Monocytes/100 WBC (Bld) 6.7 % [facility] Neutrophils (Bld) [#/Vol] 3.6 10*3/uL 2.0-7.7 [facility] Neutrophils/100 WBC (Bld) 68.4 % [facility] Potassium [Moles/Vol] 3.8 mmol/L 3.5-5.1 [facility] Protein [Mass/Vol] 6.7 g/dL 6.4-8.2 [facility] Sodium [Moles/Vol] 140 mmol/L 136-145 [facility] WBC (Bld) [#/Vol] 5.2 10*3/uL 4.0 - 11.0 K/uL [facility] CBC W Auto Differential pane l (Bld)on 01-04-2024 Immature Gran % 0.400 % [facility] Lymphocytes (Bld) [#/Vol] 1.05 10*3/uL [facility] Lymphocytes/100 WBC (Bld) 20.2 % [facility] MCHC 31.8 % Abnormal 32 - 36 % [facility] NEUTROPHILS (ABSOLUTE) 3.6 Cl [facility] Nucleated RBC (Bld) [#/Vol] 0 10*3/uL [facility] Platelet mean volume (Bld) [Entitic vol] 10.3 % 7.3 - 11.1 % [facility] RDW-SD 44.8 [facility] Determination of erythrocyte mean corpuscular volume (MCV)Ordered By: Delmi Westfall on 01-04-2024 MCV (RBC) [Entitic vol] 90.0 fL 80 - 100 fL [facility] Erythrocyte distribution wid th ratioOrdered By: Delmi Westfall on 01-04-2024 Erythrocyte distribution width (RBC) [Ratio] 13.7 % 11.7 - 15.0 % [facility] Erythrocyte distribution wid th standard deviationOrdered By: Delmi Westfall on 01-04-2024 Erythrocyte distribution width (RBC) [Entitic vol] 44.8 fL 35.1-43.9 [facility] Immature granulocytes/100 WB C Auto (Bld)Ordered By: Delmi Westfall on 01-04-2024 Immature granulocytes/100 WBC (Bld) 0.400 % 0.0-0.9 [facility] Comment on above: IG% - Immature Granu locytes (promyelocytes, myelocytes and metamyelocytes) > 1% indicates that a LEFT SHIFT is Present. Laboratory - Chemistry and C hemistry - challengeOrdered By: Delmi Westfall on 01-04-2024 Albumin/Globulin [Mass ratio] 1.1 {ratio} 0.9-2.4 [facility] ALP [Catalytic activity/Vol] 58 U/L 45-117 [facility] ALT [Catalytic activity/Vol] 20 U/L 16-61 [facility] CO2 [Moles/Vol] 31.0 mmol/L 21.0-32.0 [facility] Globulin (S) [Mass/Vol] 3.2 g/dL 2.2-4.2 [facility] Urea nitrogen/Creatinine [Mass ratio] 16.1 mg/mg 10-20 [facility] - Hematology and Cell countsOrdered By: Delmi Westfall on 01-04-2024 MCH (RBC) [Entitic mass] 28.6 pg 27 - 34 pG [facility] MCHC (RBC) [Mass/Vol] 31.8 g/dL 32-36 [facility] Nucleated RBC/100 WBC (Bld) [Ratio] 0 % 0-5 [facility] Platelet mean volume (Bld) [Entitic vol] 10.3 fL 6.2-12.0 [facility] Platelets (Bld) [#/Vol] 217 10*3/uL 150 - 400 k/uL [facility] No Panel InformationOrdered By: Delmi Westfall on 01-04-2024 Estimated GFR (MDRD) Amer 100 mL/min >60 [facility] Comment on above: GFR Calc Estimated GFR (MDRD) Non-Af Amer 82 mL/min >60 [facility] Comment on above: Non- GFR Calc Serum or plasma calcium esdras urement (mass/volume)Ordered By: Delmi Westfall on 01-04-2024 Calcium [Mass/Vol] 8.8 mg/dL 8.5-10.1 [facility] Serum or plasma creatinine m easurement (mass/volume)Ordered By: Delmi Westfall on 01-04-2024 Creatinine [Mass/Vol] 1.00 mg/dL 0.70-1.30 [facility] Comment on above: The validity of the calculated GFR & GFRAA in patients over 70 years has not been determined. Clinical correlation is essential. Serum or plasma urea nitroge n measurement (mass/volume)Ordered By: Delmi Westfall on 01-04-2024 Urea nitrogen [Mass/Vol] 16 mg/dL 7-18 [facility] Thin prep Papanicolaou smear with manual screeningOrdered By: Delmi Westfall on 01-04-2024 Thin prep Papanicolaou smear with manual screening 3.5 g/dL 3.2-5.0 [facility] Thin prep Papanicolaou smear with manual screening 12 U/L 15-37 [facility] Thin prep Papanicolaou smear with manual screening 4 5-15 [facility] Laboratory - Microbiology an d Antimicrobial susceptibilityon 11-22-2023 SARS-CoV-2 (COVID-19) RNA VALE+probe Ql (Unsp spec) Not detected [facility] No Panel Informationon 11-22 Influenza Types A,B Rapid (Clinic) Not detected [facility] Absolute lymphocyte countOrd ered By: Delmi Westfall on 09-08-2023 Lymphocytes Auto (Unsp spec) [#/Vol] 1.56 10*3/uL 0.83-4.51 [facility] Basophil percentageOrdered B y: Delmi Westfall on 09-08-2023 Basophils/100 WBC (Bld) 1.1 % 0-1 [facility] Bilirubin [Mass/Vol] 0.30 mg/dL 0.20-1.00 [facility] Comment on above: For patients on eltr ombopag therapy, use of Dimension [place] TBIL is not recommended. Chloride [Moles/Vol] 105 mmol/L 98-107 [facility] Eosinophils/100 WBC (Bld) 4.0 % 0-5 [facility] Glucose [Mass/Vol] 107 mg/dL 74-106 [facility] Comment on above: Fasting Glucose resu lt from 100 to 125 mg/dL suggests IMPAIRED HOMEOSTASIS per A.D.A. criteria. Neutrophils (Bld) [#/Vol] 3.3 10*3/uL 2.0-7.7 [facility] Neutrophils/100 WBC (Bld) 60.7 % 47-70 [facility] Potassium [Moles/Vol] 4.1 mmol/L 3.5-5.1 [facility] Protein [Mass/Vol] 7.0 g/dL 6.4-8.2 [facility] Sodium [Moles/Vol] 139 mmol/L 136-145 [facility] WBC (Bld) [#/Vol] 5.5 10*3/uL 4.4-11.0 [facility] Blood erythrocytes count (nu mber/volume)Ordered By: Delmi Westfall on 09-08-2023 RBC (Bld) [#/Vol] 5.30 10*6/uL 4.6-6.2 [facility] Blood hemoglobin measurement (mass/volume)Ordered By: Delmi Westfall on 09-08-2023 Hemoglobin (Bld) [Mass/Vol] 14.3 g/dL 13.0-16.5 [facility] Blood lymphocytes/100 leukoc ytesOrdered By: Delmi Westfall on 09-08-2023 Lymphocytes/100 WBC (Bld) 28.5 % 19-41 [facility] Blood monocytes/100 leukocyt esOrdered By: Delmi Westfall on 09-08-2023 Monocytes/100 WBC (Bld) 5.5 % 0-10 [facility] Blood platelet mean volumeOr dered By: Delmi Westfall on 09-08-2023 Platelet mean volume (Bld) [Entitic vol] 10.5 fL 6.2-12.0 [facility] Determination of erythrocyte mean corpuscular volume (MCV)Ordered By: Delmi Westfall on 09-08-2023 MCV (RBC) [Entitic vol] 88.9 fL 80-94 [facility] Hematocrit Auto (Bld) [Volum e fraction]Ordered By: Delmi Malou on 09-08-2023 Hematocrit (Bld) [Volume fraction] 47.1 % 40-54 [facility] Laboratory - Chemistry and C hemistry - challengeOrdered By: [facility] Malou on 09-08-2023 ALP [Catalytic activity/Vol] 67 U/L 45-117 [facility] ALT [Catalytic activity/Vol] 18 U/L 16-61 [facility] CO2 [Moles/Vol] 31.0 mmol/L 21.0-32.0 [facility] Globulin (S) [Mass/Vol] 3.5 g/dL 2.2-4.2 [facility] Urea nitrogen/Creatinine [Mass ratio] 18.5 mg/mg 10-20 [facility] Laboratory - Hematology and Cell countsOrdered By: Delmi Westfall on 09-08-2023 Erythrocyte distribution width (RBC) [Entitic vol] 43.5 fL 35.1-43.9 [facility] Erythrocyte distribution width (RBC) [Ratio] 13.3 % 11.6-14.6 [facility] Immature granulocytes/100 WBC (Bld) 0.200 % 0.0-0.9 [facility] Comment on above: IG% - Immature Granu locytes (promyelocytes, myelocytes and metamyelocytes) > 1% indicates that a LEFT SHIFT is Present. MCH (RBC) [Entitic mass] 27.0 pg 27.0-32.0 [facility] Nucleated RBC/100 WBC (Bld) [Ratio] 0 % 0-5 [facility] MCHC Auto (RBC) [Mass/Vol]Or dered By: Delmi Westfall on 09-08-2023 MCHC (RBC) [Mass/Vol] 30.4 g/dL 32-36 [facility] No Panel InformationOrdered By: Delmi Westfall on 09-08-2023 Estimated GFR (MDRD) Amer 91 mL/min >60 [facility] Comment on above: GFR Calc Estimated GFR (MDRD) Non-Af Amer 75 mL/min >60 [facility] Comment on above: Non- GFR Calc Platelets bldOrdered By: Kerri Westfall on 09-08-2023 Platelets (Bld) [#/Vol] 245 10*3/uL 150-450 [facility] Serum or plasma albumin esdras urement (mass/volume)Ordered By: Delmi Westfall on 09-08-2023 Albumin [Mass/Vol] 3.5 g/dL 3.2-5.0 [facility] Serum or plasma albumin/glob ulin mass ratioOrdered By: Delmi Westfall on 09-08-2023 Albumin/Globulin [Mass ratio] 1.0 {ratio} 0.9-2.4 [facility] Serum or plasma calcium esdras urement (mass/volume)Ordered By: Delmi Westfall on 09-08-2023 Calcium [Mass/Vol] 8.9 mg/dL 8.5-10.1 [facility] Serum or plasma creatinine m easurement (mass/volume)Ordered By: Delmi Westfall on 09-08-2023 Creatinine [Mass/Vol] 1.08 mg/dL 0.70-1.30 [facility] Comment on above: The validity of the calculated GFR & GFRAA in patients over 70 years has not been determined. Clinical correlation is essential. Serum or plasma urea nitroge n measurement (mass/volume)Ordered By: Delmi Westfall on 09-08-2023 Urea nitrogen [Mass/Vol] 20 mg/dL 7-18 [facility] Thin prep Papanicolaou smear with manual screeningOrdered By: Delmi Westfall on 09-08-2023 Thin prep Papanicolaou smear with manual screening 11 U/L 15-37 [facility] Thin prep Papanicolaou smear with manual screening 3 5-15 [facility] Absolute lymphocyte countOrd ered By: Delmi Westfall on 06-04-2023 Lymphocytes Auto (Unsp spec) [#/Vol] 1.31 10*3/uL 0.83-4.51 [facility] Basophil percentageOrdered B y: Delmi Westfall on 06-04-2023 Basophils/100 WBC (Bld) 1.0 % 0-1 [facility] Bilirubin [Mass/Vol] 0.30 mg/dL 0.20-1.00 [facility] Comment on above: For patients on eltr ombopag therapy, use of Dimension [place] TBIL is not recommended. Chloride [Moles/Vol] 105 mmol/L 98-107 [facility] Eosinophils/100 WBC (Bld) 2.7 % 0-5 [facility] Glucose [Mass/Vol] 102 mg/dL 74-106 [facility] Comment on above: Fasting Glucose resu lt from 100 to 125 mg/dL suggests IMPAIRED HOMEOSTASIS per A.D.A. criteria. Neutrophils (Bld) [#/Vol] 3.8 10*3/uL 2.0-7.7 [facility] Neutrophils/100 WBC (Bld) 65.5 % 47-70 [facility] Potassium [Moles/Vol] 4.5 mmol/L 3.5-5.1 [facility] Protein [Mass/Vol] 7.2 g/dL 6.4-8.2 [facility] Sodium [Moles/Vol] 138 mmol/L 136-145 [facility] WBC (Bld) [#/Vol] 5.8 10*3/uL 4.4-11.0 [facility] Blood erythrocytes count (nu mber/volume)Ordered By: Delmi Westfall on 06-04-2023 RBC (Bld) [#/Vol] 4.59 10*6/uL 4.6-6.2 [facility] Blood hemoglobin measurement (mass/volume)Ordered By: Delmi Westfall on 06-04-2023 Hemoglobin (Bld) [Mass/Vol] 13.3 g/dL 13.0-16.5 [facility] Blood lymphocytes/100 leukoc ytesOrdered By: Delmi Westfall on 06-04-2023 Lymphocytes/100 WBC (Bld) 22.5 % 19-41 [facility] Blood monocytes/100 leukocyt esOrdered By: Delmi Westfall on 06-04-2023 Monocytes/100 WBC (Bld) 8.1 % 0-10 [facility] Blood platelet mean volumeOr dered By: Delmi Westfall on 06-04-2023 Platelet mean volume (Bld) [Entitic vol] 10.1 fL 6.2-12.0 [facility] Determination of erythrocyte mean corpuscular volume (MCV)Ordered By: Delmi Westfall on 06-04-2023 MCV (RBC) [Entitic vol] 90.2 fL 80-94 [facility] Hematocrit Auto (Bld) [Volum e fraction]Ordered By: Delmi Westfall on 06-04-2023 Hematocrit (Bld) [Volume fraction] 41.4 % 40-54 [facility] Laboratory - Chemistry and C hemistry - challengeOrdered By: [facility] Malou on 06-04-2023 ALP [Catalytic activity/Vol] 75 U/L 45-117 [facility] ALT [Catalytic activity/Vol] 40 U/L 16-61 [facility] CO2 [Moles/Vol] 28.0 mmol/L 21.0-32.0 [facility] Globulin (S) [Mass/Vol] 3.7 g/dL 2.2-4.2 [facility] Urea nitrogen/Creatinine [Mass ratio] 27.5 mg/mg 10-20 [facility] Laboratory - Hematology and Cell countsOrdered By: Delmilou Westfall on 06-04-2023 Erythrocyte distribution width (RBC) [Entitic vol] 41.9 fL 35.1-43.9 [facility] Erythrocyte distribution width (RBC) [Ratio] 12.9 % 11.6-14.6 [facility] Immature granulocytes/100 WBC (Bld) 0.200 % 0.0-0.9 [facility] Comment on above: IG% - Immature Granu locytes (promyelocytes, myelocytes and metamyelocytes) > 1% indicates that a LEFT SHIFT is Present. MCH (RBC) [Entitic mass] 29.0 pg 27.0-32.0 [facility] Nucleated RBC/100 WBC (Bld) [Ratio] 0 % 0-5 [facility] MCHC Auto (RBC) [Mass/Vol]Or dered By: Delmi Westfall on 06-04-2023 MCHC (RBC) [Mass/Vol] 32.1 g/dL 32-36 [facility] No Panel InformationOrdered By: Delmi Westfall on 06-04-2023 Estimated GFR (MDRD) Amer 90 mL/min >60 [facility] Comment on above: GFR Calc Estimated GFR (MDRD) Non-Af Amer 74 mL/min >60 [facility] Comment on above: Non- GFR Calc Platelets bldOrdered By: Kerri Westfall on 06-04-2023 Platelets (Bld) [#/Vol] 265 10*3/uL 150-450 [facility] Serum or plasma albumin esdras urement (mass/volume)Ordered By: Delmi Westfall on 06-04-2023 Albumin [Mass/Vol] 3.5 g/dL 3.2-5.0 [facility] Serum or plasma albumin/glob ulin mass ratioOrdered By: Delmi Westfall on 06-04-2023 Albumin/Globulin [Mass ratio] 0.9 {ratio} 0.9-2.4 [facility] Serum or plasma calcium esdras urement (mass/volume)Ordered By: Delmi Westfall on 06-04-2023 Calcium [Mass/Vol] 9.5 mg/dL 8.5-10.1 [facility] Serum or plasma creatinine m easurement (mass/volume)Ordered By: Delmi Westfall on 06-04-2023 Creatinine [Mass/Vol] 1.09 mg/dL 0.70-1.30 [facility] Comment on above: The validity of the calculated GFR & GFRAA in patients over 70 years has not been determined. Clinical correlation is essential. Serum or plasma urea nitroge n measurement (mass/volume)Ordered By: Delmi Westfall on 06-04-2023 Urea nitrogen [Mass/Vol] 30 mg/dL 7-18 [facility] Thin prep Papanicolaou smear with manual screeningOrdered By: Delmi Westfall on 06-04-2023 Thin prep Papanicolaou smear with manual screening 17 U/L 15-37 [facility] Thin prep Papanicolaou smear with manual screening 5 5-15 [facility] Glucose Glucometer (BldC) [M ass/Vol]Ordered By: Stephno Mcgarry on 05-07-2023 Glucose [Mass/Vol] 109 mg/dL 74-106 [facility] Comment on above: MANAGEMENT OF PATIEN T CARE PER NURSING PROTOCOL Absolute lymphocyte countOrd ered By: Stephon Mcgarry on 04-21-2023 Lymphocytes Auto (Unsp spec) [#/Vol] 1.68 10*3/uL 0.83-4.51 [facility] Basophil percentageOrdered B y: Stephon Mcgarry on 04-21-2023 Basophils/100 WBC (Bld) 0.7 % 0-1 [facility] Chloride [Moles/Vol] 113 mmol/L 98-107 [facility] Eosinophils/100 WBC (Bld) 3.9 % 0-5 [facility] Glucose [Mass/Vol] 103 mg/dL 74-106 [facility] Comment on above: Fasting Glucose resu lt from 100 to 125 mg/dL suggests IMPAIRED HOMEOSTASIS per A.D.A. criteria. Neutrophils (Bld) [#/Vol] 3.6 10*3/uL 2.0-7.7 [facility] Neutrophils/100 WBC (Bld) 58.9 % 47-70 [facility] Potassium [Moles/Vol] 4.1 mmol/L 3.5-5.1 [facility] Sodium [Moles/Vol] 143 mmol/L 136-145 [facility] WBC (Bld) [#/Vol] 6.1 10*3/uL 4.4-11.0 [facility] Blood erythrocytes count (nu mber/volume)Ordered By: Stephon Mcgarry on 04-21-2023 RBC (Bld) [#/Vol] 4.49 10*6/uL 4.6-6.2 [facility] Blood hemoglobin measurement (mass/volume)Ordered By: Stephon Mcgarry on 04-21-2023 Hemoglobin (Bld) [Mass/Vol] 13.4 g/dL 13.0-16.5 [facility] Blood lymphocytes/100 leukoc ytesOrdered By: Stephon Mcgarry on 04-21-2023 Lymphocytes/100 WBC (Bld) 27.5 % 19-41 [facility] Blood monocytes/100 leukocyt esOrdered By: Stephon Mcgarry on 04-21-2023 Monocytes/100 WBC (Bld) 8.7 % 0-10 [facility] Blood platelet mean volumeOr dered By: Stephon Mcgarry on 04-21-2023 Platelet mean volume (Bld) [Entitic vol] 10.4 fL 6.2-12.0 [facility] Determination of erythrocyte mean corpuscular volume (MCV)Ordered By: Stephon Mcgarry on 04-21-2023 MCV (RBC) [Entitic vol] 94.4 fL 80-94 [facility] Hematocrit Auto (Bld) [Volum e fraction]Ordered By: Stephon Mcgarry on 04-21-2023 Hematocrit (Bld) [Volume fraction] 42.4 % 40-54 [facility] Laboratory - Chemistry and C hemistry - challengeOrdered By: Stephon Mcgarry on 04-21-2023 CO2 [Moles/Vol] 28.0 mmol/L 21.0-32.0 [facility] Urea nitrogen/Creatinine [Mass ratio] 18.4 mg/mg 10-20 [facility] - Chemistry and C hemistry - challengeOrdered By: Rober Ventura on 04-21-2023 Magnesium [Mass/Vol] 2.4 mg/dL 1.6-2.6 [facility] Laboratory - Hematology and Cell countsOrdered By: Stephon Mcgarry on 04-21-2023 Erythrocyte distribution width (RBC) [Entitic vol] 44.3 fL 35.1-43.9 [facility] Erythrocyte distribution width (RBC) [Ratio] 12.8 % 11.6-14.6 [facility] Immature granulocytes/100 WBC (Bld) 0.300 % 0.0-0.9 [facility] Comment on above: IG% - Immature Granu locytes (promyelocytes, myelocytes and metamyelocytes) > 1% indicates that a LEFT SHIFT is Present. MCH (RBC) [Entitic mass] 29.8 pg 27.0-32.0 [facility] Nucleated RBC/100 WBC (Bld) [Ratio] 0 % 0-5 [facility] MCHC Auto (RBC) [Mass/Vol]Or dered By: Stephon Mcgarry on 04-21-2023 MCHC (RBC) [Mass/Vol] 31.6 g/dL 32-36 [facility] No Panel InformationOrdered By: Stephon Mcgarry on 04-21-2023 Estimated GFR (MDRD) Amer 77 mL/min >60 [facility] Comment on above: GFR Calc Estimated GFR (MDRD) Non-Af Amer 63 mL/min >60 [facility] Comment on above: Non- GFR Calc Nasal Screen MRSA/MSSA [facility] Platelets bldOrdered By: Maldonado Mcgarry on 04-21-2023 Platelets (Bld) [#/Vol] 187 10*3/uL 150-450 [facility] Serum or plasma albumin esdras urement (mass/volume)Ordered By: Stephon Mcgarry on 04-21-2023 Albumin [Mass/Vol] 3.0 g/dL 3.2-5.0 [facility] Serum or plasma calcium esdras urement (mass/volume)Ordered By: Stephon Mcgarry on 04-21-2023 Calcium [Mass/Vol] 8.4 mg/dL 8.5-10.1 [facility] Serum or plasma creatinine m easurement (mass/volume)Ordered By: Stephon Mcgarry on 04-21-2023 Creatinine [Mass/Vol] 1.25 mg/dL 0.70-1.30 [facility] Comment on above: The validity of the calculated GFR & GFRAA in patients over 70 years has not been determined. Clinical correlation is essential. Serum or plasma urea nitroge n measurement (mass/volume)Ordered By: Stephon Mcgarry on 04-21-2023 Urea nitrogen [Mass/Vol] 23 mg/dL 04-21 [facility] Thin prep Papanicolaou smear with manual screeningOrdered By: Stephon Mcgarry on 04-21-2023 Thin prep Papanicolaou smear with manual screening 2 5-15 [facility] Whole blood hemoglobin A1c/t otal hemoglobin ratio (mass fraction)Ordered By: Stephon Mcgarry on 04-21-2023 HbA1c (Bld) [Mass fraction] 6.0 % 3.8-5.6 [facility] Comment on above: Normal < 5.7 % Predi abetic 5.7 - 6.4 % Diabetic >or= 6.5 % Please note range changes. Absolute lymphocyte countOrd ered By: Dr. Westfall on 03-20-2023 Lymphocytes Auto (Unsp spec) [#/Vol] 1.49 10*3/uL 0.83-4.51 [facility] Basophil percentageOrdered B y: Dr. Westfall on 03-20-2023 Basophils/100 WBC (Bld) 0.7 % 0-1 [facility] Bilirubin [Mass/Vol] 0.40 mg/dL 0.20-1.00 [facility] Comment on above: For patients on eltr ombopag therapy, use of Dimension [place] TBIL is not recommended. Chloride [Moles/Vol] 108 mmol/L 98-107 [facility] Eosinophils/100 WBC (Bld) 2.6 % 0-5 [facility] Glucose [Mass/Vol] 132 mg/dL 74-106 [facility] Comment on above: Fasting Glucose resu lt greater than or equal to 126 mg/dL suggests DIABETES MELLITUS per A.D.A. criteria. Neutrophils (Bld) [#/Vol] 4.9 10*3/uL 2.0-7.7 [facility] Neutrophils/100 WBC (Bld) 70.0 % 47-70 [facility] Potassium [Moles/Vol] 4.1 mmol/L 3.5-5.1 [facility] Protein [Mass/Vol] 6.6 g/dL 6.4-8.2 [facility] Sodium [Moles/Vol] 141 mmol/L 136-145 [facility] WBC (Bld) [#/Vol] 7.0 10*3/uL 4.4-11.0 [facility] Blood erythrocytes count (nu mber/volume)Ordered By: Dr. Westfall on 03-20-2023 RBC (Bld) [#/Vol] 4.73 10*6/uL 4.6-6.2 [facility] Blood hemoglobin measurement (mass/volume)Ordered By: Dr. Westfall on 03-20-2023 Hemoglobin (Bld) [Mass/Vol] 13.9 g/dL 13.0-16.5 [facility] Blood lymphocytes/100 leukoc ytesOrdered By: Dr. Westfall on 03-20-2023 Lymphocytes/100 WBC (Bld) 21.2 % 19-41 [facility] Blood monocytes/100 leukocyt esOrdered By: Dr. Westfall on 03-20-2023 Monocytes/100 WBC (Bld) 5.1 % 0-10 [facility] Blood platelet mean volumeOr dered By: Dr. Westfall on 03-20-2023 Platelet mean volume (Bld) [Entitic vol] 10.4 fL 6.2-12.0 [facility] Determination of erythrocyte mean corpuscular volume (MCV)Ordered By: Dr. Westfall on 03-20-2023 MCV (RBC) [Entitic vol] 94.3 fL 80-94 [facility] Hematocrit Auto (Bld) [Volum e fraction]Ordered By: Dr. Westfall on 03-20-2023 Hematocrit (Bld) [Volume fraction] 44.6 % 40-54 [facility] Laboratory - Chemistry and C hemistry - challengeOrdered By: Dr. Westfall on 03-20-2023 ALP [Catalytic activity/Vol] 55 U/L 45-117 [facility] ALT [Catalytic activity/Vol] 17 U/L 16-61 [facility] CO2 [Moles/Vol] 28.0 mmol/L 21.0-32.0 [facility] Globulin (S) [Mass/Vol] 3.3 g/dL 2.2-4.2 [facility] Urea nitrogen/Creatinine [Mass ratio] 19.6 mg/mg 10-20 [facility] - Hematology and Cell countsOrdered By: Dr. Westfall on 03-20-2023 Erythrocyte distribution width (RBC) [Entitic vol] 46.3 fL 35.1-43.9 [facility] Erythrocyte distribution width (RBC) [Ratio] 13.5 % 11.6-14.6 [facility] Immature granulocytes/100 WBC (Bld) 0.400 % 0.0-0.9 [facility] Comment on above: IG% - Immature Granu locytes (promyelocytes, myelocytes and metamyelocytes) > 1% indicates that a LEFT SHIFT is Present. MCH (RBC) [Entitic mass] 29.4 pg 27.0-32.0 [facility] Nucleated RBC/100 WBC (Bld) [Ratio] 0 % 0-5 [facility] MCHC Auto (RBC) [Mass/Vol]Or dered By: Dr. Westfall on 03-20-2023 MCHC (RBC) [Mass/Vol] 31.2 g/dL 32-36 [facility] No Panel InformationOrdered By: Dr. Westfall on 03-20-2023 Estimated GFR (MDRD) Amer 87 mL/min >60 [facility] Comment on above: GFR Calc Estimated GFR (MDRD) Non-Af Amer 72 mL/min >60 [facility] Comment on above: Non- GFR Calc Platelets bldOrdered By: Dr. Westfall on 03-20-2023 Platelets (Bld) [#/Vol] 203 10*3/uL 150-450 [facility] Serum or plasma albumin esdras urement (mass/volume)Ordered By: Dr. Westfall on 03-20-2023 Albumin [Mass/Vol] 3.3 g/dL 3.2-5.0 [facility] Serum or plasma albumin/glob ulin mass ratioOrdered By: Dr. Westfall on 03-20-2023 Albumin/Globulin [Mass ratio] 1.0 {ratio} 0.9-2.4 [facility] Serum or plasma calcium esdras urement (mass/volume)Ordered By: Dr. Westfall on 03-20-2023 Calcium [Mass/Vol] 9.1 mg/dL 8.5-10.1 [facility] Serum or plasma creatinine m easurement (mass/volume)Ordered By: Dr. Westfall on 03-20-2023 Creatinine [Mass/Vol] 1.12 mg/dL 0.70-1.30 [facility] Comment on above: The validity of the calculated GFR & GFRAA in patients over 70 years has not been determined. Clinical correlation is essential. Serum or plasma urea nitroge n measurement (mass/volume)Ordered By: Dr. Westfall on 03-20-2023 Urea nitrogen [Mass/Vol] 22 mg/dL 7-18 [facility] Thin prep Papanicolaou smear with manual screeningOrdered By: Dr. Westfall on 03-20-2023 Thin prep Papanicolaou smear with manual screening 9 U/L 15-37 [facility] Thin prep Papanicolaou smear with manual screening 5 5-15 [facility] Absolute lymphocyte countOrd ered By: Dr. Westfall on 12-24-2022 Lymphocytes Auto (Unsp spec) [#/Vol] 2.25 10*3/uL 0.83-4.51 [facility] Basophil percentageOrdered B y: Dr. Westfall on 12-24-2022 Basophils/100 WBC (Bld) 0.8 % 0-1 [facility] Bilirubin [Mass/Vol] 0.30 mg/dL 0.20-1.00 [facility] Comment on above: For patients on eltr ombopag therapy, use of Dimension [place] TBIL is not recommended. Chloride [Moles/Vol] 105 mmol/L 98-107 [facility] Eosinophils/100 WBC (Bld) 3.2 % 0-5 [facility] Glucose [Mass/Vol] 119 mg/dL 74-106 [facility] Comment on above: Fasting Glucose resu lt from 100 to 125 mg/dL suggests IMPAIRED HOMEOSTASIS per A.D.A. criteria. Neutrophils (Bld) [#/Vol] 4.3 10*3/uL 2.0-7.7 [facility] Neutrophils/100 WBC (Bld) 56.4 % 47-70 [facility] Potassium [Moles/Vol] 3.8 mmol/L 3.5-5.1 [facility] Protein [Mass/Vol] 7.2 g/dL 6.4-8.2 [facility] Sodium [Moles/Vol] 139 mmol/L 136-145 [facility] WBC (Bld) [#/Vol] 7.5 10*3/uL 4.4-11.0 [facility] Blood erythrocytes count (nu mber/volume)Ordered By: Dr. Westfall on 12-24-2022 RBC (Bld) [#/Vol] 4.72 10*6/uL 4.6-6.2 [facility] Blood hemoglobin measurement (mass/volume)Ordered By: Dr. Westfall on 12-24-2022 Hemoglobin (Bld) [Mass/Vol] 14.1 g/dL 13.0-16.5 [facility] Blood lymphocytes/100 leukoc ytesOrdered By: Dr. Westfall on 12-24-2022 Lymphocytes/100 WBC (Bld) 29.9 % 19-41 [facility] Blood monocytes/100 leukocyt esOrdered By: Dr. Westfall on 12-24-2022 Monocytes/100 WBC (Bld) 9.4 % 0-10 [facility] Blood platelet mean volumeOr dered By: Dr. Westfall on 12-24-2022 Platelet mean volume (Bld) [Entitic vol] 10.4 fL 6.2-12.0 [facility] Determination of erythrocyte mean corpuscular volume (MCV)Ordered By: Dr. Westfall on 12-24-2022 MCV (RBC) [Entitic vol] 92.8 fL 80-94 [facility] Hematocrit Auto (Bld) [Volum e fraction]Ordered By: Dr. Westfall on 12-24-2022 Hematocrit (Bld) [Volume fraction] 43.8 % 40-54 [facility] Laboratory - Chemistry and C hemistry - challengeOrdered By: Dr. Westfall on 12-24-2022 ALP [Catalytic activity/Vol] 61 U/L 45-117 [facility] ALT [Catalytic activity/Vol] 21 U/L 16-61 [facility] CO2 [Moles/Vol] 29.0 mmol/L 21.0-32.0 [facility] Globulin (S) [Mass/Vol] 3.4 g/dL 2.2-4.2 [facility] Urea nitrogen/Creatinine [Mass ratio] 21.8 mg/mg 10-20 [facility] Laboratory - Hematology and Cell countsOrdered By: Dr. Westfall on 12-24-2022 Erythrocyte distribution width (RBC) [Entitic vol] 43.5 fL 35.1-43.9 [facility] Erythrocyte distribution width (RBC) [Ratio] 12.6 % 11.6-14.6 [facility] Immature granulocytes/100 WBC (Bld) 0.300 % 0.0-0.9 [facility] Comment on above: IG% - Immature Granu locytes (promyelocytes, myelocytes and metamyelocytes) > 1% indicates that a LEFT SHIFT is Present. MCH (RBC) [Entitic mass] 29.9 pg 27.0-32.0 [facility] Nucleated RBC/100 WBC (Bld) [Ratio] 0 % 0-5 [facility] MCHC Auto (RBC) [Mass/Vol]Or dered By: Dr. Westfall on 12-24-2022 MCHC (RBC) [Mass/Vol] 32.2 g/dL 32-36 [facility] No Panel InformationOrdered By: Dr. Westfall on 12-24-2022 Estimated GFR (MDRD) Amer 78 mL/min >60 [facility] Comment on above: GFR Calc Estimated GFR (MDRD) Non-Af Amer 64 mL/min >60 [facility] Comment on above: Non- GFR Calc Platelets bldOrdered By: Dr. Westfall on 12-24-2022 Platelets (Bld) [#/Vol] 228 10*3/uL 150-450 [facility] Serum or plasma albumin esdras urement (mass/volume)Ordered By: Dr. Westfall on 12-24-2022 Albumin [Mass/Vol] 3.8 g/dL 3.2-5.0 [facility] Serum or plasma albumin/glob ulin mass ratioOrdered By: Dr. Westfall on 12-24-2022 Albumin/Globulin [Mass ratio] 1.1 {ratio} 0.9-2.4 [facility] Serum or plasma calcium esdras urement (mass/volume)Ordered By: Dr. Westfall on 12-24-2022 Calcium [Mass/Vol] 9.4 mg/dL 8.5-10.1 [facility] Serum or plasma creatinine m easurement (mass/volume)Ordered By: Dr. Westfall on 12-24-2022 Creatinine [Mass/Vol] 1.24 mg/dL 0.70-1.30 [facility] Comment on above: The validity of the calculated GFR & GFRAA in patients over 70 years has not been determined. Clinical correlation is essential. Serum or plasma urea nitroge n measurement (mass/volume)Ordered By: Dr. Westfall on 12-24-2022 Urea nitrogen [Mass/Vol] 27 mg/dL 7-18 [facility] Thin prep Papanicolaou smear with manual screeningOrdered By: Dr. Westfall on 12-24-2022 Thin prep Papanicolaou smear with manual screening 12 U/L 15-37 [facility] Thin prep Papanicolaou smear with manual screening 5 5-15 [facility] Absolute lymphocyte countOrd ered By: Dr. Westfall on 10-30-2022 Lymphocytes Auto (Unsp spec) [#/Vol] 1.62 10*3/uL 0.83-4.51 [facility] Basophil percentageOrdered B y: Dr. Westfall on 10-30-2022 Basophils/100 WBC (Bld) 0.5 % 0-1 [facility] Bilirubin [Mass/Vol] 0.20 mg/dL 0.20-1.00 [facility] Comment on above: For patients on eltr ombopag therapy, use of Dimension [place] TBIL is not recommended. Chloride [Moles/Vol] 106 mmol/L 98-107 [facility] Eosinophils/100 WBC (Bld) 2.8 % 0-5 [facility] Glucose [Mass/Vol] 111 mg/dL 74-106 [facility] Comment on above: Fasting Glucose resu lt from 100 to 125 mg/dL suggests IMPAIRED HOMEOSTASIS per A.D.A. criteria. Neutrophils (Bld) [#/Vol] 5.2 10*3/uL 2.0-7.7 [facility] Neutrophils/100 WBC (Bld) 67.7 % 47-70 [facility] Potassium [Moles/Vol] 4.1 mmol/L 3.5-5.1 [facility] Protein [Mass/Vol] 6.7 g/dL 6.4-8.2 [facility] Sodium [Moles/Vol] 141 mmol/L 136-145 [facility] WBC (Bld) [#/Vol] 7.6 10*3/uL 4.4-11.0 [facility] Blood erythrocytes count (nu mber/volume)Ordered By: Dr. Westfall on 10-30-2022 RBC (Bld) [#/Vol] 4.53 10*6/uL 4.6-6.2 [facility] Blood hemoglobin measurement (mass/volume)Ordered By: Dr. Westfall on 10-30-2022 Hemoglobin (Bld) [Mass/Vol] 13.7 g/dL 13.0-16.5 [facility] Blood lymphocytes/100 leukoc ytesOrdered By: Dr. Westfall on 10-30-2022 Lymphocytes/100 WBC (Bld) 21.2 % 19-41 [facility] Blood monocytes/100 leukocyt esOrdered By: Dr. Westfall on 10-30-2022 Monocytes/100 WBC (Bld) 7.5 % 0-10 [facility] Blood platelet mean volumeOr dered By: Dr. Westfall on 10-30-2022 Platelet mean volume (Bld) [Entitic vol] 10.2 fL 6.2-12.0 [facility] Determination of erythrocyte mean corpuscular volume (MCV)Ordered By: Dr. Westfall on 10-30-2022 MCV (RBC) [Entitic vol] 93.6 fL 80-94 [facility] Hematocrit Auto (Bld) [Volum e fraction]Ordered By: Dr. Westfall on 10-30-2022 Hematocrit (Bld) [Volume fraction] 42.4 % 40-54 [facility] Laboratory - Chemistry and C hemistry - challengeOrdered By: Dr. Westfall on 10-30-2022 ALP [Catalytic activity/Vol] 56 U/L 45-117 [facility] ALT [Catalytic activity/Vol] 24 U/L 16-61 [facility] CO2 [Moles/Vol] 28.0 mmol/L 21.0-32.0 [facility] Globulin (S) [Mass/Vol] 3.3 g/dL 2.2-4.2 [facility] Urea nitrogen/Creatinine [Mass ratio] 24.3 mg/mg 10-20 [facility] Laboratory - Hematology and Cell countsOrdered By: Dr. Westfall on 10-30-2022 Erythrocyte distribution width (RBC) [Entitic vol] 47.6 fL 35.1-43.9 [facility] Erythrocyte distribution width (RBC) [Ratio] 13.9 % 11.6-14.6 [facility] Immature granulocytes/100 WBC (Bld) 0.300 % 0.0-0.9 [facility] Comment on above: IG% - Immature Granu locytes (promyelocytes, myelocytes and metamyelocytes) > 1% indicates that a LEFT SHIFT is Present. MCH (RBC) [Entitic mass] 30.2 pg 27.0-32.0 [facility] Nucleated RBC/100 WBC (Bld) [Ratio] 0 % 0-5 [facility] MCHC Auto (RBC) [Mass/Vol]Or dered By: Dr. Westfall on 10-30-2022 MCHC (RBC) [Mass/Vol] 32.3 g/dL 32-36 [facility] No Panel InformationOrdered By: Dr. Westfall on 10-30-2022 Estimated GFR (MDRD) Amer 92 mL/min >60 [facility] Comment on above: GFR Calc Estimated GFR (MDRD) Non-Af Amer 76 mL/min >60 [facility] Comment on above: Non- GFR Calc Platelets bldOrdered By: Dr. Westfall on 10-30-2022 Platelets (Bld) [#/Vol] 237 10*3/uL 150-450 [facility] Serum or plasma albumin esdras urement (mass/volume)Ordered By: Dr. Westfall on 10-30-2022 Albumin [Mass/Vol] 3.4 g/dL 3.2-5.0 [facility] Serum or plasma albumin/glob ulin mass ratioOrdered By: Dr. Westfall on 10-30-2022 Albumin/Globulin [Mass ratio] 1.0 {ratio} 0.9-2.4 [facility] Serum or plasma calcium esdras urement (mass/volume)Ordered By: Dr. Westfall on 10-30-2022 Calcium [Mass/Vol] 8.8 mg/dL 8.5-10.1 [facility] Serum or plasma creatinine m easurement (mass/volume)Ordered By: Dr. Westfall on 10-30-2022 Creatinine [Mass/Vol] 1.07 mg/dL 0.70-1.30 [facility] Comment on above: The validity of the calculated GFR & GFRAA in patients over 70 years has not been determined. Clinical correlation is essential. Serum or plasma urea nitroge n measurement (mass/volume)Ordered By: Dr. Westfall on 10-30-2022 Urea nitrogen [Mass/Vol] 26 mg/dL 7-18 [facility] Thin prep Papanicolaou smear with manual screeningOrdered By: Dr. Westfall on 10-30-2022 Thin prep Papanicolaou smear with manual screening 15 U/L 15-37 [facility] Thin prep Papanicolaou smear with manual screening 7 5-15 [facility] Absolute lymphocyte counton 08-01-2022 Lymphocytes Auto (Unsp spec) [#/Vol] 1.93 10*3/uL 0.83-4.51 [facility] Work Phone: Basophil percentageon 2021 Basophils/100 WBC (Bld) 1.0 % 0-1 [facility] Work Phone: Bilirubin [Mass/Vol] 0.40 mg/dL 0.20-1.00 [facility] Work Phone: Comment on above: For patients on eltr ombopag therapy, use of Dimension [place] TBIL is not recommended. Chloride [Moles/Vol] 110 mmol/L 98-107 [facility] Work Phone: Eosinophils/100 WBC (Bld) 4.5 % 0-5 [facility] Work Phone: Glucose [Mass/Vol] 90 mg/dL 74-106 [facility] Work Phone: Neutrophils (Bld) [#/Vol] 4.9 10*3/uL 2.0-7.7 [facility] Work Phone: Neutrophils/100 WBC (Bld) 60.6 % 47-70 [facility] Work Phone: Potassium [Moles/Vol] 4.0 mmol/L 3.5-5.1 [facility] Work Phone: Protein [Mass/Vol] 7.0 g/dL [facility].4-[facility] Work Phone: Sodium [Moles/Vol] 142 mmol/L 136-145 [facility] Work Phone: WBC (Bld) [#/Vol] 8.0 10*3/uL 4.4-11.0 [facility] Work Phone: Blood erythrocytes count (nu mber/volume)on 08-01-2022 RBC (Bld) [#/Vol] 4.97 10*6/uL 4.6-6.2 [facility] Work Phone: Blood hemoglobin measurement (mass/volume)on 08-01-2022 Hemoglobin (Bld) [Mass/Vol] 14.4 g/dL 13.0-16.5 [facility] Work Phone: [phone] Blood lymphocytes/100 leukoc yteson 08-01-2022 Lymphocytes/100 WBC (Bld) 24.1 % 19-41 [facility] Work Phone: Blood monocytes/100 leukocyt eson 08-01-2022 Monocytes/100 WBC (Bld) 9.6 % 0-10 [facility] Work Phone: Blood platelet mean volumeon 08-01-2022 Platelet mean volume (Bld) [Entitic vol] 10.6 fL 6.2-12.0 [facility] Work Phone: [phone] Determination of erythrocyte mean corpuscular volume (MCV)on 08-01-2022 MCV (RBC) [Entitic vol] 90.3 fL 80-94 [facility] Work Phone: Erythrocyte sedimentation ra michael 08-01-2022 ESR (Bld) [Velocity] 6 mm/h 0-[facility]: Hematocrit Auto (Bld) [Volum e fraction]on 08-01-2022 Hematocrit (Bld) [Volume fraction] 44.9 % 40-54 [facility] Work Phone: Laboratory - Chemistry and C hemistry - challengeon 08-01-2022 ALP [Catalytic activity/Vol] 64 U/L 45-117 [facility] Work Phone: ALT [Catalytic activity/Vol] 17 U/L 16-61 [facility] Work Phone: CO2 [Moles/Vol] 25.0 mmol/L 21.0-32.0 [facility] Work Phone: Globulin (S) [Mass/Vol] 3.5 g/dL 2.2-4.2 [facility] Work Phone: Urea nitrogen/Creatinine [Mass ratio] 27.4 mg/mg 10-20 [facility] Work Phone: Laboratory - Hematology and Cell countson 08-01-2022 Erythrocyte distribution width (RBC) [Entitic vol] 42.2 fL 35.1-43.9 [facility] Work Phone: Erythrocyte distribution width (RBC) [Ratio] 12.8 % 11.6-14.6 [facility] Work Phone: Immature granulocytes/100 WBC (Bld) 0.200 % 0.0-0.9 [facility] Work Phone: Comment on above: IG% - Immature Granu locytes (promyelocytes, myelocytes and metamyelocytes) > 1% indicates that a LEFT SHIFT is Present. MCH (RBC) [Entitic mass] 29.0 pg 27.0-32.0 [facility] Work Phone: Nucleated RBC/100 WBC (Bld) [Ratio] 0 % 0-5 [facility] Work Phone: MCHC Auto (RBC) [Mass/Vol]on 08-01-2022 MCHC (RBC) [Mass/Vol] 32.1 g/dL 32-36 [facility]: No Panel Informationon 08-01 Estimated GFR (MDRD) Amer 83 mL/min >60 [facility] Work Phone: Comment on above: GFR Calc Estimated GFR (MDRD) Non-Af Amer 69 mL/min >60 [facility] Work Phone: Comment on above: Non- GFR Calc Hepatitis B Surface Antigen Non-Reactive Nonreactive [facility] Work Phone: Hepatitis C Antibody Non-Reactive Nonreactive [facility] Work Phone: Comment on above: Non Reactive: < 0.8 Equivocal: >/= 0.8 to < 1.0 Reactive: >/= 1.0The [facility] recommends that a reactive/equivocal HCV antibody result be followed up by the HCV Nucleic Acid Amplificationtest ([id number]) Platelets bldon 08-01-2022 Platelets (Bld) [#/Vol] 227 10*3/uL 150-450 [facility] Work Phone: Serum cyclic citrullinated p eptide IgG antibody assay (units/volume)on 08-01-2022 Cyclic citrullinated peptide IgG Qn 4 units 0-19 [facility] Work Phone: Comment on above: Negative <20 Weak po sitive 20 - 39 Moderate positive 40 - 59 Strong positive >59Performed at: - [id number] [id number] Director: Severino Churchill MD, Phone: [phone] Serum hepatitis B virus surf leonides antibody IgG detectionon 08-01-2022 HBV surface IgG Ql (S) Non-Reactive [facility] Work Phone: Comment on above: Non Reactive: Incons istent with immunity less than <10 mIU/mL Reactive: Consistent with immunity greater than or equal to 10 mIU/mL Serum or plasma C reactive p rotein measurement (mass/volume)on 08-01-2022 CRP [Mass/Vol] 10.30 mg/L 0.0-3.0 [facility] Work Phone: Comment on above: C-Reactive Protein ( CRP) provides useful information for thediagnosis, therapy and monitoring of inflammatory processesand associated diseases. For the evaluation of Relative Riskfor Cardiovascular Disease, a High Sensitivity CRP (HSCRP)should be ordered. Serum or plasma albumin esdras urement (mass/volume)on 08-01-2022 Albumin [Mass/Vol] 3.5 g/dL 3.2-5.0 [facility] Work Phone: Serum or plasma albumin/glob ulin mass ratioon 08-01-2022 Albumin/Globulin [Mass ratio] 1.0 {ratio} 0.9-2.4 [facility] Work Phone: Serum or plasma calcium esdras urement (mass/volume)on 08-01-2022 Calcium [Mass/Vol] 8.7 mg/dL 8.5-10.1 [facility] Work Phone: Serum or plasma creatinine m easurement (mass/volume)on 08-01-2022 Creatinine [Mass/Vol] 1.17 mg/dL 0.70-1.30 [facility] Work Phone: Comment on above: The validity of the calculated GFR & GFRAA in patients over 70 years has not been determined. Clinical correlation is essential. Serum or plasma urea nitroge n measurement (mass/volume)on 08-01-2022 Urea nitrogen [Mass/Vol] 32 mg/dL 7-18 [facility] Work Phone: Serum rheumatoid factor dete ctionon 08-01-2022 Rheumatoid factor Ql (S) < 10.0 IU/mL <15 [facility] Work Phone: Thin prep Papanicolaou smear with manual screeningon 08-01-2022 Thin prep Papanicolaou smear with manual screening 9 U/L 15-37 [facility] Work Phone: Thin prep Papanicolaou smear with manual screening 7 5-15 [facility] Work Phone: Vital Signs Date Time Vital Sign Value Performing Clinician Facility 05-16-2024 08:18-0400 Body height 182.9 cm Art Healy MD Work Phone: [facility] 05-16-2024 08:18-0400 Body mass index (BMI) [Ratio] 30.79 kg/m2 Art eHaly MD Work Phone: [facility] 05-16-2024 08:18-0400 Body temperature 97.59 [degF] Art Healy MD Work Phone: [facility] 05-16-2024 08:18-0400 Body weight 102.97 kg Art Healy MD Work Phone: [facility] 05-16-2024 08:18-0400 Diastolic blood pressure 84 mm[Hg] Art Healy MD Work Phone: [facility] 05-16-2024 08:18-0400 Heart rate 64 /min Art Healy MD Work Phone: [facility] 05-16-2024 08:18-0400 Respiratory rate 18 /min Art Healy MD Work Phone: [facility] 05-16-2024 08:18-0400 SaO2% (BldA) [Mass fraction] 98 % Art Healy MD Work Phone: [facility] 05-16-2024 08:18-0400 Systolic blood pressure 124 mm[Hg] Art Healy MD Work Phone: [facility] 11-22-2023 12:31-0500 Body height 182.[address] Art Healy Work Phone: [facility] 11-22-2023 12:31-0500 Body mass index (BMI) [Ratio] 31.4 kg/m2 Dr. Art Healy Work Phone: [facility] 11-22-2023 12:31-0500 Body temperature 98.2 [degF] Dr. Art Healy Work Phone: [facility] 11-22-2023 12:31-0500 Body weight 104.[address] Art Healy Work Phone: [facility] 11-22-2023 12:31-0500 Diastolic blood pressure 96 mm[Hg] Dr. Art Healy Work Phone: [facility] 11-22-2023 12:31-0500 Heart rate 69 /min Dr. Art Healy Work Phone: [facility] 11-22-2023 12:31-0500 Respiratory rate 16 /min Dr. Art Healy Work Phone: [facility] 11-22-2023 12:31-0500 SaO2% (BldA) [Mass fraction] 99 % Dr. Art Healy Work Phone: [facility] 11-22-2023 12:31-0500 Systolic blood pressure 166 mm[Hg] Dr. Art Healy Work Phone: [facility] 10-28-2023 16:28-0500 Body height 182.9 cm Art Healy MD Work Phone: [facility] 10-28-2023 16:28-0500 Body temperature 97.3 [degF] Art Healy MD Work Phone: [facility] 10-28-2023 16:28-0500 Body weight 105.69 kg Art Healy MD Work Phone: [facility] 10-28-2023 16:28-0500 Diastolic blood pressure 86 mm[Hg] Art Healy MD Work Phone: [facility] 10-28-2023 16:28-0500 Heart rate 64 /min Art Healy MD Work Phone: [facility] 10-28-2023 16:28-0500 Respiratory rate 18 /min Art Healy MD Work Phone: [facility] 10-28-2023 16:28-0500 SaO2% (BldA) [Mass fraction] 97 % Art Healy MD Work Phone: [facility] 10-28-2023 16:28-0500 Systolic blood pressure 128 mm[Hg] Art Healy MD Work Phone: [facility] 05-07-2023 16:45-0400 Body temperature 98.2 [degF] [facility] 05-07-2023 16:45-0400 Diastolic blood pressure 74 mm[Hg] [facility] 05-07-2023 16:45-0400 Heart rate 70 /min [facility] 05-07-2023 16:45-0400 Respiratory rate 16 /min [facility] 05-07-2023 16:45-0400 SaO2% (BldA) [Mass fraction] 92 % [facility] 05-07-2023 16:45-0400 Systolic blood pressure 126 mm[Hg] [facility] 05-07-2023 13:00-0400 Inhaled oxygen flow rate 4 L/min [facility] 05-07-2023 07:00-0400 Body height 182.88 cm [facility] 05-07-2023 07:00-0400 Body mass index (BMI) [Ratio] 29.6 kg/m2 [facility] 05-07-2023 07:00-0400 Body weight 99.06 kg [facility] 01-26-2023 16:18-0400 Body height 182.9 cm Art Healy MD Work Phone: [facility] 01-26-2023 16:18-0400 Body temperature 97.3 [degF] Art Healy MD Work Phone: [facility] 01-26-2023 16:18-0400 Body weight 103.06 kg Art Healy MD Work Phone: [facility] 01-26-2023 16:18-0400 Diastolic blood pressure 82 mm[Hg] Art Healy MD Work Phone: [facility] 01-26-2023 16:18-0400 Heart rate 66 /min Art Healy MD Work Phone: [facility] 01-26-2023 16:18-0400 Respiratory rate 18 /min Art Healy MD Work Phone: [facility] 01-26-2023 16:18-0400 SaO2% (BldA) [Mass fraction] 98 % Art Healy MD Work Phone: [facility] 01-26-2023 16:18-0400 Systolic blood pressure 134 mm[Hg] Art Healy MD Work Phone: [facility] Encounters Encounter Date Encounter Type Care Provider Facility Start: 04-03-2025 End: 04-03-[address] Art Healy MD Work Phone: [facility] Start: 04-03-2025 End: 04-03-[address] Delmi Westfall MD -[facility] Work Phone: Start: 04-03-2025 End: 04-03-2025 ambulatory [facility] Facility:[facility] Start: 01-06-2025 End: 01-06-[address] Art Healy MD Work Phone: [facility] Work Phone: Start: 01-06-2025 End: 01-06-[address] Delmi Westfall MD -Laboratory, [facility] Work Phone: Start: 01-06-2025 End: 01-06-2025 ambulatory [facility] Facility:[facility] Start: 12-19-2024 End: 12-19-2024 ambulatory ART HEALY Facility:[id number] Start: 10-14-2024 End: 10-14-[address] Delmi Westfall MD -Laboratory, [place] Work Phone: Start: 10-14-2024 End: 10-14-2024 ambulatory [facility] Facility:[facility] Start: 08-04-2024 End: 08-04[facility] Start: 07-06-2024 End: 07-06-2024 ambulatory [facility] Facility:[facility] Start: 05-25-2024 End: 05-25-2024 Telephone encounter Art Healy MD Work Phone: [place] Comment on above: ENT referral faxed julian Pruitt M.D ([facility]) Pt notified by of ENT referral info Start: 05-16-2024 End: 05-16-2024 Office outpatient visit 15 minutes Art Healy MD Work Phone: [place] Comment on above: Hypertension, essent ial (Primary Dx); Psoriatic arthropathy (HCC); Moderate persistent asthma without complication; Impacted cerumen of right ear; Pure hypercholesterolemia; Screening PSA (prostate specific antigen) Start: 05-16-2024 End: 05-16-2024 ambulatory ART HEALY Facility:[id number] Start: 01-11-2024 Chart abstracting Art Healy MD Work Phone: [place] Start: 01-04-2024 End: 01-04-[address] Art Healy Work Phone: [facility] Work Phone: Start: 01-04-2024 End: 01-04-[address] Art Healy Work Phone: [facility] Work Phone: Start: 12-25-2023 Refill Art Gramajo MD Work Phone: [place] Comment on above: Refill Request Start: 11-22-2023 End: 11-22-[address] Art Healy Work Phone: [facility] Work Phone: Start: 10-28-2023 End: 10-28-2023 Office outpatient visit 15 minutes Art Healy MD Work Phone: [place] Comment on above: Hypertension, benign (Primary Dx); Pure hypercholesterolemia, unspecified; Gastroesophageal reflux disease without esophagitis; Cellulitis of lower extremity, unspecified laterality; Lymphedema Start: 09-08-2023 End: 09-08-2023 ambulatory [facility] Work Phone: Start: 09-08-2023 End: 09-08-2023 Patient encounter procedure [facility] Work Phone: Start: 06-11-2023 Telephone encounter Art Healy MD Work Phone: [place] Comment on above: Patient Question (ce llulitis) Start: 06-04-2023 End: 06-04-[address] Art Healy Work Phone: [facility] Work Phone: Start: 06-04-2023 End: 06-04-[address] Art Healy Work Phone: [facility] Work Phone: Start: 05-20-2023 Patient encounter procedure [facility] Start: 05-07-2023 Patient encounter procedure [facility] Start: 05-07-2023 Refill Art Gramajo MD Work Phone: [place] Comment on above: Refill Request Start: 05-07-2023 End: 05-07-2023 Admission to same day surgery center [facility] Start: 05-07-2023 End: 05-07-2023 ambulatory [facility] Work Phone: Start: 05-04-2023 Telephone encounter Art Healy MD Work Phone: [place] Comment on above: Surgical Clearance Start: 04-30-2023 Telephone encounter Art Healy MD Work Phone: [facility] Comment on above: Other (Surgical Marisol josephine - [facility]) Start: 04-21-2023 End: 04-21-2023 Non-patient / Non-visit Dr. Art Healy Work Phone: [facility] Work Phone: Start: 04-20-2023 End: 04-20-2023 ambulatory [facility] Work Phone: Start: 04-20-2023 End: 04-20-2023 Patient encounter procedure [facility]Cat [facility], [facility] Work Phone: Start: 03-20-2023 End: 03-20-2023 ambulatory [facility] Work Phone: Start: 03-20-2023 End: 03-20-2023 Patient encounter procedure [facility] Start: 01-26-2023 End: 01-26-2023 Office outpatient visit 15 minutes Art Healy MD Work Phone: [place] Comment on above: Hypertension, benign (Primary Dx); Unspecified asthma, uncomplicated; Pure hypercholesterolemia, unspecified; Gastroesophageal reflux disease without esophagitis; Psoriatic arthropathy (HCC) Start: 12-24-2022 End: 12-24-2022 ambulatory [facility] Work Phone: Start: 12-24-2022 End: 12-24-2022 Patient encounter procedure [facility] Start: 10-30-2022 End: 10-30-2022 Patient encounter procedure [facility] Start: 10-26-2022 Refill Art Gramajo MD Work Phone: [place] Comment on above: Refill Request Start: 08-20-2022 Patient encounter procedure [facility] Provider [facility] Department Start: 08-01-2022 End: 08-01-2022 ambulatory [facility] Work Phone: Start: 08-01-2022 End: 08-01-2022 Patient encounter procedure [facility] Start: 05-23-2022 Refill Art Gramajo MD Work Phone: [place] Comment on above: Refill Request Start: 03-04-2022 End: 03-04-2022 Patient encounter procedure [facility], [place] Procedures Date Procedure Procedure Detail Performing Clinician Start: 01-04-2024 CBC + DIFF Other Start: 05-07-2023 Plain X-ray of hip Start: 05-07-2023 Total Hip Replacemen t Robotic Arm Assist (Left) Start: 04-21-2023 Nasal Screen MRSA/MSSA Start: 04-21-2023 Plain chest X-ray Start: 04-20-2023 MRI of lower extremity Start: 03-04-2022 Plain x-ray of pelvi s and lower extremity Plan of Treatment Date Care Activity Detail Author Start: 05-16-2025 Annual PCP Team Chronic Disease Visit Annual PCP Team Chronic Disease Visit [facility] Start: 11-16-2024 End: 11-16-2024 Patient encounter procedure 11/16/2024 8:30 AM EST Office Visit [place] [address] [place] [id number] Art Healy MD [address] [place], [place] [id number] Annual Wellness [place] Comment on above: Annual Wellness Start: 10-28-2024 Annual PCP Team Chronic Disease Visit Annual PCP Team Chronic Disease Visit [facility] Start: 06-05-[address] [facility] Start: 05-16-2024 End: 08-15-2024 Lipid 1996 panel - Serum or Plasma LIPID PANEL BASIC Lab Routine Pure hypercholesterolemia Expected: 05/16/2024, Expires: 08/15/2024 [facility] Comment on above: Expected: 05/16/2024, Expires: Start: 05-16-2024 End: 08-15-2024 PSA/PROSTATE SPECIFIC ANTIGEN SCREENING PSA/PROSTATE SPECIFIC ANTIGEN SCREENING Lab Routine Screening PSA (prostate specific antigen) Expected: 05/16/2024, Expires: 08/15/2024 [facility] Work Phone: Comment on above: Expected: 05/16/2024, Expires: Start: 04-29-2024 ANNUAL PCP TEAM CHRONIC DISEASE VISIT ANNUAL PCP TEAM CHRONIC DISEASE VISIT [facility] Start: 01-27-2024 ANNUAL PCP TEAM CHRONIC DISEASE VISIT ANNUAL PCP TEAM CHRONIC DISEASE VISIT [facility] Start: 10-05-2023 Behavioral Health Screening Behavioral Health Screening [facility] Start: 10-05-2023 Depression Assessment Depression Assessment [facility] Start: 06-05-2023 Covid-19 Vaccine () Covid-19 Vaccine () [facility] Start: 06-05-[address] [facility] Start: 05-07-2023 Anesthesia open total hip arthroplasty ANESTH HIP ARTHROPLASTY [facility] Start: 05-07-2023 Arthrp acetblr/prox fem prostc agrft/algrft TOTAL HIP ARTHROPLASTY [facility] Start: 05-07-2023 Provision of overbed trapeze [facility] Start: 05-07-2023 Application of ice collar, cap or bag [facility] Start: 05-07-2023 End: 05-07-2023 Incentive spirometry [facility] Start: 05-07-2023 Patient discharge [facility] Start: 05-07-2023 End: 05-07-2023 Provision of activity privileges [facility] Start: 05-07-2023 Referral to service [facility] Start: 05-07-2023 End: 05-07-2023 [facility] Start: 05-07-2023 Ambulation therapy management [facility] Start: 05-07-2023 Application of device [facility] Start: 05-07-2023 Assessment of risk of venous thromboembolism [facility] Start: 05-07-2023 Catheterization of vein [facility] Start: 05-07-2023 End: 05-07-2023 Exercises [facility] Start: 05-07-2023 Following clinical pathway protocol [facility] Start: 05-07-2023 Introduction of urinary catheter [facility] Start: 05-07-2023 Measuring intake and output [facility] Start: 05-07-2023 End: 05-07-2023 Neurovascular assessment [facility] Start: 05-07-2023 End: 05-07-2023 Patient education [facility] Start: 05-07-2023 Procedure discontinued [facility] Start: 05-07-2023 Recommendation to continue with treatment [facility] Start: 05-07-2023 Vital signs measurements [facility] Start: 05-07-2023 End: 05-07-2023 Wound care [facility] Start: 10-05-2022 DEPRESSION ASSESSMENT DEPRESSION ASSESSMENT [facility] Start: 06-05-2022 Influenza vaccination INFLUENZA (#1) [facility] Start: 02-27-2022 COVID-19 VACCINE (4 - Booster for Pfizer series) COVID-19 VACCINE (4 - Booster for Pfizer series) [facility] Start: 02-27-2022 COVID-19 VACCINE (4 - Pfizer risk series) COVID-19 VACCINE (4 - Pfizer risk series) [facility] Start: 10-05-2021 DEPRESSION ASSESSMENT DEPRESSION ASSESSMENT [facility] Start: 2021 PROSTATE CANCER SCREENING DISCUSSION PROSTATE CANCER SCREENING DISCUSSION [facility] Start: 2021 Prostate specific antigen measurement Prostate Cancer Screening Discussion [facility] Start: 2016 SHINGRIX VACCINE (1 of 2) SHINGRIX VACCINE (1 of 2) [facility] Start: 2011 COLOGUARD (FIT-DNA) COLOGUARD (FIT-DNA) [facility] Start: [address] [facility] Start: 2011 COLORECTAL CANCER SCREENING COLORECTAL CANCER SCREENING [facility] Start: [address] [facility] Start: 2011 DIABETES SCREEN DIABETES SCREEN [facility] Start: 2011 Diabetes Screening Diabetes Screening [facility] Start: 2011 FECAL OCCULT BLOOD FECAL OCCULT BLOOD [facility] Start: 2011 Screening for malignant neoplasm of colon [facility] Start: [address] [facility] Start: 2001 Lipid panel Lipid Screening [facility] Start: 2001 LIPID SCREEN LIPID SCREEN [facility] Start: 1985 Hepatitis B Vaccine (1 of 3 - 19+ 3-dose series) Hepatitis B Vaccine (1 of 3 - 19+ 3-dose series) [facility] Start: 1985 SHINGRIX VACCINE (1 of 2) SHINGRIX VACCINE (1 of 2) [facility] Start: [address] [facility] Start: 1984 Anxiety Screening Anxiety Screening [facility] Start: 1984 BP CONTROLLED (<130/80) BP CONTROLLED (<130/80) [facility] Start: 1984 Depression Screening Depression Screening [facility] Start: 1984 HEPATITIS C SCREENING HEPATITIS C SCREENING [facility] Start: 1984 HIV SCREENING HIV SCREENING [facility] Start: 1984 HIV screening HIV Screening [facility] Start: [address] [facility] Start: 1978 Adult depression screening assessment DEPRESSION SCREENING [facility] Start: 1972 PNEUMOCOCCAL (1 - PCV) PNEUMOCOCCAL (1 - PCV) [facility] Start: 1972 Pneumococcal vaccination Pneumococcal Vaccine (1 of 2 - PCV) [facility] Start: 04-03-1967 COVID-19 VACCINE (#1) COVID-19 VACCINE (#1) [facility] Start: 1966 HEPATITIS B (1 of 3 - 3-dose series) HEPATITIS B (1 of 3 - 3-dose series) [facility] Start: 1966 Hepatitis B Vaccine (1 of 3 - 3-dose series) Hepatitis B Vaccine (1 of 3 - 3-dose series) [facility] Patient referral [facility] Work Phone: [facility] Payers Date Payer Category Payer Self-pay [id number] 2022 Unknown [id number] 2015 Unknown [id number] Unknown [id number] Unknown [id number] 90 [id number] Unknown [id number] Unknown [id number] Unknown [id number] Unknown [id number] Unknown [id number] Social History Date Type Detail Facility Start: 09-21-2016 End: 11-22-2023 Tobacco smoking status NCIS Unknown if ever smoked [facility] Start: 1965 Sex Assigned At Male W [facility] Start: 1965 Sex Assigned At Not on file C [facility] Start: 01-26-2023 End: 11-22-2023 Tobacco smoking status NCIS Never smoked tobacco [facility] Start: 01-26-2023 Tobacco use and exposure Smokeless tobacco non-user [facility] Start: 01-26-2023 End: 05-16-2024 Alcohol intake Ex-drinker (finding) [facility] Start: 04-29-2023 End: 10-28-2023 History of [address] function [facility] Start: 04-29-2023 End: 10-28-[address] [facility] National Score (1-100), lower number is lower risk 78 [facility] Start: 01-11-2025 Sex Male (finding) [facility] Medical Equipment Procedure Code Equipment Code Equipment Origin al Text Equipment Identifier Dates ([id number]) Ceramic femoral head prosthesis ()[id number]( [id number] FDA Start: 05-07-2023 ([id number]) Coated hip femur prosthesis, modular ()[id number]( [id number] FDA Start: 05-07-2023 ([id number]) Non-constrained polyethylene acetabular liner ()[id number]( [id number] FDA Start: 05-07-2023 ([id number]) Acetabular shell [id number] FDA Start: 05-07-2023 ([id number]) Orthopaedic bone screw, non-bioabsorbable, sterile ()[id number] FDA Start: 05-07-2023 Goals Date Patient Goal Desired Activity /State Functional Status Date Assessment Result Facility 05-07-2023 Functional status Ambulates;Bathroom Priv ilege [facility] Work Phone: Mental Status Date Assessment Result Facility 05-07-2023 Cognitive function Voice/Name [facility] Work Phone: Clinical Notes 05-23-2022 to 12-19-2024 Telephone Encounter - Harvey West MA - 05/25/2024 9:08 AM EDTTelephone Encounter - Harvey West MA - 05/25/2024 9:08 AM EDTTelephone Encounter - Harvey West MA - 05/25/2024 6:14 AM EDT Note Date & Type Note Facility 12-19-2024 Note HNO ID: [id number] Author: ART HEALY MD Service: ? Author Type: Physician Type: Progress Notes Filed: 12/19/2024 09:11 Note Text: Subjective Zoë Avila is a 59 year old male. Zoë presents today for his annual wellness visit. Additionally follows up for multiple medical problems. See list. His chronic medical problems been stable. Blood pressure is under good control on lisinopril. He continues to follow with rheumatology for psoriatic arthritis. He is on prednisone and methotrexate with control of symptoms. Reflux symptoms are improved with omeprazole. Cholesterol has been diet controlled asthma has been stable on Symbicort. Review of Systems Constitutional: Negative. HENT: Negative. Eyes: Negative. Respiratory: Negative. Cardiovascular: Negative. Gastrointestinal: Negative. Endocrine: Negative. Genitourinary: Negative. Musculoskeletal: Negative. Skin: Negative. Allergic/Immunologic: Negative. Neurological: Negative. Hematological: Negative. Psychiatric/Behavioral: Negative. History reviewed. No pertinent surgical history. History reviewed. No pertinent past medical history. History reviewed. No pertinent family history. Social History Tobacco Use Smoking status: Never Smokeless tobacco: Never Vaping Use Vaping status: Never Used Substance Use Topics Alcohol use: Not Currently Drug use: Never ALLERGIES No Known Allergies MEDICATIONS: predniSONE (DELTASONE) 10 mg tablet TAKE 1 TABLET BY MOUTH DAILY NEEDED TAKE FOR 3 TO 5 DAYS WITH A FLARE folic acid 1 mg tablet Take 2 tablets by mouth every afternoon. albuterol HFA (PROVENTIL HFA, VENTOLIN HFA) 90 mcg/actuation inhaler Inhale 2 Puffs as instructed every 4 hours as needed for wheezing/shortness of breath. Ibuprofen 200 mg cap Take by mouth two times a day as needed. methotrexate 2.5 mg tablet Take 2.5 mg by mouth every Thursday. traMADol (ULTRAM) 50 mg tablet Take 50 mg by mouth once daily as needed for pain. budesonide-formoterol (SYMBICORT) 160-4.5 mcg/actuation inhaler Inhale 2 Puffs as instructed twice daily. lisinopril (ZESTRIL) 20 mg tablet Take 1 tablet by mouth once daily. omeprazole (PRILOSEC) 40 mg capsule Take 1 capsule by mouth once daily. cephALEXin (KEFLEX) 500 mg capsule Take 1 capsule by mouth three times a day. Allergies, past surgical history, family history and past medical history were reviewed per this encounter. Medications were reviewed and verified. 05/16/2024 12/19/2024 INTAKE PAIN ASSESSMENT Are you having pain associated with your visit today? No No If pain assessment is 0, no action needed. If pain assessment is positive, please see assessment and plain. Objective BP 130/84 (BP Site: Left Arm, BP Position: Sitting, BP Cuff Size: Regular Adult) Pulse 62 Temp 36.4 ?C (97.6 ?F) (Temporal) Resp 18 Ht 182.9 cm (6') Wt 103.9 kg (229 lb) SpO2 96% BMI 31.06 kg/m? Physical Exam Vitals reviewed. Constitutional: Appearance: Normal appearance. HENT: Head: Normocephalic and atraumatic. Nose: Nose normal. Eyes: Extraocular Movements: Extraocular movements intact. Pupils: Pupils are equal, round, and reactive to light. Cardiovascular: Rate and Rhythm: Normal rate and regular rhythm. Pulmonary: Effort: Pulmonary effort is normal. Breath sounds: Normal breath sounds. Abdominal: General: Bowel sounds are normal. Palpations: Abdomen is soft. Musculoskeletal: General: Normal range of motion. Cervical back: Normal range of motion and neck supple. Skin: General: Skin is warm and dry. Capillary Refill: Capillary refill takes less than 2 seconds. Neurological: General: No focal deficit present. Mental Status: He is alert and oriented to person, place, and time. Mental status is at baseline. Psychiatric: Mood and Affect: Mood normal. Behavior: Behavior normal. Procedures Assessment and Plan Encounter Diagnosis ICD-10-CM 1. Wellness examination Z00.00 2. Encounter for screening examination for other mental health and behavioral disorders Z13.39 ANXIETY SCREENING 3. Hypertension, benign I10 Pressure improved and stable on current medication. Continue lisinopril. Monitor blood pressure regularly. 4. Pure hypercholesterolemia, unspecified E78.00 LIPID PANEL BASIC Stable. Recheck lipids. 5. Gastroesophageal reflux disease without esophagitis K21.9 Improved and stable on omeprazole. Continue Meprazole as needed. 6. Psoriatic arthropathy (HCC) L40.50 Stable. Followed by rheumatology 7. Screening PSA (prostate specific antigen) Z12.5 PSA/PROSTATE SPECIFIC ANTIGEN SCREENING 8. Moderate persistent asthma without complication J45.40 Improved and stable on current regimen. Continue Symbicort and albuterol All open preventative health maintenance topics discussed with patient in detail. This includes risks and benefits regarding vaccines, cancer screening, healthy life style, and diet. Cont (more content not included)... [facility] 12-19-2024 Note HNO ID: [id number] Author: JEANNINE HERNÁNDEZ LPN Service: ? Author Type: LICENSED NURSE Type: Progress Notes Filed: 12/19/2024 09:11 Note Text: [employer]TE[employer]CE HIV Screening declined BP Controlled (<130/80) DTaP,Tdap,Td Vaccine(1 - Tdap) declined Hepatitis B Vaccine(1 of 3 - 19+ 3-dose series) declined Shingrix Vaccine(1 of 2) declined Pneumococcal Vaccine: 50+(1 of 2 - PCV) declined Lipid Screening Diabetes Screening Colorectal Cancer Screening declined Prostate Cancer Screening Discussion Influenza Vaccine(1) declined Covid-19 Vaccine(2023- season)declined Jeannine Hernández LPN December 19, 2024 8:38 AM [facility] 05-25-2024 Telephone encount er Note Items addressed in this encounter: Telephone Encounter Pt notified by VM of ENT referral info Able to close encounter. Harvey West MA May 25, 2024 9:08 AM 9:[address] [facility] 05-25-2024 Miscellaneous Notes Formattin g of this note might be different from the original. Items addressed in this encounter: Telephone Encounter Pt notified by VM of ENT referral info Able to close encounter. Harvey West MA May 25, 2024 9:08 AM 9:08 AM documented in this encounter [facility] 05-25-2024 Telephone encount er Note Items addressed in this encounter: Fax/Forms ENT referral faxed to Bud Pruitt M.D ([facility]) Faxed via [employer]ax, fax confirmation received Able to close encounter. Harvey West MA May 25, 2024 6:14 AM 6:[address] [facility] 05-25-2024 Miscellaneous Notes Formattin g of this note might be different from the original. Items addressed in this encounter: Fax/Forms ENT referral faxed to Bud Pruitt M.D ([facility]) Faxed via [employer]ax, fax confirmation received Able to close encounter. Harvey West MA May 25, 2024 6:14 AM 6:14 AM C documented in this encounter [facility] 05-16-2024 Note HNO ID: [id number] Author: ART HEALY MD Service: ? Author Type: Physician Type: Progress Notes Filed: 05/16/2024 08:38 Note Text: Javed Avila is a 58 year old male.Patient presents today for follow-up for multiple medical problems. See list. His chronic medical problems been stable. He is compliant with his medications. He has no new complaints today. Review of Systems Constitutional: Negative. HENT: Negative. Eyes: Negative. Respiratory: Negative. Cardiovascular: Negative. Gastrointestinal: Negative. Endocrine: Negative. Genitourinary: Negative. Musculoskeletal: Negative. Skin: Negative. Allergic/Immunologic: Negative. Neurological: Negative. Hematological: Negative. Psychiatric/Behavioral: Negative. History reviewed. No pertinent surgical history. History reviewed. No pertinent past medical history. History reviewed. No pertinent family history. Social History Tobacco Use Smoking status: Never Smokeless tobacco: Never Vaping Use Vaping Use: Never used Substance Use Topics Alcohol use: Not Currently Drug use: Never ALLERGIES No Known Allergies MEDICATIONS: predniSONE (DELTASONE) 10 mg tablet TAKE 1 TABLET BY MOUTH DAILY NEEDED TAKE FOR 3 TO 5 DAYS WITH A FLARE folic acid 1 mg tablet Take 2 tablets by mouth every afternoon. omeprazole (PRILOSEC) 40 mg capsule take 1 capsule by mouth every day as directed lisinopril (ZESTRIL) 20 mg tablet Take 1 tablet by mouth once daily. cephALEXin (KEFLEX) 500 mg capsule Take 1 capsule by mouth three times a day. Ibuprofen 200 mg cap Take by mouth two times a day as needed. methotrexate 2.5 mg tablet Take 2.5 mg by mouth every Thursday. traMADol (ULTRAM) 50 mg tablet Take 50 mg by mouth once daily as needed for pain. budesonide-formoterol (SYMBICORT) 160-4.5 mcg/actuation inhaler Inhale 2 Puffs as instructed twice daily. albuterol HFA (PROVENTIL HFA, VENTOLIN HFA) 90 mcg/actuation inhaler Inhale 2 Puffs as instructed every 4 hours as needed for wheezing/shortness of breath. Allergies, past surgical history, family history and past medical history were reviewed per this encounter. Medications were reviewed and verified. Objective BP 124/84 (BP Site: Left Arm, BP Position: Sitting, BP Cuff Size: Regular Adult) Pulse 64 Temp 36.4 ?C (97.6 ?F) (Temporal) Resp 18 Ht 182.9 cm (6') Wt 103 kg (227 lb) SpO2 98% BMI 30.79 kg/m? Physical Exam Vitals reviewed. Constitutional: Appearance: Normal appearance. HENT: Head: Normocephalic and atraumatic. Nose: Nose normal. Eyes: Extraocular Movements: Extraocular movements intact. Pupils: Pupils are equal, round, and reactive to light. Cardiovascular: Rate and Rhythm: Normal rate and regular rhythm. Pulmonary: Effort: Pulmonary effort is normal. Breath sounds: Normal breath sounds. Abdominal: General: Bowel sounds are normal. Palpations: Abdomen is soft. Musculoskeletal: General: Normal range of motion. Cervical back: Normal range of motion and neck supple. Skin: General: Skin is warm and dry. Capillary Refill: Capillary refill takes less than 2 seconds. Neurological: General: No focal deficit present. Mental Status: He is alert and oriented to person, place, and time. Mental status is at baseline. Psychiatric: Mood and Affect: Mood normal. Behavior: Behavior normal. Assessment and Plan Encounter Diagnosis ICD-10-CM 1. Hypertension, benign I10 2. Psoriatic arthropathy (HCC) L40.50 3. Pure hypercholesterolemia, unspecified E78.00 4. Moderate persistent asthma without complication J45.40 Continue present medications. Check labs as above. Monitor blood pressure regularly. Exercise as tolerated. Maintain good diet. Follow-up in 6 months. Art Healy MD [facility] 05-16-2024 History of Presen t illness Narrative Subjective Zoë Avila is a 58 year old male.Patient presents today for follow-up for multiple medical problems. See list. His chronic medical problems been stable. He is compliant with his medications. He has no new complaints today. Review of Systems Constitutional: Negative. HENT: Negative. Eyes: Negative. Respiratory: Negative. Cardiovascular: Negative. Gastrointestinal: Negative. Endocrine: Negative. Genitourinary: Negative. Musculoskeletal: Negative. Skin: Negative. Allergic/Immunologic: Negative. Neurological: Negative. Hematological: Negative. Psychiatric/Behavioral: Negative. History reviewed. No pertinent surgical history. History reviewed. No pertinent past medical history. History reviewed. No pertinent family history. Social History Tobacco Use Smoking status: Never Smokeless tobacco: Never Vaping Use Vaping Use: Never used Substance Use Topics Alcohol use: Not Currently Drug use: Never ALLERGIES No Known Allergies MEDICATIONS: predniSONE (DELTASONE) 10 mg tablet TAKE 1 TABLET BY MOUTH DAILY NEEDED TAKE FOR 3 TO 5 DAYS WITH A FLARE folic acid 1 mg tablet Take 2 tablets by mouth every afternoon. omeprazole (PRILOSEC) 40 mg capsule take 1 capsule by mouth every day as directed lisinopril (ZESTRIL) 20 mg tablet Take 1 tablet by mouth once daily. cephALEXin (KEFLEX) 500 mg capsule Take 1 capsule by mouth three times a day. Ibuprofen 200 mg cap Take by mouth two times a day as needed. methotrexate 2.5 mg tablet Take 2.5 mg by mouth every Thursday. traMADol (ULTRAM) 50 mg tablet Take 50 mg by mouth once daily as needed for pain. budesonide-formoterol (SYMBICORT) 160-4.5 mcg/actuation inhaler Inhale 2 Puffs as instructed twice daily. albuterol HFA (PROVENTIL HFA, VENTOLIN HFA) 90 mcg/actuation inhaler Inhale 2 Puffs as instructed every 4 hours as needed for wheezing/shortness of breath. Allergies, past surgical history, family history and past medical history were reviewed per this encounter. Medications were reviewed and verified. Objective BP 124/84 (BP Site: Left Arm, BP Position: Sitting, BP Cuff Size: Regular Adult) Pulse 64 Temp 36.4 C (97.6 F) (Temporal) Resp 18 Ht 182.9 cm (6') Wt 103 kg (227 lb) SpO2 98% BMI 30.79 kg/m Physical Exam Vitals reviewed. Constitutional: Appearance: Normal appearance. HENT: Head: Normocephalic and atraumatic. Nose: Nose normal. Eyes: Extraocular Movements: Extraocular movements intact. Pupils: Pupils are equal, round, and reactive to light. Cardiovascular: Rate and Rhythm: Normal rate and regular rhythm. Pulmonary: Effort: Pulmonary effort is normal. Breath sounds: Normal breath sounds. Abdominal: General: Bowel sounds are normal. Palpations: Abdomen is soft. Musculoskeletal: General: Normal range of motion. Cervical back: Normal range of motion and neck supple. Skin: General: Skin is warm and dry. Capillary Refill: Capillary refill takes less than 2 seconds. Neurological: General: No focal deficit present. Mental Status: He is alert and oriented to person, place, and time. Mental status is at baseline. Psychiatric: Mood and Affect: Mood normal. Behavior: Behavior normal. Assessment and Plan Encounter Diagnosis ICD-10-CM 1. Hypertension, benign I10 2. Psoriatic arthropathy (HCC) L40.50 3. Pure hypercholesterolemia, unspecified E78.00 4. Moderate persistent asthma without complication J45.40 Continue present medications. Check labs as above. Monitor blood pressure regularly. Exercise as tolerated. Maintain good diet. Follow-up in 6 months. Art Healy MD Patient is in office for a follow up for chronic medical conditions. Patient is overdue for wellness exam Patient has no current complaints or concerns. Jeannine Hernández LPN May 16, 2024 8:18 AM documented in this encounter [facility] 05-16-2024 Note HNO ID: [id number] Author: JEANNINE HERNÁNDEZ LPN Service: ? Author Type: LICENSED NURSE Type: Progress Notes Filed: 05/16/2024 08:38 Note Text: Patient is in office for a follow up for chronic medical conditions. Patient is overdue for wellness exam Patient has no current complaints or concerns. Jeannine Hernández LPN May 16, 2024 8:18 AM [facility] 12-25-2023 Miscellaneous Notes Formattin g of this note is different from the original. Pharmacy [facility] message requesting the following refill. Requested Prescriptions Pending Prescriptions Disp Refills omeprazole (PRILOSEC) 40 mg capsule [Pharmacy Med Name: OMEPRAZOLE DR 40 MG CAPSULE] 90 capsule 3 Sig: take 1 capsule by mouth every day as directed Patient last appointment: 10/28/2023 Next appointment 04/27/2024 Patient Phone numbers: [phone] (home) Request is for script(s) to be escript to [facility] pharmacy. Kasey Dasilva LPN documented in this encounter [facility] 11-01-2023 History of Presen t illness Narrative This note was created using IT[employer]. Subjective Zoë Avila is a 58 year old male. Zoë presents today for follow-up for multiple medical problems. See list. His chronic medical problems stable. His blood pressures been under good control on his current regimen. He complains today of cellulitis to his left lower extremity. This has been a recurrent issue. He has a history of peripheral vascular disease. Review of Systems Constitutional: Negative. HENT: Negative. Eyes: Negative. Respiratory: Negative. Cardiovascular: Negative. Gastrointestinal: Negative. Endocrine: Negative. Genitourinary: Negative. Musculoskeletal: Negative. Skin: Negative. Allergic/Immunologic: Negative. Neurological: Negative. Hematological: Negative. Psychiatric/Behavioral: Negative. Objective BP 128/86 (BP Site: Left Arm, BP Position: Sitting, BP Cuff Size: Regular Adult) Pulse 64 Temp 36.3 C (97.3 F) (Temporal) Resp 18 Ht 182.9 cm (6') Wt 105.7 kg (233 lb) SpO2 97% BMI 31.60 kg/m Physical Exam Vitals reviewed. Constitutional: Appearance: Normal appearance. HENT: Head: Normocephalic and atraumatic. Nose: Nose normal. Eyes: Extraocular Movements: Extraocular movements intact. Pupils: Pupils are equal, round, and reactive to light. Cardiovascular: Rate and Rhythm: Normal rate and regular rhythm. Pulmonary: Effort: Pulmonary effort is normal. Breath sounds: Normal breath sounds. Abdominal: General: Bowel sounds are normal. Palpations: Abdomen is soft. Musculoskeletal: General: Normal range of motion. Cervical back: Normal range of motion and neck supple. Skin: General: Skin is warm and dry. Capillary Refill: Capillary refill takes less than 2 seconds. Neurological: General: No focal deficit present. Mental Status: He is alert and oriented to person, place, and time. Mental status is at baseline. Psychiatric: Mood and Affect: Mood normal. Behavior: Behavior normal. Assessment and Plan Encounter Diagnosis ICD-10-CM 1. Hypertension, benign I10 2. Pure hypercholesterolemia, unspecified E78.00 3. Gastroesophageal reflux disease without esophagitis K21.9 4. Cellulitis of lower extremity, unspecified laterality L03.119 5. Lymphedema I89.0 Treat cellulitis with Keflex. Continue present medications. Compression. Labs reviewed. Art Healy MD Patient is in office for a follow up for chronic medical conditions. Patient states that he has recurrent cellulitis. Patient is requesting refill on Keflex as prescribed before No current complaints or concerns Jeannine Hernández LPN October 28, 2023 4:27 PM documented in this encounter [facility] 06-11-2023 Miscellaneous Notes Formattin g of this note might be different from the original. I see that Dr Healy did give patient a Rx for Cephalexin for his cellulitis. I called patient to let him know. No answer. I did leave him a voice mail message telling him there is a Rx for Cephalexin at [facility] for him. Kasey Dasilva LPN June 11, 2023 5:46 PM Zoë Avila called today. : 1965 Allergies: Patient has no known allergies. (home) [phone] (cell) Reason for call: Patient called to report that he is having a cellulitis flare up in his right leg. It started yesterday. His leg is red and swollen. He said he has a long history of getting this, and Dr Healy knows all about it. Zoë said Dr Healy has been treating me for this for over 20 years. Zoë is asking for an antibiotic to help. He said, Dr Healy gave me Cephalexin last time. Patient last appointment:04/29/2023 The patients preferred pharmacy has been captured for this encounter? Yes [facility] Kasey Dasilva LPN documented in this encounter [facility] 05-07-2023 Discharge summary Note Date/Time May 07, 2023 12:38pm [facility] Medical Records Department [address] [place] [address] Instructions for Home/Discharge Instructions 05/07/23 1238 MR#: [id number] Acct: [id number] Name: ZOË AVILA Rep #:[id number] : 1965 57 From: Stephon gibbs DO PCP: Dr. Art Healy MD Status:[facility] Discharge Instructions Follow Up Care Test Results: Test results from this visit will be discussed in further detail at your follow-up appointment, if applicable. Discharge Plan Admission Primary Reason for Your Visit: Left hip replacement Attending Provider: Stephon Mcgarry Primary Care Provider: Art Healy Instructions Additional Instructions / Restrictions: Follow preprinted instructions from your surgeons office. Discharge Orders/Prescriptions Prescriptions: New meloxicam 15 mg tablet 15 mg PO DAILY 30 Days Qty: 30 0RF No Action lisinopril 20 mg tablet 20 mg PO DAILY Patient Comments: TAKE 1 TABLET BY MOUTH EVERY DAY omeprazole 40 mg capsule,delayed release(DR/EC) 40 mg PO DAILY Patient Comments: TAKE 1 CAPSULE BY MOUTH EVERY DAY DIRECTED tramadol 50 mg tablet 50 mg PO Q8H PRN (Reason: pain) Patient Comments: TAKE 1 TABLET BY MOUTH THREE TIMES A DAY NEEDED albuterol sulfate 90 mcg/actuation HFA aerosol inhaler 2 puff INHALATION Q4H PRN (Reason: shortness of breath or wheezing) Patient Comments: INHALE 2 PUFFS INSTRUCTED EVERY 4 HOURS NEEDED FOR WHEEZING/SHORTNESS OF BREATH. budesonide-formoterol [Symbicort] 160-4.5 mcg/actuation HFA aerosol inhaler 2 puff INHALATION Q12H Patient Comments: INHALE 2 PUFFS INSTRUCTED TWICE DAILY. ibuprofen 200 mg capsule 400 mg PO Q6H Referrals / Follow Up: Stephon Mcgarry DO [Med Staff - Active Staff] - Art Healy MD [Primary Care Provider] - Disposition Disposition (needs filled in before D/C Order can be placed): Home, Self Care 05/07/23 1238<Electronically signed by Stephon Mcgarry DO>Stephon Mcgarry DO CC: Dr. Art Healy MD ~ Signed [facility] Work Phone: [phone]) 285-881308-03-2023 Procedure [facility] 05-07-2023 Miscellaneous Notes* Telephone Encounter - Kasey Dasilva LPN - 05/07/2023 8:35 AM EDT Pharmacy [employer] message requesting the following refill. Requested Prescriptions Pending Prescriptions Disp Refills albuterol HFA (PROVENTIL HFA, VENTOLIN HFA) 90 mcg/actuation inhaler [Pharmacy Med Name: ALBUTEROL HFA (PROAIR) INHALER] 25.5 g 1 Sig: Inhale 2 Puffs as instructed every 4 hours as needed for wheezing/shortness of breath. Patient last appointment: 04/29/2023 Next appointment 07/29/2023 Patient Phone numbers: [phone] (home) Request is for script(s) to be escript to [facility] pharmacy. Kasey Dasilva LPN [facility] Miscellaneous Notes* Telephone Encounter - Malena Willingham LPN - 05/04/2023 10:32 AM EDT Signed and dated surgical clearance form along with office note successfully faxed today to [employer] at fax # [phone]. Fax confirmation received. All documentation noted above to be scanned into patient's chart. Malena Willingham LPN May 04, 2023 10:35 AM [facility] Miscellaneous Notes* Telephone Encounter - Malena Willingham LPN - 04/30/2023 5:48 PM EDT Unsuccessful fax attempt x 1 on Thu04/29/2023 Unsuccessful fax attempt x 2 today, Th04/30/2023 Will attempt to fax signed surgical clearance again, and will follow up with [employer] regarding a possible alternate fax number. Malena Willingham LPN April 30, 2023 5:52 PM [facility] History of Present illness Narrative* Art Healy MD - 01/27/2023 10:12 AM EDT This note was created using IT[employer]. Subjective Zoë Avila is a 57 year old male. Zoë presents today for follow-up for multiple medical problems. See list. His chronic medical problems are stable. His blood pressure is under good control on his current regimen. He has no new complaints today. Review of Systems Constitutional: Negative. HENT: Negative. Eyes: Negative. Respiratory: Negative. Cardiovascular: Negative. Gastrointestinal: Negative. Endocrine: Negative. Genitourinary: Negative. Musculoskeletal: Negative. Skin: Negative. Allergic/Immunologic: Negative. Neurological: Negative. Hematological: Negative. Psychiatric/Behavioral: Negative. Objective BP 134/82 (BP Site: Left Arm, BP Position: Sitting, BP Cuff Size: Regular Adult) Pulse 66 Temp 36.3 C (97.3 F) (Temporal) Resp 18 Ht 182.9 cm (6') Wt 103.1 kg (227 lb 3.2 oz) SpO2 98% BMI 30.81 kg/m Physical Exam Vitals reviewed. Constitutional: Appearance: Normal appearance. HENT: Head: Normocephalic and atraumatic. Nose: Nose normal. Eyes: Extraocular Movements: Extraocular movements intact. Pupils: Pupils are equal, round, and reactive to light. Cardiovascular: Rate and Rhythm: Normal rate and regular rhythm. Pulmonary: Effort: Pulmonary effort is normal. Breath sounds: Normal breath sounds. Abdominal: General: Bowel sounds are normal. Palpations: Abdomen is soft. Musculoskeletal: General: Normal range of motion. Cervical back: Normal range of motion and neck supple. Skin: General: Skin is warm and dry. Capillary Refill: Capillary refill takes less than 2 seconds. Neurological: General: No focal deficit present. Mental Status: He is alert and oriented to person, place, and time. Mental status is at baseline. Psychiatric: Mood and Affect: Mood normal. Behavior: Behavior normal. Assessment and Plan Encounter Diagnosis ICD-10-CM 1. Hypertension, benign I10 2. Unspecified asthma, uncomplicated J45.909 budesonide-formoterol (SYMBICORT) 160-4.5 mcg/actuation inhaler 3. Pure hypercholesterolemia, unspecified E78.00 4. Gastroesophageal reflux disease without esophagitis K21.9 5. Psoriatic arthropathy (HCC) L40.50 Continue present medications. Follow-up in 6 months. Art Healy MD * Jeannine Hernández LPN - 01/26/2023 4:12 PM EDT Patient is in office today for 6 month exam. No current complaints or concerns Jeannine Hernández LPN January 26, 2023 4:18 PM [facility] Miscellaneous Notes* Telephone Encounter - Kasey Dasilva LPN - 10/27/2022 4:55 PM EST Pharmacy [employer] message requesting the following refill. Requested Prescriptions Pending Prescriptions Disp Refills omeprazole (PRILOSEC) 40 mg capsule [Pharmacy Med Name: OMEPRAZOLE DR 40 MG CAPSULE] 90 capsule 3 Sig: TAKE 1 CAPSULE BY MOUTH EVERY DAY DIRECTED Patient last appointment: 02/04/2022 Patient Phone numbers: [phone] (home) Request is for script(s) to be escript to [facility] pharmacy. Kasey Dasilva LPN [facility] Miscellaneous Notes* Telephone Encounter - Jeannine Hernández LPN - 05/23/2022 7:57 AM EDT Requested Prescriptions Pending Prescriptions Disp Refills SYMBICORT 160-4.5 mcg/actuation inhaler [Pharmacy Med Name: SYMBICORT 160-4.5 MCG INHALER] 30.6 Each 3 Sig: INHALE 2 PUFFS INTO THE LUNGS TWICE A DAY Jeannine Hernández LPN May 23, 2022 7:57 AM [facility] noteNo assessment information availableM[facility]ull[facility] Work Phone: Evaluation note* Diagnosis Unspecified asthma, uncomplicated documented in this encounter [facility] note* Diagnosis Hypertension, benign- Primary Essential hypertension, benign Unspecified asthma, uncomplicated Pure hypercholesterolemia, unspecified Gastroesophageal reflux disease without esophagitis Esophageal reflux Psoriatic arthropathy (HCC) Psoriatic arthropathy documented in this encounter [facility] note* Diagnosis Hypertension, benign- Primary Essential hypertension, benign Pure hypercholesterolemia, unspecified Gastroesophageal reflux disease without esophagitis Esophageal reflux Cellulitis of lower extremity, unspecified laterality Lymphedema Other lymphedema documented in this encounter [facility] note* Diagnosis Onset Date Resolution Status Acute sinusitis acute Laryngitis acute Hypertension [facility] Work Phone: Evaluation note* Diagnosis Hypertension, essential- Primary Unspecified essential hypertension Psoriatic arthropathy (HCC) Psoriatic arthropathy Moderate persistent asthma without complication Unspecified asthma Impacted cerumen of right ear Impacted cerumen Pure hypercholesterolemia Screening PSA (prostate specific antigen) Special screening for malignant neoplasm of prostate documented in this encounter [facility] Discharge instructions Additional Instructions Follow preprinted instructions from your surgeons office. Implant Used?: Yes [facility] Work Phone: Reason for referral (narrative)No reason for referral information availableMccullough-[facility] Work Phone: Advance Directives No Advanced Directives Records Found Advance Directive Response Recorded Date/ Time Advance Directives No September 8:42pm Living Will No September 21 016 8:42pm Power of Poultry Slaughterer No September 21, 2016 8:42pm Advance Directive Response Recorded Date/ Time Advance Directives No September 8:42pm Living Will No April 15, 2023 3:23pm Power of Poultry Slaughterer No April 15 3:23pm Advance Directive Response Recorded Date/ Time Advance Directives No September 7:42pm Living Will No April 15, 2023 2:23pm Power of Poultry Slaughterer No April 15 2:23pm Advance Directive Response Recorded Date/ Time Advance Directives No September 8:42pm Chief Complaint and Reason for Visit Chief Complaint PAIN- COPY PCP Chief Complaint PAIN- COPY PCP PRIMARY OSTEOARTHRITIS LEFT HIP *MEGHAN PROTOCOL* Chief Complaint PAIN- COPY PCP PRIMARY OSTEOARTHRITIS LEFT HIP *MEGHAN PROTOCOL* LT TOTAL HIP W MEGHAN Chief Complaint PAIN- COPY PCP PRIMARY OSTEOARTHRITIS LEFT HIP *MEGHAN PROTOCOL* SURGERY LT TOTAL HIP W MEGHAN COPY PCP Chief Complaint COPY PCP PAIN- COPY PCP Chief Complaint COUGH/LARENGITIS Reason for Visit Acute sinusitis Laryngitis Hypertension Chief Complaint Admit Date PAIN- COPY PCP October 14, 2024 1 0:29am PAIN- COPY PCP January 06, 2025 7:25 am Chief Complaint Admit Date PAIN- COPY PCP January 06, 2025 7:25 am PAIN- COPY PCP April 03, 2025 10:0 9am Family History No Family History Records Found Relationship Condition Age at Onset Recorded Date/T danis Not Specified Cardiac disease Unknown Malignant neoplasm Unknown Hypertension Unknown Reason for Referral Specialty Diagnoses / Procedures Referred By Contac t Referred To Contact Ent - Otolaryngology Diagnoses Impacted cerumen of right ear Procedures CONSULT TO ENT OFFICE/OUTPATIENT [facility] 60 MINUTES Art Healy MD [address] [place] [address] Referral ID Status Reason Start Date Expiration Date Visits Requested Visits Authorized [id number] Authorized PCP Requested Referral 05/16/2024 05/16/2025 1 1 Summary Purpose Additional Source Comments Goals (unrecognized section and content) Goals may be documented in a n alternate sectionGoals may be documented in an alternate sectionGoals may be documented in an alternate sectionGoals may be documented in an alternate sectionGoals may be documented in an alternate sectionGoals may be documented in an alternate sectionGoals may be documented in an alternate sectionGoals may be documented in an alternate sectionGoals may be documented in an alternate section Source Comments (unrecognize d section and content) In the event this informatio n is protected by the Federal Confidentiality of Alcohol and Drug Abuse Patient Records regulations: The Federal rules restrict any use of the information to criminally investigate or prosecute any alcohol or drug abuse patient.[facility] HospitalIn the event this information is protected by the Federal Confidentiality of Alcohol and Drug Abuse Patient Records regulations: The Federal rules restrict any use of the information to criminally investigate or prosecute any alcohol or drug abuse patient.[facility] HospitalIn the event this information is protected by the Federal Confidentiality of Alcohol and Drug Abuse Patient Records regulations: The Federal rules restrict any use of the information to criminally investigate or prosecute any alcohol or drug abuse patient.[facility] HospitalIn the event this information is protected by the Federal Confidentiality of Alcohol and Drug Abuse Patient Records regulations: The Federal rules restrict any use of the information to criminally investigate or prosecute any alcohol or drug abuse patient.[facility] HospitalIn the event this information is protected by the Federal Confidentiality of Alcohol and Drug Abuse Patient Records regulations: The Federal rules restrict any use of the information to criminally investigate or prosecute any alcohol or drug abuse patient.[facility] HospitalIn the event this information is protected by the Federal Confidentiality of Alcohol and Drug Abuse Patient Records regulations: The Federal rules restrict any use of the information to criminally investigate or prosecute any alcohol or drug abuse patient.[facility] HospitalIn the event this information is protected by the Federal Confidentiality of Alcohol and Drug Abuse Patient Records regulations: The Federal rules restrict any use of the information to criminally investigate or prosecute any alcohol or drug abuse patient.[facility] HospitalIn the event this information is protected by the Federal Confidentiality of Alcohol and Drug Abuse Patient Records regulations: The Federal rules restrict any use of the information to criminally investigate or prosecute any alcohol or drug abuse patient.[facility] HospitalIn the event this information is protected by the Federal Confidentiality of Alcohol and Drug Abuse Patient Records regulations: The Federal rules restrict any use of the information to criminally investigate or prosecute any alcohol or drug abuse patient.[facility] HospitalIn the event this information is protected by the Federal Confidentiality of Alcohol and Drug Abuse Patient Records regulations: The Federal rules restrict any use of the information to criminally investigate or prosecute any alcohol or drug abuse patient.[facility] HospitalIn the event this information is protected by the Federal Confidentiality of Alcohol and Drug Abuse Patient Records regulations: The Federal rules restrict any use of the information to criminally investigate or prosecute any alcohol or drug abuse patient.[facility] HospitalIn the event this information is protected by the Federal Confidentiality of Alcohol and Drug Abuse Patient Records regulations: The Federal rules restrict any use of the information to criminally investigate or prosecute any alcohol or drug abuse patient.[facility] HospitalIn the event this information is protected by the Federal Confidentiality of Alcohol and Drug Abuse Patient Records regulations: The Federal rules restrict any use of the information to criminally investigate or prosecute any alcohol or drug abuse patient.[facility] HospitalIn the event this information is protected by the Federal Confidentiality of Alcohol and Drug Abuse Patient Records regulations: The Federal rules restrict any use of the information to criminally investigate or prosecute any alcohol or drug abuse patient.[facility] HospitalIn the event this information is protected by the Federal Confidentiality of Alcohol and Drug Abuse Patient Records regulations: The Federal rules restrict any use of the information to criminally investigate or prosecute any alcohol or drug abuse patient.[facility] HospitalIn the event this information is protected by the Federal Confidentiality of Alcohol and Drug Abuse Patient Records regulations: The Federal rules restrict any use of the information to criminally investigate or prosecute any alcohol or drug abuse patient.[facility] Reason for Visit (unrecogniz ed section and content) Reason Comments Refill Request Reason Comments 6 Month Exam Reason Comments Other Surgical Clearance - [facility] Reason Comments Surgical Clearance Reason Comments Patient Question cellulitis Reason Comments Follow Up Reason Comments Follow Up Reason Comments ENT referral faxed to Bud Pruitt M.D ( [facility]) Reason Comments Pt notified by of ENT referral info Care Teams (unrecognized sec tion and content) Security Intelligence Analyst Relationship Specialty Start Date End Date Pcp, No PCP - General 04/19/22 11/04/22 Security Intelligence Analyst Relationship Specialty Start Date End Date Pcp, No PCP - General 04/19/22 11/04/22 Security Intelligence Analyst Relationship Specialty Start Date End Date Pcp, No PCP - General 04/19/22 11/04/22 Team Status: Active Member Role Status Dates Art DOMINGUEZ Family Provider Active Art DOMINGUEZ Primary Care Provider Active Team Status: Inactive Member Role Status Dates Art DOMINGUEZ Primary Care Provider Active Dr. Delmi Westfall MD Attending Provider, Referring Provider Active Security Intelligence Analyst Relationship Specialty Start Date End Date Art Healy MD [address], [place] [id number] PCP - General Family Medicine 01/13/23 Team Status: Active Member Role Status Dates Art DOMINGUEZ Family Provider Active Dr. Art Healy MD Primary Care Provider Active Team Status: Inactive Member Role Status Dates Dr. Art Healy MD Primary Care Provider Active Dr. Delmi Westfall MD Attending Provider, Referring Provider Active Team Status: Inactive Member Role Status Dates Dr. Art Healy MD Primary Care Provider Active Dr. Stephon Mcgarry DO Attending Provider, Referrin g Provider Active Security Intelligence Analyst Relationship Specialty Start Date End Date Art Healy MD [address] [place] [address] PCP - General Family Medicine 01/13/23 Security Intelligence Analyst Relationship Specialty Start Date End Date Art Healy MD [address] [place] [address] PCP - General Family Medicine 01/13/23 Security Intelligence Analyst Relationship Specialty Start Date End Date Art Healy MD [address] [place] [address] PCP - General Family Medicine 01/13/23 Team Status: Active Member Role Status Dates Dr. Art Healy MD Primary Care Provider Active Dr. Candy Burnett MD Attending Provider Active Dr. Stephon Mcgarry DO Referring Provider Active Team Status: Inactive Member Role Status Dates Dr. Art Healy MD Primary Care Provider Active Dr. Delmi Westfall MD Attending Provider Active Security Intelligence Analyst Relationship Specialty Start Date End Date Art Healy MD [address] [place] [address] PCP - General Family Medicine 01/13/23 Security Intelligence Analyst Relationship Specialty Start Date End Date Art Healy MD [address] [place] [address] PCP - General Family Medicine 01/13/23 Security Intelligence Analyst Relationship Specialty Start Date End Date Art Healy MD [address] [place] [address] PCP - General Family Medicine 01/13/23 Team Status: Inactive Member Role Status Dates Dr. Art Healy MD [facility] Active GARRY LuongC Attending Provider Active Security Intelligence Analyst Relationship Specialty Start Date End Date Art Healy MD [address] [place] [address] PCP - General Family Medicine 01/13/23 Security Intelligence Analyst Relationship Specialty Start Date End Date Art Healy MD [address] [place] [address] PCP - [facility] 01/13/23 Security Intelligence Analyst Relationship Specialty Start Date End Date Art Healy MD [address] [place] [address] PCP - [facility] 01/13/23 Team Status: Inactive Member Role Status Dates Dr. Art Healy MD Primary Care Provider Active Start: October 14, 2024 End: October 14, 2024 Dr. Delmi Westfall MD Attending Provider Active Start: October 14, 2024 End: October 14, 2024 Dr. Delmi Westfall MD Referring Provider Active Start: October 14, 2024 End: October 14, 2024 Team Status: Inactive Member Role Status Dates Dr. Art Healy MD Primary Care Provider Active Start: January 06, 2025 End: January 06, 2025 Dr. Delmi Westfall MD Attending Provider Active Start: January 06, 2025 End: January 06, 2025 Dr. Delmi Westfall MD Referring Provider Active Start: January 06, 2025 End: January 06, 2025 Team Status: Active Member Role/Relationship Status Dates Art Healy OLS Family Provider Active Dr. Art Healy MD Primary Care Provider Active Team Status: Inactive Member Role/Relationship Status Dates Dr. Art Healy MD Primary Care Provider Active Start: January 06, 2025 End: January 06, 2025 Dr. Delmi Westfall MD Attending Provider Active Start: January 06, 2025 End: January 06, 2025 Dr. Delmi Westfall MD Referring Provider Active Start: January 06, 2025 End: January 06, 2025 Team Status: Inactive Member Role/Relationship Status Dates Dr. Art Healy MD Primary Care Provider Active Start: April 03, 2025 End: April 03, 2025 Dr. Delmi Westfall MD Attending Provider Active Start: April 03, 2025 End: April 03, 2025 Dr. Delmi Westfall MD Referring Provider Active Start: April 03, 2025 End: April 03, 2025 (unrecognized sect ion and content) No Status Records FoundNo Status Records Found INFORMATION SOURCE (unrecogn ized section and content) DATE CREATED AUTHOR 12/20/2024 [facility] DATE CREATED AUTHOR AUTHOR'S SELENEIZ ATION 04/08/2025 [facility] FOR RECORDS PERTAINING TO PATIENTS WHO ARE OR HAVE BEEN ENROLLED IN A CHEMICAL DEPENDENCY/SUBSTANCEABUSE PROGRAM, SOME INFORMATION MAY BE OMITTED. This clinical summary was aggregated from multiple sources. Caution should be exercised in using it in the provision of clinical care. This summary normalizes information from multiple sources, and as a consequence, information in this document may materially change the coding, format and clinical context of patient data. In addition, data may be omitted in some cases. CLINICAL DECISIONS SHOULD BE BASED ON THE PRIMARY CLINICAL RECORDS. [facility]. provides no warranty or guarantee of the accuracy or completeness of information in this document.
[2025-05-30 10:03] LABS: Hematocrit 45.3 % (40-54); Hemoglobin 15.2 g/dL (13.0-16.5); Immature Granulocytes Count 0.020 X10^3/uL (0.0-0.0); Mean Corp Hgb Conc 33.6 g/dL (32-36); Mean Corpuscular Volume 88.1 fL (80-94); Mean Platelet Vol. 10.6 fl (6.2-12.0); NRBC Flagged by Analyzer 0 % (0-5); Platelet Count 251 K/mm3 (150-450); RBC Distribution Width CV 13.1 % (11.6-14.6); RBC Distribution Width SD 42.7 fl (35.1-43.9); Red Blood Count 5.14 M/mm3 (4.6-6.2); White Blood Count 7.5 K/mm3 (4.4-11.0)
[2025-05-30 10:24] LABS: AST(SGOT) 15 U/L (<=37); Alanine Aminotransfer ALT/SGPT 10 U/L (<=46); Albumin, Serum 4.2 g/dL (3.5-5.0); Alkaline Phosphatase 62 U/L (40-129); Anion Gap 14 (5-15); BUN 22 mg/dL (4-19); BUN/Creat Ratio 18.2 RATIO (10-20); Calcium,Total 9.2 mg/dL (7.6-11.0); Carbon Dioxide 22.4 mmol/L (21.0-32.0); Chloride 104 mmol/L (98-108); Globulin 2.9 g/dL (2.2-4.2); Glucose 87 mg/dL (70-99); Potassium 4.2 mmol/L (3.3-5.1)
== END | disposition home or self-care (01) ==
LOC: MTLAB 07:20
PROVIDERS: PCP Family Medicine; Referring Provider Internal Medicine Rheumatology; Visit Provider Internal Medicine Rheumatology
DX: L40.59 Other psoriatic arthropathy (principal); Z79.899 Other long term (current) drug therapy
CPT/HCPCS: 36415; 80053; 85025

== ENCOUNTER → 2025-09-15 | Outpatient (CLI) | payer BC, SELFPAY ==
--- OUTSIDE RECORDS SUMMARY | 2025-09-15 07:46 | XMS RPT_ITS | CCD ---
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 Art Healy Primary Care Provider Dr. Candy Burnett Attending Provider Dr. Stephon Mcgarry Referring Provider Art Healy MD Primary Care Provider Dr. Art Healy Primary Care Provider Dr. Art Healy Referring Provider ADAM Hector Attending Provider Art Healy MD Primary Care Provider Dr. Art Healy MD Primary Care [...] Westfall Attending Unavailable Delmi Westfall Referring Unavailable Roman, Art Primary Care Unavailable Delmi Westfall Attending Unavailable Malou, Delmi Referring Unavailable Roman, Art Primary Care Unavailable Vellanmic, Demli Referring Unavailable Delmi Westfall Attending Unavailable Roman, Art Primary Care Unavailable Roman, Art Primary Care Unavailable Kerri Westfallma Attending Unavailable Malou, Delmi Referring Unavailable Delmi Westfall Attending Unavailable Daniellanmic, Delmi Referring Unavailable Roman, Art Primary Care Unavailable Delmi Westfall Attending Unavailable Malou, Delmi Referring Unavailable Roman Art Primary Care Unavailable ART HEALY Attending Unavailab ART Bloom Primary Care Unavailab ART Bloom Attending Unavailab ART Bloom Primary Care Unavailab le Medications Current Medications Medication Drug Class(es) Dates Sig (Normalized) Sig (Original) [id number] actuat albuterol 0.09 mg/actuat metered dose [...] on above: Take 1 capsule by mo ut three times daily for 10 days. Take 1 capsule by mo ut three times a day. folic acid 1 mg oral tablet (18 sources) Start: 04-01-2024 take 2 tablets by [...] by mouth. ibuprofen 200 mg oral capsule (20 sources) Nonsteroidal Anti-inflammatory Drug Start: 04-15-2023 Ibuprofen [...] Angiotensin Converting Enzyme Inhibitor Start: 3 End: 5 take 1 tablet by mouth once daily Lisinopril 20 mg tablet Active 20 mg PO DAILY April 15, 2023 12:00am Comment on above: Take 1 tablet by antoine once daily. methotrexate 2.5 mg oral tablet (16 sources) Folate Analog Metabolic Inhibitor Start: 3 take 1 tablet by mouth two times weekly Methotrexate Sodium 2.5 mg tablet Active 2.5 mg PO TWICE A WEEK November 22, 2023 1:00am Start: 03-27-2023 take 1 tablet by mouth once me thotrexate 2.5 mg tablet Take 2.5 mg by mouth every Thursday. 03/27/2023 Active Start: 03-27-2023 take 8 tablets by mo [facility] every week methotrexate 2.5 mg tablet TAKE 8 TABLETS BY MOUTH ONE TIME PER WEEK 0 03/27/2023 Active Comment on above: TAKE 8 TABLETS BY [facility] ONE TIME PER WEEK omeprazole 40 mg delayed release oral capsule (20 sources) Proton Pump Inhibitor Start: 3 End: 4 take 1 capsule by mouth once daily Omeprazole 40 mg capsule,delayed release(DR/EC) Active 40 mg PO DAILY April 15, 2023 12:00am Comment on above: TAKE 1 CAPSULE BY [facility] EVERY DAY DIRECTED predniSONE 10 mg oral [...] 15, 2023 12:00am take 1 tablet by antoine once daily as needed for pain traMADol [...] HFA aerosol inhaler Discontinued 2 NMA INHALATION Q1April 15, 2023 12:00am November 22, 2023 1:32pm Start: 04-15-2023 End: 11-22-2023 take 1 puff(s) by inhalation every twelve hours Budesonide-Formoterol [Budesonide-Formoterol Hfa 160 Mcg-4.5 Mcg/Actuation Aerosol Inhaler] (Budesonide-Formoterol Hfa 160 Mcg-4.5 Mcg/Actuation ) 160-4.5 mcg/actuation HFA aerosol inhaler Discontinued 2 PUFF INHALATION April 15, 2023 12:00am November 22, 2023 1:32pm Start: 04-15-2023 take 1 puff(s) by in halation every twelve hours Budesonide-Formoterol [Budesonide-Formoterol Hfa 160 Mcg-4.5 Mcg/Actuation Aerosol Inhaler] (Budesonide-Formoterol Hfa 160 Mcg-4.5 Mcg/Actuation ) 160-4.5 mcg/actuation HFA aerosol inhaler Active 2 PUFF INHALATION April 14, 2023 11:00pm Start: 04-15-2023 take 1 puff(s) by in halation every twelve hours Budesonide-Formoterol [Budesonide-Formoterol Hfa 160 Mcg-4.5 Mcg/Actuation Aerosol Inhaler] (Budesonide-Formoterol Hfa 160 Mcg-4.5 Mcg/Actuation ) 160-4.5 mcg/actuation HFA aerosol inhaler Active 2 PUFF INHALATION April 15, 2023 12:00am Start: 01-26-2023 take 2 [...] daily. doxycycline hyclate 100 mg oral capsule (11 sources) Tetracycline-class Drug Start: End: take 1 [...] 2023 1:32pm meloxicam 15 mg oral tablet (7 sources) Nonsteroidal Anti-inflammatory Drug Start: 05-07-2023 End: [...] Onset: 04-30-2017 Chronic Disorders of lipid metabolism (17 sources) Pure hypercholesterolemia; Translations: [Pure hypercholesterolemia, unspecified] Onset: 04-30-2017 Chronic Esophageal disorders (16 sources) Gastroesophageal reflux disease without esophagitis; Translations: [Gastro-esophageal reflux disease without esophagitis] Onset: 08-21-2021 Chronic Essential hypertension (20 sources) Benign hypertension; Translations: [Essential (primary) hypertension] Onset: 04-30-2017 Chronic Osteoarthritis (1 source) Bilateral primary osteoarthritis of hip; Translations: [Bilateral primary osteoarthritis of hip] Onset: 08-25-2024 Chronic Other connective tissue disease (1 source) Other specified soft tissue disorders; Translations: [Left arm swelling] Onset: 07-31-2025 Episodic Other diseases of veins and lymphatics (8 [...] psoriatic arthropathy; Translations: [Other psoriatic arthropathy] Onset: 06-09-2025 Chronic Other inflammatory condition of skin (1 source) Arthropathic psoriasis, unspecified; Translations: [Psoriatic arthropathy (HCC)] Onset: 01-27-2023 Chronic Other upper respiratory infections (10 sources) Acute sinusitis; Translations: [Acute sinusitis, unspecified] 11-22-2023 Episodic Past or Other Problems Problem Classification Problem Date Documented Da te Episodic/Chronic Other screening for suspected conditions (not mental disorders or infectious disease) (2 sources) Patient encounter status; Translations: [Encounter for screening for malignant neoplasm of prostate] Onset: 12-19-2024 05-16-2024 Episodic Screening and history of mental health and substance abuse codes (2 sources) Encounter for screening for depression; Translations: [Encounter for screening examination for other mental health and behavioral disorders] Onset: 12-19-2024 Episodic Skin and subcutaneous tissue infections (9 sources) Cellulitis; Translations: [Cellulitis, unspecified] Onset: 03-22-2019 06-11-2023 Episodic Results Test Name Value Interpretation Reference Range Facility [facility] 07-31-2025 CNOV Office Visit (FAMMAS) ZOË AVILA ([id number]) 1965 M Date Time Provider Department 07/31/25 9:40 AM ART HEALY [facility] During your visit today, we recorded the following information about you: Temperature Pulse Respiration Blood pressure 97.6 degrees 76/minute 18/minute 128/86 Weight Height 106.6 kg 1.829 m Jeannine Hernández LPN 07/31/2025 11:04 AM Signed Patient is in office for 6 month exam. Patient has an area on left arm from wrist to bicep that is a red line. Patient had 1 refill left of Keflex for Cellulitis, so he refilled medication and began taking that. Jeannine Hernández LPN July 31, 2025 9:35 AM Art Healy MD 07/31/2025 11:04 AM Signed Subjective Chief Complaint: Zoë Lozoyasimoneedilson is a 59-year-old male with a history of asthma, GERD, and arthritis, presenting with a lump , Redness, and swelling of the left arm.on the arm. History of Present Illness: Zoë reports a lump on his arm that has been present for an unspecified duration. He notes that he has had similar issues in the past, approximately 20 years ago, which required treatment with antibiotics. He is currently taking cephalexin, but reports that it is not as effective as it was previously. He denies any erythema or inability to bend the arm. He also mentions a recent incident where he lifted a heavy object, a new washer, and wonders if this could have contributed to the lump. Zoë also has a history of arthritis and is currently taking methotrexate. He reports that his arthritis has its moments, but does not provide further details. Zoë is also taking omeprazole for GERD and Symbicort for asthma. He reports that his reflux is not bad and that he is still using his asthma medication. He denies any recent asthma exacerbations and reports that his breathing has been okay. 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 He denies any significant issues with his blood pressure. Zoë also mentions that he was supposed to get blood work done for his prostate, but forgot to do so. He asks if he still needs to get this done. Review of Systems GENERAL: No weight loss, malaise, or fevers. HEENT: Negative for frequent or significant headaches; no changes in vision or hearing; no epistaxis or other nasal problems. NECK: Negative for lumps, goiter, pain, or significant neck swelling. RESPIRATORY: Negative for cough, dyspnea, or shortness of breath. No asthma exacerbations. CARDIOVASCULAR: Negative for chest pain, leg swelling, CHF, or palpitations. GI: Negative for nausea, vomiting, diarrhea, abdominal pain, blood in stool, or black stool. Positive for mild reflux, controlled with omeprazole. GENITOURINARY: No history of dysuria, frequency, or incontinence. MUSCULOSKELETAL: Positive for arthritis; negative for muscle pain or back pain. Reports intermittent shoulder muscle spasms. SKIN: Negative for lesions, rash, and itching. Positive for lumps in the arm. PSYCH: Negative for anxiety or depression. HEMATOLOGY/LYMPHOLOG Y: No bleeding concerns. NEURO: No history of headaches, syncope, paralysis, seizures, or tremors. ENDOCRINE: No history of polydipsia, increased thirst, or other endocrine symptoms. History reviewed. No pertinent surgical history. History reviewed. No pertinent past medical history. History reviewed. No pertinent family history. SOCIAL HISTORY[1] ALLERGIES No Known Allergies MEDICATIONS: albuterol HFA (PROVENTIL HFA, VENTOLIN HFA) 90 mcg/actuation inhaler Inhale 2 puffs as instructed every 4 hours as needed for wheezing/shortness of breath. lisinopril (ZESTRIL) 20 mg tablet Take 1 tablet by mouth once daily. omeprazole (PRILOSEC) 40 mg capsule Take 1 capsule by mouth once daily. predniSONE (DELTASONE) 10 mg tablet TAKE 1 TABLET BY MOUTH DAILY NEEDED TAKE FOR 3 TO 5 DAYS WITH A FLARE folic acid 1 mg tablet Take 2 tablets by mouth every afternoon. Ibuprofen 200 mg cap Take by mouth two times a day as needed. methotrexate 2.5 mg tablet Take 2.5 mg by mouth every Thursday. traMADol (ULTRAM) 50 mg tablet Take 50 mg by mouth once daily as needed for pain. budesonide-formotero l (SYMBICORT) 160-4.5 mcg/actuation inhaler Inhale 2 Puffs as instructed twice daily. cephALEXin (KEFLEX) 500 mg capsule Take 1 capsule by mouth three times a day. Allergies, past surgical history, family history and past medical history were reviewed per this encounter. Medications were reviewed and verified. 12/19/2024 07/31/2025 INTAKE PAIN ASSESSMENT Are you having pain associated with your visit today? No No If pain assessment is 0, no action needed. If pain assessment is positive, please see assessment and plain. Objective Labs: - March - Creatinine: 1.3 mg/dL - CBC: Within normal limits BP 128/86 (BP Site (more content not included)... [facility] Marie 07-24-2025 [facility] Telephone (SimulScribeS) ZOË AVILA ([id number]) 1965 Katarina Date Time Provider Department 07/24/25 [facility] During your visit today, we recorded the following information about you: Geovanna Galo 07/24/2025 11:01 AM Signed Patient called requesting refill on Rx Albuterol HFA (Proventil HFA,Ventolin HFA) [address] [facility] pharmacy in [facility] [phone]. Last visit: 12/19/2024 Wellness Next visit: 07/31/2025- 6 month f/u Jeannine Neely LPN 07/25/2025 4:13 PM Signed Filled in another encounter Jeannine Hernández LPN July 25, 2025 4:13 PM Allergies As of Date: 07/24/2025 (No Known Allergies) Date Reviewed: 12/19/2024 Reviewed by: Jeannine Hernández LPN - Fully Assessed Reason for Visit: Refill Request [94] Prescriptions as of 07/25/2025 - albuterol HFA (PROVENTIL HFA, VENTOLIN HFA) 90 mcg/actuation inhaler Inhale 2 puffs as instructed every 4 hours as needed for wheezing/shortness of breath. - lisinopril (ZESTRIL) 20 mg tablet Take 1 tablet by mouth once daily. - omeprazole (PRILOSEC) 40 mg capsule Take 1 capsule by mouth once daily. - cephALEXin (KEFLEX) 500 mg capsule Take 1 capsule by mouth three times a day. - predniSONE (DELTASONE) 10 mg tablet TAKE 1 TABLET BY MOUTH DAILY NEEDED TAKE FOR 3 TO 5 DAYS WITH A FLARE - folic acid 1 mg tablet Take 2 tablets by mouth every afternoon. - Ibuprofen 200 mg cap Take by mouth two times a day as needed. - methotrexate 2.5 mg tablet Take 2.5 mg by mouth every Thursday. - traMADol (ULTRAM) 50 mg tablet Take 50 mg by mouth once daily as needed for pain. - budesonide-formotero l (SYMBICORT) 160-4.5 mcg/actuation inhaler Inhale 2 Puffs as instructed twice daily. Problem List As Of Date 07/24/2025 Noted Resolved Gastroesophageal reflux disease [K21.9] 08/21/2021 Hypertension, benign [I10] 04/30/2017 Psoriatic arthropathy (HCC) [L40.50] 04/30/2017 Pure hypercholesterolemia , unspecified [E78.00] 04/30/2017 Asthma [J45.909] 04/30/2017 Diagnosed: 06/11/2023 Cellulitis [L03.90] 03/22/2019 Diagnosed: 06/11/2023 Lymphedema [I89.0] 04/30/2017 Diagnosed: 06/11/2023 Encounter Status:Closed by SONIA HERNÁNDEZ LAUREN on 07/25/25 Normal [facility] Absolute lymphocyte countOrd ered By: Delmi Westfall on 05-30-2025 Lymphocytes Auto (Unsp spec) [#/Vol] 1.48 10*3/uL 0.83-4.51 [facility] Absolute neutrophil countOrd ered By: Delmi Westfall on 05-30-2025 Neutrophils (Bld) [#/Vol] 5.2 10*3/uL 2.0-7.7 [facility] Anion gap in Serum or Plasma Ordered By: Delmi Westfall on 05-30-2025 Anion gap [Moles/Vol] 14 mmol/L - [facility] Automated lymphocyte count a s percentage of total leukocytesOrdered By: Delmi Westfall on 05-30-2025 Lymphocytes/100 WBC Auto (Unsp spec) 19.6 % [facility] BUN/creatinine ratioOrdered By: Delmi Westfall on 05-30-2025 Urea nitrogen/Creatinine [Mass ratio] 18.2 mg/mg - [facility] Basophil percentageOrdered B y: Delmi Westfall on 05-30-2025 Basophils/100 WBC (Bld) 0.8 % 0-1 [facility] Bilirubin, totalOrdered By: Delmi Westfall on 05-30-2025 Bilirubin [Mass/Vol] 0.18 mg/dL 0.00-1.30 [facility] CBC W/Diff, Automatedon 05-06 Absolute Lymph 1.48 X10 3/uL Normal 0.83-4.51 [facility] Comment on above: Performed By: #### L [id number], L100.0100 #### [facility] [address] [place], [address] Absolute Neut 5.2 X10 3/uL Normal 2.0-7.7 [facility] Comment on above: Performed By: #### L [id number], L100.0100 #### [facility] [address] [place], [address] Basophils/100 WBC (Bld) 0.8 % Normal 0-1 [facility] Comment on above: Performed By: #### L 500.4050, L100.0100 #### [facility] [address] [place], [address] Eosinophils/100 WBC (Bld) 0.9 % Normal 0-5 [facility] Comment on above: Performed By: #### L [id number], L100.0100 #### [facility] [address] [place], [address] Erythrocyte distribution width (RBC) [Ratio] 13.1 % Normal 11.6-14.6 [facility] Comment on above: Performed By: #### L [id number], L100.0100 #### [facility] [address] [place], [address] Hematocrit (Bld) [Volume fraction] 45.3 % Normal 40-54 [facility] Comment on above: Performed By: #### L [id number], L100.0100 #### [facility] [address] [place], [address] Hemoglobin (Bld) [Mass/Vol] 15.2 g/dL Normal 13.0-16.5 [facility] Comment on above: Performed By: #### L 500.4050, L100.0100 #### [facility] [address] [place], [address] IG% 0.300 Normal 0.0-0.9 [facility] Comment on above: Result Comment: IG% - Immature Granulocytes (promyelocytes, myelocytes and metamyelocytes) > 1% indicates that a LEFT SHIFT is Present. Performed By: #### L 500.4050, L100.0100 #### [facility] [address] [place], [address] Lymphocytes/100 WBC (Bld) 19.6 % Normal 19-41 [facility] Comment on above: Performed By: #### L [id number], L100.0100 #### [facility] [address] [place], [address] MCH (RBC) [Entitic mass] 29.6 pg Normal 27.0-32.0 [facility] Comment on above: Performed By: #### L [id number], L100.0100 #### [facility] [address] [place], [address] MCHC (RBC) [Mass/Vol] 33.6 g/dL Normal 32-36 [facility] Comment on above: Performed By: #### L [id number], L100.0100 #### [facility] [address] [place], [address] MCV (RBC) [Entitic vol] 88.1 fL Normal 80-94 [facility] Comment on above: Performed By: #### L [id number], L100.0100 #### [facility] [address] [place], [address] Monocytes/100 WBC (Bld) 8.9 % Normal 0-10 [facility] Comment on above: Performed By: #### L 500.4050, L100.0100 #### [facility] [address] [place], [address] Neutrophils/100 WBC (Bld) 69.5 % Normal 47-70 [facility] Comment on above: Performed By: #### L 500.4050, L100.0100 #### [facility] [address] [place], [address] Nucleated RBC (Bld) [#/Vol] 0 10*3/uL Normal 0-5 [facility] Comment on above: Performed By: #### L 500.4050, L100.0100 #### [facility] [address] [place], [address] Platelet mean volume (Bld) [Entitic vol] 10.6 fL Normal 6.2-12.0 [facility] Comment on above: Performed By: #### L 500.4050, L100.0100 #### [facility] [address] [place], [address] Platelets (Bld) [#/Vol] 251 10*3/uL Normal 150-450 [facility] Comment on above: Performed By: #### L 500.4050, L100.0100 #### [facility] [address] [place], [address] RBC (Bld) [#/Vol] 5.14 10*6/uL Normal 4.6-6.2 [facility] Comment on above: Performed By: #### L 500.4050, L100.0100 #### [facility] [address] [place], [address] RDW SD 42.7 fl Normal 35.1-43.9 [facility] Comment on above: Performed By: #### L 500.4050, L100.0100 #### [facility] [address] [place], [address] WBC (Bld) [#/Vol] 7.5 10*3/uL Normal 4.4-11.0 [facility] Comment on above: Performed By: #### L 500.4050, L100.0100 #### [facility] [address] [place], [address] Carbon dioxide, total [Moles /volume] in Central venous bloodOrdered By: Delmi Westfall on 05-30-2025 CO2 [Moles/Vol] 22.4 mmol/L 21.0-32.0 [facility] Chloride assayOrdered By: Kei Westfall on 05-30-2025 Chloride [Moles/Vol] 104 mmol/L 98-108 [facility] Comprehensive Metabolic Prof ilon 05-30-2025 Albumin [Mass/Vol] 4.2 g/dL Normal 3.5-5.0 [facility] Comment on above: Performed By: #### L 500.4050, L100.0100 #### [facility] [address] [place], [address] Albumin/Globulin [Mass ratio] 1.5 {ratio} Normal 0.9-2.4 [facility] Comment on above: Performed By: #### L 500.4050, L100.0100 #### [facility] [address] [place], [address] ALK PHOS 62 U/L Normal 40-129 [facility] Comment on above: Performed By: #### L 500.4050, L100.0100 #### [facility] [address] [place], [address] ALT [Catalytic activity/Vol] 10 U/L Normal <=46 [facility] Comment on above: Performed By: #### L 500.4050, L100.0100 #### [facility] [address] [place], [address] AST [Catalytic activity/Vol] 15 U/L Normal <=37 [facility] Comment on above: Performed By: #### L 500.4050, L100.0100 #### [facility] [address] [place], [address] Bilirubin [Mass/Vol] 0.18 mg/dL Normal 0.00-1.30 [facility] Comment on above: Performed By: #### L 500.4050, L100.0100 #### [facility] [address] [place], [address] BUN/CRE 18.2 RATIO Normal 10-20 [facility] Comment on above: Performed By: #### L 500.4050, L100.0100 #### [facility] [address] [place], [address] Calcium [Mass/Vol] 9.2 mg/dL Normal 7.6-11.0 [facility] Comment on above: Performed By: #### L 500.4050, L100.0100 #### [facility] [address] [place], [address] Chloride [Moles/Vol] 104 mmol/L Normal 98-108 [facility] Comment on above: Performed By: #### L 500.4050, L100.0100 #### [facility] [address] [place], [address] CO2 [Moles/Vol] 22.4 mmol/L Normal 21.0-32.0 [facility] Comment on above: Performed By: #### L 500.4050, L100.0100 #### [facility] [address] [place], [address] Creatinine [Mass/Vol] 1.20 mg/dL Normal 0.70-1.20 [facility] Comment on above: Performed By: #### L 500.4050, L100.0100 #### [facility] [address] [place], [address] GAP 14 Normal 5-15 [facility] Comment on above: Performed By: #### L 500.4050, L100.0100 #### [facility] [address] [place], [address] GFR/1.73 sq M.predicted among non-blacks MDRD (S/P/Bld) [Vol rate/Area] 70 mL/min/{1.73_m2} Normal >60 [facility] Comment on above: Result Comment: mL/m in/1.73m2 CKD-EPI Creatinine Equation (2020) Performed By: #### L 500.4050, L100.0100 #### [facility] [address] [place], [address] Globulin (S) [Mass/Vol] 2.9 g/dL Normal 2.2-4.2 [facility] Comment on above: Performed By: #### L 500.4050, L100.0100 #### [facility] [address] [place], [address] Glucose [Mass/Vol] 87 mg/dL Normal 70-99 [facility] Comment on above: Performed By: #### L 500.4050, L100.0100 #### [facility] [address] [place], [address] Potassium [Moles/Vol] 4.2 mmol/L Normal 3.3-5.1 [facility] Comment on above: Performed By: #### L 500.4050, L100.0100 #### [facility] [address] [place], [address] Sodium [Moles/Vol] 141 mmol/L Normal 133-145 [facility] Comment on above: Performed By: #### L 500.4050, L100.0100 #### [facility] [address] [place], [address] T PROT 7.1 g/dL Normal 5.9-8.4 [facility] Comment on above: Performed By: #### L 500.4050, L100.0100 #### [facility] [address] [place], [address] Urea nitrogen [Mass/Vol] 22 mg/dL High 4-19 [facility] Comment on above: Performed By: #### L 500.4050, L100.0100 #### [facility] [address] [place], [address] Eosinophil percentageOrdered By: Delmi Westfall on 05-30-2025 Eosinophils/100 WBC (Bld) 0.9 % 0-5 [facility] Erythrocyte distribution wid th ratioOrdered By: Delmi Westfall on 05-30-2025 Erythrocyte distribution width (RBC) [Ratio] 13.1 % 11.6-14.6 [facility] Erythrocyte distribution wid th standard deviationOrdered By: Delmi Westfall on 05-30-2025 Erythrocyte distribution width (RBC) [Ratio] 42.7 fl 35.1-43.9 [facility] Glomerular filtration rate ( GFR) estimation/1.73 sq m using serum, plasma, or whole bOrdered By: Delmi Westfall on 05-30-2025 GFR/1.73 sq M.predicted among non-blacks MDRD (S/P/Bld) [Vol rate/Area] 70 mL/min/{1.73_m2} >60 [facility] Comment on above: mL/min/1.73m2 CKD-EP I Creatinine Equation (2020) Hematocrit Auto (Bld) [Volum e fraction]Ordered By: Delmi Westfall on 05-30-2025 Hematocrit (Bld) [Volume fraction] 45.3 % 40-54 [facility] Hemoglobin measurementOrdere d By: Delmi Westfall on 05-30-2025 Hemoglobin (Bld) [Mass/Vol] 15.2 g/dL 13.0-16.5 [facility] Immature granulocytes/100 WB C Auto (Bld)Ordered By: Delmi Westfall on 05-30-2025 Immature granulocytes/100 WBC (Bld) 0.300 % 0.0-0.9 [facility] Comment on above: IG% - Immature Granu locytes (promyelocytes, myelocytes and metamyelocytes) > 1% indicates that a LEFT SHIFT is Present. Laboratory - Chemistry and C hemistry - challengeOrdered By: Delmi Westfall on 05-30-2025 AST [Catalytic activity/Vol] 15 U/L <38 [facility] MCV (mean corpuscular volume ) determinationOrdered By: Delmi Westfall on 05-30-2025 MCV (RBC) [Entitic vol] 88.1 fL 80-94 [facility] Mean corpuscular hemoglobin (MCH) determinationOrdered By: Delmi Westfall 05-30-2025 MCH (RBC) [Entitic mass] 29.6 pg 27.0-32.0 [facility] Mean corpuscular hemoglobin concentration (MCHC) determinationOrdered By: Delmi Westfall on 05-30-2025 MCHC (RBC) [Mass/Vol] 33.6 g/dL 32-36 [facility] Mean platelet volume determi nationOrdered By: Delmi Westfall on 05-30-2025 Platelet mean volume (Bld) [Entitic vol] 10.6 fL 6.2-12.0 [facility] Monocyte percentageOrdered B y: Delmi Westfall on 05-30-2025 Monocytes/100 WBC (Bld) 8.9 % 0-10 [facility] Neutrophil percentageOrdered By: Delmi Westfall on 05-30-2025 Neutrophils/100 WBC (Bld) 69.5 % 47-70 [facility] Nucleated red blood cell per centageOrdered By: Delmi Westfall on 05-30-2025 Nucleated RBC/100 WBC (Bld) [Ratio] 0 % 0-5 [facility] Platelet countOrdered By: Kei Westfall on 05-30-2025 Platelets (Bld) [#/Vol] 251 10*3/uL 150-450 [facility] Potassium measurement (mass/ volume)Ordered By: Delmi Westfall on 05-30-2025 Potassium (Unsp spec) [Mass/Vol] 4.2 mmol/L 3.3-5.1 [facility] RBC Auto (Bld) [#/Vol]Ordere d By: Delmi Westfall on 05-30-2025 RBC (Bld) [#/Vol] 5.14 10*6/uL 4.6-6.2 [facility] Serum creatinine measurement (mass/volume)Ordered By: Delmi Westfall on 05-30-2025 Creatinine [Mass/Vol] 1.20 mg/dL 0.70-1.20 [facility] Serum globulin measurementOr dered By: Delmi Westfall on 05-30-2025 Globulin (S) [Mass/Vol] 2.9 g/dL 2.2-4.2 [facility] Serum glucose measurement (m ass/volume)Ordered By: Delmi Westfall on 05-30-2025 Glucose [Mass/Vol] 87 mg/dL 70-99 [facility] Serum or plasma alanine clancy otransferase (ALT) measurementOrdered By: Delmi Westfall on 05-30-2025 ALT [Catalytic activity/Vol] 10 U/L <47 [facility] Serum or plasma albumin esdras urement (mass/volume)Ordered By: Delmi Westfall on 05-30-2025 Albumin [Mass/Vol] 4.2 g/dL 3.5-5.0 [facility] Serum or plasma albumin/glob ulin mass ratioOrdered By: Delmi Westfall on 05-30-2025 Albumin/Globulin [Mass ratio] 1.5 {ratio} 0.9-2.4 [facility] Serum or plasma alkaline jodie sphatase measurementOrdered By: Delmi Westfall on 05-30-2025 ALP [Catalytic activity/Vol] 62 U/L 40-129 [facility] Serum or plasma calcium esdras urement (mass/volume)Ordered By: Delmi Westfall on 05-30-2025 Calcium [Mass/Vol] 9.2 mg/dL 7.6-11.0 [facility] Serum or plasma urea nitroge n measurement (mass/volume)Ordered By: Delmi Westfall on 05-30-2025 Urea nitrogen [Mass/Vol] 22 mg/dL High 4-19 [facility] Sodium levelOrdered By: Cody Westfall on 05-30-2025 Sodium [Moles/Vol] 141 mmol/L 133-145 [facility] Total proteinOrdered By: Kerri Westfall on 05-30-2025 Protein [Mass/Vol] 7.1 g/dL 5.9-8.4 [facility] White blood cell (WBC) count Ordered By: Delmi Westfall on 05-30-2025 WBC (Bld) [#/Vol] 7.5 10*3/uL 4.4-11.0 [facility] Absolute lymphocyte countOrd ered By: Delmi Westfall on 04-03-2025 Lymphocytes Auto (Unsp spec) [#/Vol] 1.63 10*3/uL 0.83-4.51 [facility] Absolute neutrophil countOrd ered By: Delmi Westfall on 04-03-2025 Neutrophils (Bld) [#/Vol] 5.9 10*3/uL 2.0-7.7 [facility] Anion gap in Serum or Plasma Ordered By: Delmi Westfall on 04-03-2025 Anion gap [Moles/Vol] 12 mmol/L 02-16 [facility] Automated lymphocyte count a s percentage of total leukocytesOrdered By: Delmi Westfall on 04-03-2025 Lymphocytes/100 WBC Auto (Unsp spec) 19.5 % [facility] BUN/creatinine ratioOrdered By: Delmilou Westfall on 04-03-2025 Urea nitrogen/Creatinine [Mass ratio] 15.6 mg/mg 07-24 [facility] Basophil percentageOrdered B y: Delmi Westfall on 04-03-2025 Basophils/100 WBC (Bld) 0.8 % 0-1 [facility] Bilirubin, totalOrdered By: Delmi Westfall on 04-03-2025 Bilirubin [Mass/Vol] 0.33 mg/dL 0.00-1.30 [facility] CBC W/Diff, Automatedon 03-07 Absolute Lymph 1.63 X10 3/uL Normal 0.83-4.51 [facility] Comment on above: Performed By: #### L 100.0100, L500.4050 #### [facility] [address] [place], [address] Absolute Neut 5.9 X10 3/uL Normal 2.0-7.7 [facility] Comment on above: Performed By: #### L 100.0100, L500.4050 #### [facility] [address] [place], [address] Basophils/100 WBC (Bld) 0.8 % Normal 0-1 [facility] Comment on above: Performed By: #### L 100.0100, L500.4050 #### [facility] [address] [place], [address] Eosinophils/100 WBC (Bld) 1.0 % Normal 0-5 [facility] Comment on above: Performed By: #### L 100.0100, L500.4050 #### [facility] [address] [place], [address] Erythrocyte distribution width (RBC) [Ratio] 14.2 % Normal 11.6-14.6 [facility] Comment on above: Performed By: #### L 100.0100, L500.4050 #### [facility] [address] [place], [address] Hematocrit (Bld) [Volume fraction] 45.7 % Normal 40-54 [facility] Comment on above: Performed By: #### L 100.0100, L500.4050 #### [facility] [address] [place], [address] Hemoglobin (Bld) [Mass/Vol] 15.0 g/dL Normal 13.0-16.5 [facility] Comment on above: Performed By: #### L 100.0100, L500.4050 #### [facility] [address] [place], [address] IG% 0.400 Normal 0.0-0.9 [facility] Comment on above: Result Comment: IG% - Immature Granulocytes (promyelocytes, myelocytes and metamyelocytes) > 1% indicates that a LEFT SHIFT is Present. Performed By: #### L 100.0100, L500.4050 #### [facility] [address] [place], [address] Lymphocytes/100 WBC (Bld) 19.5 % Normal 19-41 [facility] Comment on above: Performed By: #### L 100.0100, L500.4050 #### [facility] [address] [place], [address] MCH (RBC) [Entitic mass] 29.1 pg Normal 27.0-32.0 [facility] Comment on above: Performed By: #### L 100.0100, L500.4050 #### [facility] [address] [place], [address] MCHC (RBC) [Mass/Vol] 32.8 g/dL Normal 32-36 [facility] Comment on above: Performed By: #### L 100.0100, L500.4050 #### [facility] [address] [place], [address] MCV (RBC) [Entitic vol] 88.7 fL Normal 80-94 [facility] Comment on above: Performed By: #### L 100.0100, L500.4050 #### [facility] [address] [place], [address] Monocytes/100 WBC (Bld) 7.8 % Normal 0-10 [facility] Comment on above: Performed By: #### L 100.0100, L500.4050 #### [facility] [address] [place], [address] Neutrophils/100 WBC (Bld) 70.5 % High 47-70 [facility] Comment on above: Performed By: #### L 100.0100, L500.4050 #### [facility] [address] [place], [address] Nucleated RBC (Bld) [#/Vol] 0 10*3/uL Normal 0-5 [facility] Comment on above: Performed By: #### L 100.0100, L500.4050 #### [facility] [address] [place], [address] Platelet mean volume (Bld) [Entitic vol] 10.6 fL Normal 6.2-12.0 [facility] Comment on above: Performed By: #### L 100.0100, L500.4050 #### [facility] [address] [place], [address] Platelets (Bld) [#/Vol] 273 10*3/uL Normal 150-450 [facility] Comment on above: Performed By: #### L 100.0100, L500.4050 #### [facility] [address] [place], [address] RBC (Bld) [#/Vol] 5.15 10*6/uL Normal 4.6-6.2 [facility] Comment on above: Performed By: #### L 100.0100, L500.4050 #### [facility] [address] [place], [address] RDW SD 45.0 fl High 35.1-43.9 [facility] Comment on above: Performed By: #### L 100.0100, L500.4050 #### [facility] [address] [place], [address] WBC (Bld) [#/Vol] 8.4 10*3/uL Normal 4.4-11.0 [facility] Comment on above: Performed By: #### L 100.0100, L500.4050 #### [facility] [address] [place], [address] Carbon dioxide, total [Moles /volume] in Central venous bloodOrdered By: Delmi Westfall on 04-03-2025 CO2 [Moles/Vol] 24.8 mmol/L 21.0-32.0 [facility] Chloride assayOrdered By: Kei Westfall on 04-03-2025 Chloride [Moles/Vol] 102 mmol/L 98-108 [facility] Comprehensive Metabolic Prof ilon 04-03-2025 Albumin [Mass/Vol] 4.4 g/dL Normal 3.5-5.0 [facility] Comment on above: Performed By: #### L 100.0100, L500.4050 #### [facility] [address] [place], [address] Albumin/Globulin [Mass ratio] 1.5 {ratio} Normal 0.9-2.4 [facility] Comment on above: Performed By: #### L 100.0100, L500.4050 #### [facility] [address] [place], [address] ALK PHOS 66 U/L Normal 40-129 [facility] Comment on above: Performed By: #### L 100.0100, L500.4050 #### [facility] [address] [place], [address] ALT [Catalytic activity/Vol] 13 U/L Normal <=46 [facility] Comment on above: Performed By: #### L 100.0100, L500.4050 #### [facility] [address] [place], [address] AST [Catalytic activity/Vol] 17 U/L Normal <=37 [facility] Comment on above: Performed By: #### L 100.0100, L500.4050 #### [facility] [address] [place], [address] Bilirubin [Mass/Vol] 0.33 mg/dL Normal 0.00-1.30 [facility] Comment on above: Performed By: #### L 100.0100, L500.4050 #### [facility] [address] [place], [address] BUN/CRE 15.6 RATIO Normal 10-20 [facility] Comment on above: Performed By: #### L 100.0100, L500.4050 #### [facility] [address] [place], [address] Calcium [Mass/Vol] 9.8 mg/dL Normal 7.6-11.0 [facility] Comment on above: Performed By: #### L 100.0100, L500.4050 #### [facility] [address] [place], [address] Chloride [Moles/Vol] 102 mmol/L Normal 98-108 [facility] Comment on above: Performed By: #### L 100.0100, L500.4050 #### [facility] [address] [place], [address] CO2 [Moles/Vol] 24.8 mmol/L Normal 21.0-32.0 [facility] Comment on above: Performed By: #### L 100.0100, L500.4050 #### [facility] [address] [place], [address] Creatinine [Mass/Vol] 1.36 mg/dL High 0.70-1.20 [facility] Comment on above: Performed By: #### L 100.0100, L500.4050 #### [facility] [address] [place], [address] GAP 12 Normal 5-15 [facility] Comment on above: Performed By: #### L 100.0100, L500.4050 #### [facility] [address] [place], [address] GFR/1.73 sq M.predicted among non-blacks MDRD (S/P/Bld) [Vol rate/Area] 60 mL/min/{1.73_m2} Normal >60 [facility] Comment on above: Result Comment: mL/m in/1.73m2 CKD-EPI Creatinine Equation (2020) Performed By: #### L 100.0100, L500.4050 #### [facility] [address] [place], [address] Globulin (S) [Mass/Vol] 2.9 g/dL Normal 2.2-4.2 [facility] Comment on above: Performed By: #### L 100.0100, L500.4050 #### [facility] [address] [place], [address] Glucose [Mass/Vol] 105 mg/dL High 70-99 [facility] Comment on above: Performed By: #### L 100.0100, L500.4050 #### [facility] [address] [place], [address] Potassium [Moles/Vol] 4.5 mmol/L Normal 3.3-5.1 [facility] Comment on above: Performed By: #### L 100.0100, L500.4050 #### [facility] [address] [place], [address] Sodium [Moles/Vol] 139 mmol/L Normal 133-145 [facility] Comment on above: Performed By: #### L 100.0100, L500.4050 #### [facility] [address] [place], [address] T PROT 7.4 g/dL Normal 5.9-8.4 [facility] Comment on above: Performed By: #### L 100.0100, L500.4050 #### [facility] [address] [place], [address] Urea nitrogen [Mass/Vol] 21 mg/dL High 4-19 [facility] Comment on above: Performed By: #### L 100.0100, L500.4050 #### [facility] [address] [place], [address] Eosinophil percentageOrdered By: Delmi Westfall on 04-03-2025 Eosinophils/100 WBC (Bld) 1.0 % 0-5 [facility] Erythrocyte distribution wid th ratioOrdered By: Delmi Westfall on 04-03-2025 Erythrocyte distribution width (RBC) [Ratio] 14.2 % 11.6-14.6 [facility] Erythrocyte distribution wid th standard deviationOrdered By: Delmi Westfall on 04-03-2025 Erythrocyte distribution width (RBC) [Ratio] 45.0 fl High 35.1-43.9 [facility] Glomerular filtration rate ( GFR) estimation/1.73 sq m using serum, plasma, or whole bOrdered By: Delmi Westfall on 04-03-2025 GFR/1.73 sq M.predicted among non-blacks MDRD (S/P/Bld) [Vol rate/Area] 60 mL/min/{1.73_m2} >60 [facility] Comment on above: mL/min/1.73m2 CKD-EP I Creatinine Equation (2020) Hematocrit Auto (Bld) [Volum e fraction]Ordered By: Delmi Westfall on 04-03-2025 Hematocrit (Bld) [Volume fraction] 45.7 % 40-54 [facility] Hemoglobin measurementOrdere d By: Delmi Westfall on 04-03-2025 Hemoglobin (Bld) [Mass/Vol] 15.0 g/dL 13.0-16.5 [facility] Immature granulocytes/100 WB C Auto (Bld)Ordered By: Delmi Westfall on 04-03-2025 Immature granulocytes/100 WBC (Bld) 0.400 % 0.0-0.9 [facility] Comment on above: IG% - Immature Granu locytes (promyelocytes, myelocytes and metamyelocytes) > 1% indicates that a LEFT SHIFT is Present. Laboratory - Chemistry and C hemistry - challengeOrdered By: Delmi Westfall on 04-03-2025 AST [Catalytic activity/Vol] 17 U/L <38 [facility] MCV (mean corpuscular volume ) determinationOrdered By: Delmi Westfall 04-03-2025 MCV (RBC) [Entitic vol] 88.7 fL 80-94 [facility] Mean corpuscular hemoglobin (MCH) determinationOrdered By: Delmi Westfall on 04-03-2025 MCH (RBC) [Entitic mass] 29.1 pg 27.0-32.0 [facility] Mean corpuscular hemoglobin concentration (MCHC) determinationOrdered By: Delmi Westfall on 04-03-2025 MCHC (RBC) [Mass/Vol] 32.8 g/dL 32-36 [facility] Mean platelet volume determi nationOrdered By: Delmi Westfall on 04-03-2025 Platelet mean volume (Bld) [Entitic vol] 10.6 fL 6.2-12.0 [facility] Monocyte percentageOrdered B y: Delmi Westfall on 04-03-2025 Monocytes/100 WBC (Bld) 7.8 % 0-10 [facility] Neutrophil percentageOrdered By: Delmi Westfall on 04-03-2025 Neutrophils/100 WBC (Bld) 70.5 % High 47-70 [facility] Nucleated red blood cell per centageOrdered By: Delmi Westfall on 04-03-2025 Nucleated RBC/100 WBC (Bld) [Ratio] 0 % 0-5 [facility] Platelet countOrdered By: Kei Westfall on 04-03-2025 Platelets (Bld) [#/Vol] 273 10*3/uL 150-450 [facility] Potassium measurement (mass/ volume)Ordered By: Delmi Westfall on 04-03-2025 Potassium (Unsp spec) [Mass/Vol] 4.5 mmol/L 3.3-5.1 [facility] RBC Auto (Bld) [#/Vol]Ordere d By: Delmi Westfall on 04-03-2025 RBC (Bld) [#/Vol] 5.15 10*6/uL 4.6-6.2 [facility] Serum creatinine measurement (mass/volume)Ordered By: Delmi Westfall on 04-03-2025 Creatinine [Mass/Vol] 1.36 mg/dL High 0.70-1.20 [facility] Serum globulin measurementOr dered By: Delmi Westfall on 04-03-2025 Globulin (S) [Mass/Vol] 2.9 g/dL 2.2-4.2 [facility] Serum glucose measurement (m ass/volume)Ordered By: Delmi Westfall on 04-03-2025 Glucose [Mass/Vol] 105 mg/dL High 70-99 [facility] Serum or plasma alanine clancy otransferase (ALT) measurementOrdered By: Delmi Westfall on 04-03-2025 ALT [Catalytic activity/Vol] 13 U/L <47 [facility] Serum or plasma albumin esdras urement (mass/volume)Ordered By: Delmi Westfall on 04-03-2025 Albumin [Mass/Vol] 4.4 g/dL 3.5-5.0 [facility] Serum or plasma albumin/glob ulin mass ratioOrdered By: Delmi Westfall on 04-03-2025 Albumin/Globulin [Mass ratio] 1.5 {ratio} 0.9-2.4 [facility] Serum or plasma alkaline jodie sphatase measurementOrdered By: Delmi Westfall on 04-03-2025 ALP [Catalytic activity/Vol] 66 U/L 40-129 [facility] Serum or plasma calcium esdras urement (mass/volume)Ordered By: Delmi Westfall on 04-03-2025 Calcium [Mass/Vol] 9.8 mg/dL 7.6-11.0 [facility] Serum or plasma urea nitroge n measurement (mass/volume)Ordered By: Delmi Westfall on 04-03-2025 Urea nitrogen [Mass/Vol] 21 mg/dL High 4-19 [facility] Sodium levelOrdered By: Cody Westfall on 04-03-2025 Sodium [Moles/Vol] 139 mmol/L 133-145 [facility] Total proteinOrdered By: Kerri Westfall on 04-03-2025 Protein [Mass/Vol] 7.4 g/dL 5.9-8.4 [facility] White blood cell (WBC) count Ordered By: Delmi Westfall on 04-03-2025 WBC (Bld) [#/Vol] 8.4 10*3/uL 4.4-11.0 [facility] Absolute lymphocyte countOrd ered By: Delmi Westfall on 01-06-2025 Lymphocytes Auto (Unsp spec) [#/Vol] 1.57 10*3/uL 0.83-4.51 [facility] Absolute neutrophil countOrd ered By: Delmi Westfall on 01-06-2025 Neutrophils (Bld) [#/Vol] 4.2 10*3/uL 2.0-7.7 [facility] Anion gap in Serum or Plasma Ordered By: Delmi Westfall on 01-06-2025 Anion gap [Moles/Vol] 12 mmol/L 5-15 [facility] Automated lymphocyte count a s percentage of total leukocytesOrdered By: Delmi Westfall on 01-06-2025 Lymphocytes/100 WBC Auto (Unsp spec) 24.1 % 19-41 [facility] BUN/creatinine ratioOrdered By: Delmi Westfall on 01-06-2025 Urea nitrogen/Creatinine [Mass ratio] 18.9 mg/mg 10-20 [facility] Basophil percentageOrdered B y: Delmi Westfall on 01-06-2025 Basophils/100 WBC (Bld) 0.9 % 0-1 [facility] Bilirubin, totalOrdered By: Delmi Westfall on 01-06-2025 Bilirubin [Mass/Vol] 0.31 mg/dL 0.00-1.30 [facility] CBC W/Diff, Automatedon Absolute Lymph 1.57 X10 3/uL Normal 0.83-4.51 [facility] Comment on above: Performed By: #### L 500.4050, L100.0100 #### [facility] [address] [place], [address] Absolute Neut 4.2 X10 3/uL Normal 2.0-7.7 [facility] Comment on above: Performed By: #### L 500.4050, L100.0100 #### [facility] [address] [place], [address] Basophils/100 WBC (Bld) 0.9 % Normal 0-1 [facility] Comment on above: Performed By: #### L 500.4050, L100.0100 #### [facility] [address] [place], [address] Eosinophils/100 WBC (Bld) 2.8 % Normal 0-5 [facility] Comment on above: Performed By: #### L 500.4050, L100.0100 #### [facility] [address] [place], [address] Erythrocyte distribution width (RBC) [Ratio] 12.9 % Normal 11.6-14.6 [facility] Comment on above: Performed By: #### L 500.4050, L100.0100 #### [facility] [address] [place], [address] Hematocrit (Bld) [Volume fraction] 44.2 % Normal 40-54 [facility] Comment on above: Performed By: #### L 500.4050, L100.0100 #### [facility] [address] [place], [address] Hemoglobin (Bld) [Mass/Vol] 14.1 g/dL Normal 13.0-16.5 [facility] Comment on above: Performed By: #### L 500.4050, L100.0100 #### [facility] [address] [place], [address] IG% 0.300 Normal 0.0-0.9 [facility] Comment on above: Result Comment: IG% - Immature Granulocytes (promyelocytes, myelocytes and metamyelocytes) > 1% indicates that a LEFT SHIFT is Present. Performed By: #### L 500.4050, L100.0100 #### [facility] [address] [place], [address] Lymphocytes/100 WBC (Bld) 24.1 % Normal 19-41 [facility] Comment on above: Performed By: #### L 500.4050, L100.0100 #### [facility] [address] [place], [address] MCH (RBC) [Entitic mass] 28.5 pg Normal 27.0-32.0 [facility] Comment on above: Performed By: #### L 500.4050, L100.0100 #### [facility] [address] [place], [address] MCHC (RBC) [Mass/Vol] 31.9 g/dL Low 32-36 [facility] Comment on above: Performed By: #### L 500.4050, L100.0100 #### [facility] [address] [place], [address] MCV (RBC) [Entitic vol] 89.5 fL Normal 80-94 [facility] Comment on above: Performed By: #### L 500.4050, L100.0100 #### [facility] [address] [place], [address] Monocytes/100 WBC (Bld) 6.9 % Normal 0-10 [facility] Comment on above: Performed By: #### L 500.4050, L100.0100 #### [facility] [address] [place], [address] Neutrophils/100 WBC (Bld) 65.0 % Normal 47-70 [facility] Comment on above: Performed By: #### L 500.4050, L100.0100 #### [facility] [address] [place], [address] Nucleated RBC (Bld) [#/Vol] 0 10*3/uL Normal 0-5 [facility] Comment on above: Performed By: #### L 500.4050, L100.0100 #### [facility] [address] [place], [address] Platelet mean volume (Bld) [Entitic vol] 10.6 fL Normal 6.2-12.0 [facility] Comment on above: Performed By: #### L 500.4050, L100.0100 #### [facility] [address] [place], [address] Platelets (Bld) [#/Vol] 231 10*3/uL Normal 150-450 [facility] Comment on above: Performed By: #### L 500.4050, L100.0100 #### [facility] [address] [place], [address] RBC (Bld) [#/Vol] 4.94 10*6/uL Normal 4.6-6.2 [facility] Comment on above: Performed By: #### L 500.4050, L100.0100 #### [facility] [address] [place], [address] RDW SD 41.8 fl Normal 35.1-43.9 [facility] Comment on above: Performed By: #### L 500.4050, L100.0100 #### [facility] [address] [place], [address] WBC (Bld) [#/Vol] 6.5 10*3/uL Normal 4.4-11.0 [facility] Comment on above: Performed By: #### L 500.4050, L100.0100 #### [facility] [address] [place], [address] Carbon dioxide, total [Moles /volume] in Central venous bloodOrdered By: Delmi Westfall on 01-06-2025 CO2 [Moles/Vol] 23.7 mmol/L 21.0-32.0 [facility] Chloride assayOrdered By: Kei Westfall on 01-06-2025 Chloride [Moles/Vol] 105 mmol/L 98-108 [facility] Comprehensive Metabolic Prof ilon 01-06-2025 Albumin [Mass/Vol] 4.2 g/dL Normal 3.5-5.0 [facility] Comment on above: Performed By: #### L 500.4050, L100.0100 #### [facility] [address] [place], [address] Albumin/Globulin [Mass ratio] 1.5 {ratio} Normal 0.9-2.4 [facility] Comment on above: Performed By: #### L 500.4050, L100.0100 #### [facility] [address] [place], [address] ALK PHOS 60 U/L Normal 40-129 [facility] Comment on above: Performed By: #### L 500.4050, L100.0100 #### [facility] [address] [place], [address] ALT [Catalytic activity/Vol] 12 U/L Normal <=46 [facility] Comment on above: Performed By: #### L 500.4050, L100.0100 #### [facility] [address] [place], [address] AST [Catalytic activity/Vol] 15 U/L Normal <=37 [facility] Comment on above: Performed By: #### L 500.4050, L100.0100 #### [facility] [address] [place], [address] Bilirubin [Mass/Vol] 0.31 mg/dL Normal 0.00-1.30 [facility] Comment on above: Performed By: #### L 500.4050, L100.0100 #### [facility] [address] [place], [address] BUN/CRE 18.9 RATIO Normal 10-20 [facility] Comment on above: Performed By: #### L 500.4050, L100.0100 #### [facility] [address] [place], [address] Calcium [Mass/Vol] 9.1 mg/dL Normal 7.6-11.0 [facility] Comment on above: Performed By: #### L 500.4050, L100.0100 #### [facility] [address] [place], [address] Chloride [Moles/Vol] 105 mmol/L Normal 98-108 [facility] Comment on above: Performed By: #### L 500.4050, L100.0100 #### [facility] [address] [place], [address] CO2 [Moles/Vol] 23.7 mmol/L Normal 21.0-32.0 [facility] Comment on above: Performed By: #### L 500.4050, L100.0100 #### [facility] [address] [place], [address] Creatinine [Mass/Vol] 1.12 mg/dL Normal 0.70-1.20 [facility] Comment on above: Performed By: #### L 500.4050, L100.0100 #### [facility] [address] [place], [address] GAP 12 Normal 5-15 [facility] Comment on above: Performed By: #### L 500.4050, L100.0100 #### [facility] [address] [place], [address] GFR/1.73 sq M.predicted among non-blacks MDRD (S/P/Bld) [Vol rate/Area] 76 mL/min/{1.73_m2} Normal >60 [facility] Comment on above: Result Comment: mL/m in/1.73m2 CKD-EPI Creatinine Equation (2020) Performed By: #### L 500.4050, L100.0100 #### [facility] [address] [place], [address] Globulin (S) [Mass/Vol] 2.8 g/dL Normal 2.2-4.2 [facility] Comment on above: Performed By: #### L 500.4050, L100.0100 #### [facility] [address] [place], [address] Glucose [Mass/Vol] 89 mg/dL Normal 70-99 [facility] Comment on above: Performed By: #### L 500.4050, L100.0100 #### [facility] [address] [place], [address] Potassium [Moles/Vol] 4.5 mmol/L Normal 3.3-5.1 [facility] Comment on above: Performed By: #### L 500.4050, L100.0100 #### [facility] [address] [place], [address] Sodium [Moles/Vol] 141 mmol/L Normal 133-145 [facility] Comment on above: Performed By: #### L 500.4050, L100.0100 #### [facility] [address] [place], [address] T PROT 6.9 g/dL Normal 5.9-8.4 [facility] Comment on above: Performed By: #### L 500.4050, L100.0100 #### [facility] [address] [place], [address] Urea nitrogen [Mass/Vol] 21 mg/dL High 4-19 [facility] Comment on above: Performed By: #### L 500.4050, L100.0100 #### [facility] [address] [place], [address] Eosinophil percentageOrdered By: Delmi Westfall on 01-06-2025 Eosinophils/100 WBC (Bld) 2.8 % 0-5 [facility] Erythrocyte distribution wid th (RBC) [Ratio]Ordered By: Delmi Westfall on 01-06-2025 Erythrocyte distribution width (RBC) [Entitic vol] 41.8 fL 35.1-43.9 [facility] Erythrocyte distribution wid th ratioOrdered By: Delmi Westfall on 01-06-2025 Erythrocyte distribution width (RBC) [Ratio] 12.9 % 11.6-14.6 [facility] Erythrocyte distribution wid th standard deviationOrdered By: Delmi Westfall on 01-06-2025 Erythrocyte distribution width (RBC) [Ratio] 41.8 fl 35.1-43.9 [facility] GFR/1.73 sq M.predicted abby g non-blacks MDRD (S/P/Bld) [Vol rate/Area]Ordered By: Delmi Westfall on 01-06-2025 Estimated GFR (MDRD) Non-Af Amer 76 >60 [facility] Comment on above: mL/min/1.73m2 CKD-EP I Creatinine Equation (2020) Glomerular filtration rate ( GFR) estimation/1.73 sq m using serum, plasma, or whole bOrdered By: Delmi Westfall on 01-06-2025 GFR/1.73 sq M.predicted among non-blacks MDRD (S/P/Bld) [Vol rate/Area] 76 mL/min/{1.73_m2} >60 [facility] Comment on above: mL/min/1.73m2 CKD-EP I Creatinine Equation (2020) Hematocrit Auto (Bld) [Volum e fraction]Ordered By: Delmi Westfall on 01-06-2025 Hematocrit (Bld) [Volume fraction] 44.2 % 40-54 [facility] Hemoglobin measurementOrdere d By: Delmi Westfall on 01-06-2025 Hemoglobin (Bld) [Mass/Vol] 14.1 g/dL 13.0-16.5 [facility] Immature granulocytes/100 WB C Auto (Bld)Ordered By: Delmi Westfall on 01-06-2025 Immature granulocytes/100 WBC (Bld) 0.300 % 0.0-0.9 [facility] Comment on above: IG% - Immature Granu locytes (promyelocytes, myelocytes and metamyelocytes) > 1% indicates that a LEFT SHIFT is Present. Laboratory - Chemistry and C hemistry - challengeOrdered By: Delmi Westfall on 01-06-2025 AST [Catalytic activity/Vol] 15 U/L <38 [facility] Lymphocytes Auto (Unsp spec) [#/Vol]Ordered By: Delmi Westfall on 01-06-2025 Lymphocytes (Bld) [#/Vol] 1.57 10*3/uL 0.83-4.51 [facility] Lymphocytes/100 WBC Auto (Un sp spec)Ordered By: Delmi Westfall on 01-06-2025 Lymphocytes/100 WBC (Bld) 24.1 % 19-41 [facility] MCV (mean corpuscular volume ) determinationOrdered By: Delmi Westfall on 01-06-2025 MCV (RBC) [Entitic vol] 89.5 fL 80-94 [facility] Mean corpuscular hemoglobin (MCH) determinationOrdered By: Delmi Westfall on 01-06-2025 MCH (RBC) [Entitic mass] 28.5 pg 27.0-32.0 [facility] Mean corpuscular hemoglobin concentration (MCHC) determinationOrdered By: Delmi Westfall on 01-06-2025 MCHC (RBC) [Mass/Vol] 31.9 g/dL Low 32-36 [facility] Mean platelet volume determi nationOrdered By: Delmi Westfall on 01-06-2025 Platelet mean volume (Bld) [Entitic vol] 10.6 fL 6.2-12.0 [facility] Monocyte percentageOrdered B y: Delmi Westfall on 01-06-2025 Monocytes/100 WBC (Bld) 6.9 % 0-10 [facility] Neutrophil percentageOrdered By: Delmi Westfall on 01-06-2025 Neutrophils/100 WBC (Bld) 65.0 % 47-70 [facility] Nucleated red blood cell per centageOrdered By: Delmi Westfall on 01-06-2025 Nucleated RBC/100 WBC (Bld) [Ratio] 0 % 0-5 [facility] Platelet countOrdered By: Kei Westfall on 01-06-2025 Platelets (Bld) [#/Vol] 231 10*3/uL 150-450 [facility] Potassium (Unsp spec) [Mass/ Vol]Ordered By: Delmi Westfall on 01-06-2025 Potassium [Moles/Vol] 4.5 mmol/L 3.3-5.1 [facility] Potassium measurement (mass/ volume)Ordered By: Delmi Westfall on 01-06-2025 Potassium (Unsp spec) [Mass/Vol] 4.5 mmol/L 3.3-5.1 [facility] RBC Auto (Bld) [#/Vol]Ordere d By: Delmi Westfall on 01-06-2025 RBC (Bld) [#/Vol] 4.94 10*6/uL 4.6-6.2 [facility] Serum creatinine measurement (mass/volume)Ordered By: Delmi Westfall on 01-06-2025 Creatinine [Mass/Vol] 1.12 mg/dL 0.70-1.20 [facility] Serum globulin measurementOr dered By: Delmi Westfall on 01-06-2025 Globulin (S) [Mass/Vol] 2.8 g/dL 2.2-4.2 [facility] Serum glucose measurement (m ass/volume)Ordered By: Delmi Westfall on 01-06-2025 Glucose [Mass/Vol] 89 mg/dL 70-99 [facility] Serum or plasma alanine clancy otransferase (ALT) measurementOrdered By: Delmi Westfall on 01-06-2025 ALT [Catalytic activity/Vol] 12 U/L <47 [facility] Serum or plasma albumin esdras urement (mass/volume)Ordered By: Delmi Westfall on 01-06-2025 Albumin [Mass/Vol] 4.2 g/dL 3.5-5.0 [facility] Serum or plasma albumin/glob ulin mass ratioOrdered By: Delmi Westfall on 01-06-2025 Albumin/Globulin [Mass ratio] 1.5 {ratio} 0.9-2.4 [facility] Serum or plasma alkaline jodie sphatase measurementOrdered By: Delmi Westfall on 01-06-2025 ALP [Catalytic activity/Vol] 60 U/L 40-129 [facility] Serum or plasma calcium esdras urement (mass/volume)Ordered By: Delmi Westfall on 01-06-2025 Calcium [Mass/Vol] 9.1 mg/dL 7.6-11.0 [facility] Serum or plasma urea nitroge n measurement (mass/volume)Ordered By: Delmi Westfall on 01-06-2025 Urea nitrogen [Mass/Vol] 21 mg/dL High 4-19 [facility] Sodium levelOrdered By: Cody Westfall on 01-06-2025 Sodium [Moles/Vol] 141 mmol/L 133-145 [facility] Total proteinOrdered By: Kerri Westfall on 01-06-2025 Protein [Mass/Vol] 6.9 g/dL 5.9-8.4 [facility] White blood cell (WBC) count Ordered By: Delmi Westfall on 01-06-2025 WBC (Bld) [#/Vol] 6.5 10*3/uL 4.4-11.0 [facility] CNOVon 12-19-2024 CNOV Office Visit (FAMMAS) ZOË AVILA ([id number]) 1965 M Date Time Provider Department 12/19/24 [...] Cancer Screening Discussion Influenza Vaccine(1) declined Covid-19 Vaccine()declined Jeannine Hernández LPN December 19, 2024 8:38 [...] Negative. Genitourinary: Negative. Musculoskeletal: Negative. Skin: Negative. Allergic/Immunologic : Negative. Neurological: Negative. Hematological: Negative. Psychiatric/Behavior al: Negative. History reviewed. No pertinent surgical history. [...] mouth once daily as needed for pain. budesonide-formotero l (SYMBICORT) 160-4.5 mcg/actuation inhaler Inhale 2 Puffs [...] disorders Z1 (more content not included)... Normal [facility] Absolute neutrophil countOrd ered By: Delmi Westfall on 10-14-2024 Neutrophils (Bld) [#/Vol] 4.7 10*3/uL 2.0-7.7 [facility] Albumin to globulin ratioOrd ered By: Delmi Westfall on 10-14-2024 Albumin/Globulin [Mass ratio] 1.1 {ratio} 0.9-2.4 [facility] Automated blood erythrocyte countOrdered By: Delmi Westfall on 10-14-2024 RBC (Bld) [#/Vol] 4.60 10*6/uL Normal 4.6-6.2 [facility] Comment on above: Performed By: #### L 500.4050, L100.0100 #### [facility] [address] [place], [address] Automated blood hematocrit ( percentage)Ordered By: Delmi Westfall on 10-14-2024 Hematocrit (Bld) [Volume fraction] 41.4 % Normal 40-54 [facility] Comment on above: Performed By: #### L 500.4050, L100.0100 #### [facility] [address] [place], [address] Automated lymphocyte count a s percentage of total leukocytesOrdered By: Delmi Westfall on 10-14-2024 Lymphocytes/100 WBC (Bld) 21.0 % Normal 19-41 [facility] Comment on above: Performed By: #### L 500.4050, L100.0100 #### [facility] [address] [place], [address] Basophil percentageOrdered B y: Delmi Westfall on 10-14-2024 Basophils/100 WBC (Bld) 0.7 % Normal 0-1 [facility] Comment on above: Performed By: #### L 500.4050, L100.0100 #### [facility] [address] [place], [address] Bilirubin, totalOrdered By: Delmi Westfall on 10-14-2024 Bilirubin [Mass/Vol] 0.30 mg/dL 0.20-1.00 [facility] Comment on above: For patients on eltr ombopag therapy, use of Dimension [place] TBIL is not recommended. Blood urea nitrogen (BUN)/cr eatinine ratioOrdered By: Delmi Westfall on 10-14-2024 Urea nitrogen/Creatinine [Mass ratio] 18.9 mg/mg 10-20 [facility] CBC W/Diff, Automatedon 10-05 Absolute Lymph 1.43 X10 3/uL Normal 0.83-4.51 [facility] Comment on above: Performed By: #### L 500.4050, L100.0100 #### [facility] [address] [place], [address] Absolute Neut 4.7 X10 3/uL Normal 2.0-7.7 [facility] Comment on above: Performed By: #### L 500.4050, L100.0100 #### [facility] [address] [place], [address] IG% 0.300 Normal 0.0-0.9 [facility] Comment on above: Result Comment: IG% - Immature Granulocytes (promyelocytes, myelocytes and metamyelocytes) > 1% indicates that a LEFT SHIFT is Present. Performed By: #### L 500.4050, L100.0100 #### [facility] [address] [place], [address] Nucleated RBC (Bld) [#/Vol] 0 10*3/uL Normal 0-5 [facility] Comment on above: Performed By: #### L 500.4050, L100.0100 #### [facility] [address] [place], [address] RDW SD 43.5 fl Normal 35.1-43.9 [facility] Comment on above: Performed By: #### L 500.4050, L100.0100 #### [facility] [address] [place], [address] Carbon dioxide measurementOr dered By: Delmi Westfall on 10-14-2024 CO2 [Moles/Vol] 27.0 mmol/L 21.0-32.0 [facility] Chloride measurementOrdered By: Delmi Westfall on 10-14-2024 Chloride [Moles/Vol] 112 mmol/L High 98-107 [facility] Comprehensive Metabolic Prof ilon 10-14-2024 Albumin [Mass/Vol] 3.5 g/dL Normal 3.2-5.0 [facility] Comment on above: Performed By: #### L 500.4050, L100.0100 #### [facility] [address] [place], [address] Albumin/Globulin [Mass ratio] 1.1 {ratio} Normal 0.9-2.4 [facility] Comment on above: Performed By: #### L 500.4050, L100.0100 #### [facility] [address] [place], [address] ALK P 57 U/L Normal 45-117 [facility] Comment on above: Performed By: #### L 500.4050, L100.0100 #### [facility] [address] [place], [address] ALT [Catalytic activity/Vol] 20 U/L Normal 16-61 [facility] Comment on above: Performed By: #### L 500.4050, L100.0100 #### [facility] [address] [place], [address] AST [Catalytic activity/Vol] U/L Low 15-37 [facility] Comment on above: Performed By: #### L 500.4050, L100.0100 #### [facility] [address] [place], [address] Bilirubin [Mass/Vol] 0.30 mg/dL Normal 0.20-1.00 [facility] Comment on above: Result Comment: For patients on eltrombopag therapy, use of Dimension [place] TBIL is not recommended. Performed By: #### L 500.4050, L100.0100 #### [facility] [address] [place], [address] BUN/CRE 18.9 RATIO Normal 10-20 [facility] Comment on above: Performed By: #### L 500.4050, L100.0100 #### [facility] [address] [place], [address] CA,Total 8.6 mg/dL Normal 8.5-10.1 [facility] Comment on above: Performed By: #### L 500.4050, L100.0100 #### [facility] [address] [place], [address] Chloride [Moles/Vol] 112 mmol/L High 98-107 [facility] Comment on above: Performed By: #### L 500.4050, L100.0100 #### [facility] [address] [place], [address] CO2 [Moles/Vol] 27.0 mmol/L Normal 21.0-32.0 [facility] Comment on above: Performed By: #### L 500.4050, L100.0100 #### [facility] [address] [place], [address] Creatinine [Mass/Vol] 1.22 mg/dL Normal 0.70-1.30 [facility] Comment on above: Result Comment: The validity of the calculated GFR GFRAA in patients over 70 years has not been determined. Clinical correlation is essential. Performed By: #### L 500.4050, L100.0100 #### [facility] [address] [place], [address] EST GFR - AA 79 mL/min Normal >60 [facility] Comment on above: Result Comment: Afri can [place] GFR Calc Performed By: #### L 500.4050, L100.0100 #### [facility] [address] [place], [address] GAP 3 Low 5-15 [facility] Comment on above: Performed By: #### L 500.4050, L100.0100 #### [facility] [address] [place], [address] GFR/1.73 sq M.predicted among non-blacks MDRD (S/P/Bld) [Vol rate/Area] 65 mL/min/{1.73_m2} Normal >60 [facility] Comment on above: Result Comment: Non- GFR Calc Performed By: #### L 500.4050, L100.0100 #### [facility] [address] [place], [address] Globulin (S) [Mass/Vol] 3.1 g/dL Normal 2.2-4.2 [facility] Comment on above: Performed By: #### L 500.4050, L100.0100 #### [facility] [address] [place], [address] Glucose [Mass/Vol] 91 mg/dL Normal 74-106 [facility] Comment on above: Performed By: #### L 500.4050, L100.0100 #### [facility] [address] [place], [address] Potassium [Moles/Vol] 3.9 mmol/L Normal 3.5-5.1 [facility] Comment on above: Performed By: #### L 500.4050, L100.0100 #### [facility] [address] [place], [address] Sodium [Moles/Vol] 143 mmol/L Normal 136-145 [facility] Comment on above: Performed By: #### L 500.4050, L100.0100 #### [facility] [address] [place], [address] T PROT 6.6 g/dL Normal 6.4-8.2 [facility] Comment on above: Performed By: #### L 500.4050, L100.0100 #### [facility] [address] [place], [address] Urea nitrogen [Mass/Vol] 23 mg/dL High 7-18 [facility] Comment on above: Performed By: #### L 500.4050, L100.0100 #### [facility] [address] [place], [address] Eosinophil percentageOrdered By: Delmi Westfall on 10-14-2024 Eosinophils/100 WBC (Bld) 2.3 % Normal 0-5 [facility] Comment on above: Performed By: #### L 500.4050, L100.0100 #### [facility] [address] [place], [address] Erythrocyte distribution wid th (RBC) [Ratio]Ordered By: Delmi Westfall on 10-14-2024 Erythrocyte distribution width (RBC) [Entitic vol] 43.5 fL 35.1-43.9 [facility] Erythrocyte distribution wid th ratioOrdered By: Delmilou Westfall on 10-14-2024 Erythrocyte distribution width (RBC) [Ratio] 13.3 % Normal 11.6-14.6 [facility] Comment on above: Performed By: #### L 500.4050, L100.0100 #### [facility] [address] [place], [place], [id number] Estimated glomerular filtrat ion rate (GFR) AmericanOrdered By: Delmi Westfall on 10-14-2024 Estimated GFR (MDRD) Amer 79 mL/min >60 [facility] Comment on above: GFR Calc Glomerular filtration rate ( GFR) estimationOrdered By: Delmi Westfall on 10-14-2024 Estimated GFR (MDRD) Non-Af Amer 65 mL/min >60 [facility] Comment on above: Non- GFR Calc Glucose measurementOrdered B y: Delmi Westfall on 10-14-2024 Glucose [Mass/Vol] 91 mg/dL 74-106 [facility] Hemoglobin measurementOrdere d By: Delmilou Westfall on 10-14-2024 Hemoglobin (Bld) [Mass/Vol] 13.3 g/dL Normal 13.0-16.5 [facility] Comment on above: Performed By: #### L 500.4050, L100.0100 #### [facility] [address] [place], [place], [id number] Immature granulocytes/100 WB C Auto (Bld)Ordered By: Delmi Westfall on 10-14-2024 Immature granulocytes/100 WBC (Bld) 0.300 % 0.0-0.9 [facility] Comment on above: IG% - Immature Granu locytes (promyelocytes, myelocytes and metamyelocytes) > 1% indicates that a LEFT SHIFT is Present. Laboratory - Chemistry and C hemistry - challengeOrdered By: Delmi Westfall on 10-14-2024 AST [Catalytic activity/Vol] U/L Low 15-37 [facility] Lymphocytes Auto (Unsp spec) [#/Vol]Ordered By: Delmi Westfall on 10-14-2024 Lymphocytes (Bld) [#/Vol] 1.43 10*3/uL 0.83-4.51 [facility] MCV (mean corpuscular volume ) determinationOrdered By: Delmi Westfall on 10-14-2024 MCV (RBC) [Entitic vol] 90.0 fL Normal 80-94 [facility] Comment on above: Performed By: #### L 500.4050, L100.0100 #### [facility] [address] [place], [address] Mean corpuscular hemoglobin (MCH) determinationOrdered By: Delmi Westfall on 10-14-2024 MCH (RBC) [Entitic mass] 28.9 pg Normal 27.0-32.0 [facility] Comment on above: Performed By: #### L 500.4050, L100.0100 #### [facility] [address] [place], [address] Mean corpuscular hemoglobin concentration (MCHC) determinationOrdered By: Delmi Westfall on 10-14-2024 MCHC (RBC) [Mass/Vol] 32.1 g/dL Normal 32-36 [facility] Comment on above: Performed By: #### L 500.4050, L100.0100 #### [facility] [address] [place], [address] Mean platelet volume determi nationOrdered By: Delmi Westfall on 10-14-2024 Platelet mean volume (Bld) [Entitic vol] 10.1 fL Normal 6.2-12.0 [facility] Comment on above: Performed By: #### L 500.4050, L100.0100 #### [facility] [address] [place], [address] Monocyte percentageOrdered B y: Delmi Westfall on 10-14-2024 Monocytes/100 WBC (Bld) 7.2 % Normal 0-10 [facility] Comment on above: Performed By: #### L 500.4050, L100.0100 #### [facility] [address] [place], [address] Neutrophil percentageOrdered By: Delmi Westfall on 10-14-2024 Neutrophils/100 WBC (Bld) 68.5 % Normal 47-70 [facility] Comment on above: Performed By: #### L 500.4050, L100.0100 #### [facility] [address] [place], [address] Nucleated red blood cell per centageOrdered By: Delmi Westfall on 10-14-2024 Nucleated RBC/100 WBC (Bld) [Ratio] 0 % 0-5 [facility] Platelet countOrdered By: Kei Westfall on 10-14-2024 Platelets (Bld) [#/Vol] 221 10*3/uL Normal 150-450 [facility] Comment on above: Performed By: #### L 500.4050, L100.0100 #### [facility] [address] [place], [address] Potassium measurementOrdered By: Delmi Westfall on 10-14-2024 Potassium [Moles/Vol] 3.9 mmol/L 3.5-5.1 [facility] Serum anion gap measurementO rdered By: Delmi Westfall on 10-14-2024 Anion gap [Moles/Vol] 3 mmol/L Low 5-15 [facility] Serum globulin measurementOr dered By: Delmi Westfall on 10-14-2024 Globulin (S) [Mass/Vol] 3.1 g/dL 2.2-4.2 [facility] Serum or plasma alanine clancy otransferase (ALT) measurementOrdered By: Delmi Westfall on 10-14-2024 ALT [Catalytic activity/Vol] 20 U/L 16-61 [facility] Serum or plasma albumin esdras urement (mass/volume)Ordered By: Delmi Westfall on 10-14-2024 Albumin [Mass/Vol] 3.5 g/dL 3.2-5.0 [facility] Serum or plasma alkaline jodie sphatase measurementOrdered By: Delmi Westfall on 10-14-2024 ALP [Catalytic activity/Vol] 57 U/L 45-117 [facility] [facility] Serum or plasma calcium esdras urement (mass/volume)Ordered By: Delmi Westfall on 10-14-2024 Calcium [Mass/Vol] 8.6 mg/dL 8.5-10.1 [facility] Serum or plasma creatinine m easurement (mass/volume)Ordered By: Delmi Westfall on 10-14-2024 Creatinine [Mass/Vol] 1.22 mg/dL 0.70-1.30 [facility] Comment on above: The validity of the calculated GFR & GFRAA in patients over 70 years has not been determined. Clinical correlation is essential. Serum or plasma urea nitroge n measurement (mass/volume)Ordered By: Delmi Westfall on 10-14-2024 Urea nitrogen [Mass/Vol] 23 mg/dL High 7-18 [facility] Sodium levelOrdered By: Cody Westfall on 10-14-2024 Sodium [Moles/Vol] 143 mmol/L 136-145 [facility] Total proteinOrdered By: Kerri Westfall on 10-14-2024 Protein [Mass/Vol] 6.6 g/dL 6.4-8.2 [facility] White blood cell (WBC) count Ordered By: Delmi Westfall on 10-14-2024 WBC (Bld) [#/Vol] 6.8 10*3/uL Normal 4.4-11.0 [facility] Comment on above: Performed By: #### L 500.4050, L100.0100 #### [facility] [place], [address] CBC W/Diff, Automatedon 10-3 Absolute Lymph 1.70 X10 3/uL Normal 0.83-4.51 [facility] Comment on above: Performed By: #### L 500.4050, L100.0100 #### [facility] [address] [place], [address] Absolute Neut 4.3 X10 3/uL Normal 2.0-7.7 [facility] Comment on above: Performed By: #### L 500.4050, L100.0100 #### [facility] [address] [place], [address] Basophils/100 WBC (Bld) 0.9 % Normal 0-1 [facility] Comment on above: Performed By: #### L 500.4050, L100.0100 #### [facility] [address] [place], [address] Eosinophils/100 WBC (Bld) 2.8 % Normal 0-5 [facility] Comment on above: Performed By: #### L 500.4050, L100.0100 #### [facility] [address] [place], [address] Erythrocyte distribution width (RBC) [Ratio] 13.0 % Normal 11.6-14.6 [facility] Comment on above: Performed By: #### L 500.4050, L100.0100 #### [facility] [address] [place], [address] Hematocrit (Bld) [Volume fraction] 42.8 % Normal 40-54 [facility] Comment on above: Performed By: #### L 500.4050, L100.0100 #### [facility] [address] [place], [address] Hemoglobin (Bld) [Mass/Vol] 13.4 g/dL Normal 13.0-16.5 [facility] Comment on above: Performed By: #### L 500.4050, L100.0100 #### [facility] [address] [place], [address] IG% 0.300 Normal 0.0-0.9 [facility] Comment on above: Result Comment: IG% - Immature Granulocytes (promyelocytes, myelocytes and metamyelocytes) > 1% indicates that a LEFT SHIFT is Present. Performed By: #### L 500.4050, L100.0100 #### [facility] [address] [place], [address] Lymphocytes/100 WBC (Bld) 24.9 % Normal 19-41 [facility] Comment on above: Performed By: #### L 500.4050, L100.0100 #### [facility] [address] [place], [address] MCH (RBC) [Entitic mass] 28.6 pg Normal 27.0-32.0 [facility] Comment on above: Performed By: #### L 500.4050, L100.0100 #### [facility] [address] [place], [address] MCHC (RBC) [Mass/Vol] 31.3 g/dL Low 32-36 [facility] Comment on above: Performed By: #### L 500.4050, L100.0100 #### [facility] [address] [place], [address] MCV (RBC) [Entitic vol] 91.5 fL Normal 80-94 [facility] Comment on above: Performed By: #### L 500.4050, L100.0100 #### [facility] [address] [place], [address] Monocytes/100 WBC (Bld) 8.5 % Normal 0-10 [facility] Comment on above: Performed By: #### L 500.4050, L100.0100 #### [facility] [address] [place], [address] Neutrophils/100 WBC (Bld) 62.6 % Normal 47-70 [facility] Comment on above: Performed By: #### L 500.4050, L100.0100 #### [facility] [address] [place], [address] Nucleated RBC (Bld) [#/Vol] 0 10*3/uL Normal 0-5 [facility] Comment on above: Performed By: #### L 500.4050, L100.0100 #### [facility] [address] [place], [address] Platelet mean volume (Bld) [Entitic vol] 10.5 fL Normal 6.2-12.0 [facility] Comment on above: Performed By: #### L 500.4050, L100.0100 #### [facility] [address] [place], [address] Platelets (Bld) [#/Vol] 238 10*3/uL Normal 150-450 [facility] Comment on above: Performed By: #### L 500.4050, L100.0100 #### [facility] [address] [place], [address] RBC (Bld) [#/Vol] 4.68 10*6/uL Normal 4.6-6.2 [facility] Comment on above: Performed By: #### L 500.4050, L100.0100 #### [facility] [address] [place], [address] RDW SD 43.5 fl Normal 35.1-43.9 [facility] Comment on above: Performed By: #### L 500.4050, L100.0100 #### [facility] [address] [place], [address] WBC (Bld) [#/Vol] 6.8 10*3/uL Normal 4.4-11.0 [facility] Comment on above: Performed By: #### L 500.4050, L100.0100 #### [facility] [address] [place], [address] Comprehensive Metabolic Prof ilon 08-04-2024 Albumin [Mass/Vol] 3.6 g/dL Normal 3.2-5.0 [facility] Comment on above: Performed By: #### L 500.4050, L100.0100 #### [facility] [address] [place], [address] Albumin/Globulin [Mass ratio] 1.1 {ratio} Normal 0.9-2.4 [facility] Comment on above: Performed By: #### L 500.4050, L100.0100 #### [facility] [address] [place], [address] ALK P 57 U/L Normal 45-117 [facility] Comment on above: Performed By: #### L 500.4050, L100.0100 #### [facility] [address] [place], [address] ALT [Catalytic activity/Vol] 15 U/L Low 16-61 [facility] Comment on above: Performed By: #### L 500.4050, L100.0100 #### [facility] [address] [place], [address] AST [Catalytic activity/Vol] 12 U/L Low 15-37 [facility] Comment on above: Performed By: #### L 500.4050, L100.0100 #### [facility] [address] [place], [address] Bilirubin [Mass/Vol] 0.40 mg/dL Normal 0.20-1.00 [facility] Comment on above: Result Comment: For patients on eltrombopag therapy, use of Dimension [place] TBIL is not recommended. Performed By: #### L 500.4050, L100.0100 #### [facility] [address] [place], [address] BUN/CRE 25.0 RATIO High 10-20 [facility] Comment on above: Performed By: #### L 500.4050, L100.0100 #### [facility] [address] [place], [address] CA,Total 8.9 mg/dL Normal 8.5-10.1 [facility] Comment on above: Performed By: #### L 500.4050, L100.0100 #### [facility] [address] [place], [address] Chloride [Moles/Vol] 110 mmol/L High 98-107 [facility] Comment on above: Performed By: #### L 500.4050, L100.0100 #### [facility] [address] [place], [address] CO2 [Moles/Vol] 26.0 mmol/L Normal 21.0-32.0 [facility] Comment on above: Performed By: #### L 500.4050, L100.0100 #### [facility] [address] [place], [address] Creatinine [Mass/Vol] 1.20 mg/dL Normal 0.70-1.30 [facility] Comment on above: Result Comment: The validity of the calculated GFR GFRAA in patients over 70 years has not been determined. Clinical correlation is essential. Performed By: #### L 500.4050, L100.0100 #### [facility] [address] [place], [address] EST GFR - AA 80 mL/min Normal >60 [facility] Comment on above: Result Comment: Afri can [place]ian GFR Calc Performed By: #### L 500.4050, L100.0100 #### [facility] [address] [place], [address] GAP 4 Low 5-15 [facility] Comment on above: Performed By: #### L 500.4050, L100.0100 #### [facility] [address] [place], [address] GFR/1.73 sq M.predicted among non-blacks MDRD (S/P/Bld) [Vol rate/Area] 66 mL/min/{1.73_m2} Normal >60 [facility] Comment on above: Result Comment: Non- GFR Calc Performed By: #### L 500.4050, L100.0100 #### [facility] [address] [place], [address] Globulin (S) [Mass/Vol] 3.4 g/dL Normal 2.2-4.2 [facility] Comment on above: Performed By: #### L 500.4050, L100.0100 #### [facility] [address] [place], [address] Glucose [Mass/Vol] 103 mg/dL Normal 74-106 [facility] Comment on above: Result Comment: Fast ing Glucose result from 100 to 125 mg/dL suggests IMPAIRED HOMEOSTASIS per A.D.A. criteria. Performed By: #### L 500.4050, L100.0100 #### [facility] [address] [place], [address] Potassium [Moles/Vol] 3.9 mmol/L Normal 3.5-5.1 [facility] Comment on above: Performed By: #### L 500.4050, L100.0100 #### [facility] [address] [place], [address] Sodium [Moles/Vol] 140 mmol/L Normal 136-145 [facility] Comment on above: Performed By: #### L 500.4050, L100.0100 #### [facility] [address] [place], [address] T PROT 7.0 g/dL Normal 6.4-8.2 [facility] Comment on above: Performed By: #### L 500.4050, L100.0100 #### [facility] [address] [place], [address] Urea nitrogen [Mass/Vol] 30 mg/dL High 7-18 [facility] Comment on above: Performed By: #### L 500.4050, L100.0100 #### [facility] [address] [place], [address] CBC W/Diff, Automatedon 10-0 2-2023 Absolute Lymph 1.47 X10 3/uL Normal 0.83-4.51 [facility] Comment on above: Performed By: #### L 500.4050, L100.0100 #### [facility] [address] [place], [address] Absolute Neut 6.9 X10 3/uL Normal 2.0-7.7 [facility] Comment on above: Performed By: #### L 500.4050, L100.0100 #### [facility] [address] [place], [address] Basophils/100 WBC (Bld) 0.7 % Normal 0-1 [facility] Comment on above: Performed By: #### L 500.4050, L100.0100 #### [facility] [address] [place], [address] Eosinophils/100 WBC (Bld) 2.1 % Normal 0-5 [facility] Comment on above: Performed By: #### L 500.4050, L100.0100 #### [facility] [address] [place], [address] Erythrocyte distribution width (RBC) [Ratio] 13.6 % Normal 11.6-14.6 [facility] Comment on above: Performed By: #### L 500.4050, L100.0100 #### [facility] [address] [place], [address] Hematocrit (Bld) [Volume fraction] 44.0 % Normal 40-54 [facility] Comment on above: Performed By: #### L 500.4050, L100.0100 #### [facility] [address] [place], [address] Hemoglobin (Bld) [Mass/Vol] 14.0 g/dL Normal 13.0-16.5 [facility] Comment on above: Performed By: #### L 500.4050, L100.0100 #### [facility] [address] [place], [address] IG% 0.300 Normal 0.0-0.9 [facility] Comment on above: Result Comment: IG% - Immature Granulocytes (promyelocytes, myelocytes and metamyelocytes) > 1% indicates that a LEFT SHIFT is Present. Performed By: #### L 500.4050, L100.0100 #### [facility] [address] [place], [address] Lymphocytes/100 WBC (Bld) 15.7 % Low 19-41 [facility] Comment on above: Performed By: #### L 500.4050, L100.0100 #### [facility] [address] [place], [address] MCH (RBC) [Entitic mass] 28.8 pg Normal 27.0-32.0 [facility] Comment on above: Performed By: #### L 500.4050, L100.0100 #### [facility] [address] [place], [address] MCHC (RBC) [Mass/Vol] 31.8 g/dL Low 32-36 [facility] Comment on above: Performed By: #### L 500.4050, L100.0100 #### [facility] [address] [place], [address] MCV (RBC) [Entitic vol] 90.5 fL Normal 80-94 [facility] Comment on above: Performed By: #### L 500.4050, L100.0100 #### [facility] [address] [place], [address] Monocytes/100 WBC (Bld) 7.4 % Normal 0-10 [facility] Comment on above: Performed By: #### L 500.4050, L100.0100 #### [facility] [address] [place], [address] Neutrophils/100 WBC (Bld) 73.8 % High 47-70 [facility] Comment on above: Performed By: #### L 500.4050, L100.0100 #### [facility] [address] [place], [address] Nucleated RBC (Bld) [#/Vol] 0 10*3/uL Normal 0-5 [facility] Comment on above: Performed By: #### L 500.4050, L100.0100 #### [facility] [address] [place], [address] Platelet mean volume (Bld) [Entitic vol] 10.8 fL Normal 6.2-12.0 [facility] Comment on above: Performed By: #### L 500.4050, L100.0100 #### [facility] [address] [place], [address] Platelets (Bld) [#/Vol] 248 10*3/uL Normal 150-450 [facility] Comment on above: Performed By: #### L 500.4050, L100.0100 #### [facility] [address] [place], [address] RBC (Bld) [#/Vol] 4.86 10*6/uL Normal 4.6-6.2 [facility] Comment on above: Performed By: #### L 500.4050, L100.0100 #### [facility] [address] [place], [address] RDW SD 45.2 fl High 35.1-43.9 [facility] Comment on above: Performed By: #### L 500.4050, L100.0100 #### [facility] [address] [place], [address] WBC (Bld) [#/Vol] 9.4 10*3/uL Normal 4.4-11.0 [facility] Comment on above: Performed By: #### L 500.4050, L100.0100 #### [facility] [address] [place], [address] Comprehensive Metabolic Prof ilon 07-06-2024 Albumin [Mass/Vol] 3.8 g/dL Normal 3.2-5.0 [facility] Comment on above: Performed By: #### L 500.4050, L100.0100 #### [facility] [address] [place], [address] Albumin/Globulin [Mass ratio] 1.1 {ratio} Normal 0.9-2.4 [facility] Comment on above: Performed By: #### L 500.4050, L100.0100 #### [facility] [address] [place], [address] ALK P 65 U/L Normal 45-117 [facility] Comment on above: Performed By: #### L 500.4050, L100.0100 #### [facility] [address] [place], [address] ALT [Catalytic activity/Vol] 17 U/L Normal 16-61 [facility] Comment on above: Performed By: #### L 500.4050, L100.0100 #### [facility] [address] [place], [address] AST [Catalytic activity/Vol] 17 U/L Normal 15-37 [facility] Comment on above: Performed By: #### L 500.4050, L100.0100 #### [facility] [address] [place], [address] Bilirubin [Mass/Vol] 0.50 mg/dL Normal 0.20-1.00 [facility] Comment on above: Result Comment: For patients on eltrombopag therapy, use of Dimension [place] TBIL is not recommended. Performed By: #### L 500.4050, L100.0100 #### [facility] [address] [place], [address] BUN/CRE 17.8 RATIO Normal 10-20 [facility] Comment on above: Performed By: #### L 500.4050, L100.0100 #### [facility] [address] [place], [address] CA,Total 9.2 mg/dL Normal 8.5-10.1 [facility] Comment on above: Performed By: #### L 500.4050, L100.0100 #### [facility] [address] [place], [address] Chloride [Moles/Vol] 106 mmol/L Normal 98-107 [facility] Comment on above: Performed By: #### L 500.4050, L100.0100 #### [facility] [address] [place], [address] CO2 [Moles/Vol] 24.0 mmol/L Normal 21.0-32.0 [facility] Comment on above: Performed By: #### L 500.4050, L100.0100 #### [facility] [address] [place], [address] Creatinine [Mass/Vol] 1.97 mg/dL High 0.70-1.30 [facility] Comment on above: Result Comment: The validity of the calculated GFR GFRAA in patients over 70 years has not been determined. Clinical correlation is essential. Performed By: #### L 500.4050, L100.0100 #### [facility] [address] [place], [address] EST GFR - AA 45 mL/min Low >60 [facility] Comment on above: Result Comment: Afri can [place] GFR Calc Performed By: #### L 500.4050, L100.0100 #### [facility] [address] [place], [address] GAP 7 Normal 5-15 [facility] Comment on above: Performed By: #### L 500.4050, L100.0100 #### [facility] [address] [place], [address] GFR/1.73 sq M.predicted among non-blacks MDRD (S/P/Bld) [Vol rate/Area] 37 mL/min/{1.73_m2} Low >60 [facility] Comment on above: Result Comment: Non- GFR Calc Performed By: #### L 500.4050, L100.0100 #### [facility] [address] [place], [address] Globulin (S) [Mass/Vol] 3.4 g/dL Normal 2.2-4.2 [facility] Comment on above: Performed By: #### L 500.4050, L100.0100 #### [facility] [address] [place], [address] Glucose [Mass/Vol] 98 mg/dL Normal 74-106 [facility] Comment on above: Performed By: #### L 500.4050, L100.0100 #### [facility] [address] [place], [address] Potassium [Moles/Vol] 4.0 mmol/L Normal 3.5-5.1 [facility] Comment on above: Performed By: #### L 500.4050, L100.0100 #### [facility] [address] [place], [address] Sodium [Moles/Vol] 136 mmol/L Normal 136-145 [facility] Comment on above: Performed By: #### L 500.4050, L100.0100 #### [facility] [address] [place], [address] T PROT 7.2 g/dL Normal 6.4-8.2 [facility] Comment on above: Performed By: #### L 500.4050, L100.0100 #### [facility] [address] [place], [address] Urea nitrogen [Mass/Vol] 35 mg/dL High 7-18 [facility] Comment on above: Performed By: #### L 500.4050, L100.0100 #### [facility] [address] [place], [address] Absolute lymphocyte countOrd ered By: Delmi Westfall on 01-04-2024 Lymphocytes Auto (Unsp spec) [#/Vol] 1.05 10*3/uL 0.83-4.51 [facility] Automated blood erythrocyte count (number/volume)Ordered By: Delmi Westfall on 01-04-2024 RBC (Bld) [#/Vol] 4.68 10*6/uL 4.5 - 6.0 M/uL [facility] Automated blood hematocrit ( percentage)Ordered By: Delmi Westfall on 01-04-2024 Hematocrit (Bld) [Volume fraction] 42.1 % Abnormal 33 - 42 % [facility] Automated lymphocyte count a s percentage of total leukocytesOrdered By: Delmi Wetsfall on 01-04-2024 Lymphocytes/100 WBC Auto (Unsp spec) 20.2 % 19-41 [facility] Basophil percentageOrdered B y: Delmi Westfall on 01-04-2024 Basophils/100 WBC (Bld) 0.6 % [facility] Bilirubin [Mass/Vol] 0.30 mg/dL 0.20-1.00 [facility] Comment on above: For patients on eltr ombopag therapy, use of Dimension [place] TBIL is not recommended. Chloride [Moles/Vol] 105 mmol/L 98-107 [facility] Eosinophils/100 WBC (Bld) 3.7 % Abnormal 0 - 3 % [facility] Glucose [Mass/Vol] 100 mg/dL 74-106 [facility] Comment on above: Fasting Glucose resu lt from 100 to 125 mg/dL suggests IMPAIRED HOMEOSTASIS per A.D.A. criteria. Hemoglobin (Bld) [Mass/Vol] 13.4 g/dL 12 - 16 g/dL [facility] Monocytes/100 WBC (Bld) 6.7 % [facility] Neutrophils (Bld) [#/Vol] 3.6 10*3/uL 2.0-7.7 [facility] Neutrophils/100 WBC (Bld) 68.4 % [facility] Potassium [Moles/Vol] 3.8 mmol/L 3.5-5.1 [facility] Protein [Mass/Vol] 6.7 g/dL 6.4-8.2 [facility] Sodium [Moles/Vol] 140 mmol/L 136-145 [facility] WBC (Bld) [#/Vol] 5.2 10*3/uL 4.0 - 11.0 K/uL [facility] CBC W Auto Differential pane l (Bld)on 01-04-2024 Immature Gran % 0.400 % [facility] Lymphocytes (Bld) [#/Vol] 1.05 10*3/uL [facility] Lymphocytes/100 WBC (Bld) 20.2 % [facility] MCHC 31.8 % Abnormal 32 - 36 % [facility] NEUTROPHILS (ABSOLUTE) 3.6 Cl [facility] Nucleated RBC (Bld) [#/Vol] 0 10*3/uL [facility] Platelet mean volume (Bld) [Entitic vol] 10.3 % 7.3 - 11.1 % [facility] RDW-SD 44.8 [facility] Determination of erythrocyte mean corpuscular volume (MCV)Ordered By: Delmi Westfall on 01-04-2024 MCV (RBC) [Entitic vol] 90.0 fL 80 - 100 fL [facility] Erythrocyte distribution wid th ratioOrdered By: Delmi Westfall on 01-04-2024 Erythrocyte distribution width (RBC) [Ratio] 13.7 % 11.7 - 15.0 % [facility] Erythrocyte distribution wid th standard deviationOrdered By: [facility] on 01-04-2024 Erythrocyte distribution width (RBC) [Entitic vol] 44.8 fL 35.1-43.9 [facility] Immature granulocytes/100 WB C Auto (Bld)Ordered By: [facility] on 01-04-2024 Immature granulocytes/100 WBC (Bld) 0.400 % 0.0-0.9 [facility] Comment on above: IG% - Immature Granu locytes (promyelocytes, myelocytes and metamyelocytes) > 1% indicates that a LEFT SHIFT is Present. Laboratory - Chemistry and C hemistry - challengeOrdered By: [facility] on 01-04-2024 Albumin/Globulin [Mass ratio] 1.1 {ratio} 0.9-2.4 [facility] ALP [Catalytic activity/Vol] 58 U/L 45-117 [facility] ALT [Catalytic activity/Vol] 20 U/L 16-61 [facility] CO2 [Moles/Vol] 31.0 mmol/L 21.0-32.0 [facility] Globulin (S) [Mass/Vol] 3.2 g/dL 2.2-4.2 [facility] Urea nitrogen/Creatinine [Mass ratio] 16.1 mg/mg 10-20 [facility] - Hematology and Cell countsOrdered By: Delmilou Westfall on 01-04-2024 MCH (RBC) [Entitic mass] 28.6 pg 27 - 34 pG [facility] MCHC (RBC) [Mass/Vol] 31.8 g/dL 32-36 [facility] Nucleated RBC/100 WBC (Bld) [Ratio] 0 % 0-5 [facility] Platelet mean volume (Bld) [Entitic vol] 10.3 fL 6.2-12.0 [facility] Platelets (Bld) [#/Vol] 217 10*3/uL 150 - 400 k /uL [facility] No Panel InformationOrdered By: Delmi Westfall on 01-04-2024 Estimated GFR (MDRD) Amer 100 mL/min >60 [facility] Comment on above: GFR Calc Estimated GFR (MDRD) Non-Af Amer 82 mL/min >60 [facility] Comment on above: Non- GFR Calc Serum or plasma calcium esdras urement (mass/volume)Ordered By: Delmi Westfall on 01-04-2024 Calcium [Mass/Vol] 8.8 mg/dL 8.5-10.1 [facility] Serum or plasma creatinine m easurement (mass/volume)Ordered By: Delmi Westfall on 01-04-2024 Creatinine [Mass/Vol] 1.00 mg/dL 0.70-1.30 [facility] Comment on above: The validity of the calculated GFR & GFRAA in patients over 70 years has not been determined. Clinical correlation is essential. Serum or plasma urea nitroge n measurement (mass/volume)Ordered By: Delmi Westfall on 01-04-2024 Urea nitrogen [Mass/Vol] 16 mg/dL 7-18 [facility] Thin prep Papanicolaou smear with manual screeningOrdered By: Delmi Westfall on 01-04-2024 Thin prep Papanicolaou smear with manual screening 3.5 g/dL 3.2-5.0 [facility] Thin prep Papanicolaou smear with manual screening 12 U/L 15-37 [facility] Thin prep Papanicolaou smear with manual screening 4 5-15 [facility] Laboratory - Microbiology an d Antimicrobial susceptibilityon 11-22-2023 SARS-CoV-2 (COVID-19) RNA VALE+probe Ql (Unsp spec) Not detected [facility] No Panel Informationon 11-22 Influenza Types A,B Rapid (Clinic) Not detected [facility] Absolute lymphocyte countOrd ered By: Delmi Westfall on 09-08-2023 Lymphocytes Auto (Unsp spec) [#/Vol] 1.56 10*3/uL 0.83-4.51 [facility] Basophil percentageOrdered B y: Delmi Westfall on 09-08-2023 Basophils/100 WBC (Bld) 1.1 % 0-1 [facility] Bilirubin [Mass/Vol] 0.30 mg/dL 0.20-1.00 [facility] Comment on above: For patients on eltr ombopag therapy, use of Dimension [place] TBIL is not recommended. Chloride [Moles/Vol] 105 mmol/L 98-107 [facility] Eosinophils/100 WBC (Bld) 4.0 % 0-5 [facility] Glucose [Mass/Vol] 107 mg/dL 74-106 [facility] Comment on above: Fasting Glucose resu lt from 100 to 125 mg/dL suggests IMPAIRED HOMEOSTASIS per A.D.A. criteria. Neutrophils (Bld) [#/Vol] 3.3 10*3/uL 2.0-7.7 [facility] Neutrophils/100 WBC (Bld) 60.7 % 47-70 [facility] Potassium [Moles/Vol] 4.1 mmol/L 3.5-5.1 [facility] Protein [Mass/Vol] 7.0 g/dL 6.4-8.2 [facility] Sodium [Moles/Vol] 139 mmol/L 136-145 [facility] WBC (Bld) [#/Vol] 5.5 10*3/uL 4.4-11.0 [facility] Blood erythrocytes count (nu mber/volume)Ordered By: Delmi Westfall on 09-08-2023 RBC (Bld) [#/Vol] 5.30 10*6/uL 4.6-6.2 [facility] Blood hemoglobin measurement (mass/volume)Ordered By: Delmi Westfall on 09-08-2023 Hemoglobin (Bld) [Mass/Vol] 14.3 g/dL 13.0-16.5 [facility] Blood lymphocytes/100 leukoc ytesOrdered By: Delmi Westfall on 09-08-2023 Lymphocytes/100 WBC (Bld) 28.5 % 19-41 [facility] Blood monocytes/100 leukocyt esOrdered By: Delmi Westfall on 09-08-2023 Monocytes/100 WBC (Bld) 5.5 % 0-10 [facility] Blood platelet mean volumeOr dered By: Delmi Westfall on 09-08-2023 Platelet mean volume (Bld) [Entitic vol] 10.5 fL 6.2-12.0 [facility] Determination of erythrocyte mean corpuscular volume (MCV)Ordered By: Delmi Westfall on 09-08-2023 MCV (RBC) [Entitic vol] 88.9 fL 80-94 [facility] Hematocrit Auto (Bld) [Volum e fraction]Ordered By: Delmi Westfall on 09-08-2023 Hematocrit (Bld) [Volume fraction] 47.1 % 40-54 [facility] Laboratory - Chemistry and C hemistry - challengeOrdered By: Delmi Westfall on 09-08-2023 ALP [Catalytic activity/Vol] 67 U/L 45-117 [facility] ALT [Catalytic activity/Vol] 18 U/L 16-61 [facility] CO2 [Moles/Vol] 31.0 mmol/L 21.0-32.0 [facility] Globulin (S) [Mass/Vol] 3.5 g/dL 2.2-4.2 [facility] Urea nitrogen/Creatinine [Mass ratio] 18.5 mg/mg 10-20 [facility] Laboratory - Hematology and Cell countsOrdered By: Delmi Westfall on 09-08-2023 Erythrocyte distribution width (RBC) [Entitic vol] 43.5 fL 35.1-43.9 [facility] Erythrocyte distribution width (RBC) [Ratio] 13.3 % 11.6-14.6 [facility] Immature granulocytes/100 WBC (Bld) 0.200 % 0.0-0.9 [facility] Comment on above: IG% - Immature Granu locytes (promyelocytes, myelocytes and metamyelocytes) > 1% indicates that a LEFT SHIFT is Present. MCH (RBC) [Entitic mass] 27.0 pg 27.0-32.0 [facility] Nucleated RBC/100 WBC (Bld) [Ratio] 0 % 0-5 [facility] MCHC Auto (RBC) [Mass/Vol]Or dered By: Delmi Westfall on 09-08-2023 MCHC (RBC) [Mass/Vol] 30.4 g/dL 32-36 [facility] No Panel InformationOrdered By: Delmi Westfall on 09-08-2023 Estimated GFR (MDRD) Amer 91 mL/min >60 [facility] Comment on above: GFR Calc Estimated GFR (MDRD) Non-Af Amer 75 mL/min >60 [facility] Comment on above: Non- GFR Calc Platelets bldOrdered By: Kerri Westfall on 09-08-2023 Platelets (Bld) [#/Vol] 245 10*3/uL 150-450 [facility] Serum or plasma albumin esdras urement (mass/volume)Ordered By: Delmi Westfall on 09-08-2023 Albumin [Mass/Vol] 3.5 g/dL 3.2-5.0 [facility] Serum or plasma albumin/glob ulin mass ratioOrdered By: Delmi Westfall on 09-08-2023 Albumin/Globulin [Mass ratio] 1.0 {ratio} 0.9-2.4 [facility] Serum or plasma calcium esdras urement (mass/volume)Ordered By: Delmi Westfall on 09-08-2023 Calcium [Mass/Vol] 8.9 mg/dL 8.5-10.1 [facility] Serum or plasma creatinine m easurement (mass/volume)Ordered By: Delmi Westfall on 09-08-2023 Creatinine [Mass/Vol] 1.08 mg/dL 0.70-1.30 [facility] Comment on above: The validity of the calculated GFR & GFRAA in patients over 70 years has not been determined. Clinical correlation is essential. Serum or plasma urea nitroge n measurement (mass/volume)Ordered By: Delmi Westfall on 09-08-2023 Urea nitrogen [Mass/Vol] 20 mg/dL 7-18 [facility] Thin prep Papanicolaou smear with manual screeningOrdered By: Delmi Westfall on 09-08-2023 Thin prep Papanicolaou smear with manual screening 11 U/L 15-37 [facility] Thin prep Papanicolaou smear with manual screening 3 5-15 [facility] Absolute lymphocyte countOrd ered By: Delmi Westfall on 06-04-2023 Lymphocytes Auto (Unsp spec) [#/Vol] 1.31 10*3/uL 0.83-4.51 [facility] Basophil percentageOrdered B y: Delmi Westfall on 06-04-2023 Basophils/100 WBC (Bld) 1.0 % 0-1 [facility] Bilirubin [Mass/Vol] 0.30 mg/dL 0.20-1.00 [facility] Comment on above: For patients on eltr ombopag therapy, use of Dimension [place] TBIL is not recommended. Chloride [Moles/Vol] 105 mmol/L 98-107 [facility] Eosinophils/100 WBC (Bld) 2.7 % 0-5 [facility] Glucose [Mass/Vol] 102 mg/dL 74-106 [facility] Comment on above: Fasting Glucose resu lt from 100 to 125 mg/dL suggests IMPAIRED HOMEOSTASIS per A.D.A. criteria. Neutrophils (Bld) [#/Vol] 3.8 10*3/uL 2.0-7.7 [facility] Neutrophils/100 WBC (Bld) 65.5 % 47-70 [facility] Potassium [Moles/Vol] 4.5 mmol/L 3.5-5.1 [facility] Protein [Mass/Vol] 7.2 g/dL 6.4-8.2 [facility] Sodium [Moles/Vol] 138 mmol/L 136-145 [facility] WBC (Bld) [#/Vol] 5.8 10*3/uL 4.4-11.0 [facility] Blood erythrocytes count (nu mber/volume)Ordered By: Delmi Westfall on 06-04-2023 RBC (Bld) [#/Vol] 4.59 10*6/uL 4.6-6.2 [facility] Blood hemoglobin measurement (mass/volume)Ordered By: Delmi Westfall on 06-04-2023 Hemoglobin (Bld) [Mass/Vol] 13.3 g/dL 13.0-16.5 [facility] Blood lymphocytes/100 leukoc ytesOrdered By: Delmi Westfall on 06-04-2023 Lymphocytes/100 WBC (Bld) 22.5 % 19-41 [facility] Blood monocytes/100 leukocyt esOrdered By: Delmi Westfall on 06-04-2023 Monocytes/100 WBC (Bld) 8.1 % 0-10 [facility] Blood platelet mean volumeOr dered By: Delmi Westfall on 06-04-2023 Platelet mean volume (Bld) [Entitic vol] 10.1 fL 6.2-12.0 [facility] Determination of erythrocyte mean corpuscular volume (MCV)Ordered By: Delmi Westfall on 06-04-2023 MCV (RBC) [Entitic vol] 90.2 fL 80-94 [facility] Hematocrit Auto (Bld) [Volum e fraction]Ordered By: Delmilou Westfall on 06-04-2023 Hematocrit (Bld) [Volume fraction] 41.4 % 40-54 [facility] Laboratory - Chemistry and C hemistry - challengeOrdered By: [facility] on 06-04-2023 ALP [Catalytic activity/Vol] 75 U/L 45-117 [facility] ALT [Catalytic activity/Vol] 40 U/L 16-61 [facility] CO2 [Moles/Vol] 28.0 mmol/L 21.0-32.0 [facility] Globulin (S) [Mass/Vol] 3.7 g/dL 2.2-4.2 [facility] Urea nitrogen/Creatinine [Mass ratio] 27.5 mg/mg 10-20 [facility] Laboratory - Hematology and Cell countsOrdered By: [facility] on 06-04-2023 Erythrocyte distribution width (RBC) [Entitic vol] 41.9 fL 35.1-43.9 [facility] Erythrocyte distribution width (RBC) [Ratio] 12.9 % 11.6-14.6 [facility] Immature granulocytes/100 WBC (Bld) 0.200 % 0.0-0.9 [facility] Comment on above: IG% - Immature Granu locytes (promyelocytes, myelocytes and metamyelocytes) > 1% indicates that a LEFT SHIFT is Present. MCH (RBC) [Entitic mass] 29.0 pg 27.0-32.0 [facility] Nucleated RBC/100 WBC (Bld) [Ratio] 0 % 0-5 [facility] MCHC Auto (RBC) [Mass/Vol]Or dered By: Delmilou Westfall on 06-04-2023 MCHC (RBC) [Mass/Vol] 32.1 g/dL 32-36 [facility] No Panel InformationOrdered By: Delmi Westfall on 06-04-2023 Estimated GFR (MDRD) Amer 90 mL/min >60 [facility] Comment on above: GFR Calc Estimated GFR (MDRD) Non-Af Amer 74 mL/min >60 [facility] Comment on above: Non- GFR Calc Platelets bldOrdered By: Kerri Westfall on 06-04-2023 Platelets (Bld) [#/Vol] 265 10*3/uL 150-450 [facility] Serum or plasma albumin esdras urement (mass/volume)Ordered By: Delmi Westfall on 06-04-2023 Albumin [Mass/Vol] 3.5 g/dL 3.2-5.0 [facility] Serum or plasma albumin/glob ulin mass ratioOrdered By: Delmi eWstfall on 06-04-2023 Albumin/Globulin [Mass ratio] 0.9 {ratio} 0.9-2.4 [facility] Serum or plasma calcium esdras urement (mass/volume)Ordered By: Delmi Westfall on 06-04-2023 Calcium [Mass/Vol] 9.5 mg/dL 8.5-10.1 [facility] Serum or plasma creatinine m easurement (mass/volume)Ordered By: Delmi Westfall on 06-04-2023 Creatinine [Mass/Vol] 1.09 mg/dL 0.70-1.30 [facility] Comment on above: The validity of the calculated GFR & GFRAA in patients over 70 years has not been determined. Clinical correlation is essential. Serum or plasma urea nitroge n measurement (mass/volume)Ordered By: Delmi Westfall on 06-04-2023 Urea nitrogen [Mass/Vol] 30 mg/dL 7-18 [facility] Thin prep Papanicolaou smear with manual screeningOrdered By: Delmi Westfall on 06-04-2023 Thin prep Papanicolaou smear with manual screening 17 U/L 15-37 [facility] Thin prep Papanicolaou smear with manual screening 5 5-15 [facility] Glucose Glucometer (BldC) [M ass/Vol]Ordered By: Stephon Mcgarry on 08-03-2023 Glucose [Mass/Vol] 109 mg/dL 74-106 [facility] Comment on above: MANAGEMENT OF PATIEN T CARE PER NURSING PROTOCOL Absolute lymphocyte countOrd ered By: Stephon Mcgarry on 04-21-2023 Lymphocytes Auto (Unsp spec) [#/Vol] 1.68 10*3/uL 0.83-4.51 [facility] Basophil percentageOrdered B y: Stephon Mcgarry on 04-21-2023 Basophils/100 WBC (Bld) 0.7 % 0-1 [facility] Chloride [Moles/Vol] 113 mmol/L 98-107 [facility] Eosinophils/100 WBC (Bld) 3.9 % 0-5 [facility] Glucose [Mass/Vol] 103 mg/dL 74-106 [facility] Comment on above: Fasting Glucose resu lt from 100 to 125 mg/dL suggests IMPAIRED HOMEOSTASIS per A.D.A. criteria. Neutrophils (Bld) [#/Vol] 3.6 10*3/uL 2.0-7.7 [facility] Neutrophils/100 WBC (Bld) 58.9 % 47-70 [facility] Potassium [Moles/Vol] 4.1 mmol/L 3.5-5.1 [facility] Sodium [Moles/Vol] 143 mmol/L 136-145 [facility] WBC (Bld) [#/Vol] 6.1 10*3/uL 4.4-11.0 [facility] Blood erythrocytes count (nu mber/volume)Ordered By: Stephon Mcgarry on 04-21-2023 RBC (Bld) [#/Vol] 4.49 10*6/uL 4.6-6.2 [facility] Blood hemoglobin measurement (mass/volume)Ordered By: Stephon Mcgarry on 04-21-2023 Hemoglobin (Bld) [Mass/Vol] 13.4 g/dL 13.0-16.5 [facility] Blood lymphocytes/100 leukoc ytesOrdered By: Stephon Mcgarry on 04-21-2023 Lymphocytes/100 WBC (Bld) 27.5 % 19-41 [facility] Blood monocytes/100 leukocyt esOrdered By: Stephon Mcgarry on 04-21-2023 Monocytes/100 WBC (Bld) 8.7 % 0-10 [facility] Blood platelet mean volumeOr dered By: Stephon Mcgarry on 04-21-2023 Platelet mean volume (Bld) [Entitic vol] 10.4 fL 6.2-12.0 [facility] Determination of erythrocyte mean corpuscular volume (MCV)Ordered By: Stephon Mcgarry on 04-21-2023 MCV (RBC) [Entitic vol] 94.4 fL 80-94 [facility] Hematocrit Auto (Bld) [Volum e fraction]Ordered By: Stephon Mcgarry on 04-21-2023 Hematocrit (Bld) [Volume fraction] 42.4 % 40-54 [facility] Laboratory - Chemistry and C hemistry - challengeOrdered By: Stephon Mcgarry on 04-21-2023 CO2 [Moles/Vol] 28.0 mmol/L 21.0-32.0 [facility] Urea nitrogen/Creatinine [Mass ratio] 18.4 mg/mg 10-20 [facility] - Chemistry and C hemistry - challengeOrdered By: Rober Ventura on 04-21-2023 Magnesium [Mass/Vol] 2.4 mg/dL 1.6-2.6 [facility] Laboratory - Hematology and Cell countsOrdered By: Stephon Mcgarry on 04-21-2023 Erythrocyte distribution width (RBC) [Entitic vol] 44.3 fL 35.1-43.9 [facility] Erythrocyte distribution width (RBC) [Ratio] 12.8 % 11.6-14.6 [facility] Immature granulocytes/100 WBC (Bld) 0.300 % 0.0-0.9 [facility] Comment on above: IG% - Immature Granu locytes (promyelocytes, myelocytes and metamyelocytes) > 1% indicates that a LEFT SHIFT is Present. MCH (RBC) [Entitic mass] 29.8 pg 27.0-32.0 [facility] Nucleated RBC/100 WBC (Bld) [Ratio] 0 % 0-5 [facility] MCHC Auto (RBC) [Mass/Vol]Or dered By: Stephon Mcgarry on 04-21-2023 MCHC (RBC) [Mass/Vol] 31.6 g/dL 32-36 [facility] No Panel InformationOrdered By: Stephon Mcgarry on 04-21-2023 Estimated GFR (MDRD) Amer 77 mL/min >60 [facility] Comment on above: GFR Calc Estimated GFR (MDRD) Non-Af Amer 63 mL/min >60 [facility] Comment on above: Non- GFR Calc Nasal Screen MRSA/MSSA [facility] Platelets bldOrdered By: Maldonado Mcgarry on 04-21-2023 Platelets (Bld) [#/Vol] 187 10*3/uL 150-450 [facility] Serum or plasma albumin esdras urement (mass/volume)Ordered By: Stephon Mcgarry on 04-21-2023 Albumin [Mass/Vol] 3.0 g/dL 3.2-5.0 [facility] Serum or plasma calcium esdras urement (mass/volume)Ordered By: Stephon Mcgarry on 04-21-2023 Calcium [Mass/Vol] 8.4 mg/dL 8.5-10.1 [facility] Serum or plasma creatinine m easurement (mass/volume)Ordered By: Stephon Mcgarry on 04-21-2023 Creatinine [Mass/Vol] 1.25 mg/dL 0.70-1.30 [facility] Comment on above: The validity of the calculated GFR & GFRAA in patients over 70 years has not been determined. Clinical correlation is essential. Serum or plasma urea nitroge n measurement (mass/volume)Ordered By: Stephon Mcgarry on 04-21-2023 Urea nitrogen [Mass/Vol] 23 mg/dL 04-21 [facility] Thin prep Papanicolaou smear with manual screeningOrdered By: Stephon Mcgarry on 04-21-2023 Thin prep Papanicolaou smear with manual screening 2 5-15 [facility] Whole blood hemoglobin A1c/t otal hemoglobin ratio (mass fraction)Ordered By: Stephon Mcgarry on 04-21-2023 HbA1c (Bld) [Mass fraction] 6.0 % 3.8-5.6 [facility] Comment on above: Normal < 5.7 % Predi abetic 5.7 - 6.4 % Diabetic >or= 6.5 % Please note range changes. Absolute lymphocyte countOrd ered By: Dr. Westfall on 03-20-2023 Lymphocytes Auto (Unsp spec) [#/Vol] 1.49 10*3/uL 0.83-4.51 [facility] Basophil percentageOrdered B y: Dr. Westfall on 03-20-2023 Basophils/100 WBC (Bld) 0.7 % 0-1 [facility] Bilirubin [Mass/Vol] 0.40 mg/dL 0.20-1.00 [facility] Comment on above: For patients on eltr ombopag therapy, use of Dimension [place] TBIL is not recommended. Chloride [Moles/Vol] 108 mmol/L 98-107 [facility] Eosinophils/100 WBC (Bld) 2.6 % 0-5 [facility] Glucose [Mass/Vol] 132 mg/dL 74-106 [facility] Comment on above: Fasting Glucose resu lt greater than or equal to 126 mg/dL suggests DIABETES MELLITUS per A.D.A. criteria. Neutrophils (Bld) [#/Vol] 4.9 10*3/uL 2.0-7.7 [facility] Neutrophils/100 WBC (Bld) 70.0 % 47-70 [facility] Potassium [Moles/Vol] 4.1 mmol/L 3.5-5.1 [facility] Protein [Mass/Vol] 6.6 g/dL 6.4-8.2 [facility] Sodium [Moles/Vol] 141 mmol/L 136-145 [facility] WBC (Bld) [#/Vol] 7.0 10*3/uL 4.4-11.0 [facility] Blood erythrocytes count (nu mber/volume)Ordered By: Dr. Westfall on 03-20-2023 RBC (Bld) [#/Vol] 4.73 10*6/uL 4.6-6.2 [facility] Blood hemoglobin measurement (mass/volume)Ordered By: Dr. Westfall on 03-20-2023 Hemoglobin (Bld) [Mass/Vol] 13.9 g/dL 13.0-16.5 [facility] Blood lymphocytes/100 leukoc ytesOrdered By: Dr. Westfall on 03-20-2023 Lymphocytes/100 WBC (Bld) 21.2 % 19-41 [facility] Blood monocytes/100 leukocyt esOrdered By: Dr. Westfall on 03-20-2023 Monocytes/100 WBC (Bld) 5.1 % 0-10 [facility] Blood platelet mean volumeOr dered By: Dr. Westfall on 03-20-2023 Platelet mean volume (Bld) [Entitic vol] 10.4 fL 6.2-12.0 [facility] Determination of erythrocyte mean corpuscular volume (MCV)Ordered By: Dr. Westfall on 03-20-2023 MCV (RBC) [Entitic vol] 94.3 fL 80-94 [facility] Hematocrit Auto (Bld) [Volum e fraction]Ordered By: Dr. Westfall on 03-20-2023 Hematocrit (Bld) [Volume fraction] 44.6 % 40-54 [facility] Laboratory - Chemistry and C hemistry - challengeOrdered By: Dr. Westfall on 03-20-2023 ALP [Catalytic activity/Vol] 55 U/L 45-117 [facility] ALT [Catalytic activity/Vol] 17 U/L 16-61 [facility] CO2 [Moles/Vol] 28.0 mmol/L 21.0-32.0 [facility] Globulin (S) [Mass/Vol] 3.3 g/dL 2.2-4.2 [facility] Urea nitrogen/Creatinine [Mass ratio] 19.6 mg/mg 10-20 [facility] - Hematology and Cell countsOrdered By: Dr. Westfall on 03-20-2023 Erythrocyte distribution width (RBC) [Entitic vol] 46.3 fL 35.1-43.9 [facility] Erythrocyte distribution width (RBC) [Ratio] 13.5 % 11.6-14.6 [facility] Immature granulocytes/100 WBC (Bld) 0.400 % 0.0-0.9 [facility] Comment on above: IG% - Immature Granu locytes (promyelocytes, myelocytes and metamyelocytes) > 1% indicates that a LEFT SHIFT is Present. MCH (RBC) [Entitic mass] 29.4 pg 27.0-32.0 [facility] Nucleated RBC/100 [facility] (Bld) [Ratio] 0 % 0-[address] [facility] [Mass/Vol]Or dered By: Dr. Westfall on 03-20-2023 MCHC (RBC) [Mass/Vol] 31.2 g/dL 32-36 [facility] No Panel InformationOrdered By: Dr. Westfall on 03-20-2023 Estimated GFR (MDRD) Amer 87 mL/min >60 [facility] Comment on above: GFR Calc Estimated GFR (MDRD) Non-Af Amer 72 mL/min >60 [facility] Comment on above: Non- GFR Calc Platelets bldOrdered By: Dr. Westfall on 03-20-2023 Platelets (Bld) [#/Vol] 203 10*3/uL 150-450 [facility] Serum or plasma albumin esdras urement (mass/volume)Ordered By: Dr. Westfall on 03-20-2023 Albumin [Mass/Vol] 3.3 g/dL 3.2-5.0 [facility] Serum or plasma albumin/glob ulin mass ratioOrdered By: Dr. Westfall on 03-20-2023 Albumin/Globulin [Mass ratio] 1.0 {ratio} 0.9-2.4 [facility] Serum or plasma calcium esdras urement (mass/volume)Ordered By: Dr. Westfall on 03-20-2023 Calcium [Mass/Vol] 9.1 mg/dL 8.5-10.1 [facility] Serum or plasma creatinine m easurement (mass/volume)Ordered By: Dr. Westfall on 03-20-2023 Creatinine [Mass/Vol] 1.12 mg/dL 0.70-1.30 [facility] Comment on above: The validity of the calculated GFR & GFRAA in patients over 70 years has not been determined. Clinical correlation is essential. Serum or plasma urea nitroge n measurement (mass/volume)Ordered By: Dr. Westfall on 03-20-2023 Urea nitrogen [Mass/Vol] 22 mg/dL 7-18 [facility] Thin prep Papanicolaou smear with manual screeningOrdered By: Dr. Westfall on 03-20-2023 Thin prep Papanicolaou smear with manual screening 9 U/L 15-37 [facility] Thin prep Papanicolaou smear with manual screening 5 5-15 [facility] Absolute lymphocyte countOrd ered By: Dr. Westfall on 12-24-2022 Lymphocytes Auto (Unsp spec) [#/Vol] 2.25 10*3/uL 0.83-4.51 [facility] Basophil percentageOrdered B y: Dr. Westfall on 12-24-2022 Basophils/100 WBC (Bld) 0.8 % 0-1 [facility] Bilirubin [Mass/Vol] 0.30 mg/dL 0.20-1.00 [facility] Comment on above: For patients on eltr ombopag therapy, use of Dimension [place] TBIL is not recommended. Chloride [Moles/Vol] 105 mmol/L 98-107 [facility] Eosinophils/100 WBC (Bld) 3.2 % 0-5 [facility] Glucose [Mass/Vol] 119 mg/dL 74-106 [facility] Comment on above: Fasting Glucose resu lt from 100 to 125 mg/dL suggests IMPAIRED HOMEOSTASIS per A.D.A. criteria. Neutrophils (Bld) [#/Vol] 4.3 10*3/uL 2.0-7.7 [facility] Neutrophils/100 WBC (Bld) 56.4 % 47-70 [facility] Potassium [Moles/Vol] 3.8 mmol/L 3.5-5.1 [facility] Protein [Mass/Vol] 7.2 g/dL 6.4-8.2 [facility] Sodium [Moles/Vol] 139 mmol/L 136-145 [facility] WBC (Bld) [#/Vol] 7.5 10*3/uL 4.4-11.0 [facility] Blood erythrocytes count (nu mber/volume)Ordered By: Dr. Westfall on 12-24-2022 RBC (Bld) [#/Vol] 4.72 10*6/uL 4.6-6.2 [facility] Blood hemoglobin measurement (mass/volume)Ordered By: Dr. Westfall on 12-24-2022 Hemoglobin (Bld) [Mass/Vol] 14.1 g/dL 13.0-16.5 [facility] Blood lymphocytes/100 leukoc ytesOrdered By: Dr. Westfall on 12-24-2022 Lymphocytes/100 WBC (Bld) 29.9 % 19-41 [facility] Blood monocytes/100 leukocyt esOrdered By: Dr. Westfall on 12-24-2022 Monocytes/100 WBC (Bld) 9.4 % 0-10 [facility] Blood platelet mean volumeOr dered By: Dr. Westfall on 12-24-2022 Platelet mean volume (Bld) [Entitic vol] 10.4 fL 6.2-12.0 [facility] Determination of erythrocyte mean corpuscular volume (MCV)Ordered By: Dr. Westfall on 12-24-2022 MCV (RBC) [Entitic vol] 92.8 fL 80-94 [facility] Hematocrit Auto (Bld) [Volum e fraction]Ordered By: Dr. Westfall on 12-24-2022 Hematocrit (Bld) [Volume fraction] 43.8 % 40-54 [facility] Laboratory - Chemistry and C hemistry - challengeOrdered By: Dr. Westfall on 12-24-2022 ALP [Catalytic activity/Vol] 61 U/L 45-117 [facility] ALT [Catalytic activity/Vol] 21 U/L 16-61 [facility] CO2 [Moles/Vol] 29.0 mmol/L 21.0-32.0 [facility] Globulin (S) [Mass/Vol] 3.4 g/dL 2.2-4.2 [facility] Urea nitrogen/Creatinine [Mass ratio] 21.8 mg/mg 10-20 [facility] [facility] - Hematology and Cell countsOrdered By: Dr. Westfall on 12-24-2022 Erythrocyte distribution width (RBC) [Entitic vol] 43.5 fL 35.1-43.9 [facility] Erythrocyte distribution width (RBC) [Ratio] 12.6 % 11.6-14.6 [facility] Immature granulocytes/100 WBC (Bld) 0.300 % 0.0-0.9 [facility] Comment on above: IG% - Immature Granu locytes (promyelocytes, myelocytes and metamyelocytes) > 1% indicates that a LEFT SHIFT is Present. MCH (RBC) [Entitic mass] 29.9 pg 27.0-32.0 [facility] Nucleated RBC/100 WBC (Bld) [Ratio] 0 % 0-5 [facility] MCHC Auto (RBC) [Mass/Vol]Or dered By: Dr. Westfall on 12-24-2022 MCHC (RBC) [Mass/Vol] 32.2 g/dL 32-36 [facility] No Panel InformationOrdered By: Dr. Westfall on 12-24-2022 Estimated GFR (MDRD) Amer 78 mL/min >60 [facility] Comment on above: GFR Calc Estimated GFR (MDRD) Non-Af Amer 64 mL/min >60 [facility] Comment on above: Non- GFR Calc Platelets bldOrdered By: Dr. Westfall on 12-24-2022 Platelets (Bld) [#/Vol] 228 10*3/uL 150-450 [facility] Serum or plasma albumin esdras urement (mass/volume)Ordered By: Dr. Westfall on 12-24-2022 Albumin [Mass/Vol] 3.8 g/dL 3.2-5.0 [facility] Serum or plasma albumin/glob ulin mass ratioOrdered By: Dr. Westfall on 12-24-2022 Albumin/Globulin [Mass ratio] 1.1 {ratio} 0.9-2.4 [facility] Serum or plasma calcium esdras urement (mass/volume)Ordered By: Dr. Westfall on 12-24-2022 Calcium [Mass/Vol] 9.4 mg/dL 8.5-10.1 [facility] Serum or plasma creatinine m easurement (mass/volume)Ordered By: Dr. Westfall on 12-24-2022 Creatinine [Mass/Vol] 1.24 mg/dL 0.70-1.30 [facility] Comment on above: The validity of the calculated GFR & GFRAA in patients over 70 years has not been determined. Clinical correlation is essential. Serum or plasma urea nitroge n measurement (mass/volume)Ordered By: Dr. Westfall on 12-24-2022 Urea nitrogen [Mass/Vol] 27 mg/dL 7-18 [facility] Thin prep Papanicolaou smear with manual screeningOrdered By: Dr. Westfall on 12-24-2022 Thin prep Papanicolaou smear with manual screening 12 U/L 15-37 [facility] Thin prep Papanicolaou smear with manual screening 5 5-15 [facility] Absolute lymphocyte countOrd ered By: Dr. Westfall on 10-30-2022 Lymphocytes Auto (Unsp spec) [#/Vol] 1.62 10*3/uL 0.83-4.51 [facility] Basophil percentageOrdered B y: Dr. Westfall on 10-30-2022 Basophils/100 WBC (Bld) 0.5 % 0-1 [facility] Bilirubin [Mass/Vol] 0.20 mg/dL 0.20-1.00 [facility] Comment on above: For patients on eltr ombopag therapy, use of Dimension [place] TBIL is not recommended. Chloride [Moles/Vol] 106 mmol/L 98-107 [facility] Eosinophils/100 WBC (Bld) 2.8 % 0-5 [facility] Glucose [Mass/Vol] 111 mg/dL 74-106 [facility] Comment on above: Fasting Glucose resu lt from 100 to 125 mg/dL suggests IMPAIRED HOMEOSTASIS per A.D.A. criteria. Neutrophils (Bld) [#/Vol] 5.2 10*3/uL 2.0-7.7 [facility] Neutrophils/100 WBC (Bld) 67.7 % 47-70 [facility] Potassium [Moles/Vol] 4.1 mmol/L 3.5-5.1 [facility] Protein [Mass/Vol] 6.7 g/dL 6.4-8.2 [facility] Sodium [Moles/Vol] 141 mmol/L 136-145 [facility] WBC (Bld) [#/Vol] 7.6 10*3/uL 4.4-11.0 [facility] Blood erythrocytes count (nu mber/volume)Ordered By: Dr. Westfall on 10-30-2022 RBC (Bld) [#/Vol] 4.53 10*6/uL 4.6-6.2 [facility] Blood hemoglobin measurement (mass/volume)Ordered By: Dr. Westfall on 10-30-2022 Hemoglobin (Bld) [Mass/Vol] 13.7 g/dL 13.0-16.5 [facility] Blood lymphocytes/100 leukoc ytesOrdered By: Dr. Westfall on 10-30-2022 Lymphocytes/100 WBC (Bld) 21.2 % 19-41 [facility] Blood monocytes/100 leukocyt esOrdered By: [address] Westfall on 10-30-2022 Monocytes/100 WBC (Bld) 7.5 % 0-10 [facility] Blood platelet mean volumeOr dered By: Dr. Westfall on 10-30-2022 Platelet mean volume (Bld) [Entitic vol] 10.2 fL 6.2-12.0 [facility] Determination of erythrocyte mean corpuscular volume (MCV)Ordered By: Dr. Westfall on 10-30-2022 MCV (RBC) [Entitic vol] 93.6 fL 80-94 [facility] Hematocrit Auto (Bld) [Volum e fraction]Ordered By: Dr. Westfall on 10-30-2022 Hematocrit (Bld) [Volume fraction] 42.4 % 40-54 [facility] Laboratory - Chemistry and C hemistry - challengeOrdered By: Dr. Westfall on 10-30-2022 ALP [Catalytic activity/Vol] 56 U/L 45-117 [facility] ALT [Catalytic activity/Vol] 24 U/L 16-61 [facility] CO2 [Moles/Vol] 28.0 mmol/L 21.0-32.0 [facility] Globulin (S) [Mass/Vol] 3.3 g/dL 2.2-4.2 [facility] Urea nitrogen/Creatinine [Mass ratio] 24.3 mg/mg 10-20 [facility] Laboratory - Hematology and Cell countsOrdered By: Dr. Westfall on 10-30-2022 Erythrocyte distribution width (RBC) [Entitic vol] 47.6 fL 35.1-43.9 [facility] Erythrocyte distribution width (RBC) [Ratio] 13.9 % 11.6-14.6 [facility] Immature granulocytes/100 WBC (Bld) 0.300 % 0.0-0.9 [facility] Comment on above: IG% - Immature Granu locytes (promyelocytes, myelocytes and metamyelocytes) > 1% indicates that a LEFT SHIFT is Present. MCH (RBC) [Entitic mass] 30.2 pg 27.0-32.0 [facility] Nucleated RBC/100 WBC (Bld) [Ratio] 0 % 0-5 [facility] MCHC Auto (RBC) [Mass/Vol]Or dered By: Dr. Westfall on 10-30-2022 MCHC (RBC) [Mass/Vol] 32.3 g/dL 32-36 [facility] No Panel InformationOrdered By: Dr. Westfall on 10-30-2022 Estimated GFR (MDRD) Amer 92 mL/min >60 [facility] Comment on above: GFR Calc Estimated GFR (MDRD) Non-Af Amer 76 mL/min >60 [facility] Comment on above: Non- GFR Calc Platelets bldOrdered By: Dr. Westfall on 10-30-2022 Platelets (Bld) [#/Vol] 237 10*3/uL 150-450 [facility] Serum or plasma albumin esdras urement (mass/volume)Ordered By: Dr. Westfall on 10-30-2022 Albumin [Mass/Vol] 3.4 g/dL 3.2-5.0 [facility] Serum or plasma albumin/glob ulin mass ratioOrdered By: Dr. Westfall on 10-30-2022 Albumin/Globulin [Mass ratio] 1.0 {ratio} 0.9-2.4 [facility] Serum or plasma calcium esdras urement (mass/volume)Ordered By: Dr. Westfall on 10-30-2022 Calcium [Mass/Vol] 8.8 mg/dL 8.5-10.1 [facility] Serum or plasma creatinine m easurement (mass/volume)Ordered By: Dr. Westfall on 10-30-2022 Creatinine [Mass/Vol] 1.07 mg/dL 0.70-1.30 [facility] Comment on above: The validity of the calculated GFR & GFRAA in patients over 70 years has not been determined. Clinical correlation is essential. Serum or plasma urea nitroge n measurement (mass/volume)Ordered By: Dr. Westfall on 10-30-2022 Urea nitrogen [Mass/Vol] 26 mg/dL 7-18 [facility] Thin prep Papanicolaou smear with manual screeningOrdered By: Dr. Westfall on 10-30-2022 Thin prep Papanicolaou smear with manual screening 15 U/L 15-37 [facility] Thin prep Papanicolaou smear with manual screening 7 5-15 [facility] Absolute lymphocyte counton 08-01-2022 Lymphocytes Auto (Unsp spec) [#/Vol] 1.93 10*3/uL 0.83-4.51 [facility] Work Phone: Basophil percentageon 2021 Basophils/100 WBC (Bld) 1.0 % 0-1 [facility] Work Phone: Bilirubin [Mass/Vol] 0.40 mg/dL 0.20-1.00 [facility] Work Phone: Comment on above: For patients on eltr ombopag therapy, use of Dimension [place] TBIL is not recommended. Chloride [Moles/Vol] 110 mmol/L 98-107 [facility] Work Phone: Eosinophils/100 WBC (Bld) 4.5 % 0-5 [facility] Work Phone: Glucose [Mass/Vol] 90 mg/dL 74-106 [facility] Work Phone: Neutrophils (Bld) [#/Vol] 4.9 10*3/uL 2.0-7.7 [facility] Work Phone: Neutrophils/100 WBC (Bld) 60.6 % 47-70 [facility] Work Phone: Potassium [Moles/Vol] 4.0 mmol/L 3.5-5.1 [facility] Work Phone: Protein [Mass/Vol] 7.0 g/dL 6.4-8.2 [facility] Work Phone: Sodium [Moles/Vol] 142 mmol/L 136-145 [facility] Work Phone: WBC (Bld) [#/Vol] 8.0 10*3/uL 4.4-11.0 [facility] Work Phone: Blood erythrocytes count (nu mber/volume)on 08-01-2022 RBC (Bld) [#/Vol] 4.97 10*6/uL 4.6-6.2 [facility] Work Phone: Blood hemoglobin measurement (mass/volume)on 08-01-2022 Hemoglobin (Bld) [Mass/Vol] 14.4 g/dL 13.0-16.5 [facility] Work Phone: Blood lymphocytes/100 leukoc yteson 08-01-2022 Lymphocytes/100 WBC (Bld) 24.1 % 19-41 [facility] Work Phone: Blood monocytes/100 leukocyt eson 08-01-2022 Monocytes/100 WBC (Bld) 9.6 % 0-10 [facility] Work Phone: Blood platelet mean volumeon 08-01-2022 Platelet mean volume (Bld) [Entitic vol] 10.6 fL 6.2-12.0 [facility] Work Phone: Determination of erythrocyte mean corpuscular volume (MCV)on 08-01-2022 MCV (RBC) [Entitic vol] 90.3 fL 80-94 [facility] Work Phone: Erythrocyte sedimentation ra michael 08-01-2022 ESR (Bld) [Velocity] 6 mm/h 0-20 [facility] Work Phone: Hematocrit Auto (Bld) [Volum e fraction]on 08-01-2022 Hematocrit (Bld) [Volume fraction] 44.9 % 40-54 [facility] Work Phone: Laboratory - Chemistry and C hemistry - challengeon 08-01-2022 ALP [Catalytic activity/Vol] 64 U/L 45-117 [facility] Work Phone: ALT [Catalytic activity/Vol] 17 U/L 16-61 [facility] Work Phone: CO2 [Moles/Vol] 25.0 mmol/L 21.0-32.0 [facility] Work Phone: [phone] Globulin (S) [Mass/Vol] 3.5 g/dL 2.2-4.2 [facility] Work Phone: [phone] Urea nitrogen/Creatinine [Mass ratio] 27.4 mg/mg 10-20 [facility] Work Phone: [phone] Laboratory - Hematology and Cell countson 08-01-2022 Erythrocyte distribution width (RBC) [Entitic vol] 42.2 fL 35.1-43.9 [facility] Work Phone: [phone] Erythrocyte distribution width (RBC) [Ratio] 12.8 % 11.6-14.6 [facility] Work Phone: [phone] Immature granulocytes/100 WBC (Bld) 0.200 % 0.0-0.9 [facility] Work Phone: [phone] Comment on above: IG% - Immature Granu locytes (promyelocytes, myelocytes and metamyelocytes) > 1% indicates that a LEFT SHIFT is Present. MCH (RBC) [Entitic mass] 29.0 pg 27.0-32.0 [facility] Work Phone: Nucleated RBC/100 WBC (Bld) [Ratio] 0 % 0-5 [facility] Work Phone: [phone] MCHC Auto (RBC) [Mass/Vol]on 08-01-2022 MCHC (RBC) [Mass/Vol] 32.1 g/dL 32-36 [facility] Work Phone: No Panel Informationon 08-01 Estimated GFR (MDRD) Amer 83 mL/min >60 [facility] Work Phone: [phone] Comment on above: GFR Calc Estimated GFR (MDRD) Non-Af Amer 69 mL/min >60 [facility] Work Phone: [phone] Comment on above: Non- GFR Calc Hepatitis B Surface Antigen Non-Reactive Nonreactive [facility] Work Phone: Hepatitis C Antibody Non-Reactive Nonreactive [facility] Work Phone: Comment on above: Non Reactive: < 0.8 Equivocal: >/= 0.8 to < 1.0 Reactive: >/= 1.0The CDC recommends that a reactive/equivocal HCV antibody result be followed up by the HCV Nucleic Acid Amplificationtest (531044) Platelets bldon 08-01-2022 Platelets (Bld) [#/Vol] 227 10*3/uL 150-450 [facility] Work Phone: Serum cyclic citrullinated p eptide IgG antibody assay (units/volume)on 08-01-2022 Cyclic citrullinated peptide IgG Qn 4 units 0-19 [facility] Work Phone: Comment on above: Negative <20 Weak po sitive 20 - 39 Moderate positive 40 - 59 Strong positive >59Performed at: [address] [id number] Director: Severino Churchill MD, Phone: [phone] Serum hepatitis B virus surf leonides antibody IgG detectionon 08-01-2022 HBV surface IgG Ql (S) Non-Reactive [facility] Work Phone: Comment on above: Non Reactive: Incons istent with immunity less than <10 mIU/mL Reactive: Consistent with immunity greater than or equal to 10 mIU/mL Serum or plasma C reactive p rotein measurement (mass/volume)on 08-01-2022 CRP [Mass/Vol] 10.30 mg/L 0.0-3.0 [facility] Work Phone: Comment on above: C-Reactive Protein ( CRP) provides useful information for thediagnosis, therapy and monitoring of inflammatory processesand associated diseases. For the evaluation of Relative Riskfor Cardiovascular Disease, a High Sensitivity CRP (HSCRP)should be ordered. Serum or plasma albumin esdras urement (mass/volume)on 08-01-2022 Albumin [Mass/Vol] 3.5 g/dL 3.2-5.0 [facility] Work Phone: [phone] Serum or plasma albumin/glob ulin mass ratioon 08-01-2022 Albumin/Globulin [Mass ratio] 1.0 {ratio} 0.9-2.4 [facility] Work Phone: Serum or plasma calcium esdras urement (mass/volume)on 08-01-2022 Calcium [Mass/Vol] 8.7 mg/dL 8.5-10.1 [facility] Work Phone: Serum or plasma creatinine m easurement (mass/volume)on 08-01-2022 Creatinine [Mass/Vol] 1.17 mg/dL 0.70-1.30 [facility] Work Phone: Comment on above: The validity of the calculated GFR & GFRAA in patients over 70 years has not been determined. Clinical correlation is essential. Serum or plasma urea nitroge n measurement (mass/volume)on 08-01-2022 Urea nitrogen [Mass/Vol] 32 mg/dL 7-18 [facility] Work Phone: Serum rheumatoid factor dete ctionon 08-01-2022 Rheumatoid factor Ql (S) < 10.0 IU/mL <15 [facility] Work Phone: Thin prep Papanicolaou smear with manual screeningon 08-01-2022 Thin prep Papanicolaou smear with manual screening 9 U/L 15-37 [facility] Work Phone: Thin prep Papanicolaou smear with manual screening 7 5-15 [facility] Work Phone: Vital Signs Date Time Vital Sign Value Performing Clinician Facility 05-16-2024 08:18-0400 Body height 182.9 cm Art Healy MD Work Phone: [facility] 05-16-2024 08:18-0400 Body mass index (BMI) [Ratio] 30.79 kg/m2 Art Healy MD Work Phone: [facility] 05-16-2024 08:18-0400 Body temperature 97.59 [degF] Art Healy MD Work Phone: [facility] 05-16-2024 08:18-0400 Body weight 102.97 kg Art Healy MD Work Phone: [facility] 05-16-2024 08:18-0400 Diastolic blood pressure 84 mm[Hg] Art Healy MD Work Phone: [facility] 05-16-2024 08:18-0400 Heart rate 64 /min Art Healy MD Work Phone: [facility] 05-16-2024 08:18-0400 Respiratory rate 18 /min Art Healy MD Work Phone: [facility] 05-16-2024 08:18-0400 SaO2% (BldA) [Mass fraction] 98 % Art Healy MD Work Phone: [facility] 05-16-2024 08:18-0400 Systolic blood pressure 124 mm[Hg] Art Healy MD Work Phone: [facility] 11-22-2023 12:31-0500 Body height 182.[address] Art Healy Work Phone: [facility] 11-22-2023 12:31-0500 Body mass index (BMI) [Ratio] 31.4 kg/m2 Dr. Art Healy Work Phone: [facility] 11-22-2023 12:31-0500 Body temperature 98.2 [degF] Dr. Art Healy Work Phone: [facility] 11-22-2023 12:31-0500 Body weight 104.[address] Art Healy Work Phone: [facility] 11-22-2023 12:31-0500 Diastolic blood pressure 96 mm[Hg] Dr. Art Healy Work Phone: [facility] 11-22-2023 12:31-0500 Heart rate 69 /min Dr. Art Healy Work Phone: [facility] 11-22-2023 12:31-0500 Respiratory rate 16 /min Dr. Art Healy Work Phone: [facility] 11-22-2023 12:31-0500 SaO2% (BldA) [Mass fraction] 99 % Dr. Art Healy Work Phone: [facility] 11-22-2023 12:31-0500 Systolic blood pressure 166 mm[Hg] Dr. Art Healy Work Phone: [facility] 10-28-2023 16:28-0500 Body height 182.9 cm Art Healy MD Work Phone: [facility] 10-28-2023 16:28-0500 Body temperature 97.3 [degF] Art Healy MD Work Phone: [facility] 10-28-2023 16:28-0500 Body weight 105.69 kg Art Healy MD Work Phone: [facility] 10-28-2023 16:28-0500 Diastolic blood pressure 86 mm[Hg] Art Healy MD Work Phone: [facility] 10-28-2023 16:28-0500 Heart rate 64 /min Art Healy MD Work Phone: [facility] 10-28-2023 16:28-0500 Respiratory rate 18 /min Art Healy MD Work Phone: [facility] 10-28-2023 16:28-0500 SaO2% (BldA) [Mass fraction] 97 % Art Healy MD Work Phone: [facility] 10-28-2023 16:28-0500 Systolic blood pressure 128 mm[Hg] Art Healy MD Work Phone: [facility] 05-07-2023 16:45-0400 Body temperature 98.2 [degF] [facility] 05-07-2023 16:45-0400 Diastolic blood pressure 74 mm[Hg] [facility] 05-07-2023 16:45-0400 Heart rate 70 /min [facility] 05-07-2023 16:45-0400 Respiratory rate 16 /min [facility] 05-07-2023 16:45-0400 SaO2% (BldA) [Mass fraction] 92 % [facility] 05-07-2023 16:45-0400 Systolic blood pressure 126 mm[Hg] [facility] 05-07-2023 13:00-0400 Inhaled oxygen flow rate 4 L/min [facility] 05-07-2023 07:00-0400 Body height 182.88 cm [facility] 05-07-2023 07:00-0400 Body mass index (BMI) [Ratio] 29.6 kg/m2 [facility] 05-07-2023 07:00-0400 Body weight 99.06 kg [facility] 01-26-2023 16:18-0400 Body height 182.9 cm Art Healy MD Work Phone: [facility] 01-26-2023 16:18-0400 Body temperature 97.3 [degF] Art Healy MD Work Phone: [facility] 01-26-2023 16:18-0400 Body weight 103.06 kg Art Healy MD Work Phone: [facility] 01-26-2023 16:18-0400 Diastolic blood pressure 82 mm[Hg] Art Healy MD Work Phone: [facility] 01-26-2023 16:18-0400 Heart rate 66 /min Art Healy MD Work Phone: [facility] 01-26-2023 16:18-0400 Respiratory rate 18 /min Art Healy MD Work Phone: [facility] 01-26-2023 16:18-0400 SaO2% (BldA) [Mass fraction] 98 % Art Healy MD Work Phone: [facility] 01-26-2023 16:18-0400 Systolic blood pressure 134 mm[Hg] Art Healy MD Work Phone: [facility] Encounters Encounter Date Encounter Type Care Provider Facility Start: 07-31-2025 End: 07-31-2025 ambulatory ART HEALY Facility:[id number] Start: 05-30-2025 End: 05-30-[address] Art Healy MD Work Phone: [facility] Start: 05-30-2025 End: 05-30-[address] Delmi Westfall MD [facility] [place] Work Phone: Start: 05-30-2025 End: 05-30-2025 ambulatory Art Healy Facility:[facility] Start: 04-03-2025 End: 04-03-[address] Art Healy MD Work Phone: [facility] [place] Start: 04-03-2025 End: 04-03-[address] Delmi Westfall MD -[facility] [place] Work Phone: Start: 04-03-2025 End: 04-03-2025 ambulatory Delmi Malou Facility:[facility] Start: 01-06-2025 End: 01-06-[address] Art Healy MD Work Phone: [facility] Work Phone: Start: 01-06-2025 End: 01-06-[address] Delmi Westfall MD -Laboratory, [place] Work Phone: Start: 01-06-2025 End: 01-06-2025 ambulatory [facility] Facility:[facility] Start: 12-19-2024 End: 12-19-2024 ambulatory ART HEALY Facility:[id number] Start: 10-14-2024 End: 10-14-[address] Delmi Westfall MD -Laboratory, [place] Work Phone: Start: 10-14-2024 End: 10-14-2024 ambulatory [facility] Facility:[facility] Start: 08-04-2024 End: 08-04-2024 [facility] Start: 07-06-2024 End: 07-06-2024 ambulatory [facility] Facility:[facility] Start: 05-25-2024 End: 05-25-2024 Telephone encounter Art Healy MD Work Phone: [facility] Comment on above: ENT referral faxed julian Pruitt M.D ([facility]) Pt notified by of ENT referral info Start: 05-16-2024 End: 05-16-2024 Office outpatient visit 15 minutes Art Healy MD Work Phone: [facility] Comment on above: Hypertension, essent ial (Primary Dx); Psoriatic arthropathy (HCC); Moderate persistent asthma without complication; Impacted cerumen of right ear; Pure hypercholesterolemia; Screening PSA (prostate specific antigen) Start: 01-11-2024 Chart abstracting Art Healy MD Work Phone: [facility] Start: 01-04-2024 End: 01-04-[address] Art Healy Work Phone: [facility] Work Phone: Start: 01-04-2024 End: 01-04-[address] Art Healy Work Phone: [facility] Work Phone: Start: 12-25-2023 Refill Art Gramajo MD Work Phone: [facility] Comment on above: Refill Request Start: 11-22-2023 End: 11-22-[address] Art Healy Work Phone: [facility] Work Phone: Start: 10-28-2023 End: 10-28-2023 Office outpatient visit 15 minutes Art Healy MD Work Phone: [facility] Comment on above: Hypertension, benign (Primary Dx); Pure hypercholesterolemia, unspecified; Gastroesophageal reflux disease without esophagitis; Cellulitis of lower extremity, unspecified laterality; Lymphedema Start: 09-08-2023 End: 09-08-2023 ambulatory [facility] Work Phone: Start: 09-08-2023 End: 09-08-2023 Patient encounter procedure [facility] Work Phone: Start: 06-11-2023 Telephone encounter Art Healy MD Work Phone: [facility] Comment on above: Patient Question (ce llulitis) Start: 06-04-2023 End: 06-04-[address] Art Healy Work Phone: [facility] Work Phone: Start: 06-04-2023 End: 06-04-[address] Art Healy Work Phone: [facility] Work Phone: Start: 05-20-2023 Patient encounter procedure [facility] Provider [facility] Department Start: 05-07-2023 Patient encounter procedure [facility] Provider [facility] Department Start: 05-07-2023 Refill Art Gramajo MD Work Phone: [facility] Comment on above: Refill Request Start: 05-07-2023 End: 05-07-2023 Admission to same day surgery center [facility] Start: 05-07-2023 End: 05-07-2023 ambulatory [facility] Work Phone: Start: 05-04-2023 Telephone encounter Art Healy MD Work Phone: [facility] Comment on above: Surgical Clearance Start: 04-30-2023 Telephone encounter Art Healy MD Work Phone: [facility] Comment on above: Other (Surgical Marisol josephine - [facility]) Start: 04-21-2023 End: 04-21-2023 Non-patient / Non-visit Dr. Art Healy Work Phone: [facility] Work Phone: Start: 04-20-2023 End: 04-20-2023 ambulatory [facility] Work Phone: Start: 04-20-2023 End: 04-20-2023 Patient encounter procedure [facility] Work Phone: Start: 03-20-2023 End: 03-20-2023 ambulatory [facility] Work Phone: Start: 03-20-2023 End: 03-20-2023 Patient encounter procedure [facility] Start: 01-26-2023 End: 01-26-2023 Office outpatient visit 15 minutes Art Healy MD Work Phone: [facility] Comment on above: Hypertension, benign (Primary Dx); Unspecified asthma, uncomplicated; Pure hypercholesterolemia, unspecified; Gastroesophageal reflux disease without esophagitis; Psoriatic arthropathy (HCC) Start: 12-24-2022 End: 12-24-2022 ambulatory [facility] Work Phone: Start: 12-24-2022 End: 12-24-2022 Patient encounter procedure [facility] Start: 10-30-2022 End: 10-30-2022 Patient encounter procedure [facility] Start: 10-26-2022 Refill Art Gramajo MD Work Phone: [facility] Comment on above: Refill Request Start: 08-20-2022 Patient encounter procedure [facility] Provider [facility] Department Start: 08-01-2022 End: 08-01-2022 ambulatory [facility] Work Phone: Start: 08-01-2022 End: 08-01-2022 Patient encounter procedure [facility] Start: 05-23-2022 Refill Art Gramajo MD Work Phone: [facility] Comment on above: Refill Request Start: 03-04-2022 End: 03-04-2022 Patient encounter procedure [facility], [place] Procedures Date Procedure Procedure Detail Performing Clinician [...] Visit Annual PCP Team Chronic Disease Visit [facility] Start: 11-16-2024 End: 11-16-2024 Patient encounter procedure 11/16/2024 8:30 AM EST Office Visit [facility] [address] [place] [id number] Art Healy MD [address] [place], [place] [id number] Annual Wellness [facility] Comment on above: Annual Wellness Start: 10-28-2024 Annual PCP Team Chronic Disease Visit Annual PCP Team Chronic Disease Visit [facility] Start: 06-05-2024 Influenza vaccination [facility] Start: 05-16-2024 End: 08-15-2024 Lipid 1996 panel - Serum or Plasma LIPID PANEL BASIC Lab Routine Pure hypercholesterolemia Expected: 05/16/2024, Expires: 08/15/2024 [facility] Comment on above: Expected: 05/16/2024, Expires: Start: 05-16-2024 End: 08-15-2024 PSA/PROSTATE SPECIFIC ANTIGEN SCREENING PSA/PROSTATE SPECIFIC ANTIGEN SCREENING Lab Routine Screening PSA (prostate specific antigen) Expected: 05/16/2024, Expires: 08/15/2024 [facility] Work Phone: Comment on above: Expected: 05/16/2024, Expires: Start: 04-29-2024 ANNUAL PCP TEAM CHRONIC DISEASE VISIT ANNUAL PCP TEAM CHRONIC DISEASE VISIT [facility] Start: 01-27-2024 ANNUAL PCP TEAM CHRONIC DISEASE VISIT ANNUAL PCP TEAM CHRONIC DISEASE VISIT [facility] Start: 10-05-2023 Behavioral Health Screening Behavioral Health Screening [facility] Start: 10-05-2023 Depression Assessment Depression Assessment [facility] Start: 06-05-2023 Covid-19 Vaccine () Covid-19 Vaccine () [facility] Start: 06-05-2023 Influenza vaccination [facility] Start: 05-07-2023 Anesthesia open total hip arthroplasty ANESTH HIP ARTHROPLASTY [facility] Start: 05-07-2023 Arthrp acetblr/prox fem prostc agrft/algrft TOTAL HIP ARTHROPLASTY [facility] Start: 05-07-2023 Provision of overbed trapeze [facility] Start: 05-07-2023 Application of ice collar, cap or bag [facility] Start: 05-07-2023 End: 05-07-2023 Incentive spirometry [facility] Start: 05-07-2023 Patient discharge [facility] Start: 05-07-2023 End: 05-07-2023 Provision of activity privileges [facility] Start: 05-07-2023 Referral to service [facility] Start: 05-07-2023 End: 05-07-2023 [facility] Start: 05-07-2023 Ambulation therapy management [facility] Start: 05-07-2023 Application of device [facility] Start: 05-07-2023 Assessment of risk of venous thromboembolism [facility] Start: 05-07-2023 Catheterization of vein [facility] Start: 05-07-2023 End: 05-07-2023 Exercises [facility] Start: 05-07-2023 Following clinical pathway protocol [facility] Start: 05-07-2023 Introduction of urinary catheter [facility] Start: 05-07-2023 Measuring intake and output [facility] Start: 05-07-2023 End: 05-07-2023 Neurovascular assessment [facility] Start: 05-07-2023 End: 05-07-2023 Patient education [facility] Start: 05-07-2023 Procedure discontinued [facility] Start: 05-07-2023 Recommendation to continue with treatment [facility] Start: 05-07-2023 Vital signs measurements [facility] Start: 05-07-2023 End: 05-07-2023 Wound care [facility] Start: 10-05-2022 DEPRESSION ASSESSMENT DEPRESSION ASSESSMENT [facility] Start: 06-05-2022 Influenza vaccination INFLUENZA (#1) [facility] Start: 02-27-2022 COVID-19 VACCINE (4 - Booster for Pfizer series) COVID-19 VACCINE (4 - Booster for Pfizer series) [facility] Start: 02-27-2022 COVID-19 VACCINE (4 - Pfizer risk series) COVID-19 VACCINE (4 - Pfizer risk series) [facility] Start: 10-05-2021 DEPRESSION ASSESSMENT DEPRESSION ASSESSMENT [facility] Start: 2021 PROSTATE CANCER SCREENING DISCUSSION PROSTATE CANCER SCREENING DISCUSSION [facility] Start: 2021 Prostate specific antigen measurement Prostate Cancer Screening Discussion [facility] Start: 2016 SHINGRIX VACCINE (1 of 2) SHINGRIX VACCINE (1 of 2) [facility] Start: 2011 COLOGUARD (FIT-DNA) COLOGUARD (FIT-DNA) [facility] Start: 2011 Colonoscopy COLONOSCOPY [facility] Start: 2011 COLORECTAL CANCER SCREENING COLORECTAL CANCER SCREENING [facility] Start: [address] COLONOGRAPHY [facility] Start: 2011 DIABETES SCREEN DIABETES SCREEN [facility] Start: 2011 Diabetes Screening Diabetes Screening [facility] Start: 2011 FECAL OCCULT BLOOD FECAL OCCULT BLOOD [facility] Start: 2011 Screening for malignant neoplasm of colon [facility] Start: 2011 SIGMOIDOSCOPY SIGMOIDOSCOPY [facility] Start: 2001 Lipid panel Lipid Screening [facility] Start: 2001 LIPID SCREEN LIPID SCREEN [facility] Start: 1985 Hepatitis B Vaccine (1 of 3 - 19+ 3-dose series) Hepatitis B Vaccine (1 of 3 - 19+ 3-dose series) [facility] Start: 1985 SHINGRIX VACCINE (1 of 2) SHINGRIX VACCINE (1 of 2) [facility] Start: 1985 Urine microalbumin profile [facility] Start: 1984 Anxiety Screening Anxiety Screening [facility] Start: 1984 BP CONTROLLED (<130/80) BP CONTROLLED (<130/80) [facility] Start: 1984 Depression Screening Depression Screening [facility] Start: 1984 HEPATITIS C SCREENING HEPATITIS C SCREENING [facility] Start: 1984 HIV SCREENING HIV SCREENING [facility] Start: 1984 HIV screening HIV Screening [facility] Start: 1984 SPIROMETRY SPIROMETRY [facility] Start: 1978 Adult depression screening assessment DEPRESSION SCREENING [facility] Start: 1972 PNEUMOCOCCAL (1 - PCV) PNEUMOCOCCAL (1 - PCV) [facility] Start: 1972 Pneumococcal vaccination Pneumococcal Vaccine (1 of 2 - PCV) [facility] Start: 04-03-1967 COVID-19 VACCINE (#1) COVID-19 VACCINE (#1) [facility] Start: 1966 HEPATITIS B (1 of 3 - 3-dose series) HEPATITIS B (1 of 3 - 3-dose series) [facility] Start: 1966 Hepatitis B Vaccine (1 of 3 - 3-dose series) Hepatitis B Vaccine (1 of 3 - 3-dose series) [facility] Patient referral [facility] Work Phone: [facility] Payers Date Payer Category Payer Self-pay [id number] 2022 Unknown [id number] 2015 Unknown [id number] Unknown [id number] Unknown [id number] Unknown [id number] [id number] Unknown [id number] [id number] Unknown [id number] [id number] [id number] Unknown [id number] [id number] [id number] Unknown [id number] [id number] [id number] Unknown [id number] [id number] [id number] Social History Date Type Detail Facility Start: 09-21-2016 End: 11-22-2023 Tobacco smoking status CAIS Unknown if ever smoked [facility] Start: 1965 Sex Assigned At Male W [facility] Start: 1965 Sex Assigned At Not on file [facility] Start: 01-26-2023 End: 11-22-2023 Tobacco smoking status CAIS Never smoked tobacco [facility] Start: 01-26-2023 Tobacco use and exposure Smokeless tobacco non-user [facility] Start: 01-26-2023 End: 05-16-2024 Alcohol intake Ex-drinker (finding) [facility] Start: 04-29-2023 End: 10-28-2023 History of Social function [facility] Start: 04-29-2023 End: 10-28-2023 Tobacco use panel [facility] National Score (1-100), lower number is lower risk 78 [facility] Start: 01-11-2025 Sex Male (finding) [facility] Medical Equipment Procedure Code Equipment Code Equipment Origin al Text Equipment Identifier Dates ([id number]) Ceramic femoral head prosthesis ()[id number]( [id number] FDA Start: 05-07-2023 ([id number]) Coated hip femur prosthesis, modular ()[id number]( [id number] FDA Start: 05-07-2023 ([id number]) Non-constrained polyethylene acetabular liner ()[id number] FDA Start: 05-07-2023 ([id number]) Acetabular shell [id number] FDA Start: 05-07-2023 ([id number]) Orthopaedic bone screw, non-bioabsorbable, sterile ()[id number] FDA Start: 05-07-2023 Goals Date Patient Goal Desired Activity /State Functional Status Date Assessment Result Facility 05-07-2023 Functional status Ambulates;Bathroom Priv ilege [facility] Work Phone: Mental Status Date Assessment Result Facility 05-07-2023 Cognitive function Voice/Name [facility] Work Phone: Clinical Notes 05-23-2022 to 07-31-2025 Telephone Encounter - Johana West MA - 05/25/2024 9:08 AM EDTTelephone Encounter - Johana West MA - 05/25/2024 9:08 AM EDTTelephone Encounter - Johana West MA - 05/25/2024 6:14 AM EDT Note Date & Type Note Facility 07-31-2025 Note HNO ID: [id number] Author: ART HEALY MD Service: ? Author Type: Physician Type: Progress Notes Filed: 07/31/2025 11:04 Note Text: Subjective Chief Complaint: Zoë Avila is a 59-year-old male with a history of asthma, GERD, and arthritis, presenting with a lump , Redness, and swelling of the left arm.on the arm. History of Present Illness: Zoë reports a lump on his arm that has been present for an unspecified duration. He notes that he has had similar issues in the past, approximately 20 years ago, which required treatment with antibiotics. He is currently taking cephalexin, but reports that it is not as effective as it was previously. He denies any erythema or inability to bend the arm. He also mentions a recent incident where he lifted a heavy object, a new washer, and wonders if this could have contributed to the lump. Zoë also has a history of arthritis and is currently taking methotrexate. He reports that his arthritis has its moments, but does not provide further details. Zoë is also taking omeprazole for GERD and Symbicort for asthma. He reports that his reflux is not bad and that he is still using his asthma medication. He denies any recent asthma exacerbations and reports that his breathing has been okay. 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 He denies any significant issues with his blood pressure. Zoë also mentions that he was supposed to get blood work done for his prostate, but forgot to do so. He asks if he still needs to get this done. Review of Systems GENERAL: No weight loss, malaise, or fevers. HEENT: Negative for frequent or significant headaches; no changes in vision or hearing; no epistaxis or other nasal problems. NECK: Negative for lumps, goiter, pain, or significant neck swelling. RESPIRATORY: Negative for cough, dyspnea, or shortness of breath. No asthma exacerbations. CARDIOVASCULAR: Negative for chest pain, leg swelling, CHF, or palpitations. GI: Negative for nausea, vomiting, diarrhea, abdominal pain, blood in stool, or black stool. Positive for mild reflux, controlled with omeprazole. GENITOURINARY: No history of dysuria, frequency, or incontinence. MUSCULOSKELETAL: Positive for arthritis; negative for muscle pain or back pain. Reports intermittent shoulder muscle spasms. SKIN: Negative for lesions, rash, and itching. Positive for lumps in the arm. PSYCH: Negative for anxiety or depression. HEMATOLOGY/LYMPHOLOGY: No bleeding concerns. NEURO: No history of headaches, syncope, paralysis, seizures, or tremors. ENDOCRINE: No history of polydipsia, increased thirst, or other endocrine symptoms. History reviewed. No pertinent surgical history. History reviewed. No pertinent past medical history. History reviewed. No pertinent family history. SOCIAL HISTORY[1] ALLERGIES No Known Allergies MEDICATIONS: albuterol HFA (PROVENTIL HFA, VENTOLIN HFA) 90 mcg/actuation inhaler Inhale 2 puffs as instructed every 4 hours as needed for wheezing/shortness of breath. lisinopril (ZESTRIL) 20 mg tablet Take 1 tablet by mouth once daily. omeprazole (PRILOSEC) 40 mg capsule Take 1 capsule by mouth once daily. predniSONE (DELTASONE) 10 mg tablet TAKE 1 TABLET BY MOUTH DAILY NEEDED TAKE FOR 3 TO 5 DAYS WITH A FLARE folic acid 1 mg tablet Take 2 tablets by mouth every afternoon. Ibuprofen 200 mg cap Take by mouth two times a day as needed. methotrexate 2.5 mg tablet Take 2.5 mg by mouth every Thursday. traMADol (ULTRAM) 50 mg tablet Take 50 mg by mouth once daily as needed for pain. budesonide-formoterol (SYMBICORT) 160-4.5 mcg/actuation inhaler Inhale 2 Puffs as instructed twice daily. cephALEXin (KEFLEX) 500 mg capsule Take 1 capsule by mouth three times a day. Allergies, past surgical history, family history and past medical history were reviewed per this encounter. Medications were reviewed and verified. 12/19/2024 07/31/2025 INTAKE PAIN ASSESSMENT Are you having pain associated with your visit today? No No If pain assessment is 0, no action needed. If pain assessment is positive, please see assessment and plain. Objective Labs: - March - Creatinine: 1.3 mg/dL - CBC: Within normal limits BP 128/86 (BP Site: Right Arm, BP Position: Sitting, BP Cuff Size: Regular Adult) Pulse 76 Temp 36.4 ?C (97.6 ?F) (Temporal) Resp 18 Ht 182.9 cm (6') Wt 106.6 kg (235 lb) SpO2 98% BMI 31.87 kg/m? Physical Exam GENERAL: NAD, alert and oriented. SKIN: Unremarkable, no rash or skin lesions. HEAD: Normocephalic. EYES: PERRLA, EOMI, conjunctiva clear. EARS: External ears normal, canals clear, TM's normal. NOSE/SINUSES: Nares normal. Septum midline. OROPHARYNX: Lips, mucosa, and tongue normal, good dentition. No oral lesions noted. NECK: Supple, no lymphadenopathy, normal thyroid, no carotid bruits. LUNGS: Clear to auscultation bila (more content not included)... [facility] 07-31-2025 Note HNO ID: [id number] Author: JEANNINE HERNÁNDEZ LPN Service: ? Author Type: Licensed Nurse Type: Progress Notes Filed: 07/31/2025 11:04 Note Text: Patient is in office for 6 month exam. Patient has an area on left arm from wrist to bicep that is a red line. Patient had 1 refill left of Keflex for Cellulitis, so he refilled medication and began taking that. Jeannine SONIA Hernández July 31, 2025 9:35 AM [facility] 12-19-2024 Note HNO ID: [id number] Author: ART HEALY MD Service: ? Author [...] and diet. Cont (more content not included)... [facility] 12-19-2024 Note HNO ID: [id number] Author: JEANNINE HERNÁNDEZ LPN Service: ? Author [...] Hernández LPN December 19, 2024 8:38 AM [facility] 05-25-2024 Telephone encount er Note Items addressed in this encounter: Telephone Encounter Pt notified by of ENT referral info Able to close encounter. Johana West MA May 25, 2024 9:08 AM 9:08 AM [facility] 05-25-2024 Miscellaneous Notes Formattin g of this note might be different from the original. Items addressed in this encounter: Telephone Encounter Pt notified by of ENT referral info Able to close encounter. Johana West MA May 25, 2024 9:08 AM 9:08 AM documented in this encounter [facility] 05-25-2024 Telephone encount er Note Items addressed in this encounter: Fax/Forms ENT referral faxed to Bud Pruitt M.D ([facility]) Faxed via [employer], fax confirmation received Able to close encounter. Johana West MA May 25, 2024 6:14 AM 6:14 AM C [facility] 05-25-2024 Miscellaneous Notes Formattin g of this note might be different from the original. Items addressed in this encounter: Fax/Forms ENT referral faxed to Bud Pruitt M.D ([facility]) Faxed via [employer], fax confirmation received Able to close encounter. Johana West MA May 25, 2024 6:14 AM 6:14 AM C documented in this encounter [facility] 05-16-2024 History of Presen t illness Narrative [...] 2024 8:18 AM documented in this encounter [facility] 12-25-2023 Miscellaneous Notes Formattin g of this note is different from the original. [facility] requesting the following refill. Requested Prescriptions Pending Prescriptions Disp Refills omeprazole (PRILOSEC) 40 mg capsule [Pharmacy Med Name: OMEPRAZOLE DR 40 MG CAPSULE] 90 capsule 3 Sig: take 1 capsule by mouth every day as directed Patient last appointment: 10/28/2023 Next appointment 04/27/2024 Patient Phone numbers: [phone] (home) Request is for script(s) to be escript to [facility] pharmacy. Kasey Dasilva LPN documented in this encounter [facility] 11-01-2023 History of Presen t illness Narrative This note was created using [employer]. Subjective Zoë Avila is a 58 year [...] 2023 4:27 PM documented in this encounter [facility] 06-11-2023 Miscellaneous Notes Formattin g of this note might be different from the original. I see that Dr Healy did give patient a Rx for Cephalexin for his cellulitis. I called patient to let him know. No answer. I did leave him a voice mail message telling him there is a Rx for Cephalexin at [facility] for him. Kasey Dasilva LPN June 11, 2023 5:46 PM Zoë Avila called today. : 1965 Allergies: Patient has no known allergies. (home) [phone] (cell) Reason for call: Patient called to [...] has been captured for this encounter? Yes [facility] Kasey Dasilva LPN documented in this encounter [facility] 05-07-2023 Discharge summary Note Date/Time May 07, 2023 12:38pm [facility] Medical Records Department [address] [place] [id number] Instructions for Home/Discharge Instructions 05/07/23 1238 MR#: [id number] Acct: [id number] Name: ZOË AVILA Rep #:[id number] : 1965 57 From: Stephon gibbs DO PCP: Dr. Art Healy MD Status:REG [facility] Discharge Instructions Follow Up Care Test Results: [...] CC: Dr. Art Healy MD ~ Signed [facility] Work Phone: 1(819) 235-131808-03-2023 Procedure [facility] 05-07-2023 Miscellaneous Notes* Telephone Encounter - Brown Kasey Gil LPN - 05/07/2023 8:35 AM EDT Pharmacy [facility] message requesting the following refill. Requested Prescriptions Pending Prescriptions Disp Refills albuterol HFA (PROVENTIL HFA, VENTOLIN HFA) 90 mcg/actuation inhaler [Pharmacy Med Name: ALBUTEROL HFA (PROAIR) INHALER] 25.5 g 1 Sig: Inhale 2 Puffs as instructed every 4 hours as needed for wheezing/shortness of breath. Patient last appointment: 04/29/2023 Next appointment 07/29/2023 Patient Phone numbers: [phone] (home) Request is for script(s) to be escript to [facility] pharmacy. Kasey Dasilva LPN [facility] Miscellaneous Notes* Telephone Encounter - Malena Willingham LPN - 05/04/2023 10:32 AM EDT Signed and dated surgical clearance form along with office note successfully faxed today to [employer] at fax # [phone]. Fax confirmation received. All documentation noted above to be scanned into patient's chart. Malena Willingham LPN May 04, 2023 10:35 AM [facility] in [facility] encounter[facility] Miscellaneous Notes* Telephone Encounter - Malena Willingham LPN - 04/30/2023 5:48 PM EDT Unsuccessful fax attempt x 1 on Thu04/29/2023 Unsuccessful fax attempt x 2 today, Th04/30/2023 Will attempt to fax signed surgical clearance again, and will follow up with [employer] regarding a possible alternate fax number. Malena Willingham LPN April 30, 2023 5:52 PM documented in [facility] encounter[facility] History of Present illness Narrative* Art Healy MD - 01/27/2023 10:12 AM EDT This note was created using [employer]. Subjective Zoë Avila is a 57 year [...] 26, 2023 4:18 PM [facility] Miscellaneous Notes* Telephone Encounter - Kasey Dasilva LPN - 10/27/2022 4:55 PM EST [facility] requesting the following refill. Requested Prescriptions Pending Prescriptions Disp Refills omeprazole (PRILOSEC) 40 mg capsule [Pharmacy Med Name: OMEPRAZOLE DR 40 MG CAPSULE] 90 capsule 3 Sig: TAKE 1 CAPSULE BY MOUTH EVERY DAY DIRECTED Patient last appointment: 02/04/2022 Patient Phone numbers: [phone] (home) Request is for script(s) to be escript to [facility] pharmacy. Kasey Dasilva LPN documented in this encounter[facility] Miscellaneous Notes* Telephone Encounter - Jeannine Hernández LPN - 05/23/2022 7:57 AM EDT Requested Prescriptions Pending Prescriptions Disp Refills SYMBICORT 160-4.5 mcg/actuation inhaler [Pharmacy Med Name: SYMBICORT 160-4.5 MCG INHALER] 30.6 Each 3 Sig: INHALE 2 PUFFS INTO THE LUNGS TWICE A DAY Jeannine Hernández LPN May 23, 2022 7:57 AM [facility] noteNo assessment information availableW[facility] Work Phone: Evaluation note* Diagnosis Unspecified asthma, uncomplicated documented in this encounter [facility]* Diagnosis Hypertension, benign- Primary Essential hypertension, benign Unspecified asthma, uncomplicated Pure hypercholesterolemia, unspecified Gastroesophageal reflux disease without esophagitis Esophageal reflux Psoriatic arthropathy (HCC) Psoriatic arthropathy [facility] Diagnosis Hypertension, benign- Primary Essential hypertension, benign Pure hypercholesterolemia, unspecified Gastroesophageal reflux disease without esophagitis Esophageal reflux Cellulitis of lower extremity, unspecified laterality Lymphedema Other lymphedema documented in this encounter [facility] note* Diagnosis Onset Date Resolution Status Acute sinusitis acute Laryngitis acute Hypertension [facility] Work Phone: Evaluation note* Diagnosis Hypertension, essential- Primary Unspecified essential hypertension Psoriatic arthropathy (HCC) Psoriatic arthropathy Moderate persistent asthma without complication Unspecified asthma Impacted cerumen of right ear Impacted cerumen Pure hypercholesterolemia Screening PSA (prostate specific antigen) Special screening for malignant neoplasm of prostate documented in this encounter [facility] Discharge instructions Additional Instructions Follow preprinted instructions from your surgeons office. Implant Used?: Yes [facility] Work Phone: Reason for referral (narrative)No reason for referral [facility] Work Phone: Advance Directives No Advanced Directives Records Found Advance Directive Response Recorded Date/ Time Advance Directives No September 8:42pm Living Will No September 21, 016 8:42pm Power of Invoicing Machine Operator No September 21, 2016 8:42pm Advance Directive Response Recorded Date/ Time Advance Directives No September 8:42pm Living Will No April 15, 2023 3:23pm Power of Invoicing Machine Operator No April 15 3 3:23pm Advance Directive Response Recorded Date/ Time Advance Directives No September 7:42pm Living Will No April 15, 2023 2:23pm Power of Invoicing Machine Operator No April 15 3 2:23pm Advance Directive Response Recorded Date/ Time [...] COPY PCP April 03, 2025 10:0 9am Chief Complaint Admit Date PAIN- COPY PCP April 03, 2025 10:0 9am PAIN- COPY PCP May 30, 2025 7: 19am Family History No Family History Records Found Relationship Condition Age at Onset Recorded Date/T danis Not Specified Cardiac disease Unknown Malignant neoplasm Unknown Hypertension Unknown Reason for Referral Specialty Diagnoses / Procedures Referred By Contac t Referred To Contact Ent - Otolaryngology Diagnoses Impacted cerumen of right ear Procedures CONSULT TO ENT OFFICE/OUTPATIENT [facility] 60 MINUTES Art Healy MD [address] [place] [address] Referral ID Status Reason Start Date Expiration Date Visits Requested Visits Authorized [id number] Authorized PCP Requested Referral 05/16/2024 05/16/2025 1 [...] or prosecute any alcohol or drug abuse patient.[facility] the event this information is protected by the Federal Confidentiality of Alcohol and Drug Abuse Patient Records regulations: The Federal rules restrict any use of the information to criminally investigate or prosecute any alcohol or drug abuse patient.[facility] the event this information is protected by the Federal Confidentiality of Alcohol and Drug Abuse Patient Records regulations: The Federal rules restrict any use of the information to criminally investigate or prosecute any alcohol or drug abuse patient.[facility] the event this information is protected by the Federal Confidentiality of Alcohol and Drug Abuse Patient Records regulations: The Federal rules restrict any use of the information to criminally investigate or prosecute any alcohol or drug abuse patient.[facility] Center[facility] the event this information is protected by the Federal Confidentiality of Alcohol and Drug Abuse Patient Records regulations: The Federal rules restrict any use of the information to criminally investigate or prosecute any alcohol or drug abuse patient.[facility] CenterIn the event this information is protected by the Federal Confidentiality of Alcohol and Drug Abuse Patient Records regulations: The Federal rules restrict any use of the information to criminally investigate or prosecute any alcohol or drug abuse patient.[facility] Center[facility] the event this information is protected by the Federal Confidentiality of Alcohol and Drug Abuse Patient Records regulations: The Federal rules restrict any use of the information to criminally investigate or prosecute any alcohol or drug abuse patient.[facility] CenterIn the event this information is protected by the Federal Confidentiality of Alcohol and Drug Abuse Patient Records regulations: The Federal rules restrict any use of the information to criminally investigate or prosecute any alcohol or drug abuse patient.[facility] CenterIn the event this information is protected by the Federal Confidentiality of Alcohol and Drug Abuse Patient Records regulations: The Federal rules restrict any use of the information to criminally investigate or prosecute any alcohol or drug abuse patient.[facility] CenterIn the event this information is protected by the Federal Confidentiality of Alcohol and Drug Abuse Patient Records regulations: The Federal rules restrict any use of the information to criminally investigate or prosecute any alcohol or drug abuse patient.[facility] CenterIn the event this information is protected by the Federal Confidentiality of Alcohol and Drug Abuse Patient Records regulations: The Federal rules restrict any use of the information to criminally investigate or prosecute any alcohol or drug abuse patient.[facility] CenterIn the event this information is protected by the Federal Confidentiality of Alcohol and Drug Abuse Patient Records regulations: The Federal rules restrict any use of the information to criminally investigate or prosecute any alcohol or drug abuse patient.[facility] CenterIn the event this information is protected by the Federal Confidentiality of Alcohol and Drug Abuse Patient Records regulations: The Federal rules restrict any use of the information to criminally investigate or prosecute any alcohol or drug abuse patient.[facility] CenterIn the event this information is protected by the Federal Confidentiality of Alcohol and Drug Abuse Patient Records regulations: The Federal rules restrict any use of the information to criminally investigate or prosecute any alcohol or drug abuse patient.[facility] CenterIn the event this information is protected by the Federal Confidentiality of Alcohol and Drug Abuse Patient Records regulations: The Federal rules restrict any use of the information to criminally investigate or prosecute any alcohol or drug abuse patient.[facility] CenterIn the event this information is protected by the Federal Confidentiality of Alcohol and Drug Abuse Patient Records regulations: The Federal rules restrict any use of the information to criminally investigate or prosecute any alcohol or drug abuse patient.[facility] Reason for Visit (unrecogniz ed section and content) Reason Comments Refill Request Reason Comments 6 Month Exam Reason Comments Other Surgical Clearance - Fan Ortho Reason Comments Surgical Clearance Reason Comments Patient Question cellulitis Reason Comments Follow Up Reason Comments Follow Up Reason Comments ENT referral faxed to Bud Pruitt M.D ( [facility]) Reason Comments Pt notified by of ENT referral info Care Teams (unrecognized sec tion and content) Powder Line Repairer Relationship Specialty Start Date End Date Pcp, No PCP - General 04/19/22 11/04/22 Powder Line Repairer Relationship Specialty Start Date End Date Pcp, No PCP - General 04/19/22 11/04/22 Powder Line Repairer Relationship Specialty Start Date End Date Pcp, No PCP - General 04/19/22 11/04/22 Team Status: Active Member Role Status Dates Art DOMINGUEZ Family Provider Active Art DOMINGUEZ Primary Care Provider Active Team Status: Inactive Member Role Status Dates Art DOMINGUEZ Primary Care Provider Active Dr. Delmi Westfall MD Attending Provider, Referring Provider Active Powder Line Repairer Relationship Specialty Start Date End Date Art Healy MD [address], [place] [id number] PCP - General Family Medicine 01/13/23 Team Status: Active Member Role Status Dates Art DOMINGUEZ Family Provider Active Dr. Art Healy MD Primary Care Provider Active Team Status: Inactive Member Role Status Dates Dr. Art Healy MD Primary Care Provider Active Dr. Delmi Westfall MD Attending Provider, Referring Provider Active Team Status: Inactive Member Role Status Dates Dr. Art eHaly MD Primary Care Provider Active Dr. Stephon Mcgarry DO Attending Provider, Referrin g Provider Active Powder Line Repairer Relationship Specialty Start Date End Date Art Healy MD [address], [place] [id number] PCP - General Family Medicine 01/13/23 Powder Line Repairer Relationship Specialty Start Date End Date Art Healy MD [address], [place] [address] PCP - General Family Medicine 01/13/23 Powder Line Repairer Relationship Specialty Start Date End Date Art Healy MD [address] [place], [place] [id number] PCP - General Family Medicine 01/13/23 Team Status: Active Member Role Status Dates Dr. Art Healy MD Primary Care Provider Active Dr. Candy Burnett MD Attending Provider Active Dr. Stephon Mcgarry DO Referring Provider Active Team Status: Inactive Member Role Status Dates Dr. Art Healy MD Primary Care Provider Active Dr. Delmi Westfall MD Attending Provider Active Powder Line Repairer Relationship Specialty Start Date End Date Art Healy MD [address] [place] [address] PCP - General Family Medicine 01/13/23 Powder Line Repairer Relationship Specialty Start Date End Date Art Healy MD [address] [place] [address] PCP - General Family Medicine 01/13/23 Powder Line Repairer Relationship Specialty Start Date End Date Art Healy MD [address] [place] [address] PCP - General Family Medicine 01/13/23 Team Status: Inactive Member Role Status Dates Dr. Art Healy MD Primary Care Provider, Referrin g Provider Active Salma Hector GRAIN UNLOADER MACHINE-C Attending Provider Active Powder Line Repairer Relationship Specialty Start Date End Date Art Healy MD [address] [place] [address] PCP - General Family Medicine 01/13/23 Powder Line Repairer Relationship Specialty Start Date End Date Art Healy MD [address] [place] [address] PCP - General Family Medicine 01/13/23 Powder Line Repairer Relationship Specialty Start Date End Date Art Healy MD [address] [place] [address] PCP - General Family Medicine 01/13/23 Team [...] Status: Active Member Role/Relationship Status Dates Art DOMINGUEZ Family Provider Active [...] April 03, 2025 End: April 03, 2025 Team Status: Inactive Member Role/Relationship Status Dates Dr. Art Healy MD Primary Care Provider Active Start: April 03, 2025 End: April 03, 2025 Dr. Delmi Westfall MD Attending Provider Active Start: April 03, 2025 End: April 03, 2025 Dr. Delmi Westfall MD Referring Provider Active Start: April 03, 2025 End: April 03, 2025 Team Status: Inactive Member Role/Relationship Status Dates Dr. Art Healy MD Primary Care Provider Active Start: May 30, 2025 End: May 30, 2025 Dr. Delmi Westfall MD Attending Provider Active Start: May 30, 2025 End: May 30, 2025 Dr. Delmi Westfall MD Referring Provider Active Start: May 30, 2025 End: May 30, 2025 (unrecognized sect ion and content) No Status Records FoundNo Status Records Found INFORMATION SOURCE (unrecogn ized section and content) DATE CREATED AUTHOR 06/11/2025 [facility] DATE CREATED AUTHOR AUTHOR'S ORGANIZ ATROQUE 08/01/2025 [facility] FOR RECORDS PERTAINING TO PATIENTS WHO ARE [...] BE BASED ON THE PRIMARY CLINICAL RECORDS. [employer] provides no warranty or guarantee of the accuracy or completeness of information in this document.
[2025-09-15 10:17] LABS: Hematocrit 44.4 % (40-54); Hemoglobin 14.5 g/dL (13.0-16.5); Immature Granulocytes Count 0.020 X10^3/uL (0.0-0.0); Mean Corp Hgb Conc 32.7 g/dL (32-36); Mean Corpuscular Volume 87.6 fL (80-94); Mean Platelet Vol. 9.7 fl (6.2-12.0); NRBC Flagged by Analyzer 0 % (0-5); Platelet Count 256 K/mm3 (150-450); RBC Distribution Width CV 13.2 % (11.6-14.6); RBC Distribution Width SD 42.1 fl (35.1-43.9); Red Blood Count 5.07 M/mm3 (4.6-6.2); White Blood Count 7.8 K/mm3 (4.4-11.0)
[2025-09-15 10:51] LABS: AST(SGOT) 15 U/L (<=37); Alanine Aminotransfer ALT/SGPT 16 U/L (<=46); Albumin, Serum 4.3 g/dL (3.5-5.0); Alkaline Phosphatase 63 U/L (40-129); Anion Gap 12 (5-15); BUN 27 mg/dL (4-19); BUN/Creat Ratio 21.8 RATIO (10-20); Calcium,Total 9.6 mg/dL (7.6-11.0); Carbon Dioxide 22.8 mmol/L (21.0-32.0); Chloride 102 mmol/L (98-108); Globulin 2.9 g/dL (2.2-4.2); Glucose 98 mg/dL (70-99); Potassium 4.5 mmol/L (3.3-5.1)
== END | disposition home or self-care (01) ==
LOC: MTLAB 07:26
PROVIDERS: PCP Family Medicine; Referring Provider Internal Medicine Rheumatology; Visit Provider Internal Medicine Rheumatology
DX: L40.59 Other psoriatic arthropathy (principal); L40.8 Other psoriasis; Z79.899 Other long term (current) drug therapy
CPT/HCPCS: 36415; 80053; 85025